=== PATIENT | female | born 1975 | race Caucasian/White ===

== ENCOUNTER 2019-10-28 10:46 | Observation (INO) | payer MEDICAID, SELFPAY ==
[2019-09-13 15:23] VITALS: BMI 27.8
--- NOTE | 2019-10-21 10:24 | NURSING ---
PT CALLED IN AFTER PAT PHONE CALL TO REPORT CARDIOLOGY HAD OK'D HER STOPPING HER PLAVIX 5 DAYS PRIOR SO LAST DOSE WILL BE 10/23/2019.
--- NOTE | 2019-10-27 19:53 | HP.PCM_ITS ---
History and Physical Date of Admission: 10/28/19 HISTORY OF PRESENT ILLNESS 43 year old woman presents with recent flare up of hidradenitis in her left axilla over the last several months. She has been on intermittent antibiotics with Keflex and Cleocin. She complains of intermittent redness and swelling and pain. She denies fever. She denies trauma. She has had multiple debridements of hidradenitis in the past involving bilateral axillary areas, bilateral inguinal areas, bilateral vulval areas involving the labia, and the buttocks area. She had the VAC on the buttocks wound and had daily dressing changes for the other wounds. She also has concerns about a painful mass left posterior ear by the earlobe t hat has increased in size as well with induration and redness and pain. She denies drainage. She denies trauma. She presents at this time for further evaluation and treatment. PAST MEDICAL HISTORY Anemia Anxiety and depression Asthma Breast lump in female GERD (gastroesophageal reflux disease) Gastrointestinal problem Heart valve problem High cholesterol History of blood clots IBS (irritable bowel syndrome) Kidney stones Recurrent infections Thyroid disease Vascular disease Chronic bronchitis PAST SURGICAL HISTORY appendectomy breast lump/mass excision cholecystectomy drainage of abscess embolectomy hernia repair hysterectomy left heart catheterization right knee surgery tonsillectomy ALLERGIES acetaminophen [From Tylenol-Codeine #3] codeine [From Tylenol-Codeine #3] sulfamethoxazole [From Bactrim] trimethoprim [From Bactrim] IVP DYE MEDICATIONS aspirin atorvastatin clopidogrel escitalopram hydroxyzine metoprolol tartrate doxycycline hyclate FAMILY HISTORY Mother - Anxiety and depression, Arthritis, History of blood clots, History of blood transfusion, Heart disease, CVA (cerebral vascular accident), History of ulcer disease Grandmother - Asthma, Anxiety and depression, Heart disease, Kidney disease, CVA (cerebral vascular accident) Grandfather - Heart disease, Lung cancer SOCIAL HISTORY Smoking Status: Current every day smoker alcohol intake: never REVIEW OF SYSTEMS General - Denies fever and weight loss. Has fatigue. Eyes - Denies cataracts and glaucoma. ENT - Denies nasal congestion and sore throat. Has history of swollen glands in the neck. Endocrine - Denies excessive thirst and urination. Skin - Denies suspicious lesions and skin cancer. Has recent flare up of left axillary hidradenitis. Has painful soft tissue mass left posterior ear by earlobe. Musculoskeletal - Denies joint pain, joint stiffness, weakness of muscles and joints, back pain, and arthritis. Neuro - Denies headaches. Has lightheadedness. Cardiovascular - Has chest pain and fatigue and lightheadedness. Denies shortness of breath with exertion. Psych - Denies anxiety and depression. Respiratory - Has chronic cough and shortness of breath. Has sleep apnea and asthma. Gastrointestinal - Denies nausea, vomiting. Has diarrhea, and constipation. Hematologic - Denies abnormal bruising and bleeding. Genitourinary - Denies hematuria and urinary frequency. PHYSICAL EXAMINATION General - Alert and Oriented. HEENT - PERRL. EOMI. Throat is clear. On the left posterior ear by the earlobe is a soft tissue mass that measures 6 mm. Tender to palpation. Overlying skin is adherent. Some induration present. No fluctuance. No purulent drainage. Neck - Supple and nontender. No cervical adenopathy. Lungs - Clear to auscultation. Heart - Regular rate and rhythm. Abdomen - Soft and nondistended. Extremities - FROM. No axillary adenopathy. Radial pulses are palpable. In the left axillary area is an area of redness and swelling and tenderness to palpation in the anterior aspect of the axilla. No fluctuance. No purulent drainage. On the posterior aspect is a hidradenitis scar that is tender to palpation. Mild induration. Scar measures 2 cm. Distance between the two areas of hidradenitis is 6 cm. Neuro - CN II-XII grossly intact. Psych - Normal mood and affect. ASSESSMENT 1. Recurrent left axillary hidradenitis. 2. 6 mm painful soft tissue mass hidradenitis left posterior ear by the mukesh pickens. 3. Smoker. PLAN Recommend excision of her recurrent left axillary hidradenitis. Will send tissue to Pathology for analysis to rule out carcinoma and to Microbiology for culture. A positive culture will necessitate antibiotic therapy. Will leave the wound open and begin wound care with the VAC. After discharge will followup at the Wound Center. If there is a plateau in the healing process, can proceed in a delayed fashion with skin grafting. At the same time will excise the infected painful soft tissue mass left posterior ear by the earlobe and send it to Pathology for analysis to rule out carcinoma. Will also excise the overlying adherent skin. Reconstruction will be with a skin flap. If gross pus is seen at surgery, then the wound will be left open and wound care started with Silver dressing changes daily. A culture will also be obtained as well. Surgery will be done under general anesthesia with a surgical observation overnight stay in the hospital. Patient was informed of the risks and complications of the procedure including alternatives to surgery. These were discussed with the patient personally. Patient voices understanding and wishes to proceed. Some of the risks and complications were included in a form from the [employer]. Encouraged patient to stop smoking as it may have deleterious effects on wound healing. To minimize flare ups of her hidradenitis, wrote a script for Doxycycline that she will take when she has flare ups.
[2019-10-28] VITALS (11 sets, daily range): BP systolic 103–143; BP diastolic 67–75; PULSE 65–88; RESP 16–18; TEMP 36.1–36.8; O2SAT 94–98; BMI 28.8
[2019-10-28] MEDS: Lactated Ringers 1,000 ML 100 ML IV (07:52)
--- NOTE | 2019-10-28 08:45 | LES_PTH ---
PATIENT: TAYLOR PENA LOC: MS3 U#:[id number] AGE/SX: 44/F ROOM: [id number] RE10/28/[address]: Dr. Ronnell Fraga MD : 1975 BED: 1 DIS: 10/29/2019 SPEC #: [id number] RECD: 10/28/19 12:59 STATUS: DAYAN PAOLA #: [id number] KM: 10/28/19 08:[address]: Ronnell Fraga DEPT: SURGICAL PATHOLOGY RECD BY: Garret Joseph Tissues: A - Skin of external ear, NOS B - Axilla, NOS Procedures: Surgery Specimen Level III HEADER OPERATION: Surgical preparation axilla with excision hidradenitis PRE-OP DIAGNOSIS: Recurrent left axillary hidradenitis; 6 mm painful soft tissue mass hidradenitis left posterior ear by earlobe TISSUE SUBMITTED: A - Left ear lesion, B - Left axilla hidradenitis MICROSCOPIC DIAGNOSIS A. Left ear lesion, biopsy: Epidermal inclusion cyst. B. Skin and soft tissue of left axilla, excision: Consistent with hidradenitis. AM:gracie 10/31/19 MICROSCOPIC DESCRIPTION Slides are reviewed. GROSS DESCRIPTION A - Received in fixative is one container labeled with the patient's name and designated left ear lesion. The specimen consists of an ellipse of light saab excised skin with attached light saab soft tissue measuring 2 x 0.5 cm and a depth of excision measuring 0.3 cm. Sections reveal a chalky, yellow cystic lesion measuring 5 mm. The specimen is inked, serially sectioned and totally submitted in one cassette. B - Received in fixative is one container labeled with the patient's name and designated left axilla hidradenitis. The specimen consists of two irregular fragments of saab-yellow fibrofatty tissue ranging in size from 4.5 to 11 cm. The larger fragment contains grossly unremarkable skin measuring 9 x 1.8 cm. Serial sections do not reveal mass lesions. [place]man sections are submitted in one cassette. / AM:gracie 10/28/19 TC:2 CPT: 32490 x2
[2019-10-28] MEDS: Mupirocin Ointment 22gm Tube 1 APPLIC (10:35)
--- NOTE | 2019-10-28 10:40 | PCM.OPRPT ---
Report of Operation Date of Procedure: 10/28/19 Pre-Operative Diagnosis: 1. Recurrent left axillary hidradenitis. 2. 6 mm painful soft tissue mass hidradenitis left posterior ear by the earlobe. 3. Smoker. Post-Operative Diagnosis: Same. Surgery/Procedure Performed:: 1. Surgical preparation left axilla with excision recurrent hidradenitis (55 cm2). 2. Excision 6 mm painful soft tissue mass hidradenitis left posterior ear by the earlobe with rhomboid transposition skin flap reconstruction (4.5 cm2). Description of Surgical Findings:: 43 year old woman presents with recent flare up of hidradenitis in her left axilla over the last several months. She has been on intermittent antibiotics with Keflex and Cleocin. She complains of intermittent redness and swelling and pain. She denies fever. She denies trauma. She has had multiple debridements of hidradenitis in the past involving bilateral axillary areas, bilateral inguinal areas, bilateral vulval areas involving the labia, and the buttocks area. She had the VAC on the buttocks wound and had daily dressing changes for the other wounds. She also has concerns about a painful mass left posterior ear by the earlobe that has increased in size as well with induration and redness and pain. She denies drainage. She denies trauma. Patient was informed of the risks and complications of the procedure including alternatives to surgery. These were discussed with the patient personally. Patient voices understanding and wishes to proceed. Some of the risks and complications were included in a form from the [employer]. Encouraged patient to stop smoking as it may have deleterious effects on wound healing. Size of defect left axilla - 11 x 5 x 2.5 cm. 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 Recurrent hidradenitis left axilla to Pathology and Microbiology. 2. Painful soft tissue mass hidradenitis left posterior ear by the earlobe to Pathology. Drains: None. Description of Procedure: Patient was taken to OR in supine position and was placed under general anesthesia. The left axilla and left ear areas were prepped and draped in the usual fashion. SCD's were placed for DVT prophylaxis. Perioperative antibiotics were given intravenously. Using xylocaine with epinephrine, the left ear lesion and left axilla were infiltrated. After waiting 5 minutes for the anesthetic to take effect, I excised the hidradenitis cyst left posterior ear near ear lobe and extending more superiorly. The excision extended into the subcutaneous tissue. No pus was seen. The lesion was sent to Pathology for analysis to rule out carcinoma. I designed a rhomboid flap adjacent to the defect. Incisions were made and the rhomboid flap was elevated on a subcutaneous pedicle and easily transposed into the ear defect with minimal tension and minimal distortion. Hemostasis was obtained with electrocautery. Once the flap was transposed into the defect, the wounds were closed in a layered fashion with 5-0 Monocryl interrupted sutures for the deep dermis and subcutaneous tissue. The skin was approximated with 5-0 Prolene simple interrupted sutures. Antibiotic ointment was applied followed by a small gauze dressing. I then went to the left axilla. I excised an ellipse of skin and subcutaneous tissue down to the underlying muscle. There was fat necrosis present and indurated tissue indicative of chronic scarring from infection as well as previous scarring from recurrent hidradenitis. No pus was seen. The wound was irrigated with saline. Hemostasis was obtained with electrocautery. Tissue was sent to Microbiology for culture as well as to Pathology for analysis to rule out carcinoma. A positive culture will necessitate antibiotic therapy. The size of the defect left axilla after excision of her recurrent hidradenitis, was 11 x 5 x 2.5 cm or 55 cm2. The wound was dressed with Mepitel nonadherent dressing followed by Kerlix gauze and Betadine followed by dry Kerlix gauze and followed by ABD pads and compression skinny wrap. Patient tolerated the procedure well and was sent to PACU in satisfactory condition. Patient will be sent upstairs for continued postop care. The VAC will be applied tomorrow. She will followup at the wound center after discharge. Grafts/Implants Used: None. - Complications None. - Admit VTE Documentation VTE Present on Admission: No VTE Mechan Device Prophylaxis: SCD's VTE Pharm Prophylaxis ordered?: No Code Visit Surgery Charges CPT - 82168 ICD-10 - R22.0, L73.2, F17.200 30753 R22.0, L73.2, F17.200 78786 L73.2, F17.200
[2019-10-28] MEDS: oxyCODONE 5 MG Tablet 10 MG PO ×3 (12:31→21:17)
--- NOTE | 2019-10-28 14:40 | CASEMGMT ---
JULIEN GASPAR updated by wound nurse that patient will need wound vac at discharge. JULIEN GASPAR in to discuss HHC with patient. JULIEN GASPAR provided list of HHC agencies. Patient would like [facility]. JULIEN GASPAR sent referral and they will be able to accept the patient. JULIEN GASPAR updated the patient. Discharge planned for Thursday with start of care for Thursday10/31/2019.
[2019-10-28] MEDS: Lactated Ringers 1,000 ML 60 ML IV (15:16)
[2019-10-28] MEDS: HYDROmorphone 1 MG/ML Syringe IV ×2 (19:59→23:49)
[2019-10-28] MEDS: Escitalopram Oxalate 20 MG Tablet PO (21:16)
[2019-10-28] MEDS: Docusate Sodium 100 MG Capsule PO (21:16)
[2019-10-28] MEDS: hydrOXYzine PAM 25 MG Capsule 50 MG PO (21:16)
[2019-10-28] MEDS: Varenicline 1 MG Tablet PO (21:16)
[2019-10-28] MEDS: Metoprolol Tartrate 25 MG Tablet PO (21:16)
[2019-10-28] MEDS: 0.9% Saline Lock 10 ML Syringe IV (23:49)
[2019-10-29] MEDS: oxyCODONE 5 MG Tablet 10 MG PO ×4 (01:35→15:55)
[2019-10-29 03:09] VITALS: BP 125/69; PULSE 58; RESP 18; TEMP 36.5; O2SAT 99
[2019-10-29] MEDS: Lactated Ringers 1,000 ML 60 ML IV (03:40)
[2019-10-29 07:35] LABS: Hemoglobin 12.1 g/dL (12.0-15.0); Mean Corp Hgb Conc 32.7 g/dL (32-36); Mean Corpuscular Volume 94.9 fL (81-99); Mean Platelet Vol. 12.3 fl (6.2-12.0); Platelet Count 164 K/mm3 (150-450); RBC Distribution Width CV 13.9 % (11.6-14.6); RBC Distribution Width SD 48.2 fl (35.1-43.9); White Blood Count 14.4 K/mm3 (4.4-11.0)
[2019-10-29 08:03] LABS: Anion Gap 3 (5-15); BUN 15 mg/dL (7-18); BUN/Creat Ratio 21.3 RATIO (10-20); Calcium,Total 9.1 mg/dL (8.5-10.1); Chloride 110 mmol/L (98-107); EST Glomerular Filtration Rate 97 mL/min (>60); Est Glom Filt Rate - Afr Amer 117 mL/min (>60); Estimated Creatinine Clearance 98.01 ml/min; Glucose 122 mg/dL (74-106); Potassium 4.2 mmol/L (3.5-5.1); Prealbumin 15.3 mg/dL (20.0-40.0); Sodium Level 139 mmol/L (136-145)
[2019-10-29] MEDS: 0.9% Saline Lock 10 ML Syringe IV ×2 (08:08→15:54)
[2019-10-29] MEDS: HYDROmorphone 1 MG/ML Syringe IV ×2 (08:08→15:54)
[2019-10-29] MEDS: Docusate Sodium 100 MG Capsule PO (08:15)
[2019-10-29] MEDS: Mupirocin Ointment 22gm Tube 1 APPLIC TOPICAL (08:15)
[2019-10-29] MEDS: Clopidogrel Bisulfate 75 MG Tablet PO (08:16)
[2019-10-29] MEDS: Pantoprazole Sodium 20 MG Tablet 40 MG PO (08:16)
[2019-10-29] MEDS: Varenicline 1 MG Tablet PO (08:17)
[2019-10-29] MEDS: Escitalopram Oxalate 20 MG Tablet PO (08:17)
[2019-10-29 08:18] VITALS: PULSE 46
[2019-10-29 08:22] VITALS: BP 103/77; PULSE 46; RESP 18; TEMP 36.8; O2SAT 97
[2019-10-29 08:32] VITALS: O2SAT 98
--- NOTE | 2019-10-29 08:32 | CPS ---
Patient currently on room air, patient reports using nasal cannula overnight.
[2019-10-29 14:36] VITALS: BP 137/69; PULSE 48; RESP 18; TEMP 37.1; O2SAT 99
--- NOTE | 2019-10-29 14:39 | PCM.PN.SRG ---
Subjective: Postop #1 Patient is resting comfortably - Physical Exam Vitals/I&O's: Vital Signs Temp Pulse Resp BP Pulse Ox 98.7 F 48 L 18 137/69 H 99 10/29/19 14:36 10/29/19 14:36 10/29/19 14:36 10/29/19 14:36 10/29/19 14:36 Oxygen Flow Rate (L/min) 2 Oxygen Delivery Method Room Air Weight: 179 lb 0.246 oz Body Mass Index (BMI) 28.8 Intake and Output for Last 24 Hours 10/27/19 10/28/19 10/29/19 23:59 23:59 23:59 Intake Total 1574 / 2974 4347 / 4347 Balance 1574 / 2974 4347 / 4347 General: Alert, Oriented x3 HEENT: PERRLA, EOMI Oral: Moist Mucosa Neck: Supple Abdomen: Soft, Non-Distended Skin: Ulcer/ Wound - left axillary wound is stable. No active bleeding seen. VAC applied today., Incision - left posterior ear incision is dry and intact. Flap is healing satisfactory. Neurological: Cranial nerves II-XII grossly intact Psych/Mental Status: Normal Affect, Appropriate Microbiology Past 72 Hours 10/28/19 11:00 Tissue - Other Gram Stain - Final 10/28/19 11:00 Tissue - Other Wound Culture - Preliminary No growth-Final to follow Laboratory Results 10/29/19 06:44: WBC 14.4 H, RBC 3.90 L, Hgb 12.1, Hct 37.0, MCV 94.9, MCH 31.0, MCHC 32.7, RDW Std Deviation 48.2 H, RDW Coeff of Ping 13.9, Plt Count 164, MPV 12.3 H 10/29/19 06:44: Sodium 139, Potassium 4.2, Chloride 110 H, Carbon Dioxide 26.0, Anion Gap 3 L, BUN 15, Creatinine 0.70, Estim Creat Clear Calc 98.01, Est GFR (MDRD) Af Amer 117, Est GFR (MDRD) Non-Af 97, BUN/Creatinine Ratio 21.3 H, Glucose 122 H, Calcium 9.1, Prealbumin 15.3 L Current Medications Budesonide (Pulmicort Aerosol) 0.5 mg INHALATION Q12H.RT JAVED Last Admin: 01/11/20 08:32 Dose: Not Given Documented by: Clopidogrel Bisulfate (Plavix) 75 mg PO DAILY [facility] Last Admin: 10/29/19 08:16 Dose: 75 mg Documented by: Diazepam (Valium) 5 mg PO 4X/DAY PRN PRN PRN Reason: SPASMS Docusate Sodium (Colace) 100 mg PO BID [facility] Last Admin: 10/29/19 08:15 Dose: 100 mg Documented by: Escitalopram Oxalate (Lexapro) 20 mg PO DAILY [facility] Last Admin: 10/29/19 08:17 Dose: 20 mg Documented by: Hydromorphone HCl (Dilaudid Inj) 1 mg IV Q3H PRN PRN PRN Reason: Pain Score 6-1010 Last Admin: 10/29/19 08:08 Dose: 1 mg Documented by: Hydroxyzine Pamoate (Vistaril Pamoate Capsule) 50 mg PO QHS [facility] Last Admin: 10/28/19 21:16 Dose: 50 mg Documented by: Clindamycin Phosphate 600 mg/ (Dextrose) 54 mls @ 100 mls/hr IV Q8 [facility] Last Admin: 10/29/19 14:28 Dose: 100 mls/hr Documented by: Lactated Ringer's () 1,000 mls @ 60 mls/hr IV .[id number] [facility] Last Infusion: 10/29/19 06:35 Dose: 60 mls/hr Documented by: Sodium Chloride () 250 mls @ 15 mls/hr IV .[id number] PRN PRN Reason: Saline Flush Sodium Chloride () 250 mls @ 15 mls/hr IV .[id number] PRN PRN Reason: Additional IVPB Infusion Metoprolol Tartrate (Lopressor (Beta Samina)) 25 mg PO BID [facility] Last Admin: 10/29/19 08:18 Dose: Not Given Documented by: Mupirocin (Bactroban) 1 applic TOPICAL DAILY [facility]; Protocol Last Admin: 10/29/19 08:15 Dose: 1 applicatio Documented by: Nutritional Formula (Franco - Brown Flavor) [facility] Last Admin: 10/29/19 08:10 Dose: 1 packet Documented by: Ondansetron HCl (Zofran) 8 mg PO Q8H PRN PRN PRN Reason: NAUSEA Oxycodone HCl (Oxyir) 10 mg PO Q4H PRN PRN PRN Reason: Pain Score 6-10/10 Last Admin: 10/29/19 11:00 Dose: 10 mg Documented by: Pantoprazole Sodium (Protonix) 40 mg PO DAILY [facility] Last Admin: 10/29/19 08:16 Dose: 40 mg Documented by: Promethazine HCl (Phenergan Tablet) 25 mg PO Q6H PRN PRN PRN Reason: NAUSEA Sodium Chloride () 10 - 40 ml IV UD PRN PRN Reason: SALINE FLUSH Last Admin: 10/29/19 08:08 Dose: 10 ml Documented by: Varenicline (Chantix) 1 mg PO BID [facility] Last Admin: 10/29/19 08:17 Dose: 1 mg Documented by: Medical Necessity - Tobacco Use Smoking Status: Current every day smoker Tobacco Use: Cigarettes Assessment/Plan 1. Recurrent left axillary hidradenitis. 2. 6 mm painful soft tissue mass hidradenitis left posterior ear by the earlobe. 3. Smoker. 4. s/p surgical preparation left axilla with excision recurrent hidradenitis (55 cm2) and excision 6 mm painful soft tissue mass hidradenitis left posterior ear by the earlobe with rhomboid transposition skin flap reconstruction (4.5 cm2). Left axillary wound is stable. No active bleeding seen. VAC applied today. It has been approved. Left posterior ear incision is dry and intact. Flap is healing satisfactory.' Operative culture is negative thus far. Will send home on Doxycycline. Prealbumin was 15.3. Encourage nutritional supplementation with protein to help the healing process. Discharge home today. Followup Wound Center 11/07/19. Wrote script for Doxycycline for a month with a refill. Can use them also for future flare ups. Wrote scripts for Percocet for pain (40 tabs) and for Valium for spasm (30 tabs). Wrote scripts for Phenergan for nausea (30 tabs) and a refill and for Colace for constipation (60 tabs). Encouraged patient to stop smoking as it may have deleterious effects on wound healing.
--- NOTE | 2019-10-29 14:47 | DCINST_ITS ---
You will use the following diet at home:: No restrictions, Other - encourage nutritional supplementation with protein to help the healing process. Discharge Activity: May not drive while taking narcotic pain medications., May Shower - on the days the vac is changed., - - keep head elevated. elevate left arm. no heavy lifting. May shower in (days): 2 - may shower on the days the vac is changed. May resume sexual activity in: No Restrictions Weight Bearing Status: Weight bearing as tolerated Lifting Restrictions: 20 lbs. Keep extremity elevated above heart level: Left Arm, - - elevate head. Call your doctor if your incision/area has: Continuous Slow Oozing, Sudden Increased Bleeding, Increased Pain/ Swelling, Increased Redness, Foul Smelling Discharge, Swelling at the incision site Call your doctor if you observe: Fever of 101 or Higher, Coldness, Increased Pain, Shortness of breath, Chest pain, Calf discomfort, Uncontrolled pain Suture Line Care: - - apply antibiotic ointment to left ear incision daily. Change Dressing in (Days):: 2 - vac change three times per week at 150 mmHg continuous suction. Cleanse incision/area with: Soap & Water - may wash the wound with soap and water at the time of the vac dressing change., - - may shower on the days the vac is changed. Additional Dressing/Incision Instructions:: Home Health to assist with vac dressing changes three times per week at 150 mmHg continuous suction. Please wash the wound with soap and water on the days the vac is changed. Allergies/Adverse Reactions: Allergies acetaminophen [From Tylenol-Codeine #3] Allergy (Mild, Verified 10/28/19 07:41) ALLERGY codeine [From Tylenol-Codeine #3] Allergy (Mild, Verified 10/28/19 07:41) ALLERGY sulfamethoxazole [From Bactrim] Allergy (Mild, Verified 10/28/19 07:41) ALLERGY trimethoprim [From Bactrim] Allergy (Mild, Verified 10/28/19 07:41) ALLERGY adhesive tape Allergy (Verified 10/28/19 07:41) Rash IVP DYE Allergy (Severe, Uncoded 10/28/19 07:41) ALLERGY Medications to take at Discharge clopidogrel 75 mg tablet 75 mg PO DAILY 06/21/19 escitalopram oxalate 20 mg tablet 20 mg PO DAILY 06/21/19 hydroxyzine HCl 50 mg tablet 50 mg PO QHS 06/21/19 metoprolol tartrate 25 mg tablet 25 mg PO BID 06/21/19 Albuterol Inhaler [Ventolin Hfa] 1 puff INHALATION Q6H PRN PRN 10/21/19 Fluticasone 110 Mcg [Flovent 110 Mcg] 2 puff INHALATION BID 10/21/19 Omeprazole 40 mg PO DAILY 10/21/19 Varenicline [Chantix] 1 mg PO BID 10/21/19 Budesonide Aerosol [Pulmicort Respules] 0.5 mg INHALATION Q12H.RT ampul.neb. 10/29/19 Diazepam [Valium] 5 mg PO 4X/DAY PRN PRN #30 tablet 10/29/19 Docusate Sodium [Colace] 100 mg PO BID #60 cap 10/29/19 Doxycycline Hyclate 100 mg PO BID #60 cap 10/29/19 Mupirocin [Bactroban] 1 applic TOPICAL DAILY tube 10/29/19 Oxycodone HCl/Acetaminophen [Percocet 5/325] 1 tablet PO Q4H PRN PRN 7 Days #40 tablet 10/29/19 proMETHazine tablet [Phenergan tablet] 25 mg PO 4X/DAY PRN PRN #30 tab 10/29/19 The following prescriptions were given: Docusate Sodium [Colace] 100 mg PO BID #60 cap Transmission Status: Pending to [facility] Doxycycline Hyclate 100 mg PO BID #60 cap Transmission Status: Pending to [facility] Oxycodone HCl/Acetaminophen [Percocet 5/325] 1 tablet PO Q4H PRN PRN 7 Days #40 tablet PRN Reason: Pain Score 4-5/10 Transmission Status: Received by [facility] proMETHazine tablet [Phenergan tablet] 25 mg PO 4X/DAY PRN PRN #30 tab PRN Reason: Nausea Transmission Status: Pending to [facility] Diazepam [Valium] 5 mg PO 4X/DAY PRN PRN #30 tablet PRN Reason: Spasms Transmission Status: Received by [facility] Primary Care Physician: BROOKS IBARRA [Other] Test Results: Test results from this visit will be discussed in further detail at your follow- up appointment, if applicable. Please Follow Up With: Ronnell Fraga MD When: thursday11/07/19 at [facility]. call [phone] for appt. Proposed Discharge Date: 10/29/19
[2019-10-29 16:50] VITALS: BP 117/71; PULSE 46; RESP 18; TEMP 36.9; O2SAT 97
--- NOTE | 2019-10-29 17:38 | NURSING ---
Wound Vac applied to LT Axillary at this time, going at 150mmhg.
== END 2019-10-29 17:35 | disposition home health service (06) ==
LOC: SDC 11:55 → MS3 11:55
PROVIDERS: Admitting Provider Surgery; Referring Provider Surgery; Visit Provider Surgery
PROC: (CPT 11451; principal; 2019-10-28 08:30)
PROC: (CPT 11451; 2019-10-28 08:30)
DX: L73.2 Hidradenitis suppurativa (principal); J45.909 Unspecified asthma, uncomplicated; E78.5 Hyperlipidemia, unspecified; K21.9 Gastro-esophageal reflux disease without esophagitis; K58.9 Irritable bowel syndrome, unspecified; F17.210 Nicotine dependence, cigarettes, uncomplicated; Z86.718 Personal history of other venous thrombosis and embolism; Z79.899 Other long term (current) drug therapy; Z79.82 Long term (current) use of aspirin; Z79.02 Long term (current) use of antithrombotics/antiplatelets
CPT/HCPCS: 11451; 14040; 69110; 36415; 80048; 84134; 85027; 87070; 87075; 87102; 87176; 87205; 87206; 88304; 88305; 96361; 96365; 96366; 96375; 96376; 99218; 99251; 99406; J7120; 90686; A4216; G0378; G0379; G0463; J2405

== ENCOUNTER 2019-11-07 14:21 | Emergency (ER) | payer MEDICAID, SELFPAY ==
[2019-10-28 11:53] VITALS: BMI 28.8
[2019-11-07 14:22] VITALS: BP 140/91; PULSE 89; RESP 18; TEMP 36.3; BMI 29.9
--- NOTE | 2019-11-07 15:41 | RAD_ITS ---
STUDY: X-RAY - LEFT SHOULDER REASON FOR EXAM: Female, 44 years old. C/O LEFT ARM WOUND REDNESS AND FOUL SMELL NOTED WITH WOUND VAC, RECENT GLAND REMOVED FROM AXILLA TECHNIQUE: 4 view(s) of the shoulder. COMPARISON: None. FINDINGS: Normal glenohumeral articulation. Normal acromioclavicular joint. Normal acromion. Normal humeral head and visualized proximal humerus. The soft tissue structures are unremarkable. Normal visualized pulmonary apex. RAD/Shoulder min 2 Views IMPRESSION: Normal x-ray examination of the shoulder. Electronically Signed: Patrick Hall MD at 16:22 EST Tel , Service support ,
[2019-11-07] MEDS: Ondansetron 4 MG/2 ML Vial IV (16:02)
[2019-11-07] MEDS: Morphine 4 MG/ML Syringe IV (16:02)
[2019-11-07 16:29] LABS: Absolute Neutrophil Count 6.3 X10^3/uL (2.0-7.7); Basophil# 0.04 X10^3/uL; Basophil% 0.4 % (0-1); Eosinophil# 0.27 X10^3/uL; Eosinophils% 2.6 % (0-5); Hematocrit 41.3 % (37-47); Hemoglobin 13.2 g/dL (12.0-15.0); Lymphocyte % 27.8 % (19-41); Mean Corpuscular Hgb 30.2 pg (27.0-32.0); Mean Corpuscular Volume 94.5 fL (81-99); Monocyte# 0.83 X10^3/uL; NRBC Flagged by Analyzer 0 % (0-5); Neutrophil # 6.34 X10^3/uL (2.7-7.7); Neutrophil % 60.8 % (47-70); Platelet Count 229 K/mm3 (150-450); RBC Distribution Width CV 13.3 % (11.6-14.6); RBC Distribution Width SD 46.7 fl (35.1-43.9); Red Blood Count 4.37 M/mm3 (4.2-5.4); White Blood Count 10.4 K/mm3 (4.4-11.0)
[2019-11-07 16:37] LABS: Anion Gap 4 (5-15); BUN 10 mg/dL (7-18); BUN/Creat Ratio 12.9 RATIO (10-20); Calcium,Total 9.2 mg/dL (8.5-10.1); Chloride 109 mmol/L (98-107); Creatinine, Serum 0.77 mg/dL (0.55-1.02); EST Glomerular Filtration Rate 87 mL/min (>60); Est Glom Filt Rate - Afr Amer 105 mL/min (>60); Glucose 77 mg/dL (74-106); Sodium Level 142 mmol/L (136-145)
--- NOTE | 2019-11-07 16:59 | ED.VIS.GEN ---
History of Present Illness Chief Complaint: Wound Detail of Chief Complaint: Sent to ER by visiting nurse Onset: Days Context: Gradual Onset Timing: Continuous Quality: Pain Location: Left axilla Current Severity: Mild Maximum Severity: Moderate Worsened by: Movement Relieved by: Nothing Associated Symptoms: Redness and concern for infection Narrative: Patient presents after visiting nurse noted there is discoloration of the posterior aspect suspect of the left axillary wound. There is no drainage. She denies documented fever. She is had no chills. Triage documented there is an odor to the wound. She arrived with a wound VAC apparatus to be applied after evaluation. Patient denies chest pain, shortness of breath or difficulty breathing. Patient has not noticed any drainage from the area. She had hidradenitis suppurativa which required excision by Dr. Ronnell Fraga. Prior similar symptoms: Yes Recent Illness/Hospitalization: Yes - Past Medical History (1) Open wound of left axillary region with complication Status: Acute (2) Hidradenitis suppurativa Status: Chronic Comment: left posterior ear by the earlobe (3) Smoker Status: Chronic Past Medical History - Allergies and Home Meds Allergies/Adverse Reactions: Allergies acetaminophen [From Tylenol-Codeine #3] Allergy (Mild, Verified 11/07/19 15:57) ALLERGY codeine [From Tylenol-Codeine #3] Allergy (Mild, Verified 11/07/19 15:57) ALLERGY sulfamethoxazole [From Bactrim] Allergy (Mild, Verified 11/07/19 15:57) ALLERGY trimethoprim [From Bactrim] Allergy (Mild, Verified 11/07/19 15:57) ALLERGY adhesive tape Allergy (Verified 11/07/19 15:57) Rash IVP DYE Allergy (Severe, Uncoded 11/07/19 15:57) ALLERGY Primary Care Physician: BROOKS IBARRA [Other] Prior records reviewed: Yes Surgical History: - - Wide excision of the left axilla Lives: Alone Smoking Status: Current every day smoker Alcohol: Rare Drugs: None Review of Systems General: Denies: Chills, Fever, Malaise, Subjective, Sweats Eyes: Denies: Visual changes - bilaterally, Blurred Vision - bilaterally Cardiovascular: Denies: Chest pain, Palpitations Respiratory: Denies: Dyspnea, Cough, Dyspnea on exertion Gastrointestinal: Denies: Abdominal pain, Nausea, Vomiting, Diarrhea Musculoskeletal: Reports: Swelling, Extremity Pain. Denies: Myalgias, Arthralgias, Neck pain, Back pain Skin: Reports: Rash, Wounds Neurological: Denies: Weakness, Parasthesia, Numbness Psych: Reports: Depression Hematologic: Denies: Easy bruising, Easy bleeding Physical Exam Vital Signs/Narrative: Vital Signs Temp Pulse Resp BP 11/07/19 14:22 97.3 F L 89 18 140/91 H Inital Vital Signs reviewed: Yes General: Well nourished, Well developed, Obese, No Acute Distress Head: Normocephalic, Atraumatic Eyes: Perrl, EOMI. Negative for: Pale conjunctiva, Scleral icterus ENT: Moist mucous membranes, No rhinorrhea Neck: Supple, Nontender. Negative for: No lymphadenopathy, No JVD Cardiovascular: Regular rate, Regular rhythm, No murmurs, Normal S1, Normal S2 Respiratory: No distress, CTA bilaterally, Chest nontender Back: Nontender, Normal Inspection Extremities: - - Slight discoloration without erythema, warmth, induration or fluctuance posterior aspect of left axillary wound/incision. There is no drainage. There is no odor. Patient complains of pain with passive range of motion. Axillary, median, radial and ulnar function intact. Radial pulse is 2+ and symmetric.. Negative for: Nontender Skin: Normal color, No rash, No Trauma. Negative for: Cyanosis, Diaphoresis, Jaundice Neurological: Alert, Oriented x3, Cranial nerves II-XII grossly intact, Normal Strength, Normal Sensation Psychological: Depressed Diagnostic/Tx/Re-eval Impressions Shoulder X-Ray 11/07/19 15:41 IMPRESSION: Normal x-ray examination of the shoulder. Electronically Signed: Patrick Hall MD at 16:22 EST Tel , Service support , 11/07/19 15:41 Shoulder min 2 Views [RAD] Stat Laboratory Results 11/07/19 11/07/19 16:00 16:00 WBC 10.4 RBC 4.37 Hgb 13.2 Hct 41.3 MCV 94.5 MCH 30.2 MCHC 32.0 RDW Std Deviation 46.7 H RDW Coeff of Ping 13.3 Plt Count 229 MPV 11.0 Immature Gran % (Auto) 0.400 Neut % (Auto) 60.8 Lymph % (Auto) 27.8 [place] % (Auto) 8.0 Eos % (Auto) 2.6 Baso % (Auto) 0.4 Absolute Neuts (auto) 6.3 Absolute Lymphs (auto) 2.90 Nucleated RBC % 0 Sodium 142 Potassium 4.0 Chloride 109 H Carbon Dioxide 29.0 Anion Gap 4 L BUN 10 Creatinine 0.77 Estim Creat Clear Calc 89.10 Est GFR (MDRD) Af Amer 105 Est GFR (MDRD) Non-Af 87 BUN/Creatinine Ratio 12.9 Glucose 77 Calcium 9.2 - Medical Decision Making X-ray was obtained and there is no evidence of osteomyelitis, subcutaneous air or foreign body. Blood work was obtained as well. Blood work is unremarkable. Will contact appropriate personnel to apply wound VAC. Patient was medicated with p.o. pain meds. ED Disposition - Plan for ED Patient: Disposition: Home or Assisted Living Diagnosis: Post-operative pain, Encounter for evaluation of wound Instructions: POST OP WOUND CHECK, General Referrals: BROOKS IBARRA [Other] Ronnell Fraga MD [STAFF PHYSICIAN] - Keep Kenisha appointment
== END 2019-11-07 17:35 | disposition home or self-care (01) ==
PROVIDERS: Emergency Provider Emergency Medicine
DX: G89.18 Other acute postprocedural pain (principal); Z48.00 Encounter for change or removal of nonsurgical wound dressing; E66.9 Obesity, unspecified; L73.2 Hidradenitis suppurativa; F17.200 Nicotine dependence, unspecified, uncomplicated
CPT/HCPCS: 73030; 80048; 85025; 96374; 96375; 99283; A4216; J2405

== ENCOUNTER 2019-11-14 10:13 | Outpatient (RCR) | payer MEDICAID, SELFPAY ==
[2019-10-28 11:53] VITALS: BMI 28.8
[2019-11-14 10:55] VITALS: BP 133/91; PULSE 91; RESP 18; TEMP 36.5; BMI 28.7
--- NOTE | 2019-11-14 13:22 | PCM.WC.PN ---
(1) Open wound of left axillary region with complication Status: Acute Current Visit: Yes Code(s): S41.102A - Unspecified open wound of left upper arm, initial encounter (2) Smoker Status: Chronic Current Visit: Yes Code(s): F17.200 - Nicotine dependence, unspecified, uncomplicated (3) Hidradenitis suppurativa Status: Chronic Current Visit: Yes Code(s): L73.2 - Hidradenitis suppurativa Comment: left posterior ear by the earlobe (4) Facial mass Status: Chronic Current Visit: Yes Code(s): R22.0 - Localized swelling, mass and lump, head Comment: 6 mm painful soft tissue mass left posterior ear by the earlobe Type of Wound Date of Service: 11/14/19 Chief Complaint: Left axilla hidradenitis and left posterior ear incision. History of Wound: Patient had surgery on 10/28/2019 for 1. Surgical preparation left axilla with excision recurrent hidradenitis (55 cm2). 2. Excision 6 mm painful soft tissue mass hidradenitis left posterior ear by the earlobe with rhomboid transposition skin flap reconstruction (4.5 cm2). Her surgical wound culture from 10/28/19 were negative for growth. The pathology of left ear lesion was an epidermal inclusion cyst. The skin and soft tissue from the left axilla was consistent with hidradenitis. The home health nurse instructed her to go to the ED because there is discoloration of the left axilla wound. An xray of her left shoulder showed there was no evidence of osteomyelitis, subcutaneous air or foreign body. She is complaining of left elbow pain and swelling that she received an ultrasound of her left arm which was negative for DVT. She is on chantix to help her stop smoking and she has cut back from 2 packs per day down to 5 cigarettes per day. She has a history of embolectomy of her right leg from 11/15/2018, she is now on Plavix. Wound care: Will place wound VAC on hold this week and will do Aquacel silver dressing daily. Denies any fever or chills. Progress of Wound: Improved. - Physical Exam Vital Signs Temp Pulse Resp BP 97.7 F L 91 18 133/91 H 11/14/19 10:55 11/14/19 10:55 11/14/19 10:55 11/14/19 10:55 General: Alert, Oriented x3, Cooperative HEENT: Atraumatic Oral: Moist Mucosa Lungs: Normal air movement Cardiovascular: Regular rate Extremities: Capillary Refill Less than 3 Seconds, Edema, Peripheral Pulses Normal Skin: Ulcer/ Wound - left axilla, Incision - posterior left ear incision, sutures removed. Wound Measurements and Assessment WC - Nurse 1 - General Ulcer Measurement Start: 11/14/19 10:55 Freq: Status: Active Protocol: Activity Type Activity Date Activity User E-Sign Co-Sign Detail Recorded Client Recorded Date Recorded By Document 11/14/19 10:55 MW [id number] 11/14/19 11:02 MW 11/14/19 10:55 Wound Center Nurse 1 [Ulcer Assessment] #2- L POST EAR (SUTURES INTACT) -Combined with other wound No -Current Size (cm) - Length 0.1 -Current Size (cm) - Width 0.1 -Current Size (cm) - Depth 0.1 -Total Square Cm 0.01 -Date of Last Picture (Recall this 11/14/19 field) -Photo Taken Yes -Tunneling No -Undermining/Tunneling No -Circular Undermining No -Wound Margin Distinct, Outline Attached -Texture ([place]-wound Skin Appearance) Assessed -Moisture ([place]-wound Skin Appearance Assessed ) -Color ([place]-wound Skin Appearance) Assessed -Temperature ([place]-wound Skin No Abnormality Appearance) (Pt Warm) -Tenderness on Palpation ([place]-wound No Skin Appearance) -Ulcer Cleansing Rinsed/ Irrigated with Saline -Foul Odor after Cleansing No -Anesthetic Used 5% Lidocaine Gel #1- L AXILLA (POST OP) -Combined with other wound No -Current Size (cm) - Length 8.5 -Current Size (cm) - Width 0.7 -Current Size (cm) - Depth 0.9 -Total Square Cm 5.95 -Date of Last Picture (Recall this 11/14/19 field) -Photo Taken Yes -Epithelialization None Present -Tunneling No -Undermining/Tunneling No -Circular Undermining No -Exudate Amt Small -Exudate Type Sanguineous -Wound Margin Distinct, Outline Attached -Granulation Amt Large (67-100%) -Granulation Quality Red -Slough/Fibrin No -Necrosis Amt None Present (0 %) -Texture ([place]-wound Skin Appearance) Assessed, Scarring -Moisture ([place]-wound Skin Appearance Assessed ) -Color ([place]-wound Skin Appearance) Assessed -Temperature ([place]-wound Skin No Abnormality Appearance) (Pt Warm) -Tenderness on Palpation ([place]-wound Yes Skin Appearance) -Ulcer Cleansing SOAPY WATER -Foul Odor after Cleansing No -Anesthetic Used 4% Lidocaine Solution WC - Nurse 2 - General Ulcer CM Notes Start: 11/14/19 10:55 Freq: Status: Active Protocol: Activity Type Activity Date Activity User E-Sign Co-Sign Detail Recorded Client Recorded Date Recorded By Document 11/14/19 11:16 NINA [id number] 11/14/19 11:19 NINA 11/14/19 11:16 Wound Center Nurse 2 [Procedure/Treatment] #2- L POST EAR (SUTURES INTACT) -Time 11:22 -Correct Patient Yes -Correct Side, Site, Position Yes -Correct Procedure Yes -Procedure Performed Yes -Type of Procedure Debridement -Clinical Debridement Subcutaneous -Post Debridement Size (cm) - Length 0.4 -Post Debridement Size (cm) - Width 0.4 -Post Debridement Size (cm) - Depth 0.1 -Total Square Cm 0.16 -Wound/Ulcer Outcome Not Healed #1- L AXILLA (POST OP) -Time 11:17 -Correct Patient Yes -Correct Side, Site, Position Yes -Correct Procedure Yes -Procedure Performed Yes -Type of Procedure Debridement -Clinical Debridement Subcutaneous -Post Debridement Size (cm) - Length 10.5 -Post Debridement Size (cm) - Width 1.5 -Post Debridement Size (cm) - Depth 0.9 -Total Square Cm 15.75 -Wound/Ulcer Outcome Not Healed -Ulcer Cleansing Rinsed/ Irrigated with Saline -Foul Odor after Cleansing No -Bioengineered Tissue No -Bleeding Controlled with Pressure -Offloading No -Treatment Response Procedure Tolerated Well [See Physician Procedure note for Specifics] Pain Scale: 0-10 Numeric [Pain] -Is Patient Pain Free? Yes Musculoskeletal: No Tenderness to Palpation of Joints or Extremities Neurological: Neuro grossly intact Psych/Mental Status: Normal Affect, Appropriate Debridement Note Post-Debridement Measurements/Treatment WC - Nurse 2 - General Ulcer CM Notes Start: 11/14/19 10:55 Freq: Status: Active Protocol: Activity Type Activity Date Activity User E-Sign Co-Sign Detail Recorded Client Recorded Date Recorded By Document 11/14/19 11:16 [id number] 11/14/19 11:19 11/14/19 11:16 Wound Center Nurse 2 #2- L POST EAR (SUTURES INTACT) -Time 11:22 -Correct Patient Yes -Correct Side, Site, Position Yes -Correct Procedure Yes -Procedure Performed Yes -Type of Procedure Debridement -Clinical Debridement Subcutaneous -Post Debridement Size (cm) - Length 0.4 -Post Debridement Size (cm) - Width 0.4 -Post Debridement Size (cm) - Depth 0.1 -Total Square Cm 0.16 -Wound/Ulcer Outcome Not Healed #1- L AXILLA (POST OP) -Time 11:17 -Correct Patient Yes -Correct Side, Site, Position Yes -Correct Procedure Yes -Procedure Performed Yes -Type of Procedure Debridement -Clinical Debridement Subcutaneous -Post Debridement Size (cm) - Length 10.5 -Post Debridement Size (cm) - Width 1.5 -Post Debridement Size (cm) - Depth 0.9 -Total Square Cm 15.75 -Wound/Ulcer Outcome Not Healed -Ulcer Cleansing Rinsed/ Irrigated with Saline -Foul Odor after Cleansing No -Bioengineered Tissue No -Bleeding Controlled with Pressure -Offloading No -Treatment Response Procedure Tolerated Well Pain Scale: 0-10 Numeric Is Patient Pain Free? Yes Wound debrided: axilla Laterality: Left Type of Debridement: Excisional debridement Anesthesia Used: 5% Lidocaine Gel Depth: Down to and including healthy tissue, in the subcutaneous layer Percentage of wound debrided: 100 Instrument Used: 5mm curette Tissue Removed: subcutaneous tissue and slough Severity: Fat Layer Exposed Amount of bleeding with debridement: Mild Bleeding Controlled with: Pressure Patient tolerated procedure well Assessment/Plan Active Problems (Last Reviewed 09/15/19 @ 14:54 by Ronnell Frgaa MD) Open wound of left axillary region with complication (Acute) Smoker (Chronic) Hidradenitis suppurativa (Chronic) left posterior ear by the earlobe Facial mass (Chronic) 6 mm painful soft tissue mass left posterior ear by the earlobe Assessment: 1. Open wound of left axillary region with complication. 2. Hidradenitis suppurativa. 3. Facial mass - 6 mm painful soft tissue mass left posterior ear by the earlobe. 4. Smoker Plan: Patient had surgery on 10/28/2019 for 1. Surgical preparation left axilla with excision recurrent hidradenitis (55 cm2). 2. Excision 6 mm painful soft tissue mass hidradenitis left posterior ear by the earlobe with rhomboid transposition skin flap reconstruction (4.5 cm2). Her surgical wound culture from 10/28/19 were negative for growth. The pathology of left ear lesion was an epidermal inclusion cyst. The skin and soft tissue from the left axilla was consistent with hidradenitis. The home health nurse instructed her to go to the ED because there is discoloration of the left axilla wound. An xray of her left shoulder showed there was no evidence of osteomyelitis, subcutaneous air or foreign body. She is complaining of left elbow pain and swelling that she received an ultrasound of her left arm which was negative for DVT. She is on chantix to help her stop smoking and she has cut back from 2 packs per day down to 5 cigarettes per day. She presents today to the wound center for a subcutaneous debridement to the left axilla. The sutures were removed without difficulty to the left posterior ear. Encouraged range of motion to the left shoulder. If her left elbow continues to bother her she should follow up with her PCP. She is on Clindamycin for her antibiotics. Wound care: Will place wound VAC on hold this week and will do Aquacel silver dressing daily. Follow up one week. Code Visit [id number]: [id number] Global Visit
== END 2019-11-18 23:59 ==
LOC: WC 10:13
PROVIDERS: Visit Provider Surgery
DX: L73.2 Hidradenitis suppurativa (principal); R22.0 Localized swelling, mass and lump, head; L72.0 Epidermal cyst; F17.210 Nicotine dependence, cigarettes, uncomplicated
CPT/HCPCS: 11042; 99213; G0463

== ENCOUNTER 2019-12-05 09:45 | Outpatient (RCR) | payer MEDICAID, SELFPAY ==
[2019-11-19 01:13] VITALS: BP 133/91; PULSE 91; RESP 18; TEMP 36.5
[2019-12-05 10:08] VITALS: BP 127/83; PULSE 74; RESP 16; TEMP 35.8; BMI 28.7
--- NOTE | 2019-12-05 18:14 | PN.PCM_ITS ---
Type of Wound Date of Service: 12/05/19 Chief Complaint: Nonhealing hidradenitis ulcer left axilla. History of Wound: Patient had surgery on 10/28/2019 for 1. Surgical preparation left axilla with excision recurrent hidradenitis (55 cm2). 2. Excision 6 mm painful soft tissue mass hidradenitis left posterior ear by the earlobe with rhomboid transposition skin flap reconstruction (4.5 cm2). Wound care - Silver. Operative culture was negative. She was treated perioperatively with Doxycycline. She was recently in the ED and was placed on Clindamycin and has finished them. The pathology of left ear lesion was an epidermal inclusion cyst. The skin and soft tissue from the left axilla was consistent with hidradenitis. Today she denies fever. Her appetite is ok. Progress of Wound: Healed. - Physical Exam Vital Signs Temp Pulse Resp BP 96.5 F L 74 16 127/83 H 12/05/19 10:08 12/05/19 10:08 12/05/19 10:08 12/05/19 10:08 Skin: Incision - left posterior ear incision healed. Wound Measurements and Assessment WC - Nurse 1 - General Ulcer Measurement Start: 11/28/19 10:23 Freq: Status: Active Protocol: Activity Type Activity Date Activity User E-Sign Co-Sign Detail Recorded Client Recorded Date Recorded By Document 12/05/19 10:08 [facility] [id number] 12/05/19 10:13 [facility] 12/05/19 10:08 Wound Center Nurse 1 [Ulcer Assessment] #2- L POST EAR (SUTURES INTACT) -Combined with other wound No -Current Size (cm) - Length 0.1 -Current Size (cm) - Width 0.1 -Current Size (cm) - Depth 0.1 -Total Square Cm 0.01 -Date of Last Picture (Recall this 12/05/19 field) -Photo Taken Yes -Epithelialization Large 67-100% #1- L AXILLA (POST OP) -Combined with other wound No -Current Size (cm) - Length 0.1 -Current Size (cm) - Width 0.1 -Current Size (cm) - Depth 0.1 -Total Square Cm 0.01 -Date of Last Picture (Recall this 12/05/19 field) -Photo Taken Yes -Epithelialization Large 67-100% WC - Nurse 2 - General Ulcer CM Notes Start: 11/28/19 10:23 Freq: Status: Active Protocol: Activity Type Activity Date Activity User E-Sign Co-Sign Detail Recorded Client Recorded Date Recorded By Document 12/05/19 10:26 [id number] 12/05/19 10:27 12/05/19 10:26 Wound Center Nurse 2 [Procedure/Treatment] #2- L POST EAR (SUTURES INTACT) -Correct Patient No -Correct Side, Site, Position No -Correct Procedure No -Procedure Performed No -Post Debridement Size (cm) - Length 0 -Post Debridement Size (cm) - Width 0 -Post Debridement Size (cm) - Depth 0 -Total Square Cm 0 -Wound/Ulcer Outcome Healed- Epithelialized #1- L AXILLA (POST OP) -Correct Patient No -Correct Side, Site, Position No -Correct Procedure No -Procedure Performed No -Post Debridement Size (cm) - Length 0 -Post Debridement Size (cm) - Width 0 -Post Debridement Size (cm) - Depth 0 -Total Square Cm 0 -Wound/Ulcer Outcome Healed- Epithelialized [See Physician Procedure note for Specifics] Pain Scale: 0-10 Numeric [Pain] -Is Patient Pain Free? Yes Debridement Note Post-Debridement Measurements/Treatment - Nurse 2 - General Ulcer CM Notes Start: 11/28/19 10:23 Freq: Status: Active Protocol: Activity Type Activity Date Activity User E-Sign Co-Sign Detail Recorded Client Recorded Date Recorded By Document 12/05/19 10:26 [id number] 12/05/19 10:27 12/05/19 10:26 Wound Center Nurse 2 #2- L POST EAR (SUTURES INTACT) -Correct Patient No -Correct Side, Site, Position No -Correct Procedure No -Procedure Performed No -Post Debridement Size (cm) - Length 0 -Post Debridement Size (cm) - Width 0 -Post Debridement Size (cm) - Depth 0 -Total Square Cm 0 -Wound/Ulcer Outcome Healed- Epithelialized #1- L AXILLA (POST OP) -Correct Patient No -Correct Side, Site, Position No -Correct Procedure No -Procedure Performed No -Post Debridement Size (cm) - Length 0 -Post Debridement Size (cm) - Width 0 -Post Debridement Size (cm) - Depth 0 -Total Square Cm 0 -Wound/Ulcer Outcome Healed- Epithelialized Pain Scale: 0-10 Numeric Is Patient Pain Free? Yes Wound debrided: #1 Left axilla. Laterality: Left Wound Grade/Stage: 2. No debridement was completed today - The ulcer has healed. Assessment/Plan Assessment: 1. Hidradenitis ulcer left axilla, healed. 2. Hidradenitis. 3. Smoker. Plan: Her left axilla is healed. She has good range of motion. Her left posterior ear incision remains healed. Massage incisions with skin lotion daily to help soften up the scar. Encourage range of motion exercises to minimize stiffness. Followup on an as needed basis. Now that the left axilla is healed, she states she wants to proceed with surgery for hidradenitis in her left inguinal area. She will followup in my office in a month to further discuss her surgery. Encouraged patient to stop smoking as it may have deleterious effects on wound healing. Code Visit [id number]: [id number] Global Visit - ICD-10 - V58.49, L98.492, L73.2, F17.200
== END 2019-12-17 23:59 ==
LOC: WC 09:45
PROVIDERS: Visit Provider Surgery
DX: Z09 Encounter for follow-up examination after completed treatment for conditions other than malignant neoplasm (principal); L73.2 Hidradenitis suppurativa; F17.200 Nicotine dependence, unspecified, uncomplicated
CPT/HCPCS: 99213; G0463

== ENCOUNTER 2019-12-16 21:54 | Emergency (ER) | payer MEDICAID, SELFPAY ==
[2019-12-16 21:55] VITALS: BP 166/79; PULSE 88; RESP 16; TEMP 36.8; O2SAT 98
--- NOTE | 2019-12-16 22:41 | ED.VISSUMM ---
- ER Visit Summary Date of Service: 12/16/19 Chief Complaint: [Right groin abscess] History of Present Illness: The patient is a 44 F [presents the emergency department with an abscess in her right groin that she noted yesterday. Patient complains of a lot of pain to her labia. Patient does have history of hidradenitis separative a. Patient had surgery with Dr. Fraga on October 28 to the left axilla. Patient states that she fell about 10 days ago and we open the wound in the left sella. Patient was seen at another emergency department where they started her on doxycycline because they thought there might be an infection there and she was also started on Augmentin. Patient is continuously on doxycycline since May 2019. Patient is scheduled to have surgery for hidradenitis separative in the right groin next month.] Physical Examination: [HEENT-PERRLA, EOMI. Cranial nerves II through XII grossly intact. TMs clear. Mucous membranes moist. No adenopathy. Cardiovascular-regular rate and rhythm without murmur or ectopy Lungs-clear to auscultation, chest wall stable without crepitus or subcu emphysema Abdomen-normoactive bowel sounds, soft, nontender, no rebound or rigidity, no peritoneal signs. Extremities-intact ?4, normal range of motion, normal pulses, atraumatic. Right groin-patient has a small 1 cm soft tissue abscess at the border of the right inguinal crease and labia majora. Area is tender to palpation. No cellulitic changes.] Test Results: [None indicated] Emergency Department Course and Treatment: [Patient was offered incision and drainage to which he agreed. Area of the right groin was sterilely draped and prepped. Wound was cleansed with Shur-Clens and irrigated with saline. Using 1% lidocaine total of 4 cc used anesthetize the area. Using an 11 blade a 7 mm incision was made and curved hemostats used to undermine the soft tissues. Moderate amount of purulent debris was expressed. The cavity was irrigated with saline.] Treatment Plan: [Case was discussed with Dr. Fraga and he asked that they follow-up with his office next week.] Patient to continue with current antibiotics. Disposition: [Discharged home in stable condition] Impression: [Tissue abscess right groin with incision and drainage. ] This note was generated with Dragon dictation software. It may contain incorrect words, spelling, and punctuation that were not noted in review of the chart prior to signing ED Disposition - Plan for ED Patient: Referrals: BROOKS IBARRA [Other]
--- NOTE | 2019-12-16 22:48 | ED.DEP ---
ED Disposition - Plan for ED Patient: Instructions: ABSCESS, Incision and Drainage Referrals: BROOKS IBARRA [Other] Ronnell Fraga MD [STAFF PHYSICIAN] - 3-5 Days
[2019-12-16 22:55] VITALS: BP 129/86; PULSE 89; RESP 18; O2SAT 97
== END 2019-12-16 22:56 | disposition home or self-care (01) ==
LOC: ED 22:16
PROVIDERS: Emergency Provider Emergency Medicine
DX: L02.214 Cutaneous abscess of groin (principal); L73.2 Hidradenitis suppurativa; J45.909 Unspecified asthma, uncomplicated; K21.9 Gastro-esophageal reflux disease without esophagitis; I34.1 Nonrheumatic mitral (valve) prolapse; K31.84 Gastroparesis; K58.9 Irritable bowel syndrome, unspecified; Z86.14 Personal history of Methicillin resistant Staphylococcus aureus infection; Z90.49 Acquired absence of other specified parts of digestive tract; Z79.02 Long term (current) use of antithrombotics/antiplatelets; Z79.899 Other long term (current) drug therapy; Z72.0 Tobacco use
CPT/HCPCS: 10060; 99282

== ENCOUNTER 2020-03-06 09:57 | Observation (INO) | payer MEDICAID, SELFPAY ==
[2019-12-22 15:17] VITALS: BMI 29.4
--- NOTE | 2020-03-05 22:16 | HP.PCM_ITS ---
History and Physical Date of Admission: 03/06/20 HISTORY OF PRESENT ILLNESS 44 year old woman presents with recent flare up of hidradenitis in her left inguinal and vulval area. There is a painful area on her inferior labial area. Her left axilla is now healed after recent surgery on 10/28/19 where she underwent surgical preparation left axilla with excision recurrent hidradenitis (55 cm2) and excision 6 mm painful soft tissue mass hidradenitis left posterior ear by the earlobe with rhomboid transposition skin flap reconstruction (4.5 cm2). Her left posterior ear by the earlobe flap is also healed at this time. She recently fell and the left axilla opened up. She went to ED in [place] and she was started on antibiotics and has finished them. The left axillary wound has since healed. She was recently in the ED for a flare up in her right inguinal area that underwent an I&D. She had been on Augmentin and Doxycycline and has finished them. She denies fever. She denies trauma. She has had multiple debridements of hidradenitis in the past involving bilateral axillary areas, bilateral inguinal areas, bilateral vulval areas involving the labia, and the buttocks area. She presents at this time for further evaluation and treatment. PAST MEDICAL HISTORY Anemia Anxiety and depression Asthma Breast lump in female GERD (gastroesophageal reflux disease) Gastrointestinal problem Heart valve problem High cholesterol History of blood clots IBS (irritable bowel syndrome) Kidney stones Recurrent infections Thyroid disease Vascular disease Chronic bronchitis PAST SURGICAL HISTORY appendectomy (Acute) History of breast lump/mass excision (Acute) History of cholecystectomy (Acute) History of drainage of abscess (Acute) History of embolectomy (Acute) History of hernia repair (Acute) History of hysterectomy (Acute) History of left heart catheterization (Acute) right knee surgery (Acute) tonsillectomy (Acute) hidradenitis suppurativa (Chronic) ALLERGIES acetaminophen [From Tylenol-Codeine #3] codeine [From Tylenol-Codeine #3] sulfamethoxazole [From Bactrim] trimethoprim [From Bactrim] adhesive tape IVP DYE MEDICATIONS clopidogrel hydroxyzine metoprolol Omeprazole Varenicline [Chantix] proMETHazine tablet [Phenergan tablet] Ondansetron [Zofran] Escitalopram Doxycyclind FAMILY HISTORY Mother - Anxiety and depression, Arthritis, History of blood clots, History of blood transfusion, Heart disease, CVA (cerebral vascular accident), History of ulcer disease Grandmother - Asthma, Anxiety and depression, Heart disease, Kidney disease, CVA (cerebral vascular accident) Grandfather - Heart disease, Lung cancer SOCIAL HISTORY Smoking Status: Current every day smoker alcohol intake: never additional social history: DOES USE ASPIRIN DOES NOT USE IBUPROFEN REVIEW OF SYSTEMS General - Denies fever and weight loss. Has fatigue. Eyes - Denies cataracts and glaucoma. ENT - Denies nasal congestion and sore throat. Has history of swollen glands in the neck. Endocrine - Denies excessive thirst and urination. Skin - Denies suspicious lesions and skin cancer. Has recent flare up of left inguinal and vulval hidradenitis. Musculoskeletal - Denies joint pain, joint stiffness, weakness of muscles and joints, back pain, and arthritis. Neuro - Denies headaches. Has lightheadedness. Cardiovascular - Has chest pain and fatigue and lightheadedness. Denies shortness of breath with exertion. Psych - Denies anxiety and depression. Respiratory - Has chronic cough and shortness of breath. Has sleep apnea and asthma. Gastrointestinal - Denies nausea, vomiting. Has diarrhea, and constipation. Hematologic - Denies abnormal bruising and bleeding. Genitourinary - Denies hematuria and urinary frequency. PHYSICAL EXAMINATION General - Alert and Oriented. HEENT - PERRL. EOMI. Throat is clear. Neck - Supple and nontender. No cervical adenopathy. Lungs - Clear to auscultation. Heart - Regular rate and rhythm. Abdomen - Soft and nondistended. In the left inguinal area is scattered areas of induration from hidradenitis. Some redness. No purulent drainage. No fluctuance. Extremities - FROM. No axillary adenopathy. Radial pulses are palpable. In the left axillary area is a healed scar from recent excision hidradenitis. Good range of motion. Genital - In the left vulval area involving the genitocrural area and the mons pubis are scattered areas of induration from hidradenitis. She has a flare up in the left inferior labial area. Tender to palpation. Some redness. No fluctuance. No purulent drainage. Neuro - CN II-XII grossly intact. Psych - Normal mood and affect. ASSESSMENT 1 Hidradenitis left inguinal and vulval area. 2. Smoker. PLAN Recommend excision of her left inguinal and vulval hidradenitis. Will send tissue to Pathology for analysis to rule out carcinoma and to Microbiology for culture. A positive culture will necessitate antibiotic therapy. Will leave the wound open and begin wound care with the VAC. After discharge will followup at the Wound Center. If there is a plateau in the healing process, can proceed in a delayed fashion with skin grafting. Surgery will be done under general anesthesia with a surgical observation overnight stay in the hospital. Patient was informed of the risks and complications of the procedure including alternatives to surgery. These were discussed with the patient personally. Patient voices understanding and wishes to proceed. Some of the risks and complications were included in a form from the [employer]. Encouraged patient to stop smoking as it may have deleterious effects on wound healing. She has been using Doxycycline for flare ups. Continue Sitz baths for symptomatic relief. Essential Procedure Criteria Procedure Essential: Yes Criteria Note: On 01/03/2020 the [facility] ([facility]) Public Order signed by [facility] Director Argelia Williamson M.D., regarding the Management of Non- Essential Surgeries and Procedures for the purpose of preserving Personal Protective Equipment (PPE) and critical hospital capacity and resources within [place] went into effect as of 01/04/2020 at 5:00PM. According to the [facility] Public Order: This action will remain in full force and effect until the State of Emergency declared by the Governor no longer exists or the Director of the [facility] rescinds or modifies this Order.. This [facility] order stated all non-essential or elective surgeries and procedures that utilize PPE should be delayed unless there is undue risk to the current or future health of a patient. After reviewing the aforementioned [facility] Public Order and the patients clinical case, I have determined that the scheduled procedure meets the criteria to go forward. Risk to Patient if Procedure Delayed: Presence of severe symptoms causing an inability to perform ADL's - Patient has worsening left inguinal and vulval hidradenitis
[2020-03-06] VITALS (14 sets, daily range): BP systolic 97–130; BP diastolic 54–89; PULSE 60–95; RESP 16–18; TEMP 36.3–36.8; O2SAT 94–99; BMI 29.6
--- NOTE | 2020-03-06 | VUL_PTH ---
PATIENT: TAYLOR PENA LOC: MS3 U#:[id number] AGE/SX: 44/F ROOM: IL312 RE03/06/[address]: Dr. Ronnell Fraga MD : 1975 BED: 1 DIS: 03/08/2020 SPEC #: [id number] RECD: 03/06/20 12:42 STATUS: DAYAN PAOLA #: [id number] KM: 03/06/20 00:[address]: Ronnell Fraga DEPT: SURGICAL PATHOLOGY RECD BY: Luigi Sylvester Tissues: Vulva, NOS Procedures: Surgery Specimen Level III HEADER OPERATION: Surgical preparation inguinal and vulva area with excision PRE-OP DIAGNOSIS: Hidradenitis left inguinal and vulva area TISSUE SUBMITTED: Left inguinal and vulva area MICROSCOPIC DIAGNOSIS Skin and soft tissue of left inguinal and vulva region, excision: Mild dermal chronic inflammation and focal chronic folliculitis. AM:gracie 03/07/20 COMMENT Case has been reviewed in consultation with Dr. Ventura who concurs with the above diagnosis. IDC:SJ MICROSCOPIC DESCRIPTION Slides are reviewed. GROSS DESCRIPTION Received in fixative is one container labeled with the patient's name and designated inguinal and vulvar hidradenitis. The specimen consists of a piece of saab-brown skin with underlying tissue measuring 10 x 9 cm and up to 2.5 cm in thickness. The skin surface appears unremarkable. Sections do not reveal any mass lesion. Electronic Gluer sections are submitted in three cassettes. / CYNDIE:gracie 03/06/20 TC:2 CPT: 03027
[2020-03-06] MEDS: Lactated Ringers 1,000 ML 100 ML IV ×2 (08:14→10:08)
--- NOTE | 2020-03-06 09:35 | OP.PCM_ITS ---
Report of Operation Date of Procedure: 03/06/20 Pre-Operative Diagnosis: 1. Hidradenitis left inguinal and vulval area in volving genitocrural crease and labia. 2. Smoker. Post-Operative Diagnosis: 1 Hidradenitis left inguinal and vulval area involving genitocrural crease and labia. 2. Open surgical hidradenitis wound left inguinal area. 3. Open surgical hidradenitis wound left vulval area involving genitocrural crease and labia. 2. Smoker. Surgery/Procedure Performed:: 1. Surgical preparation left inguinal area with excision hidradenitis (117 cm2). 2. Surgical preparation left vulval area involving genitocrural crease and labia with excision hidradenitis and partial vulvectomy including deep subcutaneous tissue. Description of Surgical Findings:: 44 year old woman presents with recent flare up of hidradenitis in her left inguinal and vulval area. There is a painful area on her inferior labial area. Her left axilla is now healed after recent surgery on 10/28/19 where she underwent surgical preparation left axilla with excision recurrent hidradenitis (55 cm2) and excision 6 mm painful soft tissue mass hidradenitis left posterior ear by the earlobe with rhomboid transposition skin flap reconstruction (4.5 cm2). Her left posterior ear by the earlobe flap is also healed at this time. She recently fell and the left axilla opened up. She went to ED in [place] and she was started on antibiotics and has finished them. The left axillary wound has since healed. She was recently in the ED for a flare up in her right inguinal area that underwent an I&D. She had been on Augmentin and Doxycycline and has finished them. She denies fever. She denies trauma. She has had multiple debridements of hidradenitis in the past involving bilateral axillary areas, bilateral inguinal areas, bilateral vulval areas involving the labia, and the buttocks area. Patient was informed of the risks and complications of the procedure including alternatives to surgery. These were discussed with the patient personally. Patient voices understanding and wishes to proceed. Encouraged patient to stop smoking as it may have deleterious effects on wound healing. Size of defect left inguinal and vulval areas involving genitocrural crease and labia - 13 x 9 x 2 cm. director learning and development: None Type of Anesthesia:: General Specimen's removed: Hidradenitis left inguinal and vulval areas to Pathology and Microbiology. Drains: None. Estimated Blood Loss (mL): 50 ml. Description of Procedure: Patient was taken to OR in supine position and was placed under general anesthesia. The left inguinal and vulval areas were prepped and draped in the usual fashion. SCD's were placed for DVT prophylaxis. Perioperative antibiotics were given intravenously. A díaz catheter was placed. Using xylocaine with epinephrine, the areas of hidradenitis (left inguinal and vulval areas involving genitocrural crease and labia) were infiltrated. After waiting 5 minutes for the anesthetic to take effect, I proceeded with excision of hidradenitis in the left inguinal area down through the subcutaneous tissue to the underlying fascia. No pus was seen. A lot of fat necrosis was seen. I then proceeded with excision hidradenitis in the left vulval area involving the genitocrural crease and labia down through the deep subcutaneous tissue to the underlying fascia with a partial vulvectomy. No pus was seen. A lot of fat necrosis was seen. Both wounds were combined into one larger wound that measures 13 x 9 x 2 cm or 117 cm2. Hemostasis was obtained with electrocautery. The wound was irrigated with saline. Some of the tissue was sent to Pathology for analysis to rule out carcinoma and some tissue was sent to Microbiology for culture. A positive culture will necessitate antibiotic therapy. The wound was then packed with Mepitel nonadherent dressing followed by Kerlix gauze and Betadine followed by dry Kerlix gauze and ABD pads compression dressing. Patient tolerated the procedure well and was sent to PACU in satisfactory condition. Patient will be sent upstairs for continued postop care. The VAC will be placed tomorrow. After discharge she will followup at the Wound Center. Grafts/Implants Used: None. - Complications None. - Admit VTE Documentation VTE Present on Admission: No VTE Mechan Device Prophylaxis: SCD's VTE Pharm Prophylaxis ordered?: No Surgery Charges CPT - 59988 ICD-10 - L73.2, S31.104A, F17.200 82523 L73.2, S31.40xA, F17.200
[2020-03-06] MEDS: HYDROmorphone 1 MG/ML Syringe IV ×3 (11:32→23:30)
[2020-03-06] MEDS: Lactated Ringers 1,000 ML 60 ML IV (11:37)
[2020-03-06] MEDS: diazePAM 5 MG Tablet PO ×2 (14:25→21:16)
[2020-03-06] MEDS: oxyCODONE 5 MG Tablet 10 MG PO ×2 (14:25→19:42)
[2020-03-06] MEDS: Senna/Docusate Sodium 1 Tablet 4 TABLET PO (14:26)
[2020-03-06] MEDS: Docusate Sodium 100 MG Capsule PO (14:26)
[2020-03-06] MEDS: proMETHazine 25 MG Tablet PO (17:38)
[2020-03-06] MEDS: Metoprolol Tartrate 25 MG Tablet PO (21:17)
[2020-03-06] MEDS: Escitalopram Oxalate 20 MG Tablet PO (21:17)
[2020-03-06] MEDS: hydrOXYzine PAM 25 MG Capsule 50 MG PO (21:18)
[2020-03-07] VITALS (9 sets, daily range): BP systolic 98–124; BP diastolic 36–63; PULSE 54–68; RESP 16–18; TEMP 36.8–37.1; O2SAT 93–96
[2020-03-07] MEDS: oxyCODONE 5 MG Tablet 10 MG PO ×4 (01:49→18:18)
[2020-03-07] MEDS: Ondansetron 8 MG Tablet PO (01:51)
[2020-03-07] MEDS: Lactated Ringers 1,000 ML 60 ML IV (03:58)
[2020-03-07] MEDS: HYDROmorphone 1 MG/ML Syringe IV ×4 (05:07→20:49)
[2020-03-07 06:44] LABS: Hematocrit 37.9 % (37-47); Hemoglobin 12.1 g/dL (12.0-15.0); Mean Corp Hgb Conc 31.9 g/dL (32-36); Mean Corpuscular Hgb 31.5 pg (27.0-32.0); Mean Corpuscular Volume 98.7 fL (81-99); Mean Platelet Vol. 11.4 fl (6.2-12.0); Platelet Count 170 K/mm3 (150-450); RBC Distribution Width CV 13.8 % (11.6-14.6); Red Blood Count 3.84 M/mm3 (4.2-5.4); White Blood Count 8.4 K/mm3 (4.4-11.0)
[2020-03-07 06:58] LABS: Erythrocyte Sedimentation Rate 21 mm/hr (0-20)
[2020-03-07 07:12] LABS: ALB/GLOB Ratio 0.9 RATIO (0.9-2.4); AST(SGOT) 23 U/L (15-37); Alanine Aminotransfer ALT/SGPT 25 U/L (13-56); Albumin, Serum 3.1 g/dL (3.2-5.0); Alkaline Phosphatase 81 U/L (45-117); Anion Gap 7 (5-15); BUN 14 mg/dL (7-18); BUN/Creat Ratio 16.8 RATIO (10-20); Calcium,Total 8.7 mg/dL (8.5-10.1); Chloride 107 mmol/L (98-107); Creatinine, Serum 0.83 mg/dL (0.55-1.02); EST Glomerular Filtration Rate 80 mL/min (>60); Est Glom Filt Rate - Afr Amer 96 mL/min (>60); Estimated Creatinine Clearance 82.66 ml/min; Globulin 3.4 g/dL (2.2-4.2); Glucose 99 mg/dL (74-106); Potassium 3.9 mmol/L (3.5-5.1); Prealbumin 14.3 mg/dL (20.0-40.0); Protein, Total 6.5 g/dL (6.4-8.2); Sodium Level 141 mmol/L (136-145)
[2020-03-07] MEDS: proMETHazine 25 MG Tablet PO ×2 (08:05→16:35)
[2020-03-07] MEDS: diazePAM 5 MG Tablet PO ×2 (08:05→19:36)
[2020-03-07] MEDS: Metoprolol Tartrate 25 MG Tablet PO (10:09)
[2020-03-07] MEDS: Pantoprazole Sodium 40 MG Tablet PO (10:10)
[2020-03-07] MEDS: Clopidogrel Bisulfate 75 MG Tablet PO (10:10)
--- NOTE | 2020-03-07 11:27 | NURSING ---
wound photo: left upper thigh/groin
--- NOTE | 2020-03-07 13:04 | PCM.PN.SRG ---
Subjective: Postop #1 Complains of wound pain and VAC pain. Also bladder spasm from the díaz. - Physical Exam Vitals/I&O's: Vital Signs Temp Pulse Resp BP Pulse Ox 98.5 F 68 16 109/51 L 94 03/07/20 04:02 03/07/20 10:09 03/07/20 04:02 03/07/20 05:05 03/07/20 04:02 Oxygen Flow Rate (L/min) 2 Oxygen Delivery Method Room Air Weight: 183 lb 10.321 oz Body Mass Index (BMI) 29.6 Intake and Output for Last 24 Hours 03/05/20 03/06/20 03/07/20 23:59 23:59 23:59 Intake Total 2797 / 3397 2367 / 2367 Output Total 790 / 1740 2400 / 2400 Balance 2006 - / General: Alert, Oriented x3 HEENT: PERRLA, EOMI Oral: Moist Mucosa Neck: Supple Abdomen: Soft, Non-Distended Skin: Ulcer/ Wound - left inguinal and vulval wound stable. No active bleeding noted. VAC applied today. Neurological: Cranial nerves II-XII grossly intact Psych/Mental Status: Normal Affect, Appropriate Microbiology Past 72 Hours 03/06/20 09:48 Tissue - Incision site Wound Culture - Preliminary No growth-Final to follow 03/05/20 12:42 Mucosa - Nasopharyngeal Coronavirus COVID-19 PCR - Final Laboratory Results 03/07/20 06:18: WBC 8.4, RBC 3.84 L, Hgb 12.1, Hct 37.9, MCV 98.7, MCH 31.5, MCHC 31.9 L, RDW Std Deviation 50.0 H, RDW Coeff of Ping 13.8, Plt Count 170, MPV 11.4, ESR 21 H 03/07/20 06:18: Sodium 141, Potassium 3.9, Chloride 107, Carbon Dioxide 27.0, Anion Gap 7, BUN 14, Creatinine 0.83, Estim Creat Clear Calc 82.66, Est GFR (MDRD) Af Amer 96, Est GFR (MDRD) Non-Af 80, BUN/Creatinine Ratio 16.8, Glucose 99, Calcium 8.7, Total Bilirubin 0.30, AST 23, ALT 25, Alkaline Phosphatase 81, C-React Prot Ext Range 17.10 H, Total Protein 6.5, Albumin 3.1 L, Globulin 3.4, Albumin/Globulin Ratio 0.9, Prealbumin 14.3 L Current Medications Clopidogrel Bisulfate (Plavix) 75 mg PO DAILY [facility] Last Admin: 03/07/20 10:10 Dose: 75 mg Documented by: Diazepam (Valium) 5 mg PO 4X/DAY PRN PRN PRN Reason: SPASMS Last Admin: 03/07/20 08:05 Dose: 5 mg Documented by: Docusate Sodium (Colace) 100 mg PO BID [facility] Last Admin: 03/07/20 08:09 Dose: Not Given Documented by: Escitalopram Oxalate (Lexapro) 20 mg PO QHS [facility] Last Admin: 03/06/20 21:17 Dose: 20 mg Documented by: Hydromorphone HCl (Dilaudid Inj) 1 mg IV Q3H PRN PRN PRN Reason: Pain Score 6-10/10 Last Admin: 03/07/20 10:42 Dose: 1 mg Documented by: Hydroxyzine Pamoate (Vistaril Pamoate Capsule) 50 mg PO [facility] Last Admin: 03/06/20 21:18 Dose: 50 mg Documented by: Clindamycin Phosphate 600 mg/ (Dextrose) 54 mls @ 100 mls/hr IV Q8 [facility] Last Infusion: 03/07/20 05:46 Dose: Infused Documented by: Lactated Ringer's () 1,000 mls @ 60 mls/hr IV .[id number] [facility] Last Infusion: 03/07/20 10:12 Dose: 60 mls/hr Documented by: Sodium Chloride () 250 mls @ 15 mls/hr IV .[id number] PRN PRN Reason: Saline Flush Metoprolol Tartrate (Lopressor (Beta Samina)) 25 mg PO BID [facility] Last Admin: 03/07/20 10:09 Dose: 25 mg Documented by: Nutritional Formula (Franco - [place] Flavor) [facility] Last Admin: 03/07/20 10:09 Dose: 1 packet Documented by: Ondansetron HCl (Zofran) 8 mg PO Q8H PRN PRN PRN Reason: NAUSEA Last Admin: 03/07/20 01:51 Dose: 8 mg Documented by: Oxycodone HCl (Oxyir) 10 mg PO Q4H PRN PRN PRN Reason: Pain Score 6-10/10 Last Admin: 03/07/20 10:08 Dose: 10 mg Documented by: Pantoprazole Sodium (Protonix) 40 mg PO DAILY [facility] Last Admin: 03/07/20 10:10 Dose: 40 mg Documented by: Promethazine HCl (Phenergan Tablet) 25 mg PO 4X/DAY PRN PRN PRN Reason: NAUSEA Last Admin: 03/07/20 08:05 Dose: 25 mg Documented by: Senna/Docusate Sodium (Senokot-S, [place]-Colace) 4 tablet PO QODAY [facility] Last Admin: 03/06/20 14:26 Dose: 4 tablet Documented by: Sodium Chloride () 10 - 40 ml IV UD PRN PRN Reason: SALINE FLUSH Medical Necessity - Tobacco Use Smoking Status: Current every day smoker Tobacco Use: Cigarettes Assessment/Plan All Active Problems (Last Reviewed 12/24/19 @ 21:[address] Ronnell Fraga MD) Open wound of left axillary region with complication (Acute) 1 Hidradenitis left inguinal and vulval area. 2. Smoker. 3. Open surgical hidradenitis wound left inguinal and vulval area. Left inguinal and vulval hidradenitis wound stable. No active bleeding seen. VAC applied. She is having wound pain and bladder spasm. Díaz removed today. Still needs IV analgesia. Plan on discharge tomorrow. Prealbumin 14.3. Encourage nutritional supplementation with protein to help the healing process. Encouraged patient to stop smoking as it may have deleterious effects on wound healing.
[2020-03-07] MEDS: 0.9% Saline Lock 10 ML Syringe IV (14:09)
--- NOTE | 2020-03-07 16:23 | CASEMGMT ---
JULIEN GASPAR updated by wound nurse that patient would like [facility] that she had in the past. JULIEN GASPAR reviewed patient's chart and patient has been setup with [facility] in the past for vac change. Referral sent to [facility] and they are able to accept the patient. JULIEN GASPAR updated patient regarding acceptance with [facility] and patient is agreeable. JULIEN GASPAR will continue to follow this patient and plan for a safe discharge.
[2020-03-07] MEDS: hydrOXYzine PAM 25 MG Capsule 50 MG PO (21:05)
[2020-03-07] MEDS: Docusate Sodium 100 MG Capsule PO (21:05)
[2020-03-07] MEDS: Escitalopram Oxalate 20 MG Tablet PO (21:05)
[2020-03-08] MEDS: oxyCODONE 5 MG Tablet 10 MG PO ×4 (00:30→12:58)
[2020-03-08 00:33] VITALS: BP 106/60; PULSE 62; RESP 18; TEMP 36.7; O2SAT 96
[2020-03-08] MEDS: Lactated Ringers 1,000 ML 60 ML IV (01:23)
[2020-03-08] MEDS: HYDROmorphone 1 MG/ML Syringe IV (02:20)
[2020-03-08 02:27] VITALS: BP 108/61; PULSE 58; RESP 18; TEMP 36.7; O2SAT 98
--- NOTE | 2020-03-08 08:12 | NURSING ---
PT C/O PAIN/TENDER @ IV SITE. IV DC'D. MESSAGE LEFT FOR DR PINA TO SEE IF IT NEEDS RESTARTED - PT MAY BE DC'D TODAY
[2020-03-08 08:36] VITALS: BP 121/70; PULSE 64; RESP 18; TEMP 36.9; O2SAT 96
[2020-03-08] MEDS: diazePAM 5 MG Tablet PO (08:41)
[2020-03-08 08:42] VITALS: BP 121/70; PULSE 64
[2020-03-08] MEDS: Docusate Sodium 100 MG Capsule PO (08:42)
[2020-03-08] MEDS: Metoprolol Tartrate 25 MG Tablet PO (08:42)
[2020-03-08] MEDS: Clopidogrel Bisulfate 75 MG Tablet PO (08:43)
[2020-03-08] MEDS: Pantoprazole Sodium 40 MG Tablet PO (08:43)
[2020-03-08] MEDS: Senna/Docusate Sodium 1 Tablet 4 TABLET PO (08:43)
--- NOTE | 2020-03-08 11:10 | PCM.PN.SRG ---
Subjective: Postop #2 Patient resting comfortably. - Physical Exam Vitals/I&O's: Vital Signs Temp Pulse Resp BP Pulse Ox 98.4 F 64 18 121/70 H 96 03/08/20 08:36 03/08/20 08:42 03/08/20 08:36 03/08/20 08:42 03/08/20 08:36 Oxygen Flow Rate (L/min) 2 Oxygen Delivery Method Room Air Weight: 183 lb 10.321 oz Body Mass Index (BMI) 29.6 Intake and Output for Last 24 Hours 03/06/20 03/07/20 03/08/20 23:59 23:59 23:59 Intake Total 2797 / 3397 3312 / 3412 1069 / 1069 Output Total 790 / 1740 2500 / 2500 Balance 2006 812 / 912 1069 / 1069 General: Alert, Oriented x3 HEENT: PERRLA, EOMI Oral: Moist Mucosa Neck: Supple Abdomen: Soft, Non-Distended Skin: Ulcer/ Wound - left inguinal and vulval wound stable. VAC in place. Neurological: Cranial nerves II-XII grossly intact Psych/Mental Status: Normal Affect, Appropriate Microbiology Past 72 Hours 03/06/20 09:48 Tissue - Incision site Gram Stain - Final 03/06/20 09:48 Tissue - Incision site Wound Culture - Preliminary No growth-Final to follow 03/06/20 09:48 Tissue - Incision site Anaerobic Culture - Preliminary No growth in 48 hours. 03/05/20 12:42 Mucosa - Nasopharyngeal Coronavirus COVID-19 PCR - Final Current Medications Clopidogrel Bisulfate (Plavix) 75 mg PO DAILY [facility] Last Admin: 03/08/20 08:43 Dose: 75 mg Documented by: Diazepam (Valium) 5 mg PO 4X/DAY PRN PRN PRN Reason: SPASMS Last Admin: 03/08/20 08:41 Dose: 5 mg Documented by: Docusate Sodium (Colace) 100 mg PO BID [facility] Last Admin: 03/08/20 08:42 Dose: 100 mg Documented by: Escitalopram Oxalate (Lexapro) 20 mg PO QHS [facility] Last Admin: 03/07/20 21:05 Dose: 20 mg Documented by: Hydromorphone HCl (Dilaudid Inj) 1 mg IV Q3H PRN PRN PRN Reason: Pain Score 6-10/10 Last Admin: 03/08/20 02:20 Dose: 1 mg Documented by: Hydroxyzine Pamoate (Vistaril Pamoate Capsule) 50 mg PO QHS [facility] Last Admin: 03/07/20 21:05 Dose: 50 mg Documented by: Clindamycin Phosphate 600 mg/ (Dextrose) 54 mls @ 100 mls/hr IV Q8 [facility] Last Infusion: 03/08/20 06:06 Dose: Infused Documented by: Lactated Ringer's () 1,000 mls @ 60 mls/hr IV .[id number] [facility] Last Admin: 03/08/20 01:23 Dose: 60 mls/hr Documented by: Sodium Chloride () 250 mls @ 15 mls/hr IV .[id number] PRN PRN Reason: Saline Flush Metoprolol Tartrate (Lopressor (Beta Samina)) 25 mg PO BID [facility] Last Admin: 03/08/20 08:42 Dose: 25 mg Documented by: Nutritional Formula (Franco - [place] Flavor) [facility] Last Admin: 03/08/20 08:42 Dose: 1 packet Documented by: Ondansetron HCl (Zofran) 8 mg PO Q8H PRN PRN PRN Reason: NAUSEA Last Admin: 03/07/20 01:51 Dose: 8 mg Documented by: Oxycodone HCl (Oxyir) 10 mg PO Q4H PRN PRN PRN Reason: Pain Score 6-10/10 Last Admin: 03/08/20 09:12 Dose: 10 mg Documented by: Pantoprazole Sodium (Protonix) 40 mg PO DAILY [facility] Last Admin: 03/08/20 08:43 Dose: 40 mg Documented by: Promethazine HCl (Phenergan Tablet) 25 mg PO 4X/DAY PRN PRN PRN Reason: NAUSEA Last Admin: 03/07/20 16:35 Dose: 25 mg Documented by: Senna/Docusate Sodium (Senokot-S, Kaleigh-Colace) 4 tablet PO QODAY [facility] Last Admin: 03/08/20 08:43 Dose: 4 tablet Documented by: Sodium Chloride () 10 - 40 ml IV UD PRN PRN Reason: SALINE FLUSH Last Admin: 03/07/20 14:09 Dose: 20 ml Documented by: Medical Necessity - Tobacco Use Smoking Status: Current every day smoker Tobacco Use: Cigarettes Assessment/Plan All Active Problems (Last Reviewed 12/24/19 @ 21:[address] Ronnell Fraga MD) Open wound of vulva (Acute) Non-healing open wound of left groin (Acute) Open wound of left axillary region with complication (Acute) 1 Hidradenitis left inguinal and vulval area. 2. Smoker. 3. Open surgical hidradenitis wound left inguinal and vulval area. Left inguinal and vulval hidradenitis wound stable. VAC in place. Minimal drainage in the canister. Voiding without difficulty. Tolerating po analgesia. Prealbumin 14.3. Encourage nutritional supplementation with protein to help the healing process. Discharge home today. Wrote scripts for Percocet for pain (40 tabs) and for spasm (30 tabs). She has Doxycycline at home that she will continue. Followup [facility] 03/26/20 at 8am. Encouraged patient to stop smoking as it may have deleterious effects on wound healing.
--- NOTE | 2020-03-08 11:53 | NURSING ---
Pt switched over to home VAC. next dressing change scheduled for tomorrow with home health care. home health was arranged by machine adjuster leader case trim.
--- NOTE | 2020-03-08 11:59 | DCINST_ITS ---
You will use the following diet at home:: No restrictions, Other - encourage nutritional supplementation with protein to help the healing process. Discharge Activity: May Shower - on the days the vac is changed. May shower in (days): 2 - on the days the vac is changed. May resume sexual activity in: No Restrictions Weight Bearing Status: Weight bearing as tolerated Keep extremity elevated above heart level: Left Leg Call your doctor if your incision/area has: Continuous Slow Oozing, Sudden Increased Bleeding, Increased Pain/ Swelling, Increased Redness, Foul Smelling Discharge, Swelling at the incision site Call your doctor if you observe: Fever of 101 or Higher, Coldness, Increased Pain, Shortness of breath, Chest pain, Calf discomfort, Uncontrolled pain Suture Line Care: - - vac changes three times per week at 150 mmHg continuous suction. Change Dressing in (Days):: 2 - vac changes three times per week. Cleanse incision/area with: Soap & Water - cleanse the wound with soap and water at the time of the vac change., - - may shower on the days the vac is changed. Additional Dressing/Incision Instructions:: Home Health to cleanse the wound with soap and water at the time of the VAC change. Allergies/Adverse Reactions: Allergies acetaminophen [From Tylenol-Codeine #3] Allergy (Mild, Verified 03/06/20 11:21) Rash codeine [From Tylenol-Codeine #3] Allergy (Mild, Verified 03/06/20 11:21) Rash sulfamethoxazole [From Bactrim] Allergy (Mild, Verified 03/06/20 11:21) Rash trimethoprim [From Bactrim] Allergy (Mild, Verified 03/06/20 11:21) Rash adhesive tape Allergy (Verified 03/06/20 06:59) Rash IVP DYE Allergy (Severe, Uncoded 03/06/20 11:21) increased HR, rash, itchy throat Medications to take at Discharge clopidogrel 75 mg tablet 75 mg PO DAILY 06/21/19 hydroxyzine HCl 50 mg tablet 50 mg PO QHS 06/21/19 metoprolol tartrate 25 mg tablet 25 mg PO BID 06/21/19 Omeprazole 40 mg PO DAILY 10/21/19 proMETHazine tablet [Phenergan tablet] 25 mg PO 4X/DAY PRN PRN #30 tab 10/29/19 Ondansetron [Zofran] 8 mg PO Q8H PRN PRN 11/14/19 Escitalopram Oxalate 20 mg PO QHS 12/16/19 doxycycline monohydrate 100 mg capsule 100 mg PO BID #60 cap 02/20/20 Albuterol IH (ProAir) [Proair Hfa] 1 - 2 puff INHALATION Q4H PRN PRN 03/05/20 Aspirin [Aspir 81] 81 mg PO DAILY 03/05/20 Sennosides/Docusate Sodium [Colace 2-in-1 Tablet] 4 ea PO QODAY 03/05/20 Diazepam [Valium] 5 mg PO 4X/DAY PRN PRN #30 tablet 03/08/20 Oxycodone HCl/Acetaminophen [Percocet 5/325] 1 tablet PO Q4H PRN PRN 7 Days #40 tablet 03/08/20 The following prescriptions were given: Oxycodone HCl/Acetaminophen [Percocet 5/325] 1 tablet PO Q4H PRN PRN 7 Days #40 tablet PRN Reason: Pain Score 4-5/10 Transmission Status: Sent to [facility] Diazepam [Valium] 5 mg PO 4X/DAY PRN PRN #30 tablet PRN Reason: Spasms Transmission Status: Sent to [facility] Orders to be completed after discharge: CORONAVIRUS 19, SHIRA Time Frame: 03/06/20, Facility: [facility], Location: Laboratory Primary Care Physician: BROOKS IBARRA [Other] Test Results: Test results from this visit will be discussed in further detail at your follow- up appointment, if applicable. Please Follow Up With: Ronnell Fraga MD When: 03/26/20 at wound center. call [phone] for appt. Proposed Discharge Date: 03/08/20
[2020-03-08 13:00] VITALS: BP 137/70; PULSE 68; RESP 18; TEMP 36.7; O2SAT 97
[2020-03-08 13:05] VITALS: BP 137/70; PULSE 68; RESP 18; TEMP 36.7; O2SAT 97
--- NOTE | 2020-03-08 14:07 | CASEMGMT ---
JULIEN CM Note: Call to Tamar Shaunna [facility] to update DC instructions were faxed to , and pt has been dc'd. No further questions or requests for information. Avelino MORALES RN ACM
== END 2020-03-08 13:06 | disposition home or self-care (01) ==
LOC: MS3 14:21 → SDC 14:22 → MS3 14:22
PROVIDERS: Admitting Provider Surgery; Referring Provider Surgery; Visit Provider Surgery
PROC: (CPT 11463; principal; 2020-03-06 08:25)
DX: L73.2 Hidradenitis suppurativa (principal); K21.9 Gastro-esophageal reflux disease without esophagitis; F32.9 Major depressive disorder, single episode, unspecified; F41.9 Anxiety disorder, unspecified; F17.210 Nicotine dependence, cigarettes, uncomplicated; J45.909 Unspecified asthma, uncomplicated; E78.00 Pure hypercholesterolemia, unspecified; K58.9 Irritable bowel syndrome, unspecified; K44.9 Diaphragmatic hernia without obstruction or gangrene; Z79.02 Long term (current) use of antithrombotics/antiplatelets; Z79.899 Other long term (current) drug therapy; Z79.82 Long term (current) use of aspirin; Z86.718 Personal history of other venous thrombosis and embolism
CPT/HCPCS: 00904; 11463; 56630; 80053; 84134; 85027; 85652; 86140; 87070; 87075; 87102; 87176; 87205; 87206; 87635; 88304; 88305; 96361; 96365; 96366; 96375; 96376; 99218; 99251; 99406; G2023; J7120; A4216; G0378; G0379; G0463; J2405; U0002; U0004

== ENCOUNTER 2020-04-09 11:00 | Outpatient (RCR) | payer MEDICAID, SELFPAY ==
[2020-03-06 07:04] VITALS: BMI 29.6
[2020-03-26 11:19] VITALS: BP 143/72; PULSE 83; RESP 18; TEMP 36.4; BMI 29.3
--- NOTE | 2020-03-26 13:12 | PCM.WC.PN ---
(1) Non-healing open wound of left groin Status: Acute Code(s): S31.104A - Unspecified open wound of abdominal wall, left lower quadrant without penetration into peritoneal cavity, initial encounter (2) Open wound of vulva Status: Acute Code(s): S31.40XA - Unspecified open wound of vagina and vulva, initial encounter (3) Vulval hidradenitis suppurativa Status: Chronic Code(s): L73.2 - Hidradenitis suppurativa (4) Smoker Status: Chronic Code(s): F17.200 - Nicotine dependence, unspecified, uncomplicated (5) Hidradenitis suppurativa Status: Chronic Code(s): L73.2 - Hidradenitis suppurativa Comment: left inguinal area left posterior ear by the earlobe Type of Wound Date of Service: 03/26/20 Chief Complaint: Hidradenitis left inguinal and vulval area involving geitocrural crease and labia. History of Wound: Surgery 03/06/20 - 1. Surgical preparation left inguinal area with excision hidradenitis (117 cm2). 2. Surgical preparation left vulval area involving genitocrural crease and labia with excision hidradenitis and partial vulvectomy including deep subcutaneous tissue. Surgical wound cultures negative for bacteria growth. Pre-albumin 14.3 from 03/07/20. Wound Care - Patient was sent home with a wound VAC at 150 mmHg. She is on a VAC holiday due to severity of pain she is experiencing. Will do daily Silver dressing changes until the VAC is restarted next week. She has home health which is [facility]. Today she denies fever, chills, nausea. She states her appetite is good. Progress of Wound: Improved. - Physical Exam Vital Signs Temp Pulse Resp BP 97.5 F L 83 18 143/72 H 03/26/20 11:19 03/26/20 11:19 03/26/20 11:19 03/26/20 11:19 General: Alert, Oriented x3 HEENT: Atraumatic Oral: Moist Mucosa Lungs: Clear to auscultation, Normal air movement Cardiovascular: Regular rate, Regular Rhythm Abdomen: Soft Extremities: Capillary Refill Less than 3 Seconds Skin: Ulcer/ Wound - Left medial thigh, groin and vulva ulcer Wound Measurements and Assessment WC - Nurse 1 - General Ulcer Measurement Start: 03/26/20 11:18 Freq: Status: Active Protocol: Activity Type Activity Date Activity User E-Sign Co-Sign Detail Recorded Client Recorded Date Recorded By Document 03/26/20 11:19 [facility] [id number] 03/26/20 11:28 [facility] 03/26/20 11:19 Wound Center Nurse 1 [Ulcer Assessment] #3- L GROIN POST OP -Combined with other wound No -Current Size (cm) - Length 9 -Current Size (cm) - Width 4.9 -Current Size (cm) - Depth 0.1 -Total Square Cm 44.1 -Date of Last Picture (Recall this 03/26/20 field) -Photo Taken Yes -Epithelialization None Present -Tunneling No -Undermining/Tunneling No -Circular Undermining No -Exudate Amt Medium -Exudate Type Serosanguineous -Wound Margin Distinct, Outline Attached -Granulation Amt Large (67-100%) -Granulation Quality Red -Slough/Fibrin Yes -Necrosis Amt Small (1-33%) -Necrotic Tissue Type Adherent Slough -Texture ([place]-wound Skin Appearance) Assessed, Scarring -Moisture ([place]-wound Skin Appearance Assessed ) -Color ([place]-wound Skin Appearance) Assessed -Temperature ([place]-wound Skin No Abnormality Appearance) (Pt Warm) -Tenderness on Palpation ([place]-wound No Skin Appearance) -Ulcer Cleansing SOAPY WATER -Foul Odor after Cleansing No -Anesthetic Used 4% Lidocaine Solution - Nurse 2 - General Ulcer CM Notes Start: 03/26/20 11:18 Freq: Status: Active Protocol: Activity Type Activity Date Activity User E-Sign Co-Sign Detail Recorded Client Recorded Date Recorded By Document 03/26/20 11:43 [id number] 03/26/20 11:44 03/26/20 11:43 Wound Center Nurse 2 [Procedure/Treatment] -Time 11:43 -Correct Patient Yes -Correct Side, Site, Position Yes -Correct Procedure Yes -Procedure Performed Yes -Type of Procedure Debridement -Clinical Debridement Subcutaneous -Post Debridement Size (cm) - Length 9.0 -Post Debridement Size (cm) - Width 6.0 -Post Debridement Size (cm) - Depth 1.2 -Total Square Cm 54.00 -Wound/Ulcer Outcome Not Healed -Ulcer Cleansing Rinsed/ Irrigated with Saline -Foul Odor after Cleansing No -Bioengineered Tissue No -Bleeding Controlled with Pressure -Offloading No -Treatment Response Procedure Tolerated Well [See Physician Procedure note for Specifics] Pain Scale: 0-10 Numeric [Pain] -Is Patient Pain Free? Yes Musculoskeletal: Tenderness Neurological: Neuro grossly intact Psych/Mental Status: Normal Affect, Appropriate Debridement Note Post-Debridement Measurements/Treatment WC - Nurse 2 - General Ulcer CM Notes Start: 03/26/20 11:18 Freq: Status: Active Protocol: Activity Type Activity Date Activity User E-Sign Co-Sign Detail Recorded Client Recorded Date Recorded By Document 03/26/20 11:43 NINA [id number] 03/26/20 11:44 NINA 03/26/20 11:43 Wound Center Nurse 2 #3- L GROIN POST OP -Time 11:43 -Correct Patient Yes -Correct Side, Site, Position Yes -Correct Procedure Yes -Procedure Performed Yes -Type of Procedure Debridement -Clinical Debridement Subcutaneous -Post Debridement Size (cm) - Length 9.0 -Post Debridement Size (cm) - Width 6.0 -Post Debridement Size (cm) - Depth 1.2 -Total Square Cm 54.00 -Wound/Ulcer Outcome Not Healed -Ulcer Cleansing Rinsed/ Irrigated with Saline -Foul Odor after Cleansing No -Bioengineered Tissue No -Bleeding Controlled with Pressure -Offloading No -Treatment Response Procedure Tolerated Well Pain Scale: 0-10 Numeric Is Patient Pain Free? Yes Wound debrided: medial thigh, groin and vulva ulcer Laterality: Left Type of Debridement: Excisional debridement Anesthesia Used: 5% Lidocaine Gel Depth: in the subcutaneous layer Percentage of wound debrided: 100 Instrument Used: 7mm curette Tissue Removed: Subcutaneous tissue and slough Severity: Fat Layer Exposed Amount of bleeding with debridement: Mild Bleeding Controlled with: Pressure Patient tolerated procedure well Assessment/Plan Assessment: 1. Hidradenitis ulcer left axilla, healed. 2. Hidradenitis. 3. Smoker. Plan: Patient was evaluated at the wound healing center today and a subcutaneous debridement was performed. Surgery 03/06/20 - 1. Surgical preparation left inguinal area with excision hidradenitis (117 cm2). 2. Surgical preparation left vulval area involving genitocrural crease and labia with excision hidradenitis and partial vulvectomy including deep subcutaneous tissue. Surgical wound cultures negative for bacteria growth. Pre-albumin 14.3 from 03/07/20. Wound Care - Patient was sent home with a wound VAC at 150 mmHg. She is on a VAC holiday due to severity of pain she is experiencing. Will do daily Silver dressing changes until the VAC is restarted next week. She has home health which is [facility]. Encouraged patient to stop smoking as it may have deleterious effects on wound healing. Renewed Percocet. PDMP reviewed. Follow up one week. [id number]: [id number] Global Visit
[2020-04-09 11:11] VITALS: BP 134/74; PULSE 84; RESP 18; TEMP 36.5; BMI 29.3
--- NOTE | 2020-04-09 13:30 | PN.PCM_ITS ---
(1) Non-healing open wound of left groin Status: Acute Code(s): S31.104A - Unspecified open wound of abdominal wall, left lower quadrant without penetration into peritoneal cavity, initial encounter (2) Open wound of vulva Status: Acute Code(s): S31.40XA - Unspecified open wound of vagina and vulva, initial encounter (3) Vulval hidradenitis suppurativa Status: Chronic Code(s): L73.2 - Hidradenitis suppurativa (4) Smoker Status: Chronic Code(s): F17.200 - Nicotine dependence, unspecified, uncomplicated (5) Hidradenitis suppurativa Status: Chronic Code(s): L73.2 - Hidradenitis suppurativa Comment: left inguinal area left posterior ear by the earlobe Type of Wound Date of Service: 04/09/20 Chief Complaint: Hidradenitis left inguinal and vulval area involving geitocrural crease and labia. History of Wound: Surgery 03/06/20 - 1. Surgical preparation left inguinal area with excision hidradenitis (117 cm2). 2. Surgical preparation left vulval area involving genitocrural crease and labia with excision hidradenitis and partial vulvectomy including deep subcutaneous tissue. Surgical wound cultures negative for bacteria growth. Pre-albumin 14.3 from 03/07/20. Wound Care - Wound VAC discontinued. Daily Silver dressing changes. She has home health which is [facility]. Today she denies fever, chills, nausea. She states her appetite is good. She is complaining of burning pain in left groin, radiating down left leg. Will start her on Gabapentin to see if this will help with this pain. Progress of Wound: Improved. - Physical Exam Vital Signs Temp Pulse Resp BP 97.7 F L 84 18 134/74 H 04/09/20 11:11 04/09/20 11:11 04/09/20 11:11 04/09/20 11:11 General: Alert, Oriented x3, Cooperative HEENT: Atraumatic Oral: Moist Mucosa Lungs: Normal air movement Cardiovascular: Regular rate Abdomen: Soft, Non Tender Extremities: No edema, Capillary Refill Less than 3 Seconds Skin: Ulcer/ Wound - Left groin and vulva wound which is beefy pink and showing improvement. Wound Measurements and Assessment WC - Nurse 1 - General Ulcer Measurement Start: 03/26/20 11:18 Freq: Status: Active Protocol: Activity Type Activity Date Activity User E-Sign Co-Sign Detail Recorded Client Recorded Date Recorded By Document 04/09/20 11:11 BS [id number] 04/09/20 11:21 BS 04/09/20 11:11 Wound Center Nurse 1 [Ulcer Assessment] #3- L GROIN POST OP -Combined with other wound No -Current Size (cm) - Length 7.3 -Current Size (cm) - Width 3.2 -Current Size (cm) - Depth 0.2 -Total Square Cm 23.36 -Photo Taken No -Granulation Quality Reservoir,Red -Texture ([place]-wound Skin Appearance) Assessed, Localized Edema -Moisture ([place]-wound Skin Appearance Assessed, ) Weeping -Color ([place]-wound Skin Appearance) No Abnormality, Assessed -Temperature ([place]-wound Skin No Abnormality Appearance) (Pt Warm) -Tenderness on Palpation ([place]-wound Yes Skin Appearance) -Ulcer Cleansing Soap and water -Foul Odor after Cleansing No -Anesthetic Used 4% Lidocaine Solution - Nurse 2 - General Ulcer CM Notes Start: 03/26/20 11:18 Freq: Status: Active Protocol: Activity Type Activity Date Activity User E-Sign Co-Sign Detail Recorded Client Recorded Date Recorded By Document 04/09/20 11:41 [id number] 04/09/20 11:42 04/09/20 11:41 Wound Center Nurse 2 [Procedure/Treatment] -Time 11:42 -Correct Patient Yes -Correct Side, Site, Position Yes -Correct Procedure Yes -Procedure Performed Yes -Type of Procedure Debridement -Clinical Debridement Subcutaneous -Post Debridement Size (cm) - Length 7.4 -Post Debridement Size (cm) - Width 3.2 -Post Debridement Size (cm) - Depth 0.2 -Total Square Cm 23.68 -Wound/Ulcer Outcome Not Healed -Ulcer Cleansing Rinsed/ Irrigated with Saline -Foul Odor after Cleansing No -Bioengineered Tissue No -Bleeding Controlled with Pressure -Offloading No -Treatment Response Procedure Tolerated Well [See Physician Procedure note for Specifics] Pain Scale: 0-10 Numeric [Pain] -Is Patient Pain Free? Yes Musculoskeletal: No Muscle Wasting Neurological: Neuro grossly intact Psych/Mental Status: Normal Affect, Appropriate Debridement Note Post-Debridement Measurements/Treatment - Nurse 2 - General Ulcer CM Notes Start: 03/26/20 11:18 Freq: Status: Active Protocol: Activity Type Activity Date Activity User E-Sign Co-Sign Detail Recorded Client Recorded Date Recorded By Document 03/26/20 11:43 [id number] 03/26/20 11:44 Document 04/09/20 11:41 [id number] 04/09/20 11:42 03/26/20 04/09/20 11:43 11:41 Wound Center Nurse 2 #3- L GROIN POST OP -Time 11:43 11:42 -Correct Patient Yes Yes -Correct Side, Site, Position Yes Yes -Correct Procedure Yes Yes -Procedure Performed Yes Yes -Type of Procedure Debridement Debridement -Clinical Debridement Subcutaneous Subcutaneous -Post Debridement Size (cm) - Length 9.0 7.4 -Post Debridement Size (cm) - Width 6.0 3.2 -Post Debridement Size (cm) - Depth 1.2 0.2 -Total Square Cm 54.00 23.68 -Wound/Ulcer Outcome Not Healed Not Healed -Ulcer Cleansing Rinsed/ Rinsed/ Irrigated with Irrigated with Saline Saline -Foul Odor after Cleansing No No -Bioengineered Tissue No No -Bleeding Controlled with Pressure Pressure -Offloading No No -Treatment Response Procedure Procedure Tolerated Well Tolerated Well Pain Scale: 0-10 Numeric Is Patient Pain Free? Yes Yes Wound debrided: groin and vulva ulcer Laterality: Left Type of Debridement: Excisional debridement Anesthesia Used: 5% Lidocaine Gel Depth: Down to and including healthy tissue, in the subcutaneous layer Percentage of wound debrided: 100 Instrument Used: 5mm curette Tissue Removed: Subcutaneous tissue and slough Severity: Fat Layer Exposed Amount of bleeding with debridement: Mild Bleeding Controlled with: Pressure Patient tolerated procedure well Assessment/Plan Assessment: 1. Hidradenitis ulcer left axilla, healed. 2. Hidradenitis. 3. Smoker. Plan: Patient was evaluated at the wound healing center today and a subcutaneous debridement was performed. Surgery 03/06/20 - 1. Surgical preparation left inguinal area with excision hidradenitis (117 cm2). 2. Surgical preparation left vulval area involving genitocrural crease and labia with excision hidradenitis and partial vulvectomy including deep subcutaneous tissue. Surgical wound cultures negative for bacteria growth. Pre-albumin 14.3 from 5/20/20. Wound Care - Patient was sent home with a wound VAC at 150 mmHg. VAC discontinued due to pain. Will do daily Silver dressing changes. If she is having a lot of drainage, she can change the outer gauze dressings but does not need to change the silver more than once per day. She has home health which is [facility]. Encouraged patient to stop smoking as it may have deleterious effects on wound healing. She is complaining of having burning pain that radiates down her left leg. Will start her on Gabapentin to see if that helps her improve the symptoms. Instructed her how to take the medication. Follow up two weeks. [id number]: [id number] Global Visit
== END 2020-04-17 23:59 ==
LOC: WC 11:00
PROVIDERS: Visit Provider Nurse Practitioner Family
DX: L73.2 Hidradenitis suppurativa (principal); F17.200 Nicotine dependence, unspecified, uncomplicated; L98.492 Non-pressure chronic ulcer of skin of other sites with fat layer exposed
CPT/HCPCS: 11042; 11045; 99213; G0463

== ENCOUNTER 2020-05-14 15:00 | Outpatient (RCR) | payer MEDICAID, SELFPAY ==
[2020-04-18 00:35] VITALS: BP 134/74; PULSE 84; RESP 18; TEMP 36.5
[2020-04-30 12:15] VITALS: BP 143/79; PULSE 74; RESP 18; TEMP 36.9; BMI 29.3
--- NOTE | 2020-04-30 15:42 | PCM.WC.PN ---
(1) Vulval hidradenitis suppurativa Status: Chronic Code(s): L73.2 - Hidradenitis suppurativa (2) Chronic skin ulcer with fat layer exposed Status: Chronic Code(s): L98.492 - Non-pressure chronic ulcer of skin of other sites with fat layer exposed (3) Hidradenitis suppurativa Status: Chronic Code(s): L73.2 - Hidradenitis suppurativa Comment: left inguinal area left posterior ear by the earlobe (4) Hidradenitis suppurativa of left axilla Status: Chronic Code(s): L73.2 - Hidradenitis suppurativa (5) Smoker Status: Chronic Code(s): F17.200 - Nicotine dependence, unspecified, uncomplicated Type of Wound Date of Service: 04/30/20 Chief Complaint: Hidradenitis left inguinal and vulval area involving geitocrural crease and labia. History of Wound: Surgery 03/06/20 - 1. Surgical preparation left inguinal area with excision hidradenitis (117 cm2). 2. Surgical preparation left vulval area involving genitocrural crease and labia with excision hidradenitis and partial vulvectomy including deep subcutaneous tissue. Surgical wound cultures negative for bacteria growth. Pre-albumin 14.3 from 03/07/20. Wound Care - Daily Silver dressing changes. She has home health which is [facility]. She is having left axilla pain and has a new area of hidradenitis in this area. Today she denies fever, chills, nausea. She states her appetite is good. She is complaining of burning pain in left groin, radiating down left leg. She stopped the Gabapentin because it was making her sick. Progress of Wound: Improved. - Physical Exam Vital Signs Temp Pulse Resp BP 98.5 F 74 18 143/79 H 04/30/20 12:15 04/30/20 12:15 04/30/20 12:15 04/30/20 12:15 General: Alert, Oriented x3, Cooperative HEENT: Atraumatic Oral: Moist Mucosa Lungs: Normal air movement Cardiovascular: Regular rate Extremities: Capillary Refill Less than 3 Seconds Skin: Ulcer/ Wound - Left groin ulcer with beefy pink granulation tissue. She has tenderness in left axilla where there is a painful palpable area. Wound Measurements and Assessment MIRYAM - Nurse 1 - General Ulcer Measurement Start: 04/30/20 12:15 Freq: Status: Active Protocol: Activity Type Activity Date Activity User E-Sign Co-Sign Detail Recorded Client Recorded Date Recorded By Document 04/30/20 12:15 NIRMALA [id number] 04/30/20 12:18 NIRMALA 04/30/20 12:15 Wound Center Nurse 1 [Ulcer Assessment] #3- L GROIN POST OP -Combined with other wound No -Current Size (cm) - Length 6.0 -Current Size (cm) - Width 2.5 -Current Size (cm) - Depth 0.1 -Total Square Cm 15.00 -Photo Taken No -Epithelialization None Present -Tunneling No -Undermining/Tunneling No -Circular Undermining No -Classification - Thickness Full Thickness without Exposed Support Structure -Exudate Amt Medium -Exudate Type Serosanguineous -Wound Margin Flat & Intact -Granulation Amt Medium (34-66%) -Granulation Quality Red -Slough/Fibrin Yes -Necrosis Amt Medium (34-66%) -Necrotic Tissue Type Adherent Slough -Structure Exposed None/Limited to Skin Breakdown -Texture ([place]-wound Skin Appearance) Assessed, Scarring -Moisture ([place]-wound Skin Appearance Assessed, ) Weeping -Color ([place]-wound Skin Appearance) No Abnormality, Assessed -Temperature ([place]-wound Skin No Abnormality Appearance) (Pt Warm) -Tenderness on Palpation ([place]-wound Yes Skin Appearance) -Ulcer Cleansing Rinsed/ Irrigated with Saline -Foul Odor after Cleansing No -Anesthetic Used 4% Lidocaine Solution MIRYAM - Nurse 2 - General Ulcer CM Notes Start: 04/30/20 12:15 Freq: Status: Active Protocol: Activity Type Activity Date Activity User E-Sign Co-Sign Detail Recorded Client Recorded Date Recorded By Document 04/30/20 12:26 NINA [id number] 04/30/20 12:30 NINA 04/30/20 12:26 Wound Center Nurse 2 [Procedure/Treatment] -Time 12:27 -Correct Patient Yes -Correct Side, Site, Position Yes -Correct Procedure Yes -Procedure Performed Yes -Type of Procedure Debridement -Clinical Debridement Subcutaneous -Post Debridement Size (cm) - Length 5.8 -Post Debridement Size (cm) - Width 2.2 -Post Debridement Size (cm) - Depth 0.3 -Total Square Cm 12.76 -Wound/Ulcer Outcome Not Healed -Ulcer Cleansing Rinsed/ Irrigated with Saline -Foul Odor after Cleansing No -Bioengineered Tissue No -Bleeding Controlled with Pressure -Offloading No -Treatment Response Procedure Tolerated Well [See Physician Procedure note for Specifics] Pain Scale: 0-10 Numeric [Pain] -Is Patient Pain Free? Yes Musculoskeletal: No Tenderness to Palpation of Joints or Extremities Neurological: Neuro grossly intact Psych/Mental Status: Normal Affect, Appropriate Debridement Note Post-Debridement Measurements/Treatment WC - Nurse 2 - General Ulcer CM Notes Start: 04/30/20 12:15 Freq: Status: Active Protocol: Activity Type Activity Date Activity User E-Sign Co-Sign Detail Recorded Client Recorded Date Recorded By Document 04/30/20 12:26 NINA [id number] 04/30/20 12:30 NINA 04/30/20 12:26 Wound Center Nurse 2 #3- L GROIN POST OP -Time 12:27 -Correct Patient Yes -Correct Side, Site, Position Yes -Correct Procedure Yes -Procedure Performed Yes -Type of Procedure Debridement -Clinical Debridement Subcutaneous -Post Debridement Size (cm) - Length 5.8 -Post Debridement Size (cm) - Width 2.2 -Post Debridement Size (cm) - Depth 0.3 -Total Square Cm 12.76 -Wound/Ulcer Outcome Not Healed -Ulcer Cleansing Rinsed/ Irrigated with Saline -Foul Odor after Cleansing No -Bioengineered Tissue No -Bleeding Controlled with Pressure -Offloading No -Treatment Response Procedure Tolerated Well Pain Scale: 0-10 Numeric Is Patient Pain Free? Yes Wound debrided: groin Laterality: Left Type of Debridement: Excisional debridement Anesthesia Used: 5% Lidocaine Gel Depth: Down to and including healthy tissue, in the subcutaneous layer Percentage of wound debrided: 100 Instrument Used: 5mm curette Tissue Removed: Subcutaneous tissue and slough Severity: Fat Layer Exposed Amount of bleeding with debridement: Mild Bleeding Controlled with: Pressure Patient tolerated procedure well Assessment/Plan Assessment: 1. Hidradenitis ulcer left axilla, healed. 2. Hidradenitis. 3. Smoker. Plan: Patient was evaluated at the wound healing center today and a subcutaneous debridement was performed. Surgery 03/06/20 - 1. Surgical preparation left inguinal area with excision hidradenitis (117 cm2). 2. Surgical preparation left vulval area involving genitocrural crease and labia with excision hidradenitis and partial vulvectomy including deep subcutaneous tissue. Surgical wound cultures negative for bacteria growth. Pre-albumin 14.3 from 03/07/20. Wound Care - Daily Silver dressing changes. If she is having a lot of drainage, she can change the outer gauze dressings but does not need to change the silver more than once per day. She has home health which is [facility]. Encouraged patient to stop smoking as it may have deleterious effects on wound healing. She is complaining of having burning pain that radiates down her left leg. She stopped the Gabapentin because it was making her sick. She now is having issues with her left axilla she has a new area that is painful. Will start her on Clindamycin for the left axilla. Follow up one week to see Dr. Fraga. [id number]: [id number] Global Visit
[2020-05-07 14:35] VITALS: BP 120/72; PULSE 56; RESP 16; TEMP 36.3; BMI 29.3
--- NOTE | 2020-05-07 16:39 | PN.PCM_ITS ---
Type of Wound Date of Service: 05/09/20 Chief Complaint: Nonhealing hidradenitis ulcer left inguinal and vulval area involving genitocrural crease and labia. History of Wound: Surgery 03/06/20 - 1. Surgical preparation left inguinal area with excision hidradenitis (117 cm2). 2. Surgical preparation left vulval area involving genitocrural crease and labia with excision hidradenitis and partial vulvectomy including deep subcutaneous tissue. Wound care - Silver. Operative wound cultures negative for bacteria growth. She was treated perioperatively with Doxycycline. Pre-albumin from 03/07/20 was 14.3. Encourage nutritional supplementation with protein to help the healing process. She is also having left axillary pain with recent flare ups of hidradenitis in this area. She was started on Doxycycline and had trouble with it and was changed to Clindamycin. She is tolerating them. Today she denies fever. She states her appetite is good. She is complaining of burning pain in left groin, radiating down left leg. She stopped the Gabapentin because it was making her sick. Progress of Wound: Improved. - Physical Exam Vital Signs Temp Pulse Resp BP 97.3 F L 56 L 16 120/72 05/07/20 14:35 05/07/20 14:35 05/07/20 14:35 05/07/20 14:35 Wound Measurements and Assessment WC - Nurse 1 - General Ulcer Measurement Start: 04/30/20 12:15 Freq: Status: Active Protocol: Activity Type Activity Date Activity User E-Sign Co-Sign Detail Recorded Client Recorded Date Recorded By Document 05/07/20 14:35 [facility] [id number] 05/07/20 14:40 [facility] 05/07/20 14:35 Wound Center Nurse 1 [Ulcer Assessment] #3- L GROIN POST OP -Combined with other wound No -Current Size (cm) - Length 4.3 -Current Size (cm) - Width 2.1 -Current Size (cm) - Depth 0.2 -Total Square Cm 9.03 -Photo Taken No -Epithelialization None Present -Tunneling No -Undermining/Tunneling No -Circular Undermining No -Exudate Amt Small -Exudate Type Serosanguineous -Wound Margin Distinct, Outline Attached -Granulation Amt Large (67-100%) -Granulation Quality [place] -Slough/Fibrin Yes -Necrosis Amt Small (1-33%) -Necrotic Tissue Type Adherent Slough -Texture ([place]-wound Skin Appearance) Assessed, Scarring -Moisture ([place]-wound Skin Appearance Assessed ) -Color ([place]-wound Skin Appearance) Assessed -Temperature ([place]-wound Skin No Abnormality Appearance) (Pt Warm) -Tenderness on Palpation ([place]-wound No Skin Appearance) -Ulcer Cleansing Rinsed/ Irrigated with Saline -Foul Odor after Cleansing No -Anesthetic Used 4% Lidocaine Solution - Nurse 2 - General Ulcer CM Notes Start: 04/30/20 12:15 Freq: Status: Active Protocol: Activity Type Activity Date Activity User E-Sign Co-Sign Detail Recorded Client Recorded Date Recorded By Document 05/07/20 14:56 [id number] 05/07/20 14:56 05/07/20 14:56 Wound Center Nurse 2 [Procedure/Treatment] -Time 14:56 -Correct Patient Yes -Correct Side, Site, Position Yes -Correct Procedure Yes -Procedure Performed Yes -Type of Procedure Debridement -Clinical Debridement Subcutaneous -Post Debridement Size (cm) - Length 4.3 -Post Debridement Size (cm) - Width 2.2 -Post Debridement Size (cm) - Depth 0.2 -Total Square Cm 9.46 -Wound/Ulcer Outcome Not Healed -Ulcer Cleansing Rinsed/ Irrigated with Saline -Foul Odor after Cleansing No -Bioengineered Tissue No -Bleeding Controlled with Pressure -Offloading No -Treatment Response Procedure Tolerated Well [See Physician Procedure note for Specifics] Pain Scale: 0-10 Numeric [Pain] -Is Patient Pain Free? Yes Debridement Note Post-Debridement Measurements/Treatment - Nurse 2 - General Ulcer CM Notes Start: 04/30/20 12:15 Freq: Status: Active Protocol: Activity Type Activity Date Activity User E-Sign Co-Sign Detail Recorded Client Recorded Date Recorded By Document 04/30/20 12:26 [id number] 04/30/20 12:30 Document 05/07/20 14:56 [id number] 05/07/20 14:56 04/30/20 05/07/20 12:26 14:56 Wound Center Nurse 2 #3- L GROIN POST OP -Time 12:27 14:56 -Correct Patient Yes Yes -Correct Side, Site, Position Yes Yes -Correct Procedure Yes Yes -Procedure Performed Yes Yes -Type of Procedure Debridement Debridement -Clinical Debridement Subcutaneous Subcutaneous -Post Debridement Size (cm) - Length 5.8 4.3 -Post Debridement Size (cm) - Width 2.2 2.2 -Post Debridement Size (cm) - Depth 0.3 0.2 -Total Square Cm 12.76 9.46 -Wound/Ulcer Outcome Not Healed Not Healed -Ulcer Cleansing Rinsed/ Rinsed/ Irrigated with Irrigated with Saline Saline -Foul Odor after Cleansing No No -Bioengineered Tissue No No -Bleeding Controlled with Pressure Pressure -Offloading No No -Treatment Response Procedure Procedure Tolerated Well Tolerated Well Pain Scale: 0-10 Numeric Is Patient Pain Free? Yes Yes Wound debrided: #3 Left inguinal and vulval area. Laterality: Left Wound Grade/Stage: 2. Type of Debridement: Excisional debridement Anesthesia Used: 4% Lidocaine Solution Depth: Down to and including healthy tissue, in the subcutaneous layer Percentage of wound debrided: 100 Instrument Used: 5mm curette Tissue Removed: subcutaneous tissue. Severity: Fat Layer Exposed Amount of bleeding with debridement: Mild Bleeding Controlled with: Pressure Patient tolerated procedure well Assessment/Plan Assessment: 1. Hidradenitis left inguinal and vulval area involving genitocrural crease and labia. 2. Nonhealing hidradenitis ulcer left inguinal and vulval area involving genitocrural crease and labia. 3. Smoker. Plan: Continue Silver dressing changes daily. She is not having urinary stream issues at this time. She is finishing the Clindamycin for the hidradenitis flare up in the left axilla. There is no urgent surgical need at this time. For the left inguinal and vulval ulcer, there is the chance of further contraction of the scar which can lead to urinary spraying. Recommend operative intervention with debridement and skin grafting. She has expressed interest. At the time of the skin graft, if the left axillary area continues to flare up then re-excision of hidradenitis in this area would be done. Once again the wound would be left open and wound care started with the VAC. Surgery would be done under general anesthesia with a surgical observation overnight stay in the hospital. Patient was informed of the risks and complications of the procedure including alternatives to surgery. These were discussed with her personally. She voices understanding and wishes to proceed. Prealbumin from 5/20/20 was 14.3. Encourage nutritional supplementation with protein to help the healing process. Renewed her Percocet for pain (7 tabs). Followup 2 weeks. Encouraged the patient to stop smoking as it may have deleterious effects on wound healing. [id number]: [id number] Global Visit - ICD-10 - Z48.89, L73.2, L98.492, N76.6, F17.200
[2020-05-14 15:29] VITALS: BP 146/69; PULSE 76; RESP 18; TEMP 36.4; BMI 29.3
--- NOTE | 2020-05-14 16:09 | PCM.WC.PN ---
(1) Vulval hidradenitis suppurativa Status: Chronic Current Visit: Yes Code(s): L73.2 - Hidradenitis suppurativa (2) Chronic skin ulcer with fat layer exposed Status: Chronic Current Visit: Yes Code(s): L98.492 - Non-pressure chronic ulcer of skin of other sites with fat layer exposed (3) Hidradenitis suppurativa Status: Chronic Current Visit: Yes Code(s): L73.2 - Hidradenitis suppurativa Comment: left inguinal area left posterior ear by the earlobe (4) Hidradenitis suppurativa of left axilla Status: Chronic Current Visit: Yes Code(s): L73.2 - Hidradenitis suppurativa (5) Smoker Status: Chronic Current Visit: Yes Code(s): F17.200 - Nicotine dependence, unspecified, uncomplicated Type of Wound Date of Service: 05/14/20 Chief Complaint: Nonhealing hidradenitis ulcer left inguinal and vulval area involving genitocrural crease and labia. History of Wound: Surgery 03/06/20 - 1. Surgical preparation left inguinal area with excision hidradenitis (117 cm2). 2. Surgical preparation left vulval area involving genitocrural crease and labia with excision hidradenitis and partial vulvectomy including deep subcutaneous tissue. Wound care - Silver. Operative wound cultures negative for bacteria growth. She was treated perioperatively with Doxycycline. Pre-albumin from 03/07/20 was 14.3. Encourage nutritional supplementation with protein to help the healing process. She is also having left axillary pain with recent flare ups of hidradenitis in this area. She was started on Doxycycline and had trouble with it and was changed to Clindamycin. She has completed her antibiotics. Today she denies fever. She states her appetite is good. She is complaining of burning pain in left groin, radiating down left leg. Progress of Wound: Improved. - Physical Exam Vital Signs Temp Pulse Resp BP 97.6 F L 76 18 146/69 H 05/14/20 15:29 05/14/20 15:29 05/14/20 15:29 05/14/20 15:29 General: Alert, Oriented x3, Cooperative HEENT: Atraumatic Oral: Moist Mucosa Lungs: Normal air movement Cardiovascular: Regular rate Extremities: Capillary Refill Less than 3 Seconds, Edema - Left axilla with swelling from her new outbreak of hidradenitis. Skin: Ulcer/ Wound - Left groin ulcer with good granulation tissue. Wound Measurements and Assessment - Nurse 1 - General Ulcer Measurement Start: 04/30/20 12:15 Freq: Status: Active Protocol: Activity Type Activity Date Activity User E-Sign Co-Sign Detail Recorded Client Recorded Date Recorded By Document 05/14/20 15:29 [id number] 05/14/20 15:36 05/14/20 15:29 Wound Center Nurse 1 [Ulcer Assessment] #3- L GROIN POST OP -Combined with other wound No -Current Size (cm) - Length 2.0 -Current Size (cm) - Width 3.0 -Current Size (cm) - Depth 0.1 -Total Square Cm 6.00 -Photo Taken No -Epithelialization None Present -Tunneling No -Undermining/Tunneling No -Exudate Amt None Present -Granulation Amt Large (67-100%) -Granulation Quality [place] -Slough/Fibrin Yes -Necrosis Amt Small (1-33%) -Ulcer Cleansing Rinsed/ Irrigated with Saline -Foul Odor after Cleansing No -Anesthetic Used 4% Lidocaine Solution - Nurse 2 - General Ulcer CM Notes Start: 04/30/20 12:15 Freq: Status: Active Protocol: Activity Type Activity Date Activity User E-Sign Co-Sign Detail Recorded Client Recorded Date Recorded By Document 05/14/20 16:02 [id number] 05/14/20 16:03 05/14/20 16:02 Wound Center Nurse 2 [Procedure/Treatment] -Time 16:03 -Correct Patient Yes -Correct Side, Site, Position Yes -Correct Procedure Yes -Procedure Performed Yes -Type of Procedure Debridement -Clinical Debridement Subcutaneous -Post Debridement Size (cm) - Length 4 -Post Debridement Size (cm) - Width 2 -Post Debridement Size (cm) - Depth 0.1 -Total Square (cm) 8 -Wound/Ulcer Outcome Not Healed -Ulcer Cleansing Rinsed/ Irrigated with Saline -Foul Odor after Cleansing No -Bioengineered Tissue No -Bleeding Controlled with Pressure -Offloading No -Treatment Response Procedure Tolerated Well [See Physician Procedure note for Specifics] Pain Scale: 0-10 Numeric [Pain] -Is Patient Pain Free? Yes Musculoskeletal: No Tenderness to Palpation of Joints or Extremities Neurological: Cranial nerves II-XII grossly intact Psych/Mental Status: Normal Affect, Appropriate Debridement Note Post-Debridement Measurements/Treatment WC - Nurse 2 - General Ulcer CM Notes Start: 04/30/20 12:15 Freq: Status: Active Protocol: Activity Type Activity Date Activity User E-Sign Co-Sign Detail Recorded Client Recorded Date Recorded By Document 04/30/20 12:26 [id number] 04/30/20 12:30 Document 05/07/20 14:56 [id number] 05/07/20 14:56 Document 05/14/20 16:02 [id number] 05/14/20 16:03 04/30/20 05/07/20 05/14/20 12:26 14:56 16:02 Wound Center Nurse 2 #3- L GROIN POST OP -Time 12:27 14:56 16:03 -Correct Patient Yes Yes Yes -Correct Side, Site, Position Yes Yes Yes -Correct Procedure Yes Yes Yes -Procedure Performed Yes Yes Yes -Type of Procedure Debridement Debridement Debridement -Clinical Debridement Subcutaneous Subcutaneous Subcutaneous -Post Debridement Size (cm) - Length 5.8 4.3 4 -Post Debridement Size (cm) - Width 2.2 2.2 2 -Post Debridement Size (cm) - Depth 0.3 0.2 0.1 -Total Square (cm) 12.76 9.46 8 -Wound/Ulcer Outcome Not Healed Not Healed Not Healed -Ulcer Cleansing Rinsed/ Rinsed/ Rinsed/ Irrigated with Irrigated with Irrigated with Saline Saline Saline -Foul Odor after Cleansing No No No -Bioengineered Tissue No No No -Bleeding Controlled with Pressure Pressure Pressure -Offloading No No No -Treatment Response Procedure Procedure Procedure Tolerated Well Tolerated Well Tolerated Well Pain Scale: 0-10 Numeric Is Patient Pain Free? Yes Yes Yes Wound debrided: Groin ulcer Laterality: Left Type of Debridement: Excisional debridement Anesthesia Used: 5% Lidocaine Gel Depth: Down to and including healthy tissue, in the subcutaneous layer Percentage of wound debrided: 100 Instrument Used: 5mm curette Tissue Removed: Subcutaneous tissue and slough Severity: Fat Layer Exposed Bleeding Controlled with: Pressure Patient tolerated procedure well Assessment/Plan Active Problems (Last Reviewed 12/24/19 @ 21:[address] Ronnell Fraga MD) Vulval hidradenitis suppurativa (Chronic) Chronic skin ulcer with fat layer exposed (Chronic) Smoker (Chronic) Hidradenitis suppurativa (Chronic) left inguinal area left posterior ear by the earlobe Hidradenitis suppurativa of left axilla (Chronic) Assessment: 1. Hidradenitis left inguinal and vulval area involving genitocrural crease and labia. 2. Nonhealing hidradenitis ulcer left inguinal and vulval area involving genitocrural crease and labia. 3. Smoker. Plan: Continue Silver dressing changes daily. She is not having urinary stream issues at this time. She von finished the Clindamycin for the hidradenitis flare up in the left axilla. There is no urgent surgical need at this time. For the left inguinal and vulval ulcer, there is the chance of further contraction of the scar which can lead to urinary spraying. Recommend operative intervention with debridement and skin grafting. She has expressed interest. At the time of the skin graft, if the left axillary area continues to flare up then re-excision of hidradenitis in this area would be done. Once again the wound would be left open and wound care started with the VAC. Surgery would be done under general anesthesia with a surgical observation overnight stay in the hospital. Patient was informed of the risks and complications of the procedure including alternatives to surgery. These were discussed with her personally. She voices understanding and wishes to proceed. Prealbumin from 03/07/20 was 14.3. Encourage nutritional supplementation with protein to help the healing process. Followup 1 week. Encouraged the patient to stop smoking as it may have deleterious effects on wound healing. [id number]: [id number] Global Visit
== END 2020-05-18 23:59 ==
LOC: WC 15:00
PROVIDERS: Visit Provider Nurse Practitioner Family
DX: L73.2 Hidradenitis suppurativa (principal); L98.492 Non-pressure chronic ulcer of skin of other sites with fat layer exposed; F17.200 Nicotine dependence, unspecified, uncomplicated
CPT/HCPCS: 11042

== ENCOUNTER 2020-05-29 13:00 | Observation (INO) | payer MEDICAID, SELFPAY ==
--- NOTE | 2020-05-28 22:27 | PCM.HP.BLA ---
History and Physical Date of Admission: 05/29/20 HISTORY OF PRESENT ILLNESS 44 year old woman presents with recent flare up of hidradenitis in her left axillary area that she is taking Clindamycin with some relief. There has been some increasing pain and induration in the area. She had recent surgery on 03/06/20 where she underwent surgical preparation left inguinal area with excision hidradenitis (117 cm2) and surgical preparation left vulval area involving genitocrural crease and labia with excision hidradenitis and partial vulvectomy including deep subcutaneous tissue. She has been coming [facility] and the ulcer has improved with a decrease in size and good granulation tissue. She has no urinary stream issues at this time. For the left inguinal and vulval ulcer, there is the chance of further contraction of the scar which can lead to urinary spraying. For the recurrent left axillary hidradenitis, she had surgery on the left axillary area on 10/28/19 where she underwent surgical preparation left axilla with excision recurrent hidradenitis (55 cm2). After the left axillary ulcer healed, she started having recurrent hidradenitis flare up issues a couple of months ago with temporary relief with antibiotics, initially on Doxycycline and then on Clindamycin. She denies fever. She denies trauma. She has had multiple debridements of hidradenitis in the past involving bilateral axillary areas, bilateral inguinal areas, bilateral vulval areas involving the labia, and the buttocks area. She presents today for excision of her recurrent left axillary hidradenitis and excisional debridement nonhealing hidradenitis ulcer left inguinal and vulval area with skin grafting. PAST MEDICAL HISTORY Anemia Anxiety and depression Asthma Breast lump in female GERD (gastroesophageal reflux disease) Gastrointestinal problem Heart valve problem High cholesterol History of blood clots IBS (irritable bowel syndrome) Kidney stones Recurrent infections Thyroid disease Vascular disease Chronic bronchitis PAST SURGICAL HISTORY appendectomy breast lump/mass excision cholecystectomy drainage of abscess embolectomy hernia repair hysterectomy History of left heart catheterization right knee surgery tonsillectomy hidradenitis suppurativa ALLERGIES acetaminophen [From Tylenol-Codeine #3] codeine [From Tylenol-Codeine #3] sulfamethoxazole [From Bactrim] trimethoprim [From Bactrim] adhesive tape IVP DYE MEDICATIONS clopidogrel hydroxyzine metoprolol Omeprazole Varenicline [Chantix] proMETHazine tablet [Phenergan tablet] Ondansetron [Zofran] Escitalopram Clindamycin FAMILY HISTORY Mother - Anxiety and depression, Arthritis, History of blood clots, History of blood transfusion, Heart disease, CVA (cerebral vascular accident), History of ulcer disease Grandmother - Asthma, Anxiety and depression, Heart disease, Kidney disease, CVA (cerebral vascular accident) Grandfather - Heart disease, Lung cancer SOCIAL HISTORY Smoking Status: Current every day smoker alcohol intake: never additional social history: DOES USE ASPIRIN DOES NOT USE IBUPROFEN REVIEW OF SYSTEMS General - Denies fever and weight loss. Has fatigue. Eyes - Denies cataracts and glaucoma. ENT - Denies nasal congestion and sore throat. Has history of swollen glands in the neck. Endocrine - Denies excessive thirst and urination. Skin - Denies suspicious lesions and skin cancer. Has recent flare up of left axillary hidradenitis. Has nonhealing hidradenitis ulcer left inguinal and vulval area. Musculoskeletal - Denies joint pain, joint stiffness, weakness of muscles and joints, back pain, and arthritis. Neuro - Denies headaches. Has lightheadedness. Cardiovascular - Has chest pain and fatigue and lightheadedness. Denies shortness of breath with exertion. Psych - Denies anxiety and depression. Respiratory - Has chronic cough and shortness of breath. Has sleep apnea and asthma. Gastrointestinal - Denies nausea, vomiting. Has diarrhea, and constipation. Hematologic - Denies abnormal bruising and bleeding. Genitourinary - Denies hematuria and urinary frequency. PHYSICAL EXAMINATION General - Alert and Oriented. HEENT - PERRL. EOMI. Throat is clear. Neck - Supple and nontender. No cervical adenopathy. Lungs - Clear to auscultation. Heart - Regular rate and rhythm. Abdomen - Soft and nondistended. In the left inguinal area with extension into the vulval area is a nonhealing hidradenitis ulcer. Measures 2 x 3 cm. Extremities - FROM. No axillary adenopathy. Radial pulses are palpable. In the left axillary area is a healed scar from recent excision hidradenitis and a recurrent flare up with tenderness to palpation. Some induration. No fluctuance. No purulent drainage. Measures 5 cm. Good range of motion. Genital - In the left vulval area involving the genitocrural area with extension into the inguinal area is a nonhealing hidradenitis ulcer. Measures 2 x 3 cm. Neuro - CN II-XII grossly intact. Psych - Normal mood and affect. ASSESSMENT 1. Hidradenitis left inguinal and vulval area involving genitocrural crease. 2. Recurrent hidradenitis left axillary area. 3. Nonhealing hidradenitis ulcer left inguinal and vulval area involving genitocrural crease. 4. Smoker. PLAN Recommend excision of her recurrent left axillary hidradenitis. Will send tissue to Pathology for analysis to rule out carcinoma and to Microbiology for culture. A positive culture will necessitate antibiotic therapy. Will leave the wound open and begin wound care with the VAC. After discharge will followup at the Wound Center. If there is a plateau in the healing process, can proceed in a delayed fashion with skin grafting. Recommend excisional debridement of the nonhealing hidradenitis ulcer left inguinal and vulval area involving genitocrural crease with skin graft reconstruction. This is being done to minimize further contraction of the scarring that can lead to urinary stream issues. Surgery will be done under general anesthesia with a surgical observation overnight stay in the hospital. Patient was informed of the risks and complications of the procedure including alternatives to surgery. These were discussed with the patient personally. Patient voices understanding and wishes to proceed. Some of the risks and complications were included in a form from the [employer]. Encouraged patient to stop smoking as it may have deleterious effects on wound healing. Anticipate increased metabolic demands from the infection and the ulceration. Encourage nutritional supplementation with protein to help the healing process. She is currently on Clindamycin for flare ups. She will continue Silver dressing changes until the surgery. We discussed the current risks associated with COVID-19. While it is understood that there is a community spread of COVID-19, the risk of liban COVID-19 while at [facility] ([facility]) is very low; however, the risk cannot be completely mitigated because of the community spread of the disease. We discussed in detail the risk of exposure to and/or potential harm posed by the COVID-19 virus with having a surgery/procedure at this time versus the risk of delaying the surgery/procedure. It is not possible to know either the risk of delaying the surgery or procedure or chance of getting an infection with perfect accuracy, but a joint decision was made to proceed at this time with the scheduled surgery/procedure as indicated on the consent form. Patient was notified that we will need to comply with any screening or testing [facility] wishes to perform or that surgery may be delayed for any positive results. Discussed with the patient that I was tested for COVID-19 on 04/19/20 which was negative and on 05/03/20 which was negative. My testing regimen at this time is to be COVID-19 tested every 2 weeks or so. I was recently tested on 05/17/20, and that test was negative. Procedure Criteria Procedure Type: Elective COVID Risk Discussion: The surgeon/proceduralist and patient have discussed in detail the risk of exposure to and/or potential harm posed by the COVID-19 virus with having a surgery/procedure at this time versus the risk of delaying the surgery/procedure. It is not possible to know either the risk of delaying the surgery or procedure or chance of getting an infection with perfect accuracy, but a joint decision was made between the patient and the surgeon/proceduralist to proceed at this time with the scheduled surgery/procedure as indicated on the consent form.
[2020-05-29] VITALS (11 sets, daily range): BP systolic 112–131; BP diastolic 59–79; PULSE 54–90; RESP 15–16; TEMP 36.1–36.8; O2SAT 96–100; BMI 28.9
--- NOTE | 2020-05-29 | HID_PTH ---
PATIENT: TAYLOR PENA LOC: MS3 U#:[id number] AGE/SX: 44/F ROOM: PR324 RE05/29/[address]: Dr. Ronnell Fraga MD : [id number] BED: 1 DIS: 05/30/2020 SPEC #: [id number] RECD: 05/29/20 12:36 STATUS: DAYAN PAOLA #: [id number] KM: 05/29/20 00:[address]: Ronnell Fraga DEPT: SURGICAL PATHOLOGY RECD BY: Luigi Sylvester Tissues: A - Inguinal region, NOS B - Axilla, NOS C - Vulva, NOS Procedures: Surgery Specimen Level III HEADER OPERATION: Surgical preparation inguinal and vulvar area PRE-OP DIAGNOSIS: Hidradenitis left inguinal and vulvar area involving genitocrural crease and labia; recurrent hidradenitis left axillary area TISSUE SUBMITTED: A - Nonhealing hidradenitis left inguinal, B - Nonhealing hidradenitis left axilla; C - Nonhealing hidradenitis left vulva MICROSCOPIC DIAGNOSIS A. Nonhealing hidradenitis left inguinal, excision: A piece of skin with underlying tissue with focal fat necrosis and acute and chronic inflammation. B. Nonhealing hidradenitis left axilla, excision: Pieces of skin and fibroadipose tissue with minimal chronic inflammation. C. Nonhealing hidradenitis left vulva, excision: A piece of skin with underlying tissue with extensive dense fibrosis and chronic inflammation. CYNDIE:gracie 05/30/20 MICROSCOPIC DESCRIPTION Slides are reviewed. GROSS DESCRIPTION A - Received in fixative is one container labeled with the patient's name and designated nonhealing hidradenitis left inguinal. The specimen consists of a piece of skin with underlying tissue measuring 4 x 1.5 cm and up to 1.5 cm in thickness. The skin surface does not reveal any lesion. Sections do not reveal any mass lesion. Producer Arborist Manager sections are submitted in two cassettes. B - Received in fixative is one container labeled with the patient's name and designated nonhealing hidradenitis left axilla. The specimen consists of a piece of skin with underlying tissue measuring 8 x 1 x 1 cm. Also present in the container is a piece of adipose tissue measuring 4 x 2.5 x 1 cm. No skin lesion is identified. Sections do not reveal any mass lesion. Producer Arborist Manager sections are submitted in two cassettes. C - Received in fixative is one container labeled with the patient's name and designated nonhealing hidradenitis left vulva. The specimen consists of a piece of saab, indurated tissue measuring 5.5 x 0.5 x 0.5 cm. No mass lesion is identified. The entire specimen is submitted in two cassettes. / CYNDIE:gracie 05/29/20 TC:2 CPT: 55329 x3
[2020-05-29] MEDS: Lactated Ringers 1,000 ML 100 ML IV (10:02)
[2020-05-29] MEDS: Mupirocin Ointment 22gm Tube 1 APPLIC (10:54)
--- NOTE | 2020-05-29 12:31 | PCM.OPRPT ---
Report of Operation Date of Procedure: 05/29/20 Pre-Operative Diagnosis: 1. Nonhealing hidradenitis ulcer left inguinal and vulval area involving genitocrural crease. 2. Recurrent hidradenitis left axillary area. 3. Hidradenitis left proximal inguinal area. 4. Smoker. Post-Operative Diagnosis: Same. Surgery/Procedure Performed:: 1. Surgical preparation left inguinal and vulval area involving genitocrural crease with excisional debridement nonhealing hidradenitis ulcer and STSG recosntruction from left lateral abdominal wall (12 cm2) and placement of AmnioFill placental connective tissue powder, 250 mg. 2. Surgical preparation left axilla with excision recurrent hidradenitis (55 cm2). 3. Excision left proximal inguinal hidradenitis with 6 cm complex closure repair. Description of Surgical Findings:: 44 year old woman presents with recent flare up of hidradenitis in her left axillary area that she is taking Clindamycin with some relief. There has been some increasing pain and induration in the area. She had recent surgery on 03/06/20 where she underwent surgical preparation left inguinal area with excision hidradenitis (117 cm2) and surgical preparation left vulval area involving genitocrural crease and labia with excision hidradenitis and partial vulvectomy including deep subcutaneous tissue. She has been coming to the [facility] Center and the ulcer has improved with a decrease in size and good granulation tissue. She has no urinary stream issues at this time. For the left inguinal and vulval ulcer, there is the chance of further contraction of the scar which can lead to urinary spraying. For the recurrent left axillary hidradenitis, she had surgery on the left axillary area on 10/28/19 where she underwent surgical preparation left axilla with excision recurrent hidradenitis (55 cm2). After the left axillary ulcer healed, she started having recurrent hidradenitis flare up issues a couple of months ago with temporary relief with antibiotics, initially on Doxycycline and then on Clindamycin. She denies fever. She denies trauma. She has had multiple debridements of hidradenitis in the past involving bilateral axillary areas, bilateral inguinal areas, bilateral vulval areas involving the labia, and the buttocks area. She presents today for excision of her recurrent left axillary hidradenitis and excisional debridement nonhealing hidradenitis ulcer left inguinal and vulval area with skin grafting. Patient was informed of the risks and complications of the procedure including alternatives to surgery. These were discussed with the patient personally. Patient voices understanding and wishes to proceed. Some of the risks and complications were included in a form from the [employer]. Encouraged patient to stop smoking as it may have deleterious effects on wound healing. Size of defect left axillary area - 11 x 5 x 1.5 cm. Size of skin graft left inguinal and vulval area - 4 x 3 cm. I used AmnioFill Placental Connective Tissue Powder, 250 mg. Catalog Number - [id number]. Lot Number - [id number]. Expiration - December 17, 2024. artificial flower maker: Luis Angel [place]. Type of Anesthesia:: General Specimen's removed: 1. Nonhealing hidradenitis ulcer left inguinal and vulval area involving genitocrural crease to Pathology and Microbiology. 2. Recurrent hidradenitis left axillary area to Pathology and Microbiology. 3. Hidradenitis left proximal inguinal area to Pathology and Microbiology. Drains: None. Estimated Blood Loss (mL): 50 ml. Description of Procedure: Patient was taken to OR in supine position and was placed under general anesthesia. The left axilla and left inguinal and left vulval areas were prepped and draped in the usual fashion. SCD's were placed for DVT prophylaxis. Perioperative antibiotics were given intravenously. For the procedure, I wore an N95 mask and wore proper eyewear protection. Using xylocaine with epinephrine, the left axilla, left proximal inguinal, left vulval area and left lateral abdominal wall areas were infiltrated. After waiting 5 minutes for the anesthetic to take effect, I made an oblique elliptical incision in the left lateral abdominal wall area for my donor site for skin grafting the nonhealing ulcer left inguinal and left vulval area. The excision went into the subcutaneous tissue. I removed the subcutaneous tissue and deeper dermis thus fashioning a thick split thickness skin graft. The skin graft was placed in saline. I excised excess subcutaneous tissue to aid in wound closure. Hemostasis was obtained with electrocautery. The wound was irrigated with saline. The donor incision was closed in a layered fashion with 3-0 Monocryl interrupted sutures for the underlying Horacio's fascia. The deep dermis and subcutaneous tissue was approximated with 3-0 Monocryl interrupted sutures. The skin was approximated with 3-0 V lock unidirectional barbed running subcuticular suture. Histoacryl skin tissue adhesive was then applied. I then excised the new onset hidradenitis left proximal inguinal area down through the subcutaneous tissue and underlying Horacio's fascia down to the abdominal wall fascia. Hemostasis was obtained with electrocautery. The wound was irrigated with saline. The tissue was sent to Pathology for analysis to rule out carcinoma and to Microbiology for culture. A positive culture will necessitate antibiotic therapy. The wound was closed in a complex fashion with 3-0 Monocryl figure of eight interrupted sutures for Horacio's fascia. The deep dermis and subcutaneous tissue was approximated with 3-0 Monocryl interrupted sutures. The skin was approximated with 3-0 V lock unidirectional barbed running subcuticular suture. Histoacryl skin tissue adhesive was then applied. I then addressed the nonhealing hidradenitis ulcer left inguinal and vulval area with excisional debridement using a scalpel into the deeper portion of the scar with some subcutaneous tissue exposed. The size of the ulcer after the excisional debridement was 4 x 3 cm or 12 cm2 for the skin graft. Hemostasis was obtained with electrocautery. The wound was irrigated with saline. The tissue was sent to Pathology for analysis to rule out carcinoma and to Microbiology for culture. A positive culture will necessitate antibiotic therapy. I placed the thick split thickness skin graft on the ulcer defect and secured to the skin edges with 3-0 Chromic simple interrupted sutures. Prior to closing the anterior edge of the skin graft, I placed AmnioFill placental connective tissue powder into the base of the ulcer to aid in wound healing. I used 250 mg. I closed the remaining portion of the skin graft to the skin edges with 3-0 Chromic simple interrupted sutures. 3-0 Chromic interrupted sutures were also used for central quilting stabilization. Antibiotic ointment was applied to the skin graft followed by Xeroform gauze and cotton balls soaked in saline and followed by 3-0 Nylon tie over stent suture dressing. Gauze dressing was applied over the skin graft and the left proximal inguinal incision and left lateral abdominal wall incision. I then addressed the recurrent hidradenitis left axilla. I excised an ellipse of skin and subcutaneous tissue down to the underlying muscle. There was fat necrosis present and indurated tissue indicative of chronic scarring from infection as well as previous scarring from recurrent hidradenitis. No pus was seen. The wound was irrigated with saline. Hemostasis was obtained with electrocautery. Tissue was sent to Microbiology for culture as well as to Pathology for analysis to rule out carcinoma. A positive culture will necessitate antibiotic therapy. The size of the defect left axilla after excision of her recurrent hidradenitis, was 11 x 5 x 1.5 cm or 55 cm2. The wound was dressed with Mepitel nonadherent dressing followed by Kerlix gauze and Betadine followed by dry Kerlix gauze and followed by ABD pads and compression skinny wrap. Patient tolerated the procedure well and was sent to PACU in satisfactory condition. Patient will be sent upstairs for continued postop care. The VAC will be applied tomorrow. She will followup at the wound center after discharge. Three separate cultures were sent. A positive culture will necessitate antibiotic therapy. Grafts/Implants Used: AmnioFill placental connective tissue powder. - Complications None. - Admit VTE Documentation VTE Present on Admission: No VTE Mechan Device Prophylaxis: SCD's VTE Pharm Prophylaxis ordered?: No Surgery Charges CPT - 35788 ICD-10 - L73.2, L98.492, N76.6, F17.200 11380 L98.492, N76.6, L73.2, F17.200 15199 L73.2, F17.200
--- NOTE | 2020-05-29 13:48 | NURSING ---
Home VAC paperwork completed and placed on the front of the chart. wound VAC to be placed tomorrow with possible discharge home. awaiting approval for the wound VAC. nursing to place VAC tomorrow. CM to arrange for home health care. CHASITY Young aware.
[2020-05-29] MEDS: 0.9% Saline Lock 10 ML Syringe IV ×2 (15:17→17:10)
[2020-05-29] MEDS: Lactated Ringers 1,000 ML 60 ML IV (15:19)
[2020-05-29] MEDS: oxyCODONE 5 MG Tablet 10 MG PO ×2 (17:04→21:19)
[2020-05-29] MEDS: Juven (unflavored) Packet 1 PACKET PO (17:10)
[2020-05-29] MEDS: HYDROmorphone 1 MG/ML Syringe IV ×2 (19:33→23:37)
[2020-05-29] MEDS: Ondansetron 8 MG Tablet PO (19:37)
[2020-05-29] MEDS: hydrOXYzine PAM 25 MG Capsule 50 MG PO (21:19)
[2020-05-29] MEDS: diazePAM 5 MG Tablet PO (21:19)
[2020-05-29] MEDS: Metoprolol Tartrate 25 MG Tablet PO (21:19)
[2020-05-29] MEDS: Escitalopram Oxalate 20 MG Tablet PO (21:19)
[2020-05-29] MEDS: proMETHazine 25 MG Tablet PO (23:37)
[2020-05-30 00:40] VITALS: O2SAT 98
[2020-05-30 03:00] VITALS: BP 109/53; PULSE 59; RESP 16; TEMP 36.8; O2SAT 96
[2020-05-30] MEDS: Lactated Ringers 1,000 ML 60 ML IV (03:00)
[2020-05-30] MEDS: oxyCODONE 5 MG Tablet 10 MG PO ×2 (03:07→09:15)
[2020-05-30 06:30] LABS: Hematocrit 38.2 % (37-47); Hemoglobin 12.1 g/dL (12.0-15.0); Mean Corp Hgb Conc 31.7 g/dL (32-36); Mean Corpuscular Hgb 31.7 pg (27.0-32.0); Mean Platelet Vol. 11.8 fl (6.2-12.0); Platelet Count 184 K/mm3 (150-450); RBC Distribution Width CV 14.5 % (11.6-14.6); RBC Distribution Width SD 53.3 fl (35.1-43.9); Red Blood Count 3.82 M/mm3 (4.2-5.4); White Blood Count 15.7 K/mm3 (4.4-11.0)
[2020-05-30] MEDS: Ondansetron 8 MG Tablet PO (06:31)
[2020-05-30] MEDS: HYDROmorphone 1 MG/ML Syringe IV ×3 (06:31→12:59)
[2020-05-30 07:02] VITALS: O2SAT 96
[2020-05-30 07:18] LABS: Anion Gap 4 (5-15); BUN 15 mg/dL (7-18); BUN/Creat Ratio 17.8 RATIO (10-20); Calcium,Total 8.8 mg/dL (8.5-10.1); Chloride 108 mmol/L (98-107); Creatinine, Serum 0.84 mg/dL (0.55-1.02); EST Glomerular Filtration Rate 78 mL/min (>60); Est Glom Filt Rate - Afr Amer 95 mL/min (>60); Estimated Creatinine Clearance 81.67 ml/min; Glucose 113 mg/dL (74-106); Potassium 4.4 mmol/L (3.5-5.1); Prealbumin 14.4 mg/dL (20.0-40.0); Sodium Level 139 mmol/L (136-145)
[2020-05-30 09:15] VITALS: BP 125/63; PULSE 64; RESP 16; TEMP 37.1; O2SAT 99
[2020-05-30] MEDS: proMETHazine 25 MG Tablet PO (09:15)
[2020-05-30] MEDS: DiphenhydrAMINE 25 MG Capsule PO (09:15)
[2020-05-30] MEDS: Docusate Sodium 100 MG Capsule 400 MG PO (09:15)
[2020-05-30] MEDS: Clopidogrel Bisulfate 75 MG Tablet PO (09:15)
[2020-05-30] MEDS: Pantoprazole Sodium 40 MG Tablet PO (09:15)
[2020-05-30 09:16] VITALS: PULSE 64
[2020-05-30] MEDS: Metoprolol Tartrate 25 MG Tablet PO (09:16)
[2020-05-30] MEDS: Juven (unflavored) Packet 1 PACKET PO (09:16)
--- NOTE | 2020-05-30 11:50 | CASEMGMT ---
JULIEN GASPAR in to discuss discharge needs with patient. Patient states she is already active with [facility]. JULIEN GASPAR called [facility] to confirm care. Patient will need resumption order for detention. JULIEN GASPAR updated [facility] that patient will have wound vac with next dressing change Thursday06/01/20. JULIEN GASPAR will fax discharge paperwork when available.
--- NOTE | 2020-05-30 13:57 | PCM.PN.SRG ---
Subjective: Postop #1 Patient complains of wound pain. VAC applied today. - Physical Exam Vitals/I&O's: Vital Signs Temp Pulse Resp BP Pulse Ox 98.8 F 64 16 125/63 H 99 05/30/20 09:15 05/30/20 09:16 05/30/20 09:15 05/30/20 09:15 05/30/20 09:15 Oxygen Flow Rate (L/min) 2 Oxygen Delivery Method Room Air Weight: 179 lb 7.3 oz Body Mass Index (BMI) 28.9 Intake and Output for Last 24 Hours 05/28/20 05/29/20 05/30/20 23:59 23:59 23:59 Intake Total 2178 / 2178 1617 / 1617 Output Total 1400 / 1400 2099 / 2099 Balance 778 / 778 -483 / -483 General: Alert HEENT: PERRLA, EOMI Neck: Supple Abdomen: Soft, Non-Distended Skin: Ulcer/ Wound - left axillary wound stable. No active bleeding noted. VAC applied today. left inguinal and vulval dressing is dry., Incision - left proximal inguinal incision and left lateral abdominal wall incision are dry and intact. Neurological: Cranial nerves II-XII grossly intact Psych/Mental Status: Normal Affect, Appropriate Microbiology Past 72 Hours 05/29/20 Unknown Other - Other Gram Stain - Final 05/29/20 Unknown Other - Other Wound Culture - Preliminary Gram negative dagoberto 05/29/20 Unknown Other - Other Gram Stain - Final 05/29/20 Unknown Other - Other Wound Culture - Preliminary Gram negative dagoberto 05/29/20 Unknown Other - Other Gram Stain - Final 05/29/20 Unknown Other - Other Wound Culture - Preliminary Gram negative dagoberto Beta streptococcus Laboratory Results 05/30/20 06:20: WBC 15.7 H, RBC 3.82 L, Hgb 12.1, Hct 38.2, MCV 100.0 H, MCH 31.7, MCHC 31.7 L, RDW Std Deviation 53.3 H, RDW Coeff of Ping 14.5, Plt Count 184, MPV 11.8 05/30/20 06:20: Sodium 139, Potassium 4.4, Chloride 108 H, Carbon Dioxide 27.0, Anion Gap 4 L, BUN 15, Creatinine 0.84, Estim Creat Clear Calc 81.67, Est GFR (MDRD) Af Amer 95, Est GFR (MDRD) Non-Af 78, BUN/Creatinine Ratio 17.8, Glucose 113 H, Calcium 8.8, Prealbumin 14.4 L Current Medications Albuterol Sulfate (Ventolin Aerosols) 2.5 mg INHALATION Q4H PRN PRN Reason: Asthma Clopidogrel Bisulfate (Plavix) 75 mg PO DAILY [facility] Last Admin: 05/30/20 09:15 Dose: 75 mg Documented by: Diazepam (Valium) 5 mg PO 4X/DAY PRN PRN PRN Reason: SPASMS Last Admin: 05/29/20 21:19 Dose: 5 mg Documented by: Diphenhydramine HCl (Benadryl) 25 mg PO Q4H PRN PRN Reason: ITCHING Last Admin: 05/30/20 09:15 Dose: 25 mg Documented by: Docusate Sodium (Colace) 400 mg PO QODAY [facility] Last Admin: 05/30/20 09:15 Dose: 400 mg Documented by: Escitalopram Oxalate (Lexapro) 20 mg PO QHS [facility] Last Admin: 05/29/20 21:19 Dose: 20 mg Documented by: Hydromorphone HCl (Dilaudid Inj) 1 mg IV Q3H PRN PRN PRN Reason: Pain Score 6-10/10 Last Admin: 05/30/20 12:59 Dose: 1 mg Documented by: Hydroxyzine Pamoate (Vistaril Pamoate Capsule) 50 mg PO QHS [facility] Last Admin: 05/29/20 21:19 Dose: 50 mg Documented by: Sodium Chloride () 250 mls @ 15 mls/hr IV .[id number] PRN PRN Reason: Saline Flush Sodium Chloride () 250 mls @ 15 mls/hr IV .[id number] PRN PRN Reason: Additional IVPB Infusion Clindamycin Phosphate 600 mg/ (Dextrose) 54 mls @ 100 mls/hr IV Q8 [facility] Last Admin: 05/30/20 13:00 Dose: 100 mls/hr Documented by: Lactated Ringer's () 1,000 mls @ 60 mls/hr IV .[id number] [facility] Last Infusion: 05/30/20 07:03 Dose: 60 mls/hr Documented by: Metoprolol Tartrate (Lopressor (Beta Samina)) 25 mg PO BID [facility] Last Admin: 05/30/20 09:16 Dose: 25 mg Documented by: Ondansetron HCl (Zofran) 8 mg PO Q8H PRN PRN PRN Reason: NAUSEA Last Admin: 05/30/20 06:31 Dose: 8 mg Documented by: Oxycodone HCl (Oxyir) 10 mg PO Q4H PRN PRN PRN Reason: Pain Score 4-5/10 Last Admin: 05/30/20 09:15 Dose: 10 mg Documented by: Pantoprazole Sodium (Protonix) 40 mg PO DAILY [facility] Last Admin: 05/30/20 09:15 Dose: 40 mg Documented by: Promethazine HCl (Phenergan Tablet) 25 mg PO 4X/DAY PRN PRN PRN Reason: NAUSEA Last Admin: 05/30/20 09:15 Dose: 25 mg Documented by: Sodium Chloride () 10 - 40 ml IV UD PRN PRN Reason: SALINE FLUSH Last Admin: 05/29/20 17:10 Dose: 10 ml Documented by: Medical Necessity - Tobacco Use Smoking Status: Light Smoker (<10/day) Tobacco Use: Cigarettes Assessment/Plan All Active Problems (Last Reviewed 12/24/19 @ 21:[address] Ronnell Fraga MD) Open wound of vulva (Acute) Non-healing open wound of left groin (Acute) Open wound of left axillary region with complication (Acute) 1. Nonhealing hidradenitis ulcer left inguinal and vulval area involving genitocrural crease. 2. Recurrent hidradenitis left axillary area. 3. Hidradenitis left proximal inguinal area. 4. Smoker. 5. s/p surgical preparation left inguinal and vulval area involving genitocrural crease with excisional debridement nonhealing hidradenitis ulcer and STSG reconstruction from left lateral abdominal wall (12 cm2) and placement of AmnioFill placental connective tissue powder, 250 mg and surgical preparation left axilla with excision recurrent hidradenitis (55 cm2) and excision left proximal inguinal hidradenitis with 6 cm complex closure repair. Left axillary wound is stable. No active bleeding seen. VAC applied. Left inguinal and vulval dressing is dry. Left proximal inguinal and left lateral abdominal wall incision are dry and intact. Operative culture shows Gram negative dagoberto and Beta Streptococcus thus far. Will stop the Clindamycin IV and discharge her home on Levaquin and Augmentin. Prealbumin was 14.4. Encourage nutritional supplementation with protein to help the healing process. She is tolerating po analgesia. Discharge home today. Elevate left arm. She may shower after the skin graft dressing left vulval area removed in Wound Center. Followup Wound Center Thursday06/04/20. Wrote scripts for Levaquin and Augmentin. Wrote scripts for Dilaudid for severe pain at time of VAC changes (6 tabs) and for Percocet for moderate pain (40 tabs) and for Valium for spasm (30 tabs). Encouraged patient to stop smoking as it may have deleterious effects on wound healing.
--- NOTE | 2020-05-30 14:08 | DCINST_ITS ---
You will use the following diet at home:: No restrictions, Other - encourage nutritonal supplementation with protein to help the healing process. Discharge Activity: May not drive while taking narcotic pain medications., May Not Shower - until the vulval skin graft dressing is removed at wound center., - - elevate left arm. no heavy lifting. May shower in (days): 5 - after the vulval graft dressing is removed at wound center. May resume sexual activity in: No Restrictions Weight Bearing Status: Weight bearing as tolerated Lifting Restrictions: 20 lbs. Keep extremity elevated above heart level: Left Arm Call your doctor if your incision/area has: Continuous Slow Oozing, Sudden Increased Bleeding, Increased Pain/ Swelling, Foul Smelling Discharge, Swelling at the incision site Call your doctor if you observe: Fever of 101 or Higher, Coldness, Increased Pain, Shortness of breath, Chest pain, Calf discomfort, Uncontrolled pain Suture Line Care: - - vac changes three times per week to left axilla at 150 mmHg continuous suction. dry gauze over left vulval skin graft dressing daily. dry gauze over left lateral abdominal wall donor incision as needed if clothes rub against the incision. Change Dressing in (Days):: 2 - vac changes three times per week to left axilla. Remove Dressing in (days):: 5 - will remove skin graft dressing left vulva in wound center. Cleanse incision/area with: Soap & Water - may cleanse the left axillary wound with soap and water at the time of the vac change., - - may shower after the left vulval skin graft dressing is removed in wound center. Additional Dressing/Incision Instructions:: Home Health to assist with vac changes to left axilla three times per week at 150 mmHg continuous suction. May cleanse the left axillary wound with soap and water at the time of the vac change. Allergies/Adverse Reactions: Allergies acetaminophen [From Tylenol-Codeine #3] Allergy (Mild, Verified 05/29/20 09:44) Rash codeine [From Tylenol-Codeine #3] Allergy (Mild, Verified 05/29/20 09:44) Rash sulfamethoxazole [From Bactrim] Allergy (Mild, Verified 05/29/20 09:44) Rash trimethoprim [From Bactrim] Allergy (Mild, Verified 05/29/20 09:44) Rash adhesive tape Allergy (Verified 05/29/20 09:44) Rash IVP DYE Allergy (Severe, Uncoded 05/29/20 09:44) increased HR, rash, itchy throat Medications to take at Discharge clopidogrel 75 mg tablet 75 mg PO DAILY 06/21/19 hydroxyzine HCl 50 mg tablet 50 mg PO QHS 06/21/19 metoprolol tartrate 25 mg tablet 25 mg PO BID 06/21/19 Omeprazole 40 mg PO DAILY 10/21/19 proMETHazine tablet [Phenergan tablet] 25 mg PO 4X/DAY PRN PRN #30 tab 10/29/19 Ondansetron [Zofran] 8 mg PO Q8H PRN PRN 11/14/19 Escitalopram Oxalate 20 mg PO QHS 12/16/19 Albuterol IH (ProAir) [Proair Hfa] 1 - 2 puff INHALATION Q4H PRN PRN 03/05/20 Sennosides/Docusate Sodium [Colace 2-in-1 Tablet] 4 ea PO QODAY 03/05/20 Amox/Clavulanate Tablet [Augmentin Tablet] 875 mg PO Q12H #42 tab 05/30/20 Diazepam [Valium] 5 mg PO 4X/DAY PRN PRN #30 tablet 05/30/20 HYDROmorphone tablet [Dilaudid] 4 mg PO .QOD PRN PRN 7 Days #6 tablet 05/30/20 Oxycodone HCl/Acetaminophen [Percocet 5/325] 1 tablet PO Q4H PRN PRN 7 Days #40 tablet 05/30/20 levoFLOXacin tablet [Levaquin tablet] 500 mg PO DAILY #21 tab 05/30/20 The following prescriptions were given: Amox/Clavulanate Tablet [Augmentin Tablet] 875 mg PO Q12H #42 tab Transmission Status: Pending to [id number] HYDROmorphone tablet [Dilaudid] 4 mg PO .QOD PRN PRN 7 Days #6 tablet PRN Reason: Pain Score 6-10/10 Transmission Status: Received by [id number] levoFLOXacin tablet [Levaquin tablet] 500 mg PO DAILY #21 tab Transmission Status: Pending to [id number] Oxycodone HCl/Acetaminophen [Percocet 5/325] 1 tablet PO Q4H PRN PRN 7 Days #40 tablet PRN Reason: Pain Score 4-5/10 Transmission Status: Received by [facility] Diazepam [Valium] 5 mg PO 4X/DAY PRN PRN #30 tablet PRN Reason: Spasms Transmission Status: Received by [facility] Primary Care Physician: BROOKS IBARRA [Other] Test Results: Test results from this visit will be discussed in further detail at your follow- up appointment, if applicable. Please Follow Up With: Ronnell Fraga MD - call [phone] for appt time. When: thursday06/04/20 at [facility]. Proposed Discharge Date: 05/30/20
[2020-05-30 14:35] VITALS: BP 138/65; PULSE 54; RESP 16; TEMP 36.9; O2SAT 98
--- NOTE | 2020-05-30 16:04 | NURSING ---
1415--pt called out stating ride had arrived to main entrance. notified patient that MD did not place DC order/instructions yet. this RN relayed to patient that get paperwork to patient as soon as placed by MD. 1430-made aware that home vac not approved by insurance yet at this time by comp field case manager--currently on phone to check on status. updated patient. 1450-pt called out stating her vac was leaking. upon arrival into room, pt states vac not leaking, but wants removed and wet-dry dressing placed so she can get the hell out of here. informed patient that comp field case manager was currently on phone to check on insurance approval for home vac. 1505-in with home vac and comp field case manager. home vac placed on patient at 150mmHg as ordered. assisted downstairs for discharge.
== END 2020-05-30 15:15 | disposition home or self-care (01) ==
LOC: MS3 05-30 08:16
PROVIDERS: Admitting Provider Surgery; Referring Provider Surgery; Visit Provider Surgery
PROC: (CPT 11451; principal; 2020-05-29 10:45)
DX: L73.2 Hidradenitis suppurativa (principal); Z11.59 Encounter for screening for other viral diseases; K21.9 Gastro-esophageal reflux disease without esophagitis; J45.909 Unspecified asthma, uncomplicated; F41.9 Anxiety disorder, unspecified; E78.00 Pure hypercholesterolemia, unspecified; K58.9 Irritable bowel syndrome, unspecified; F32.9 Major depressive disorder, single episode, unspecified; F17.210 Nicotine dependence, cigarettes, uncomplicated; Z79.899 Other long term (current) drug therapy; Z79.82 Long term (current) use of aspirin; Z86.718 Personal history of other venous thrombosis and embolism; Z79.02 Long term (current) use of antithrombotics/antiplatelets
CPT/HCPCS: 00400; 11451; 11463; 15120; 36415; 80048; 84134; 85027; 87015; 87070; 87075; 87077; 87102; 87116; 87186; 87205; 87206; 87635; 88304; 94799; 96365; 96366; 96375; 96376; 99218; 99251; J7120; A4216; G0378; G0379; G0463; J2405; U0003

== ENCOUNTER 2020-06-04 13:00 | Outpatient (RCR) | payer MEDICAID, SELFPAY ==
[2020-05-19 00:33] VITALS: BP 146/69; PULSE 76; RESP 18; TEMP 36.4
[2020-06-04 13:19] VITALS: BP 138/93; PULSE 97; RESP 18; TEMP 36.1; BMI 29.3
--- NOTE | 2020-06-04 16:49 | PN.PCM_ITS ---
Type of Wound Date of Service: 06/04/20 Chief Complaint: Nonhealing hidradenitis ulcer left axillary area, left proximal inguinal area, and left vulval area with recent skin grafting. History of Wound: Surgery 05/29/20 - 1. Surgical preparation left inguinal and vulval area involving genitocrural crease with excisional debridement nonhealing hidradenitis ulcer and STSG recosntruction from left lateral abdominal wall (12 cm2) and placement of AmnioFill placental connective tissue powder, 250 mg. 2. Surgical preparation left axilla with excision recurrent hidradenitis (55 cm2). 3. Excision left proximal inguinal hidradenitis with 6 cm complex closure repair. Wound care - operative dressing. Operative culture - Klebsiella pneumoniae, Streptococcus agalactiae, and Anaerobic cocci in the left proximal inguinal area, and Enterobacter aerogenes in the left axilla, and Enterobacter aerogenes, and Alcaligenes faecalis in the left vulval area. She was discharged on Levaquin and Augmentin. Prealbumin from 05/30/20 was 14.4. Encourage nutritional supplementation with protein to help the healing process. She has noticed some drainage from the left proximal inguinal incision. Today she denies fever. Her appetite is good. She also complains of oral thrush since starting the antibiotics. Progress of Wound: Recent surgery on 05/29/20. - Physical Exam Vital Signs Temp Pulse Resp BP 97.0 F L 97 18 138/93 H 06/04/20 13:19 06/04/20 13:19 06/04/20 13:19 06/04/20 13:19 HEENT: TM's Clear - no bleeding. No fluid seen behind the TM. Lungs: Clear to auscultation Wound Measurements and Assessment WC - Nurse 1 - General Ulcer Measurement Start: 05/22/20 14:58 Freq: Status: Active Protocol: Activity Type Activity Date Activity User E-Sign Co-Sign Detail Recorded Client Recorded Date Recorded By Document 06/04/20 13:19 MW [id number] 06/04/20 13:40 MW 06/04/20 13:19 Wound Center Nurse 1 [Ulcer Assessment] #4 left axilla -Combined with other wound No -Current Size (cm) - Length 12.0 -Current Size (cm) - Width 2.0 -Current Size (cm) - Depth 0.8 -Total Square Cm 24.00 -Date of Last Picture (Recall this 06/04/20 field) -Photo Taken Yes -Epithelialization None Present -Tunneling No -Undermining/Tunneling No -Circular Undermining No -Exudate Amt Large -Exudate Type Sanguineous -Wound Margin Flat & Intact -Granulation Amt Large (67-100%) -Granulation Quality Red -Slough/Fibrin Yes -Necrosis Amt Small (1-33%) -Necrotic Tissue Type Adherent Slough -Structure Exposed N/A -Texture ([place]-wound Skin Appearance) No Abnormality, Assessed -Moisture ([place]-wound Skin Appearance No Abnormality, ) Assessed -Color ([place]-wound Skin Appearance) No Abnormality, Rubor -Temperature ([place]-wound Skin No Abnormality Appearance) (Pt Warm) -Tenderness on Palpation ([place]-wound Yes Skin Appearance) -Ulcer Cleansing soap and water -Foul Odor after Cleansing No -Anesthetic Used 4% Lidocaine Solution #3- L GROIN POST OP -Combined with other wound No -Current Size (cm) - Length 0.1 -Current Size (cm) - Width 0.1 -Current Size (cm) - Depth 0.1 -Total Square Cm 0.01 -Photo Taken No -Epithelialization None Present -Tunneling No -Undermining/Tunneling No -Circular Undermining No -Exudate Amt Large -Exudate Type Serosanguineous -Wound Margin Indistinct, Non -Visible -Texture ([place]-wound Skin Appearance) Assessed, Scarring -Moisture ([place]-wound Skin Appearance Assessed, ) Weeping -Color ([place]-wound Skin Appearance) Assessed,Rubor -Temperature ([place]-wound Skin No Abnormality Appearance) (Pt Warm) -Ulcer Cleansing Not Cleansed -Foul Odor after Cleansing No [Edema Assessment] -Lower Limb Edema Present No WC - Nurse 2 - General Ulcer CM Notes Start: 06/04/20 10:34 Freq: Status: Active Protocol: Activity Type Activity Date Activity User E-Sign Co-Sign Detail Recorded Client Recorded Date Recorded By Document 06/04/20 14:00 NINA [id number] 06/04/20 14:08 NINA 06/04/20 14:00 Wound Center Nurse 2 [Procedure/Treatment] #4 left axilla -Correct Patient No -Correct Side, Site, Position No -Correct Procedure No -Procedure Performed No -Tunneling No -Undermining/Tunneling No -Circular Undermining No -Wound/Ulcer Outcome Not Healed -Ulcer Cleansing Rinsed/ Irrigated with Saline -Foul Odor after Cleansing No -Bioengineered Tissue No -Bleeding Controlled with Pressure -Offloading No #3- L GROIN POST OP -Correct Patient No -Correct Side, Site, Position No -Correct Procedure No -Procedure Performed No -Tunneling No -Undermining/Tunneling No -Circular Undermining No -Wound/Ulcer Outcome Not Healed [See Physician Procedure note for Specifics] Pain Scale: 0-10 Numeric [Pain] -Is Patient Pain Free? Yes Debridement Note Post-Debridement Measurements/Treatment WC - Nurse 2 - General Ulcer CM Notes Start: 06/04/20 10:34 Freq: Status: Active Protocol: Activity Type Activity Date Activity User E-Sign Co-Sign Detail Recorded Client Recorded Date Recorded By Document 06/04/20 14:00 NINA [id number] 06/04/20 14:08 NINA 06/04/20 14:00 Wound Center Nurse 2 #4 left axilla -Correct Patient No -Correct Side, Site, Position No -Correct Procedure No -Procedure Performed No -Tunneling No -Undermining/Tunneling No -Circular Undermining No -Wound/Ulcer Outcome Not Healed -Ulcer Cleansing Rinsed/ Irrigated with Saline -Foul Odor after Cleansing No -Bioengineered Tissue No -Bleeding Controlled with Pressure -Offloading No #3- L GROIN POST OP -Correct Patient No -Correct Side, Site, Position No -Correct Procedure No -Procedure Performed No -Tunneling No -Undermining/Tunneling No -Circular Undermining No -Wound/Ulcer Outcome Not Healed Pain Scale: 0-10 Numeric Is Patient Pain Free? Yes Wound debrided: #3 Left inguinal/vulval area with recent skin grafting. Laterality: Left Wound Grade/Stage: 2. No debridement was completed today - Had recent surgery on 05/29/20. The skin graft compression dressing was removed. The skin graft shows good adherence. There is minimal vascular ingrowth at this time. There is some compromise of the skin graft and would benefit from HBO treatments to help salvage the skin graft. The left proximal inguinal incision shows some drainage with a small opening. It will be dressed with Silver dressing changes to be done daily. - Additional Wound Wound debrided: #4 Left axilla. Laterality: Left Wound Grade/Stage: 2. Patient tolerated procedure: - - No debridement was done today because of recent surgical debridement on 05/29/20. Assessment/Plan Assessment: 1. Nonhealing hidradenitis ulcer left inguinal and vulval area involving genitocrural crease. 2. Recurrent hidradenitis left axillary area. 3. Hidradenitis left proximal inguinal area. 4. Smoker. 5. s/p surgical preparation left inguinal and vulval area involving genitocrural crease with excisional debridement nonhealing hidradenitis ulcer and STSG recosntruction from left lateral abdominal wall (12 cm2) and placement of AmnioFill placental connective tissue powder, 250 mg and surgical preparation left axilla with excision recurrent hidradenitis (55 cm2) and excision left proximal inguinal hidradenitis with 6 cm complex closure repair. 6. Compromised skin graft left vulval area. 7. Nonhealing surgical wound left proximal inguinal area. 8. Oral thrush. Plan: Continue VAC to left axillary wound to be changed three times per week at 150 mmHg continuous suction. Apply Silver dressing changes daily over the skin graft left vulval area and the nonhealing surgical wound left proximal inguinal area. Donor incision left lateral abdominal wall is dry and intact. Continue Levaquin and Augmentin for the operative cultures that showed Klebsiella pneumoniae, Streptococcus agalactiae, and Anaerobic cocci in the left proximal inguinal area, and Enterobacter aerogenes in the left axillary area, and Ente robacter aerogenes and Alcaligenes faecalis in the left vulval area. Prealbumin from 05/30/20 was 14.4. Encourage nutritional supplementation with protein to help the healing process. With the compromised graft, she would benefit from HBO treatments to help salvage the graft. Her ears are ok. She needs a CXR. Wrote scripts for Percocet for moderate pain (40 tabs) and for Dilaudid for severe pain at VAC changes (6 tabs) and for Valium for spasm (30 tabs). Also ordered Nystatin suspension for symptoms of oral thrush. Followup one week. Encouraged the patient to stop smoking as it may have deleterious effects on wound healing. [id number]: [id number] Global Visit - ICD-10 - Z48.89, L73.2, L98.492, N76.6, T86.828, S41.102A, T81.89xA, F17.200
== END 2020-06-18 23:59 ==
LOC: WC 13:00
PROVIDERS: Visit Provider Nurse Practitioner Family
DX: L73.2 Hidradenitis suppurativa (principal); T81.89XA Other complications of procedures, not elsewhere classified, initial encounter; B37.0 Candidal stomatitis; Z79.02 Long term (current) use of antithrombotics/antiplatelets; Z79.899 Other long term (current) drug therapy
CPT/HCPCS: 97605; 99214; G0463

== ENCOUNTER 2020-06-09 22:44 | Emergency (ER) | payer MEDICAID, SELFPAY ==
[2020-06-09 22:44] VITALS: BMI 28.9
[2020-06-09 22:45] VITALS: BP 105/69; PULSE 95; RESP 15; TEMP 36.3; O2SAT 97; BMI 29.0
[2020-06-09 23:43] LABS: Absolute Lymphocyte Count 2.74 X10^3/uL (0.83-4.51); Absolute Neutrophil Count 3.9 X10^3/uL (2.0-7.7); Basophil# 0.04 X10^3/uL; Basophil% 0.5 % (0-1); Eosinophil# 0.43 X10^3/uL; Eosinophils% 5.4 % (0-5); Hematocrit 39.5 % (37-47); Hemoglobin 12.9 g/dL (12.0-15.0); Lymphocyte # 2.74 X10^3/ul (4.0); Lymphocyte % 34.4 % (19-41); Mean Corp Hgb Conc 32.7 g/dL (32-36); Mean Corpuscular Hgb 32.5 pg (27.0-32.0); Mean Corpuscular Volume 99.5 fL (81-99); Monocyte# 0.79 X10^3/uL; Monocyte% 9.9 % (0-10); NRBC Flagged by Analyzer 0 % (0-5); Neutrophil # 3.91 X10^3/uL (2.7-7.7); Platelet Count 249 K/mm3 (150-450); RBC Distribution Width CV 14.2 % (11.6-14.6); RBC Distribution Width SD 52.1 fl (35.1-43.9); Red Blood Count 3.97 M/mm3 (4.2-5.4)
[2020-06-09 23:54] LABS: Anion Gap 4 (5-15); BUN 11 mg/dL (7-18); BUN/Creat Ratio 12.2 RATIO (10-20); Calcium,Total 8.4 mg/dL (8.5-10.1); Chloride 110 mmol/L (98-107); EST Glomerular Filtration Rate 73 mL/min (>60); Est Glom Filt Rate - Afr Amer 88 mL/min (>60); Estimated Creatinine Clearance 76.23 ml/min; Glucose 99 mg/dL (74-106); Potassium 3.4 mmol/L (3.5-5.1); Sodium Level 141 mmol/L (136-145)
[2020-06-10 00:05] LABS: Lactic Acid 0.7 mmol/L (0.4-1.9)
--- NOTE | 2020-06-10 00:24 | ED.VISSUMM ---
- ER Visit Summary Date of Service: 06/10/20 Chief Complaint: [Wound check] History of Present Illness: The patient is a 44 F [presents the emergency department with concern about possible infection in her left groin. Patient states that she had surgery on her left axilla for hidradenitis separative on the 11 of this month. Patient at that time had closure of a chronic wound in her left groin but apparently 2 days later it opened up and started draining again. Patient also has a skin graft of the left groin that the nursing staff was worried about. Patient is noticed some increased odor from the groin wound. She states that she had a fever last evening up to 101 but none since that time. She denies chills or sweats. Patient does have history of high cholesterol, GERD, IBS, history of kidney stones. Patient is currently on Levaquin and Augmentin as well as nystatin swish and swallow. Also think she may be getting a yeast infection related to the antibiotics. Patient had wound cultures obtained that grew out Enterobacter and Alcalagenes faecalis.] Physical Examination: [HEENT-PERRLA, EOMI. Cranial nerves II through XII grossly intact. TMs clear. Mucous membranes moist. No adenopathy. Cardiovascular-regular rate and rhythm without murmur or ectopy Lungs-clear to auscultation, chest wall stable without crepitus or subcu emphysema Abdomen-normoactive bowel sounds, soft, nontender, no rebound or rigidity, no peritoneal signs. Extremities-intact ?4, normal range of motion, normal pulses. Right axilla-patient has a wound VAC in place. I do not appreciate any cellulitis or abscesses. Evaluation of left groin-patient has 2 open wounds noted 1 in the lateral aspect of the groin measuring approximately 4 cm in diameter with packing in place. No purulent drainage noted. The wound edges appear clean. There is some odor noted to the wound. Patient also has a skin graft inferior to this morning the medial aspect of the groin and I do not appreciate any eschar or purulent drainage. No cellulitic changes noted.] Test Results: [CBC with differential obtained was normal. Lactate was normal at 0.7. Chemistries unremarkable. Blood cultures ordered and pending.] Emergency Department Course and Treatment: [Received Diflucan 200 mg p.o. Case was discussed with Dr. Fraga and he will see patient in 2 days for follow-up in the wound center. They are attempting to obtain hyperbaric oxygen for her wounds. Patient will stay on current antibiotics.] Treatment Plan: [Follow-up with wound center in 2 days.] Disposition: [Discharged home in stable condition] Impression: [Chronic wounds left groin-infected Hidradenitis suppurativa] This note was generated with [employer] dictation software. It may contain incorrect words, spelling, and punctuation that were not noted in review of the chart prior to signing ED Disposition - Plan for ED Patient: Referrals: BROOKS IBARRA [Other]
--- NOTE | 2020-06-10 00:29 | ED.DEP ---
ED Disposition - Plan for ED Patient: Instructions: ED Wound Infection after surgery Referrals: BROOKS IBARRA [Other] Ronnell Fraga MD [STAFF PHYSICIAN] - 2 Days
[2020-06-10 00:45] VITALS: BP 114/82; PULSE 79; RESP 15; O2SAT 98
[2020-06-10] MEDS: Fluconazole 100 MG Tablet 200 MG PO (00:47)
[2020-06-10 00:48] VITALS: BP 114/82; PULSE 73; RESP 15; O2SAT 100
== END 2020-06-10 00:59 | disposition home or self-care (01) ==
LOC: ED 23:40
PROVIDERS: Emergency Provider Emergency Medicine
DX: S31.104A Unspecified open wound of abdominal wall, left lower quadrant without penetration into peritoneal cavity, initial encounter (principal); L08.9 Local infection of the skin and subcutaneous tissue, unspecified; B96.89 Other specified bacterial agents as the cause of diseases classified elsewhere; L73.2 Hidradenitis suppurativa; X58.XXXA Exposure to other specified factors, initial encounter; Y93.9 Activity, unspecified; Y92.9 Unspecified place or not applicable; E78.00 Pure hypercholesterolemia, unspecified; K21.9 Gastro-esophageal reflux disease without esophagitis; K58.9 Irritable bowel syndrome, unspecified; Z87.442 Personal history of urinary calculi; Z79.02 Long term (current) use of antithrombotics/antiplatelets; Z79.899 Other long term (current) drug therapy; Z72.0 Tobacco use
CPT/HCPCS: 80048; 83605; 85025; 87040; 99284; A4216

== ENCOUNTER 2020-07-16 09:30 | Outpatient (RCR) | payer MEDICAID, SELFPAY ==
[2020-06-19 00:36] VITALS: BP 138/93; PULSE 97; RESP 18; TEMP 36.1
[2020-07-02 09:26] VITALS: BP 132/77; PULSE 81; RESP 20; TEMP 37.3; BMI 29.0
--- NOTE | 2020-07-02 13:13 | PCM.WC.PN ---
Type of Wound Date of Service: 07/02/20 Chief Complaint: Nonhealing hidradenitis ulcer left axillary area, left proximal inguinal area, and left vulval area with recent skin grafting. History of Wound: Surgery 05/29/20 - 1. Surgical preparation left inguinal and vulval area involving genitocrural crease with excisional debridement nonhealing hidradenitis ulcer and STSG recosntruction from left lateral abdominal wall (12 cm2) and placement of AmnioFill placental connective tissue powder, 250 mg. 2. Surgical preparation left axilla with excision recurrent hidradenitis (55 cm2). 3. Excision left proximal inguinal hidradenitis with 6 cm complex closure repair. Wound care - Silver. Operative culture - Klebsiella pneumoniae, Streptococcus agalactiae, and Anaerobic cocci in the left proximal inguinal area, and Enterobacter aerogenes in the left axilla, and Enterobacter aerogenes, and Alcaligenes faecalis in the left vulval area. She was discharged on Levaquin and Augmentin and has finished them. She was recently hospitalized at [facility] with pneumonia and was treated with Doxycycline, Cefdinir, and Flagyl and has fininshed them. Prealbumin from 05/30/20 was 14.4. Encourage nutritional supplementation with protein to help the healing process. Today she denies fever. Her appetite is good. Progress of Wound: Improved with sharonda skin graft compromise left vuval area. - Physical Exam Vital Signs Temp Pulse Resp BP 99.1 F 81 20 H 132/77 H 07/02/20 09:26 07/02/20 09:26 07/02/20 09:26 07/02/20 09:26 HEENT: TM's Clear - no bleeding seen. No fluid noted behind the TM's. Wound Measurements and Assessment WC - Nurse 1 - General Ulcer Measurement Start: 07/02/20 09:25 Freq: Status: Active Protocol: Activity Type Activity Date Activity User E-Sign Co-Sign Detail Recorded Client Recorded Date Recorded By Document 07/02/20 09:26 DL [id number] 07/02/20 09:38 DL 07/02/20 09:26 Wound Center Nurse 1 [Ulcer Assessment] #5 L proximal inguinal area -Current Size (cm) - Length 3 -Current Size (cm) - Width 0.5 -Current Size (cm) - Depth 0.1 -Total Square Cm 1.5 -Photo Taken Yes -Exudate Amt Small -Exudate Type Serosanguineous -Wound Margin Distinct, Outline Attached -Granulation Amt Large (67-100%) -Granulation Quality [place] -Necrosis Amt Small (1-33%) -Structure Exposed N/A -Texture ([place]-wound Skin Appearance) Scarring -Moisture ([place]-wound Skin Appearance No Abnormality ) -Color ([place]-wound Skin Appearance) No Abnormality -Temperature ([place]-wound Skin No Abnormality Appearance) (Pt Warm) -Tenderness on Palpation ([place]-wound No Skin Appearance) -Ulcer Cleansing Wound Cleanser -Foul Odor after Cleansing No -Anesthetic Used 4% Lidocaine Solution #4 left axilla -Current Size (cm) - Length 4 -Current Size (cm) - Width 0.6 -Current Size (cm) - Depth 0.1 -Total Square Cm 2.4 -Photo Taken Yes -Exudate Amt Small -Exudate Type Serosanguineous -Wound Margin Distinct, Outline Attached -Granulation Amt Large (67-100%) -Granulation Quality [place],Red -Necrosis Amt None Present (0 %) -Structure Exposed N/A -Texture ([place]-wound Skin Appearance) Scarring -Moisture ([place]-wound Skin Appearance No Abnormality ) -Color ([place]-wound Skin Appearance) No Abnormality -Temperature ([place]-wound Skin No Abnormality Appearance) (Pt Warm) -Tenderness on Palpation ([place]-wound No Skin Appearance) -Ulcer Cleansing Wound Cleanser -Foul Odor after Cleansing No -Anesthetic Used 4% Lidocaine Solution #3- L vulval area -Current Size (cm) - Length 2.8 -Current Size (cm) - Width 1.8 -Current Size (cm) - Depth 0.2 -Total Square Cm 5.04 -Photo Taken Yes -Exudate Amt Small -Exudate Type Serosanguineous -Wound Margin Distinct, Outline Attached -Granulation Amt Large (67-100%) -Granulation Quality [place] -Necrosis Amt Small (1-33%) -Necrotic Tissue Type Adherent Slough -Structure Exposed N/A -Texture ([place]-wound Skin Appearance) Scarring -Moisture ([place]-wound Skin Appearance No Abnormality ) -Color ([place]-wound Skin Appearance) No Abnormality -Temperature ([place]-wound Skin No Abnormality Appearance) (Pt Warm) -Tenderness on Palpation ([place]-wound No Skin Appearance) -Ulcer Cleansing Wound Cleanser -Foul Odor after Cleansing No -Anesthetic Used 4% Lidocaine Solution WC - Nurse 2 - General Ulcer CM Notes Start: 07/02/20 09:25 Freq: Status: Active Protocol: Activity Type Activity Date Activity User E-Sign Co-Sign Detail Recorded Client Recorded Date Recorded By Document 07/02/20 09:55 NINA [id number] 07/02/20 10:02 NINA 07/02/20 09:55 Wound Center Nurse 2 [Procedure/Treatment] #5 L proximal inguinal area -Time 09:56 -Correct Patient Yes -Correct Side, Site, Position Yes -Correct Procedure Yes -Procedure Performed Yes -Type of Procedure Debridement -Clinical Debridement Subcutaneous -Tissue Removed Subcutaneous -Post Debridement (cm) - Length 3.0 -Post Debridement (cm) - Width 0.5 -Post Debridement (cm) - Depth 0.3 -Total Square (Post) (cm) 1.50 -Area of Debridement (cm) - Length 3.0 -Area of Debridement (cm) - Width 0.5 -Total Square (Area) (cm) 1.50 -Tunneling No -Undermining/Tunneling No -Circular Undermining No -Wound/Ulcer Outcome Not Healed -Ulcer Cleansing Rinsed/ Irrigated with Saline -Foul Odor after Cleansing No -Bioengineered Tissue No -Bleeding Controlled with Pressure -Offloading No -Treatment Response Procedure Tolerated Well -Debridement - Subq, 1st 20sq cm Yes #4 left axilla -Time 09:57 -Correct Patient Yes -Correct Side, Site, Position Yes -Correct Procedure Yes -Procedure Performed Yes -Type of Procedure Debridement -Clinical Debridement Subcutaneous -Tissue Removed Subcutaneous -Post Debridement (cm) - Length 4.5 -Post Debridement (cm) - Width 0.5 -Post Debridement (cm) - Depth 0.3 -Total Square (Post) (cm) 2.25 -Area of Debridement (cm) - Length 4.5 -Area of Debridement (cm) - Width 0.5 -Total Square (Area) (cm) 2.25 -Tunneling No -Undermining/Tunneling No -Circular Undermining No -Wound/Ulcer Outcome Not Healed -Ulcer Cleansing Rinsed/ Irrigated with Saline -Foul Odor after Cleansing No -Bioengineered Tissue No -Bleeding Controlled with Pressure -Offloading No -Treatment Response Procedure Tolerated Well -Debridement - Subq, 1st 20sq cm No #3- L vulval area -Time 09:57 -Correct Patient Yes -Correct Side, Site, Position Yes -Correct Procedure Yes -Procedure Performed Yes -Type of Procedure Debridement -Clinical Debridement Subcutaneous -Tissue Removed Subcutaneous -Post Debridement (cm) - Length 2.8 -Post Debridement (cm) - Width 1.7 -Post Debridement (cm) - Depth 0.2 -Total Square (Post) (cm) 4.76 -Area of Debridement (cm) - Length 2.8 -Area of Debridement (cm) - Width 1.7 -Total Square (Area) (cm) 4.76 -Tunneling No -Undermining/Tunneling No -Circular Undermining No -Wound/Ulcer Outcome Not Healed -Ulcer Cleansing Rinsed/ Irrigated with Saline -Foul Odor after Cleansing No -Bioengineered Tissue No -Bleeding Controlled with Pressure -Offloading No -Treatment Response Procedure Tolerated Well -Debridement - Subq, 1st 20sq cm No [See Physician Procedure note for Specifics] Pain Scale: 0-10 Numeric [Pain] -Is Patient Pain Free? Yes Debridement Note Post-Debridement Measurements/Treatment WC - Nurse 2 - General Ulcer CM Notes Start: 07/02/20 09:25 Freq: Status: Active Protocol: Activity Type Activity Date Activity User E-Sign Co-Sign Detail Recorded Client Recorded Date Recorded By Document 07/02/20 09:55 NINA [id number] 07/02/20 10:02 NINA 07/02/20 09:55 Wound Center Nurse 2 #5 L proximal inguinal area -Time 09:56 -Correct Patient Yes -Correct Side, Site, Position Yes -Correct Procedure Yes -Procedure Performed Yes -Type of Procedure Debridement -Clinical Debridement Subcutaneous -Tissue Removed Subcutaneous -Post Debridement (cm) - Length 3.0 -Post Debridement (cm) - Width 0.5 -Post Debridement (cm) - Depth 0.3 -Total Square (Post) (cm) 1.50 -Area of Debridement (cm) - Length 3.0 -Area of Debridement (cm) - Width 0.5 -Total Square (Area) (cm) 1.50 -Tunneling No -Undermining/Tunneling No -Circular Undermining No -Wound/Ulcer Outcome Not Healed -Ulcer Cleansing Rinsed/ Irrigated with Saline -Foul Odor after Cleansing No -Bioengineered Tissue No -Bleeding Controlled with Pressure -Offloading No -Treatment Response Procedure Tolerated Well -Debridement - Subq, 1st 20sq cm Yes #4 left axilla -Time 09:57 -Correct Patient Yes -Correct Side, Site, Position Yes -Correct Procedure Yes -Procedure Performed Yes -Type of Procedure Debridement -Clinical Debridement Subcutaneous -Tissue Removed Subcutaneous -Post Debridement (cm) - Length 4.5 -Post Debridement (cm) - Width 0.5 -Post Debridement (cm) - Depth 0.3 -Total Square (Post) (cm) 2.25 -Area of Debridement (cm) - Length 4.5 -Area of Debridement (cm) - Width 0.5 -Total Square (Area) (cm) 2.25 -Tunneling No -Undermining/Tunneling No -Circular Undermining No -Wound/Ulcer Outcome Not Healed -Ulcer Cleansing Rinsed/ Irrigated with Saline -Foul Odor after Cleansing No -Bioengineered Tissue No -Bleeding Controlled with Pressure -Offloading No -Treatment Response Procedure Tolerated Well -Debridement - Subq, 1st 20sq cm No #3- L vuval area -Time 09:57 -Correct Patient Yes -Correct Side, Site, Position Yes -Correct Procedure Yes -Procedure Performed Yes -Type of Procedure Debridement -Clinical Debridement Subcutaneous -Tissue Removed Subcutaneous -Post Debridement (cm) - Length 2.8 -Post Debridement (cm) - Width 1.7 -Post Debridement (cm) - Depth 0.2 -Total Square (Post) (cm) 4.76 -Area of Debridement (cm) - Length 2.8 -Area of Debridement (cm) - Width 1.7 -Total Square (Area) (cm) 4.76 -Tunneling No -Undermining/Tunneling No -Circular Undermining No -Wound/Ulcer Outcome Not Healed -Ulcer Cleansing Rinsed/ Irrigated with Saline -Foul Odor after Cleansing No -Bioengineered Tissue No -Bleeding Controlled with Pressure -Offloading No -Treatment Response Procedure Tolerated Well -Debridement - Subq, 1st 20sq cm No Pain Scale: 0-10 Numeric Is Patient Pain Free? Yes Wound debrided: #3 Left inguinal area. Laterality: Left Wound Grade/Stage: 2. Type of Debridement: Excisional debridement Anesthesia Used: 4% Lidocaine Solution Depth: Down to and including healthy tissue, in the subcutaneous layer Percentage of wound debrided: 100 Instrument Used: 5mm curette Tissue Removed: subcutaneous tissue. Severity: Fat Layer Exposed Amount of bleeding with debridement: Mild Bleeding Controlled with: Pressure Patient tolerated procedure well - Additional Wound Wound debrided: #4 Left axilla. Laterality: Left Wound Grade/Stage: 2. Type of Debridement: Excisional debridement Anesthesia Used: 4% Lidocaine Solution Depth: Down to and including healthy tissue, in the subcutaneous layer Percentage of wound debrided: 100 Instrument Used: 3mm curette Tissue Removed: subcutaneous tissue. Severity: Fat Layer Exposed Amount of bleeding with debridement: Mild Bleeding Controlled with: Pressure Patient tolerated procedure: Patient tolerated procedure well - Additional Wound Wound debrided: #5 Left proximal inguinal area. Laterality: Left Wound Grade/Stage: 2. Type of Debridement: Excisional debridement Anesthesia Used: 4% Lidocaine Solution Depth: Down to and including healthy tissue, in the subcutaneous layer Percentage of wound debrided: 100 Instrument Used: 3mm curette Tissue Removed: subcutaneous tissue. Severity: Fat Layer Exposed Amount of bleeding with debridement: Mild Bleeding Controlled with: Pressure Patient tolerated procedure: Patient tolerated procedure well Assessment/Plan Assessment: 1. Nonhealing hidradenitis ulcer left inguinal and vulval area involving genitocrural crease. 2. Recurrent hidradenitis left axillary area. 3. Hidradenitis left proximal inguinal area. 4. Smoker. 5. s/p surgical preparation left inguinal and vulval area involving genitocrural crease with excisional debridement nonhealing hidradenitis ulcer and STSG recosntruction from left lateral abdominal wall (12 cm2) and placement of AmnioFill placental connective tissue powder, 250 mg and surgical preparation left axilla with excision recurrent hidradenitis (55 cm2) and excision left proximal inguinal hidradenitis with 6 cm complex closure repair. 6. Compromised skin graft left vulval area. 7. Nonhealing hidradenitis ulcer left proximal inguinal area. Plan: Stop the VAC. Continue Silver dressing changes daily. Donor incision left lateral abdominal wall is dry and intact. She has finished Levaquin and Augmentin for the operative cultures that showed Klebsiella pneumoniae, Streptococcus agalactiae, and Anaerobic cocci in the left proximal inguinal area, and Enterobacter aerogenes in the left axillary area, and Enterobacter aerogenes and Alcaligenes faecalis in the left vulval area. She has finished Doxycycline, Cefdinir, and Flagyl for recent pneumonia at [facility]. Prealbumin from 05/30/20 was 14.4. Encourage nutritional supplementation with protein to help the healing process. With the compromised graft, she would benefit from HBO treatments to help salvage the graft. Her ears are ok. She needs a CXR. Wrote script for Percocet for moderate pain (21 tabs) to be dispensed 07/04/20. Followup 2 weeks. Encouraged the patient to stop smoking as it may have deleterious effects on wound healing. [id number]: [id number] Global Visit - ICD-10 - Z48.89, L73.2, L98.492, N76.6, T86.828, F17.200
--- NOTE | 2020-07-11 14:35 | WC ---
RECEIVED TC FROM [facility] NP. STATES SHE WAS UPDATED BY PTS HH NURSE THAT PT'S WOUND W/ ^ ODOR AND APPEARS INFECTED. REQUESTS WOUND CENTER TO CALL IN RX FOR DAKIN'S SOLUTION TO PT'S PHARMACY OF CHOICE. STATES SHE HAS ALSO CALLED IN LEVAQUIN AND MORE PAIN MEDICATION FOR PT. THIS NURSE CALLED PT W/ INSTRUCTIONS TO CON'T W/ SOAP AND WATER CLEANSE, RINSE W/ DAKIN'S, THEN APPLY AQUACEL AG PREVIOUSLY USING. PT VOICED UNDERSTANDING. CALLED RX TO [facility]. VERIFIED ALLERGIES.
[2020-07-16 09:43] VITALS: BP 126/87; PULSE 106; RESP 22; TEMP 36.9; BMI 29.0
--- NOTE | 2020-07-16 12:52 | PN.PCM_ITS ---
Type of Wound Date of Service: 07/16/20 Chief Complaint: Nonhealing hidradenitis ulcer left axillary area, left proximal inguinal area, and left vulval area with recent skin grafting. History of Wound: Surgery 05/29/20 - 1. Surgical preparation left inguinal and vulval area involving genitocrural crease with excisional debridement nonhealing hidradenitis ulcer and STSG recosntruction from left lateral abdominal wall (12 cm2) and placement of AmnioFill placental connective tissue powder, 250 mg. 2. Surgical preparation left axilla with excision recurrent hidradenitis (55 cm2). 3. Excision left proximal inguinal hidradenitis with 6 cm complex closure repair. Wound care - Silver. Operative culture - Klebsiella pneumoniae, Streptococcus agalactiae, and Anaerobic cocci in the left proximal inguinal area, and Enterobacter aerogenes in the left axilla, and Enterobacter aerogenes, and Alcaligenes faecalis in the left vulval area. She was discharged on Levaquin and Augmentin and has finished them. She was recently hospitalized at [facility] with pneumonia and was treated with Doxycycline, Cefdinir, and Flagyl and has fininshed them. She has reported increasing pain with some drainage from left lateral inguinal area. She was recently started on Levaquin. Prealbumin from 05/30/20 was 14.4. Encourage nutritional supplementation with protein to help the healing process. Today she denies fever. Her appetite is good. Progress of Wound: Left axillary wound is healed. Left proximal inguinal wound is improved. Compromised skin graft left vuval area is improved. Has new onset left lateral inguinal hidradenitis. - Physical Exam Vital Signs Temp Pulse Resp BP 98.5 F 106 H 22 H 126/87 H 07/16/20 09:43 07/16/20 09:43 07/16/20 09:43 07/16/20 09:43 Wound Measurements and Assessment WC - Nurse 1 - General Ulcer Measurement Start: 07/02/20 09:25 Freq: Status: Active Protocol: Activity Type Activity Date Activity User E-Sign Co-Sign Detail Recorded Client Recorded Date Recorded By Document 07/16/20 09:43 [facility] [id number] 07/16/20 09:51 BMF 07/16/20 09:43 Wound Center Nurse 1 [Ulcer Assessment] #5 L Sup Groin -Current Size (cm) - Length 0.1 -Current Size (cm) - Width 0.1 -Current Size (cm) - Depth 0.1 -Total Square Cm 0.01 -Photo Taken No -Exudate Amt None Present -Wound Margin Flat & Intact -Granulation Amt Large (67-100%) -Granulation Quality [place] -Necrosis Amt None Present (0 %) -Structure Exposed N/A -Texture ([place]-wound Skin Appearance) Scarring -Moisture ([place]-wound Skin Appearance No Abnormality ) -Color ([place]-wound Skin Appearance) No Abnormality -Temperature ([place]-wound Skin No Abnormality Appearance) (Pt Warm) -Tenderness on Palpation ([place]-wound No Skin Appearance) -Ulcer Cleansing Wound Cleanser -Foul Odor after Cleansing No -Anesthetic Used 4% Lidocaine Solution #4 left axilla -Current Size (cm) - Length 0.1 -Current Size (cm) - Width 0.1 -Current Size (cm) - Depth 0.1 -Total Square Cm 0.01 -Photo Taken No -Exudate Amt None Present -Wound Margin Flat & Intact -Granulation Amt Large (67-100%) -Granulation Quality [place] -Necrosis Amt None Present (0 %) -Structure Exposed N/A -Texture ([place]-wound Skin Appearance) Scarring -Moisture ([place]-wound Skin Appearance No Abnormality ) -Color ([place]-wound Skin Appearance) No Abnormality -Temperature ([place]-wound Skin No Abnormality Appearance) (Pt Warm) -Tenderness on Palpation ([place]-wound No Skin Appearance) -Ulcer Cleansing Wound Cleanser -Foul Odor after Cleansing No -Anesthetic Used 4% Lidocaine Solution #3- L GROIN inferior -Current Size (cm) - Length 1.3 -Current Size (cm) - Width 0.7 -Current Size (cm) - Depth 0.1 -Total Square Cm 0.91 -Photo Taken No -Exudate Amt Small -Exudate Type Serosanguineous -Wound Margin Distinct, Outline Attached -Granulation Amt Medium (34-66%) -Granulation Quality Red -Necrosis Amt Small (1-33%) -Necrotic Tissue Type Adherent Slough -Structure Exposed N/A -Texture ([place]-wound Skin Appearance) Scarring -Moisture ([place]-wound Skin Appearance Dry/Scaly ) -Color ([place]-wound Skin Appearance) No Abnormality -Temperature ([place]-wound Skin No Abnormality Appearance) (Pt Warm) -Tenderness on Palpation ([place]-wound No Skin Appearance) -Ulcer Cleansing Wound Cleanser -Foul Odor after Cleansing No -Anesthetic Used 4% Lidocaine Solution WC - Nurse 2 - General Ulcer CM Notes Start: 07/02/20 09:25 Freq: Status: Active Protocol: Activity Type Activity Date Activity User E-Sign Co-Sign Detail Recorded Client Recorded Date Recorded By Document 07/16/20 10:31 NINA [id number] 07/16/20 10:34 NINA 07/16/20 10:31 Wound Center Nurse 2 [Procedure/Treatment] #5 L Sup Groin -Time 10:32 -Correct Patient Yes -Correct Side, Site, Position Yes -Correct Procedure Yes -Procedure Performed Yes -Type of Procedure Debridement -Clinical Debridement Subcutaneous -Tissue Removed Subcutaneous -Post Debridement (cm) - Length 0.1 -Post Debridement (cm) - Width 0.1 -Post Debridement (cm) - Depth 0.1 -Total Square (Post) (cm) 0.01 -Area of Debridement (cm) - Length 0.1 -Area of Debridement (cm) - Width 0.1 -Total Square (Area) (cm) 0.01 -Tunneling No -Undermining/Tunneling No -Circular Undermining No -Wound/Ulcer Outcome Not Healed -Ulcer Cleansing Rinsed/ Irrigated with Saline -Foul Odor after Cleansing No -Bioengineered Tissue No -Bleeding Controlled with Pressure -Offloading No -Treatment Response Procedure Tolerated Well -Debridement - Subq, 1st 20sq cm Yes #4 left axilla -Correct Patient No -Correct Side, Site, Position No -Correct Procedure No -Procedure Performed No -Post Debridement (cm) - Length 0 -Post Debridement (cm) - Width 0 -Post Debridement (cm) - Depth 0 -Total Square (Post) (cm) 0 -Area of Debridement (cm) - Length 0 -Area of Debridement (cm) - Width 0 -Total Square (Area) (cm) 0 -Wound/Ulcer Outcome Healed- Epithelialized #3- L GROIN inferior -Time 10:34 -Correct Patient Yes -Correct Side, Site, Position Yes -Correct Procedure Yes -Procedure Performed Yes -Type of Procedure Debridement -Clinical Debridement Subcutaneous -Tissue Removed Subcutaneous -Post Debridement (cm) - Length 1.2 -Post Debridement (cm) - Width 1.3 -Post Debridement (cm) - Depth 0.1 -Total Square (Post) (cm) 1.56 -Area of Debridement (cm) - Length 1.2 -Area of Debridement (cm) - Width 1.3 -Total Square (Area) (cm) 1.56 -Tunneling No -Undermining/Tunneling No -Circular Undermining No -Wound/Ulcer Outcome Not Healed -Ulcer Cleansing Rinsed/ Irrigated with Saline -Foul Odor after Cleansing No -Bioengineered Tissue No -Bleeding Controlled with Pressure -Offloading No -Treatment Response Procedure Tolerated Well -Debridement - Subq, 1st 20sq cm No [See Physician Procedure note for Specifics] Pain Scale: 0-10 Numeric [Pain] -Is Patient Pain Free? Yes - Nurse 3 - General Ulcer D/C NN Start: 07/02/20 09:25 Freq: Status: Active Protocol: Activity Type Activity Date Activity User E-Sign Co-Sign Detail Recorded Client Recorded Date Recorded By Document 07/16/20 10:42 DL [id number] 07/16/20 10:43 DL 07/16/20 10:42 Wound Care Nurse 3 [Wound Dressing] #5 L Sup Groin -Ulcer Cleansing Wound Cleanser -Foul Odor after Cleansing No -Primary Dressing Applied Aquacel AG 2x2 -Primary Dressing Covered/Secured Dry Gauze, with Secured with Tape -Aquacel AG 2x2 1 #3- L GROIN inferior -Ulcer Cleansing Wound Cleanser -Foul Odor after Cleansing No -Other Dressing aquacel ag -Primary Dressing Covered/Secured Dry Gauze, with Secured with Tape [Post Procedure Tolerated] -Treatment Response Procedure Tolerated Well Pain Scale: 0-10 Numeric [Pain] -Is Patient Pain Free? Yes - Visit Discharge [Visit Discharge Information] -Discharge Condition Stable -Ambulatory Status Ambulatory -Transportation Private Auto -Notes: Axilla Healed Debridement Note Post-Debridement Measurements/Treatment - Nurse 2 - General Ulcer CM Notes Start: 07/02/20 09:25 Freq: Status: Active Protocol: Activity Type Activity Date Activity User E-Sign Co-Sign Detail Recorded Client Recorded Date Recorded By Document 07/02/20 09:55 NINA [id number] 07/02/20 10:02 Document 07/16/20 10:31 [id number] 07/16/20 10:34 07/02/20 07/16/20 09:55 10:31 Wound Center Nurse 2 #5 L Sup Groin -Time 09:56 10:32 -Correct Patient Yes Yes -Correct Side, Site, Position Yes Yes -Correct Procedure Yes Yes -Procedure Performed Yes Yes -Type of Procedure Debridement Debridement -Clinical Debridement Subcutaneous Subcutaneous -Tissue Removed Subcutaneous Subcutaneous -Post Debridement (cm) - Length 3.0 0.1 -Post Debridement (cm) - Width 0.5 0.1 -Post Debridement (cm) - Depth 0.3 0.1 -Total Square (Post) (cm) 1.50 0.01 -Area of Debridement (cm) - Length 3.0 0.1 -Area of Debridement (cm) - Width 0.5 0.1 -Total Square (Area) (cm) 1.50 0.01 -Tunneling No No -Undermining/Tunneling No No -Circular Undermining No No -Wound/Ulcer Outcome Not Healed Not Healed -Ulcer Cleansing Rinsed/ Rinsed/ Irrigated with Irrigated with Saline Saline -Foul Odor after Cleansing No No -Bioengineered Tissue No No -Bleeding Controlled with Pressure Pressure -Offloading No No -Treatment Response Procedure Procedure Tolerated Well Tolerated Well -Debridement - Subq, 1st 20sq cm Yes Yes #4 left axilla -Time 09:57 -Correct Patient Yes No -Correct Side, Site, Position Yes No -Correct Procedure Yes No -Procedure Performed Yes No -Type of Procedure Debridement -Clinical Debridement Subcutaneous -Tissue Removed Subcutaneous -Post Debridement (cm) - Length 4.5 0 -Post Debridement (cm) - Width 0.5 0 -Post Debridement (cm) - Depth 0.3 0 -Total Square (Post) (cm) 2.25 0 -Area of Debridement (cm) - Length 4.5 0 -Area of Debridement (cm) - Width 0.5 0 -Total Square (Area) (cm) 2.25 0 -Tunneling No -Undermining/Tunneling No -Circular Undermining No -Wound/Ulcer Outcome Not Healed Healed- Epithelialized -Ulcer Cleansing Rinsed/ Irrigated with Saline -Foul Odor after Cleansing No -Bioengineered Tissue No -Bleeding Controlled with Pressure -Offloading No -Treatment Response Procedure Tolerated Well -Debridement - Subq, 1st 20sq cm No #3- L GROIN inferior -Time 09:57 10:34 -Correct Patient Yes Yes -Correct Side, Site, Position Yes Yes -Correct Procedure Yes Yes -Procedure Performed Yes Yes -Type of Procedure Debridement Debridement -Clinical Debridement Subcutaneous Subcutaneous -Tissue Removed Subcutaneous Subcutaneous -Post Debridement (cm) - Length 2.8 1.2 -Post Debridement (cm) - Width 1.7 1.3 -Post Debridement (cm) - Depth 0.2 0.1 -Total Square (Post) (cm) 4.76 1.56 -Area of Debridement (cm) - Length 2.8 1.2 -Area of Debridement (cm) - Width 1.7 1.3 -Total Square (Area) (cm) 4.76 1.56 -Tunneling No No -Undermining/Tunneling No No -Circular Undermining No No -Wound/Ulcer Outcome Not Healed Not Healed -Ulcer Cleansing Rinsed/ Rinsed/ Irrigated with Irrigated with Saline Saline -Foul Odor after Cleansing No No -Bioengineered Tissue No No -Bleeding Controlled with Pressure Pressure -Offloading No No -Treatment Response Procedure Procedure Tolerated Well Tolerated Well -Debridement - Subq, 1st 20sq cm No No Pain Scale: 0-10 Numeric Is Patient Pain Free? Yes Yes - Nurse 3 - General Ulcer D/C NN Start: 07/02/20 09:25 Freq: Status: Active Protocol: Activity Type Activity Date Activity User E-Sign Co-Sign Detail Recorded Client Recorded Date Recorded By Document 07/16/20 10:42 DL [id number] 07/16/20 10:43 DL 07/16/20 10:42 Wound Care Nurse 3 #5 L Sup Groin -Ulcer Cleansing Wound Cleanser -Foul Odor after Cleansing No -Primary Dressing Applied Aquacel AG 2x2 -Primary Dressing Covered/Secured with Dry Gauze, Secured with Tape -Aquacel AG 2x2 1 #3- L GROIN inferior -Ulcer Cleansing Wound Cleanser -Foul Odor after Cleansing No -Other Dressing aquacel ag -Primary Dressing Covered/Secured with Dry Gauze, Secured with Tape Treatment Response Procedure Tolerated Well Pain Scale: 0-10 Numeric Is Patient Pain Free? Yes - Visit Discharge Discharge Condition Stable Ambulatory Status Ambulatory Transportation Private Auto Notes: Axilla Healed Wound debrided: #3 Left inguinal and vulval area. Laterality: Left Wound Grade/Stage: 2, Type of Debridement: Excisional debridement Anesthesia Used: 4% Lidocaine Solution Depth: Down to and including healthy tissue, in the subcutaneous layer Percentage of wound debrided: 100 Instrument Used: 3mm curette Tissue Removed: subcutaneous tissue. Severity: Fat Layer Exposed Amount of bleeding with debridement: Mild Bleeding Controlled with: Pressure Patient tolerated procedure well - Additional Wound Wound debrided: #4 Left axilla. Laterality: Left Wound Grade/Stage: 2. Patient tolerated procedure: - - no debridement was done today as the wound has healed. - Additional Wound Wound debrided: #5 Left proximal inguinal area. Laterality: Left Wound Grade/Stage: 2. Type of Debridement: Excisional debridement Anesthesia Used: 4% Lidocaine Solution Depth: Down to and including healthy tissue, in the subcutaneous layer Percentage of wound debrided: 100 Instrument Used: 3mm curette Tissue Removed: subcutaneous tissue. Severity: Fat Layer Exposed Amount of bleeding with debridement: Mild Bleeding Controlled with: Pressure Patient tolerated procedure: Patient tolerated procedure well Assessment/Plan Assessment: 1. Nonhealing hidradenitis ulcer left inguinal and vulval area involving genitocrural crease. 2. Recurrent hidradenitis left axillary area. 3. Hidradenitis left proximal inguinal area. 4. Smoker. 5. s/p surgical preparation left inguinal and vulval area involving genitocrural crease with excisional debridement nonhealing hidradenitis ulcer and STSG recosntruction from left lateral abdominal wall (12 cm2) and placement of AmnioFill placental connective tissue powder, 250 mg and surgical preparation left axilla with excision recurrent hidradenitis (55 cm2) and excision left proximal inguinal hidradenitis with 6 cm complex closure repair. 6. Compromised skin graft left vulval area, improved. 7. Nonhealing hidradenitis ulcer left proximal inguinal area, improved. 8. Painful hidradenitis left lateral inguinal area. Plan: Continue Silver dressing changes daily. Will wash the wound with Dakin's prior to the Silver dressing change. Donor incision left lateral abdominal wall is dry and intact. Continue Levaquin for the new onset painful hidradenitis left lateral inguinal area. She finished Levaquin and Augmentin for the operative cultures that showed Klebsiella pneumoniae, Streptococcus agalactiae, and Anaerobic cocci in the left proximal inguinal area, and Enterobacter aerogenes in the left axillary area, and Enterobacter aerogenes and Alcaligenes faecalis in the left vulval area. She finished Doxycycline, Cefdinir, and Flagyl for recent pneumonia at [facility]. Prealbumin from 05/30/20 was 14.4. Encourage nutritional supplementation with protein to help the healing process. With the compromised graft, she would benefit from HBO treatments to help salvage the graft. Her ears are ok. CXR from [place] is ok. Awaiting insurance approval. Wrote script for Percocet for pain (14 tabs). Will schedule further surgery for her painful hidradenitis left lateral inguinal area. The wound will be left open postoperatively. Surgery will be done under general anesthesia with a surgical observation overnight stay in the hospital. Patient was informed of the risks and complications of the procedure including alternatives to surgery. These were discussed with her personally. She voices understanding and wishes to proceed. Followup one week. Encouraged the patient to stop smoking as it may have deleterious effects on wound healing. [id number]: [id number] Global Visit - ICD-10 - Z48.89, L73.2, L98.492, N76.6, T86.828, F17.200
--- NOTE | 2020-07-18 16:16 | WC ---
Patients home health called to let us know that her boil to left groin is more red but she's on an ATB and there's only small yellow drainage. I called that patient to let her know that she can alternate between ice and heat to area and to continue keeping area clean and dry. Washing it with soap and water. Also mentioned that she needs to keep pressure off of site so when she's sitting to lay in a position where her abdomen is not applying pressure to site. If patient starts a fever or body chills she needs to report to the ER. HHS will be out later this week to see patient.
== END 2020-07-18 23:59 ==
LOC: WC 09:30
PROVIDERS: Visit Provider Nurse Practitioner Family
DX: L73.2 Hidradenitis suppurativa (principal); Z79.02 Long term (current) use of antithrombotics/antiplatelets; Z79.899 Other long term (current) drug therapy; Y83.8 Other surgical procedures as the cause of abnormal reaction of the patient, or of later complication, without mention of misadventure at the time of the procedure; T86.821 Skin graft (allograft) (autograft) failure
CPT/HCPCS: 11042

== ENCOUNTER 2020-07-30 08:00 | Outpatient (RCR) | payer MEDICAID, SELFPAY ==
[2020-07-19 00:32] VITALS: BP 126/87; PULSE 106; RESP 22; TEMP 36.9
[2020-07-23 08:06] VITALS: BP 128/78; PULSE 87; RESP 20; TEMP 36.4; BMI 29.0
[2020-07-23 08:47] VITALS: BP 108/70; PULSE 78; RESP 18; TEMP 36.2
--- NOTE | 2020-07-23 10:46 | PCM.WC.PN ---
(1) Non-healing surgical wound of left groin Status: Chronic Current Visit: Yes Code(s): T81.89XA - Other complications of procedures, not elsewhere classified, initial encounter (2) Open wound of vulva Status: Chronic Current Visit: Yes Code(s): S31.40XA - Unspecified open wound of vagina and vulva, initial encounter (3) Chronic skin ulcer with fat layer exposed Status: Chronic Current Visit: Yes Code(s): L98.492 - Non-pressure chronic ulcer of skin of other sites with fat layer exposed (4) Hidradenitis suppurativa Status: Chronic Current Visit: No Code(s): L73.2 - Hidradenitis suppurativa Comment: left inguinal area left posterior ear by the earlobe (5) Smoker Status: Chronic Current Visit: No Code(s): F17.200 - Nicotine dependence, unspecified, uncomplicated Type of Wound Date of Service: 07/23/20 Chief Complaint: Nonhealing hidradenitis ulcer left axillary area, left proximal inguinal area, and left vulval area with recent skin grafting. History of Wound: Surgery 05/29/20 - 1. Surgical preparation left inguinal and vulval area involving genitocrural crease with excisional debridement nonhealing hidradenitis ulcer and STSG recosntruction from left lateral abdominal wall (12 cm2) and placement of AmnioFill placental connective tissue powder, 250 mg. 2. Surgical preparation left axilla with excision recurrent hidradenitis (55 cm2). 3. Excision left proximal inguinal hidradenitis with 6 cm complex closure repair. Wound care - Silver. Operative culture - Klebsiella pneumoniae, Streptococcus agalactiae, and Anaerobic cocci in the left proximal inguinal area, and Enterobacter aerogenes in the left axilla, and Enterobacter aerogenes, and Alcaligenes faecalis in the left vulval area. She was discharged on Levaquin and Augmentin and has finished them. She was recently hospitalized at [facility] with pneumonia and was treated with Doxycycline, Cefdinir, and Flagyl and has fininshed them. She has reported increasing pain with some drainage from left lateral inguinal area. She was recently started on Levaquin and continues to take this antibiotic. Prealbumin from 05/30/20 was 14.4. Encourage nutritional supplementation with protein to help the healing process. Today she denies fever. Her appetite has decreased with Levaquin. Progress of Wound: Left axillary wound is healed. Left proximal inguinal wound is improved. Compromised skin graft left vuval area is improved. Has new onset left lateral inguinal hidradenitis which drains purulent fluid. She has upcoming surgery with Dr. Fraga on 08/07/2020. Patient has new complaint of white vaginal discharge and vaginal itching with use of Levaquin. - Physical Exam Vital Signs Temp Pulse Resp BP 97.2 F L 78 18 108/70 07/23/20 08:47 07/23/20 08:47 07/23/20 08:47 07/23/20 08:47 General: Alert, Cooperative, No apparent distress HEENT: Atraumatic, Normocephalic Oral: Moist Mucosa Neck: Supple, Trachea Midline Lungs: Normal air movement Extremities: No clubbing, No cyanosis Skin: No rashes, Ulcer/ Wound - Left inguinal and vulvar ulcers with subcutaneous layer exposed. No tunneling, undermining, or probing to bone. Hidradenitis of left inguinal fold with draining abscess. Wound Measurements and Assessment WC - Nurse 1 - General Ulcer Measurement Start: 07/23/20 08:05 Freq: Status: Active Protocol: Activity Type Activity Date Activity User E-Sign Co-Sign Detail Recorded Client Recorded Date Recorded By Document 07/23/20 08:06 [id number] 07/23/20 08:15 DL 07/23/20 08:06 Wound Center Nurse 1 [Ulcer Assessment] #5 L Sup Groin cluster -Current Size (cm) - Length 0.1 -Current Size (cm) - Width 0.1 -Current Size (cm) - Depth 0.1 -Total Square Cm 0.01 -Photo Taken No -Exudate Amt None Present -Wound Margin Flat & Intact -Granulation Amt Large (67-100%) -Granulation Quality Crescent -Necrosis Amt None Present (0 %) -Structure Exposed N/A -Texture ([place]-wound Skin Appearance) Scarring -Moisture ([place]-wound Skin Appearance No Abnormality ) -Color ([place]-wound Skin Appearance) Erythema -Temperature ([place]-wound Skin No Abnormality Appearance) (Pt Warm) -Tenderness on Palpation ([place]-wound No Skin Appearance) -Ulcer Cleansing Wound Cleanser -Foul Odor after Cleansing No -Anesthetic Used 4% Lidocaine Solution #3- L GROIN inferior -Current Size (cm) - Length 0.6 -Current Size (cm) - Width 0.5 -Current Size (cm) - Depth 0.1 -Total Square Cm 0.30 -Photo Taken No -Exudate Amt Small -Exudate Type Serosanguineous -Wound Margin Distinct, Outline Attached -Granulation Amt Large (67-100%) -Granulation Quality Crescent -Necrosis Amt None Present (0 %) -Structure Exposed N/A -Texture ([place]-wound Skin Appearance) Scarring -Moisture ([place]-wound Skin Appearance No Abnormality ) -Color ([place]-wound Skin Appearance) No Abnormality -Temperature ([place]-wound Skin No Abnormality Appearance) (Pt Warm) -Tenderness on Palpation ([place]-wound No Skin Appearance) -Ulcer Cleansing Wound Cleanser -Foul Odor after Cleansing No -Anesthetic Used 4% Lidocaine Solution WC - Nurse 2 - General Ulcer CM Notes Start: 07/23/20 08:05 Freq: Status: Active Protocol: Activity Type Activity Date Activity User E-Sign Co-Sign Detail Recorded Client Recorded Date Recorded By Document 07/23/20 08:29 NINA [id number] 07/23/20 08:33 NINA 07/23/20 08:29 Wound Center Nurse 2 [Procedure/Treatment] #5 L Sup Groin cluster -Time 08:32 -Correct Patient Yes -Correct Side, Site, Position Yes -Correct Procedure Yes -Procedure Performed Yes -Type of Procedure Debridement -Clinical Debridement Subcutaneous -Tissue Removed Subcutaneous -Post Debridement (cm) - Length 0.7 -Post Debridement (cm) - Width 3.6 -Post Debridement (cm) - Depth 0.6 -Total Square (Post) (cm) 2.52 -Area of Debridement (cm) - Length 0.7 -Area of Debridement (cm) - Width 3.6 -Total Square (Area) (cm) 2.52 -Tunneling No -Undermining/Tunneling No -Circular Undermining No -Wound/Ulcer Outcome Not Healed -Ulcer Cleansing Rinsed/ Irrigated with Saline -Foul Odor after Cleansing No -Bioengineered Tissue No -Bleeding Controlled with Pressure -Offloading No -Treatment Response Procedure Tolerated Well -Debridement - Subq, 1st 20sq cm Yes #3- L GROIN inferior -Time 08:30 -Correct Patient Yes -Correct Side, Site, Position Yes -Correct Procedure Yes -Procedure Performed Yes -Type of Procedure Debridement -Clinical Debridement Subcutaneous -Tissue Removed Subcutaneous -Post Debridement (cm) - Length 1.1 -Post Debridement (cm) - Width 1.0 -Post Debridement (cm) - Depth 0.1 -Total Square (Post) (cm) 1.10 -Area of Debridement (cm) - Length 1.1 -Area of Debridement (cm) - Width 1.0 -Total Square (Area) (cm) 1.10 -Tunneling No -Undermining/Tunneling No -Circular Undermining No -Wound/Ulcer Outcome Not Healed -Ulcer Cleansing Rinsed/ Irrigated with Saline -Bioengineered Tissue No -Bleeding Controlled with Pressure -Offloading No -Treatment Response Procedure Tolerated Well -Debridement - Subq, 1st 20sq cm No [See Physician Procedure note for Specifics] Pain Scale: 0-10 Numeric [Pain] -Is Patient Pain Free? Yes WC - Nurse 3 - General Ulcer D/C NN Start: 07/23/20 08:05 Freq: Status: Active Protocol: Activity Type Activity Date Activity User E-Sign Co-Sign Detail Recorded Client Recorded Date Recorded By Document 07/23/20 08:47 DL [id number] 07/23/20 08:56 DL 07/23/20 08:47 Wound Care Nurse 3 [Wound Dressing] #5 L Sup Groin cluster -Ulcer Cleansing Rinsed/ Irrigated with Saline -Foul Odor after Cleansing No -Primary Dressing Applied Aquacel AG 4x4 -Primary Dressing Covered/Secured Dry Gauze, with Secured with Tape -Aquacel AG 4x4 1 #3- L GROIN inferior -Ulcer Cleansing Rinsed/ Irrigated with Saline -Foul Odor after Cleansing No -Other Dressing aquacel AG -Primary Dressing Covered/Secured Dry Gauze, with Secured with Tape [Post Procedure Tolerated] -Treatment Response Procedure Tolerated Well Vital Signs [Temperature Protocol: VS] -Temperature (97.8 F-99.1 F) 97.2 F L -Temperature Source Temporal [Pulse] -Pulse Rate (60-100) 78 -Pulse Location Monitor [Respirations] -Respiratory Rate (12-18) 18 -Respiratory rate source Observation [Blood Pressure] -Blood Pressure (90/60-120/80) 108/70 -Blood Pressure Mean (mm Hg) 82 -Source Monitor Pain Scale: 0-10 Numeric [Pain] -Is Patient Pain Free? Yes WC - Visit Discharge [Visit Discharge Information] -Discharge Condition Stable -Ambulatory Status Ambulatory -Transportation Private Auto Musculoskeletal: Tenderness - To palpation/manipulation of left inguinal ulcer. Psych/Mental Status: Normal Affect, Appropriate Debridement Note Post-Debridement Measurements/Treatment - Nurse 2 - General Ulcer CM Notes Start: 07/23/20 08:05 Freq: Status: Active Protocol: Activity Type Activity Date Activity User E-Sign Co-Sign Detail Recorded Client Recorded Date Recorded By Document 07/23/20 08:29 [id number] 07/23/20 08:33 NINA 07/23/20 08:29 Wound Center Nurse 2 #5 L Sup Groin cluster -Time 08:32 -Correct Patient Yes -Correct Side, Site, Position Yes -Correct Procedure Yes -Procedure Performed Yes -Type of Procedure Debridement -Clinical Debridement Subcutaneous -Tissue Removed Subcutaneous -Post Debridement (cm) - Length 0.7 -Post Debridement (cm) - Width 3.6 -Post Debridement (cm) - Depth 0.6 -Total Square (Post) (cm) 2.52 -Area of Debridement (cm) - Length 0.7 -Area of Debridement (cm) - Width 3.6 -Total Square (Area) (cm) 2.52 -Tunneling No -Undermining/Tunneling No -Circular Undermining No -Wound/Ulcer Outcome Not Healed -Ulcer Cleansing Rinsed/ Irrigated with Saline -Foul Odor after Cleansing No -Bioengineered Tissue No -Bleeding Controlled with Pressure -Offloading No -Treatment Response Procedure Tolerated Well -Debridement - Subq, 1st 20sq cm Yes #3- L GROIN inferior -Time 08:30 -Correct Patient Yes -Correct Side, Site, Position Yes -Correct Procedure Yes -Procedure Performed Yes -Type of Procedure Debridement -Clinical Debridement Subcutaneous -Tissue Removed Subcutaneous -Post Debridement (cm) - Length 1.1 -Post Debridement (cm) - Width 1.0 -Post Debridement (cm) - Depth 0.1 -Total Square (Post) (cm) 1.10 -Area of Debridement (cm) - Length 1.1 -Area of Debridement (cm) - Width 1.0 -Total Square (Area) (cm) 1.10 -Tunneling No -Undermining/Tunneling No -Circular Undermining No -Wound/Ulcer Outcome Not Healed -Ulcer Cleansing Rinsed/ Irrigated with Saline -Bioengineered Tissue No -Bleeding Controlled with Pressure -Offloading No -Treatment Response Procedure Tolerated Well -Debridement - Subq, 1st 20sq cm No Pain Scale: 0-10 Numeric Is Patient Pain Free? Yes WC - Nurse 3 - General Ulcer D/C NN Start: 07/23/20 08:05 Freq: Status: Active Protocol: Activity Type Activity Date Activity User E-Sign Co-Sign Detail Recorded Client Recorded Date Recorded By Document 07/23/20 08:47 DL [id number] 07/23/20 08:56 DL 07/23/20 08:47 Wound Care Nurse 3 #5 L Sup Groin cluster -Ulcer Cleansing Rinsed/ Irrigated with Saline -Foul Odor after Cleansing No -Primary Dressing Applied Aquacel AG 4x4 -Primary Dressing Covered/Secured with Dry Gauze, Secured with Tape -Aquacel AG 4x4 1 #3- L GROIN inferior -Ulcer Cleansing Rinsed/ Irrigated with Saline -Foul Odor after Cleansing No -Other Dressing aquacel AG -Primary Dressing Covered/Secured with Dry Gauze, Secured with Tape Treatment Response Procedure Tolerated Well Vital Signs Temperature (97.8 F-99.1 F) 97.2 F L Temperature Source Temporal Pulse Rate (60-100) 78 Pulse Location Monitor Respiratory Rate (12-18) 18 Respiratory rate source Observation Blood Pressure (90/60-120/80) 108/70 Blood Pressure Mean (mm Hg) 82 Source Monitor Pain Scale: 0-10 Numeric Is Patient Pain Free? Yes WC - Visit Discharge Discharge Condition Stable Ambulatory Status Ambulatory Transportation Private Auto Wound debrided: Left inguinal and vulvar area Laterality: Left Type of Debridement: Excisional debridement Anesthesia Used: 4% Lidocaine Solution Depth: in the subcutaneous layer Percentage of wound debrided: 100 Instrument Used: 3mm curette Tissue Removed: Slough and devitalized tissue Severity: Fat Layer Exposed Amount of bleeding with debridement: Mild Bleeding Controlled with: Pressure Patient tolerated procedure well - Additional Wound Wound debrided: Left proximal inguinal area Laterality: Left Type of Debridement: Excisional debridement Anesthesia Used: 4% Lidocaine Solution Depth: in the subcutaneous layer Percentage of wound debrided: 100 Instrument Used: 3mm curette Tissue Removed: Slough and devitalized tissue Amount of bleeding with debridement: Mild Bleeding Controlled with: Pressure Patient tolerated procedure: Patient tolerated procedure well Assessment/Plan Active Problems (Last Reviewed 12/24/19 @ 21:[address] Ronnell Fraga MD) Non-healing surgical wound of left groin (Chronic) Open wound of vulva (Chronic) Chronic skin ulcer with fat layer exposed (Chronic) Assessment: 1. Nonhealing hidradenitis ulcer left inguinal and vulval area involving genitocrural crease. 2. Recurrent hidradenitis left axillary area. 3. Hidradenitis left proximal inguinal area. 4. Smoker. 5. s/p surgical preparation left inguinal and vulval area involving genitocrural crease with excisional debridement nonhealing hidradenitis ulcer and STSG recosntruction from left lateral abdominal wall (12 cm2) and placement of AmnioFill placental connective tissue powder, 250 mg and surgical preparation left axilla with excision recurrent hidradenitis (55 cm2) and excision left proximal inguinal hidradenitis with 6 cm complex closure repair. 6. Compromised skin graft left vulval area, improved. 7. Nonhealing hidradenitis ulcer left proximal inguinal area, improved. 8. Painful hidradenitis left lateral inguinal area. Plan: Continue Silver dressing changes daily. Will wash the wound with Dakin's prior to the Silver dressing change. Donor incision left lateral abdominal wall is dry and intact. Continue Levaquin for the new onset painful hidradenitis left lateral inguinal area. She finished Levaquin and Augmentin for the operative cultures that showed Klebsiella pneumoniae, Streptococcus agalactiae, and Anaerobic cocci in the left proximal inguinal area, and Enterobacter aerogenes in the left axillary area, and Enterobacter aerogenes and Alcaligenes faecalis in the left vulval area. She finished Doxycycline, Cefdinir, and Flagyl for recent pneumonia at [facility]. Prealbumin from 05/30/20 was 14.4. Encourage nutritional supplementation with protein to help the healing process. With the compromised graft, she would benefit from HBO treatments to help salvage the graft. Her ears are ok. CXR from [place] is ok. Awaiting insurance approval. Needs new script for Percocet for pain (14 tabs; Jolie will manage). Patient has complaint of new onset white vaginal discharge and vaginal itching with use of Levaquin. Diflucan prescribed today. Will schedule further surgery for her painful hidradenitis left lateral inguinal area. The wound will be left open postoperatively. Surgery will be done under general anesthesia with a surgical observation overnight stay in the hospital. Patient was informed of the risks and complications of the procedure including alternatives to surgery. These were discussed with her personally. She voices understanding and wishes to proceed. Follow-up in one week. Follow-up sooner or report to the emergency room should new or concerning symptoms arise. Encouraged the patient to stop smoking as it may have deleterious effects on wound healing. This note was generated with [employer] software. It may contain incorrect words, spelling, and punctuation that were not noted in checking the note before signing. [id number]: [id number] Global Visit
[2020-07-30 08:07] VITALS: BP 121/54; PULSE 101; RESP 16; TEMP 36.3; BMI 29.0
--- NOTE | 2020-07-30 08:33 | PN.PCM_ITS ---
(1) Non-healing surgical wound of left groin Status: Chronic Current Visit: Yes Code(s): T81.89XA - Other complications of procedures, not elsewhere classified, initial encounter (2) Open wound of vulva Status: Chronic Current Visit: Yes Code(s): S31.40XA - Unspecified open wound of vagina and vulva, initial encounter (3) Chronic skin ulcer with fat layer exposed Status: Chronic Current Visit: Yes Code(s): L98.492 - Non-pressure chronic ulcer of skin of other sites with fat layer exposed (4) Hidradenitis suppurativa Status: Chronic Current Visit: No Code(s): L73.2 - Hidradenitis suppurativa Comment: left inguinal area left posterior ear by the earlobe (5) Smoker Status: Chronic Current Visit: No Code(s): F17.200 - Nicotine dependence, unspecified, uncomplicated Type of Wound Date of Service: 07/30/20 Chief Complaint: Nonhealing hidradenitis ulcer left axillary area, left proximal inguinal area, and left vulval area with recent skin grafting. History of Wound: Surgery 05/29/20 - 1. Surgical preparation left inguinal and vulval area involving genitocrural crease with excisional debridement nonhealing hidradenitis ulcer and STSG recosntruction from left lateral abdominal wall (12 cm2) and placement of AmnioFill placental connective tissue powder, 250 mg. 2. Surgical preparation left axilla with excision recurrent hidradenitis (55 cm2). 3. Excision left proximal inguinal hidradenitis with 6 cm complex closure repair. Wound care - Silver. Operative culture - Klebsiella pneumoniae, Streptococcus agalactiae, and Anaerobic cocci in the left proximal inguinal area, and Enterobacter aerogenes in the left axilla, and Enterobacter aerogenes, and Alcaligenes faecalis in the left vulval area. She was discharged on Levaquin and Augmentin and has finished them. She was recently hospitalized at [facility] with pneumonia and was treated with Doxycycline, Cefdinir, and Flagyl and has fininshed them. She has reported increasing pain with some drainage from left lateral inguinal area. She was recently started on Levaquin and continues to take this antibiotic. Prealbumin from 05/30/20 was 14.4. Encourage nutritional supplementation with protein to help the healing process. Today she denies fever. Her appetite has decreased with Levaquin. Progress of Wound: Left axillary wound is healed. Left proximal inguinal wound is healed. Left vuval area is healed. She had new onset left lateral inguinal hidradenitis which is tender to palpation. It is no longer draining. She has upcoming surgery with Dr. Fraga on 08/07/2020. Patient was started on Diflucan for an antibiotic-induced vaginal yeast infection. Diflucan and Levaquin have been completed and her vaginal symptoms have resolved. The patient denies any fever or chills. Her antibiotic-associated diarrhea has resolved with completion of Levaquin. She denies any increasing pain, redness, swelling, or purulent/malodorous drainage. - Physical Exam Vital Signs Temp Pulse Resp BP 97.3 F L 101 H 16 121/54 H 07/30/20 08:07 07/30/20 08:07 07/30/20 08:07 07/30/20 08:07 General: Alert, Cooperative, No apparent distress HEENT: Atraumatic Oral: Moist Mucosa Neck: Supple, Trachea Midline Lungs: Normal air movement Extremities: Capillary Refill Less than 3 Seconds Skin: Ulcer/ Wound - Axilla, left vulvar area, and left proximal inguinal area ulcers are all healed today. Wound Measurements and Assessment - Nurse 1 - General Ulcer Measurement Start: 07/23/20 08:05 Freq: Status: Active Protocol: Activity Type Activity Date Activity User E-Sign Co-Sign Detail Recorded Client Recorded Date Recorded By Document 07/30/20 08:07 NINA [id number] 07/30/20 08:09 NINA 07/30/20 08:07 Wound Center Nurse 1 [Ulcer Assessment] #5 L Sup Groin cluster -Combined with other wound No -Current Size (cm) - Length 0 -Current Size (cm) - Width 0 -Current Size (cm) - Depth 0 -Total Square Cm 0 -Photo Taken Yes -Epithelialization Large 67-100% #3- L GROIN inferior -Combined with other wound No -Current Size (cm) - Length 0 -Current Size (cm) - Width 0 -Current Size (cm) - Depth 0 -Total Square Cm 0 -Photo Taken Yes -Epithelialization Large 67-100% [Edema Assessment] -Lower Limb Edema Present NA WC - Nurse 2 - General Ulcer CM Notes Start: 07/23/20 08:05 Freq: Status: Active Protocol: Activity Type Activity Date Activity User E-Sign Co-Sign Detail Recorded Client Recorded Date Recorded By Document 07/30/20 08:20 [id number] 07/30/20 08:26 07/30/20 08:20 Wound Center Nurse 2 [Procedure/Treatment] #5 L Sup Groin cluster -Correct Patient No -Correct Side, Site, Position No -Correct Procedure No -Procedure Performed No -Post Debridement (cm) - Length 0 -Post Debridement (cm) - Width 0 -Post Debridement (cm) - Depth 0 -Total Square (Post) (cm) 0 -Area of Debridement (cm) - Length 0 -Area of Debridement (cm) - Width 0 -Total Square (Area) (cm) 0 -Wound/Ulcer Outcome Healed- Epithelialized #3- L GROIN inferior -Correct Patient No -Correct Side, Site, Position No -Correct Procedure No -Procedure Performed No -Post Debridement (cm) - Length 0 -Post Debridement (cm) - Width 0 -Post Debridement (cm) - Depth 0 -Total Square (Post) (cm) 0 -Area of Debridement (cm) - Length 0 -Area of Debridement (cm) - Width 0 -Total Square (Area) (cm) 0 -Wound/Ulcer Outcome Healed- Epithelialized [See Physician Procedure note for Specifics] Pain Scale: 0-10 Numeric [Pain] -Is Patient Pain Free? Yes Psych/Mental Status: Normal Affect, Appropriate Debridement Note Post-Debridement Measurements/Treatment WC - Nurse 2 - General Ulcer CM Notes Start: 07/23/20 08:05 Freq: Status: Active Protocol: Activity Type Activity Date Activity User E-Sign Co-Sign Detail Recorded Client Recorded Date Recorded By Document 07/23/20 08:29 [id number] 07/23/20 08:33 Document 07/30/20 08:20 [id number] 07/30/20 08:26 07/23/20 07/30/20 08:29 08:20 Wound Center Nurse 2 #5 L Sup Groin cluster -Time 08:32 -Correct Patient Yes No -Correct Side, Site, Position Yes No -Correct Procedure Yes No -Procedure Performed Yes No -Type of Procedure Debridement -Clinical Debridement Subcutaneous -Tissue Removed Subcutaneous -Post Debridement (cm) - Length 0.7 0 -Post Debridement (cm) - Width 3.6 0 -Post Debridement (cm) - Depth 0.6 0 -Total Square (Post) (cm) 2.52 0 -Area of Debridement (cm) - Length 0.7 0 -Area of Debridement (cm) - Width 3.6 0 -Total Square (Area) (cm) 2.52 0 -Tunneling No -Undermining/Tunneling No -Circular Undermining No -Wound/Ulcer Outcome Not Healed Healed- Epithelialized -Ulcer Cleansing Rinsed/ Irrigated with Saline -Foul Odor after Cleansing No -Bioengineered Tissue No -Bleeding Controlled with Pressure -Offloading No -Treatment Response Procedure Tolerated Well -Debridement - Subq, 1st 20sq cm Yes #3- L GROIN inferior -Time 08:30 -Correct Patient Yes No -Correct Side, Site, Position Yes No -Correct Procedure Yes No -Procedure Performed Yes No -Type of Procedure Debridement -Clinical Debridement Subcutaneous -Tissue Removed Subcutaneous -Post Debridement (cm) - Length 1.1 0 -Post Debridement (cm) - Width 1.0 0 -Post Debridement (cm) - Depth 0.1 0 -Total Square (Post) (cm) 1.10 0 -Area of Debridement (cm) - Length 1.1 0 -Area of Debridement (cm) - Width 1.0 0 -Total Square (Area) (cm) 1.10 0 -Tunneling No -Undermining/Tunneling No -Circular Undermining No -Wound/Ulcer Outcome Not Healed Healed- Epithelialized -Ulcer Cleansing Rinsed/ Irrigated with Saline -Bioengineered Tissue No -Bleeding Controlled with Pressure -Offloading No -Treatment Response Procedure Tolerated Well -Debridement - Subq, 1st 20sq cm No Pain Scale: 0-10 Numeric Is Patient Pain Free? Yes Yes WC - Nurse 3 - General Ulcer D/C NN Start: 07/23/20 08:05 Freq: Status: Active Protocol: Activity Type Activity Date Activity User E-Sign Co-Sign Detail Recorded Client Recorded Date Recorded By Document 07/23/20 08:47 DL [id number] 07/23/20 08:56 DL 07/23/20 08:47 Wound Care Nurse 3 #5 L Sup Groin cluster -Ulcer Cleansing Rinsed/ Irrigated with Saline -Foul Odor after Cleansing No -Primary Dressing Applied Aquacel AG 4x4 -Primary Dressing Covered/Secured with Dry Gauze, Secured with Tape -Aquacel AG 4x4 1 #3- L GROIN inferior -Ulcer Cleansing Rinsed/ Irrigated with Saline -Foul Odor after Cleansing No -Other Dressing aquacel AG -Primary Dressing Covered/Secured with Dry Gauze, Secured with Tape Treatment Response Procedure Tolerated Well Vital Signs Temperature (97.8 F-99.1 F) 97.2 F L Temperature Source Temporal Pulse Rate (60-100) 78 Pulse Location Monitor Respiratory Rate (12-18) 18 Respiratory rate source Observation Blood Pressure (90/60-120/80) 108/70 Blood Pressure Mean (mm Hg) 82 Source Monitor Pain Scale: 0-10 Numeric Is Patient Pain Free? Yes WC - Visit Discharge Discharge Condition Stable Ambulatory Status Ambulatory Transportation Private Auto No debridement was completed today - ulcers are healed Assessment/Plan Active Problems (Last Reviewed 12/24/19 @ 21:[address] Ronnell Fraga MD) Non-healing surgical wound of left groin (Chronic) Open wound of vulva (Chronic) Chronic skin ulcer with fat layer exposed (Chronic) Assessment: 1. Nonhealing hidradenitis ulcer left inguinal and vulval area involving genitocrural crease. 2. Recurrent hidradenitis left axillary area. 3. Hidradenitis left proximal inguinal area. 4. Smoker. 5. s/p surgical preparation left inguinal and vulval area involving genitocrural crease with excisional debridement nonhealing hidradenitis ulcer and STSG recosntruction from left lateral abdominal wall (12 cm2) and placement of AmnioFill placental connective tissue powder, 250 mg and surgical preparation left axilla with exc ision recurrent hidradenitis (55 cm2) and excision left proximal inguinal hidradenitis with 6 cm complex closure repair. 6. Compromised skin graft left vulval area, improved. 7. Nonhealing hidradenitis ulcer left proximal inguinal area, improved. 8. Painful hidradenitis left lateral inguinal area. Plan: Left axilla, left vulvar and left proximal inguinal ulcers are healed today. She completed a course of Levaquin for the new-onset painful hidradenitis of the left lateral inguinal area. She completed a course of Diflucan for antibiotic induced vaginal yeast infection, which has resolved. She finished Levaquin and Augmentin for the operative cultures that showed Klebsiella pneumoniae, Streptococcus agalactiae, and Anaerobic cocci in the left proximal inguinal area, and Enterobacter aerogenes in the left axillary area, and Enterobacter aerogenes and Alcaligenes faecalis in the left vulval area. She finished Doxycycline, Cefdinir, and Flagyl for recent pneumonia at [facility]. Prealbumin from 05/30/20 was 14.4. Encourage nutritional supplementation with protein to help the healing process. Surgery is scheduled 08/07/[address] Fraga for her painful hidradenitis of the left lateral inguinal area. The wound will be left open postoperatively. Surgery will be done under general anesthesia with a surgical observation overnight stay in the hospital. Patient was informed of the risks and complications of the procedure including alternatives to surgery. These were discussed with her personally. She voices understanding and wishes to proceed. She was informed to notify Dr. Fraga should new or concerning symptoms arise prior to surgery. Encouraged the patient to stop smoking as it may have deleterious effects on wound healing. She was encouraged to keep skin folds clean and dry to prevent further skin breakdown. This note was generated with [employer] dictation software. It may contain incorrect words, spelling, and punctuation that were not noted in checking the note before signing. Office Visits / Consults: [id number] OV L3 Est
--- NOTE | 2020-08-15 08:21 | WC ---
Received a call from Adriana from [facility] regarding patient's pain meds that will be out today. Notified Jolie Cole about this who can electronically call in her pain meds. Also allowing nurse to add adaptic under her vac to help with pain from foam sticking to her ulcer. Nurse stated that she has more active bleeding because of the foam sticking. Spoke to nurse to okay adaptic and we will then reevaluate the wound bed at her next visit.
== END 2020-08-18 23:59 ==
LOC: WC 08:00
PROVIDERS: Visit Provider Nurse Practitioner Family
DX: L73.2 Hidradenitis suppurativa (principal); L98.492 Non-pressure chronic ulcer of skin of other sites with fat layer exposed; T81.89XA Other complications of procedures, not elsewhere classified, initial encounter; T86.821 Skin graft (allograft) (autograft) failure; Y83.8 Other surgical procedures as the cause of abnormal reaction of the patient, or of later complication, without mention of misadventure at the time of the procedure; F17.200 Nicotine dependence, unspecified, uncomplicated; B37.3 Candidiasis of vulva and vagina
CPT/HCPCS: 11042; 99212; G0463

== ENCOUNTER 2020-08-07 14:09 | Observation (INO) | payer MEDICAID, SELFPAY ==
--- NOTE | 2020-08-06 17:57 | HP.PCM_ITS ---
History and Physical Date of Admission: 08/07/20 HISTORY OF PRESENT ILLNESS 44 year old woman presents with recent flare up of hidradenitis in her left lateral inguinal area. She recently had surgery on 05/29/20 where she underwent surgical preparation left inguinal and vulval area involving genitocrural crease with excisional debridement nonhealing hidradenitis ulcer and STSG recosntruction from left lateral abdominal wall (12 cm2) and placement of AmnioFill placental connective tissue powder, 250 mg and surgical preparation left axilla with excision recurrent hidradenitis (55 cm2) and excision left proximal inguinal hidradenitis with 6 cm complex closure repair. There was some initial compromise on the skin graft which has since starting healing. The left axilla and left proximal inguinal wounds have healed. During the healing process, she noted increasing pain and redness and swelling in her left lateral inguinal area, lateral to the recent excision in the left proximal inguinal area. She was started on Levaquin. fininshed them. PAST MEDICAL HISTORY Anemia Anxiety and depression Asthma Breast lump in female GERD (gastroesophageal reflux disease) Gastrointestinal problem Heart valve problem High cholesterol History of blood clots IBS (irritable bowel syndrome) Kidney stones Recurrent infections Thyroid disease Vascular disease Chronic bronchitis PAST SURGICAL HISTORY appendectomy breast lump/mass excision cholecystectomy drainage of abscess embolectomy hernia repair hysterectomy History of left heart catheterization right knee surgery tonsillectomy hidradenitis suppurativa Surgical preparation left inguinal and vulval area involving genitocrural crease with excisional debridement nonhealing hidradenitis ulcer and STSG recosntruction from left lateral abdominal wall (12 cm2) and placement of AmnioFill placental connective tissue powder, 250 mg and surgical preparation left axilla with excision recurrent hidradenitis (55 cm2) and excision left proximal inguinal hidradenitis with 6 cm complex closure repair - 05/29/20 ALLERGIES acetaminophen [From Tylenol-Codeine #3] codeine [From Tylenol-Codeine #3] sulfamethoxazole [From Bactrim] trimethoprim [From Bactrim] adhesive tape IVP DYE MEDICATIONS clopidogrel hydroxyzine metoprolol Omeprazole Varenicline [Chantix] proMETHazine tablet [Phenergan tablet] Ondansetron [Zofran] Escitalopram Levaquin Percocet FAMILY HISTORY Mother - Anxiety and depression, Arthritis, History of blood clots, History of blood transfusion, Heart disease, CVA (cerebral vascular accident), History of ulcer disease Grandmother - Asthma, Anxiety and depression, Heart disease, Kidney disease, CVA (cerebral vascular accident) Grandfather - Heart disease, Lung cancer SOCIAL HISTORY Smoking Status: Current every day smoker alcohol intake: never additional social history: DOES USE ASPIRIN DOES NOT USE IBUPROFEN REVIEW OF SYSTEMS General - Denies fever and weight loss. Has fatigue. Eyes - Denies cataracts and glaucoma. ENT - Denies nasal congestion and sore throat. Has history of swollen glands in the neck. Endocrine - Denies excessive thirst and urination. Skin - Denies suspicious lesions and skin cancer. Has recent flare up of left lateral inguinal hidradenitis. Musculoskeletal - Denies joint pain, joint stiffness, weakness of muscles and joints, back pain, and arthritis. Neuro - Denies headaches. Has lightheadedness. Cardiovascular - Has chest pain and fatigue and lightheadedness. Denies shortness of breath with exertion. Psych - Denies anxiety and depression. Respiratory - Has chronic cough and shortness of breath. Has sleep apnea and asthma. Gastrointestinal - Denies nausea, vomiting. Has diarrhea, and constipation. Hematologic - Denies abnormal bruising and bleeding. Genitourinary - Denies hematuria and urinary frequency. PHYSICAL EXAMINATION General - Alert and Oriented. HEENT - PERRL. EOMI. Throat is clear. Neck - Supple and nontender. No cervical adenopathy. Lungs - Clear to auscultation. Heart - Regular rate and rhythm. Abdomen - Soft and nondistended. In the left inguinal area with extension into the vulval area is a healing skin graft. In the left lateral inguinal area is an area of redness and swelling and tenderness to palpation. Measures 6 cm. Extremities - FROM. No axillary adenopathy. Radial pulses are palpable. In the left axillary area is a healed scar from recent excision hidradenitis. Good range of motion. Genital - In the left vulval area involving the genitocrural area with extension into the inguinal area is a healing skin graft. Neuro - CN II-XII grossly intact. Psych - Normal mood and affect. ASSESSMENT 1. Hidradenitis left lateral inguinal area. 2. Recent hidradenitis left axillary area and left inguinal and vulval area involving genitocrural crease, recently excised. 3. Smoker. PLAN Recommend excision of her left lateral inguinal hidradenitis. Will send tissue to Pathology for analysis to rule out carcinoma and to Microbiology for culture. A positive culture will necessitate antibiotic therapy. Will leave the wound open and begin wound care with the [facility]. After discharge will followup at the Wound Center. If there is a plateau in the healing process, can proceed in a delayed fashion with skin grafting. Surgery will be done under general anesthesia with a surgical observation overnight stay in the hospital. Patient was informed of the risks and complications of the procedure including alternatives to surgery. These were discussed with her personally. She voices understanding and wishes to proceed. Encouraged the patient to stop smoking as it may have deleterious effects on wound healing. Anticipate increased metabolic demands from the infection and the ulceration. Encourage nutritional supplementation with protein to help the healing process. We discussed the current risks associated with COVID-19. While it is understood that there is a community spread of COVID-19, the risk of liban COVID-19 while at [facility] ([facility]) is very low; however, the risk cannot be completely mitigated because of the community spread of the disease. We discussed in detail the risk of exposure to and/or potential harm posed by the COVID-19 virus with having a surgery/procedure at this time versus the risk of delaying the surgery/procedure. It is not possible to know either the risk of delaying the surgery or procedure or chance of getting an infection with perfect accuracy, but a joint decision was made to proceed at this time with the scheduled surgery/procedure as indicated on the consent form. Patient was notified that we will need to comply with any screening or testing [facility] wishes to perform or that surgery may be delayed for any positive results. Discussed with the patient that I was tested for COVID-19 on 04/19/20 which was negative and on 05/03/20 which was negative and on 05/17/20 which was negative and on 05/31/20 which was negative and on 06/14/20 which was negative and on 07/05/20 which was negative and on 07/26/20 which was negative. My testing regimen at this time is to be COVID-19 tested every 2 weeks or so. Procedure Criteria Procedure Type: Elective COVID Risk Discussion: The surgeon/proceduralist and patient have discussed in detail the risk of exposure to and/or potential harm posed by the COVID-19 virus with having a surgery/procedure at this time versus the risk of delaying the surgery/procedure. It is not possible to know either the risk of delaying the surgery or procedure or chance of getting an infection with perfect accuracy, but a joint decision was made between the patient and the surgeon/proceduralist to proceed at this time with the scheduled surgery/procedure as indicated on the consent form.
[2020-08-07] VITALS (7 sets, daily range): BP systolic 100–129; BP diastolic 61–78; PULSE 52–88; RESP 16–18; TEMP 36.2–36.7; O2SAT 95–100; BMI 29.7
[2020-08-07] MEDS: Lactated Ringers 1,000 ML 100 ML IV (10:07)
--- NOTE | 2020-08-07 11:00 | HID_PTH ---
PATIENT: TAYLOR PENA LOC: MS3 U#:[id number] AGE/SX: 44/F ROOM: MD310 RE08/07/[address]: Dr. Ronnell Fraga MD : 1975 BED: 1 DIS: 08/09/2020 SPEC #: [id number] RECD: 08/07/20 15:46 STATUS: DAYAN REQ #: [id number] KM: 08/07/20 11:[address]: Ronnell Fraga DEPT: SURGICAL PATHOLOGY RECD BY: Mayte Ceja Tissues: Inguinal region, NOS Procedures: Surgery Specimen Level III Comments: @ Specimen number changed from [id number] to [id number] @ on 08/08/20 at 1439 by RGOOD. HEADER OPERATION: Surgical preparation lateral inguinal area with excision hidradenitis PRE-OP DIAGNOSIS: Hidradenitis left lateral inguinal area TISSUE SUBMITTED: Debrided left lateral inguinal area hidradenitis MICROSCOPIC DIAGNOSIS Left lateral inguinal area hidradenitis, excision: A piece of skin with underlying tissue with chronic inflammation and foreign body giant cell reaction. CYNDIE:gracie 08/09/20 MICROSCOPIC DESCRIPTION Slides are reviewed. GROSS DESCRIPTION Received in fixative is one container labeled with the patient's name and designated debrided left lateral inguinal area hidradenitis. The specimen consists of a piece of skin with underlying tissue measuring 11 x 4 cm and up to 1.5 cm in thickness. No skin lesion is identified. Sections do not reveal any mass lesion. Oil Transport Driver sections are submitted in three cassettes. / CYNDIE:gracie 08/08/20 TC:3 CPT: 01107
[2020-08-07] MEDS: levoFLOXacin IV 500 MG/100 ML BAG 100 MG IV (13:30)
--- NOTE | 2020-08-07 14:04 | OP.PCM_ITS ---
Report of Operation Date of Procedure: 08/07/20 Pre-Operative Diagnosis: 1. Hidradenitis left lateral inguinal area. 2. Recent hidradenitis left axillary area and left inguinal and vulval area involving genitocrural crease, recently excised. 3. Smoker. Post-Operative Diagnosis: 1. Hidradenitis left lateral inguinal area. 2. Recent hidradenitis left axillary area and left inguinal and vulval area involving genitocrural crease, recently excised. 3. Smoker. 4. Open surgical hidradenitis wound left lateral inguinal area. Surgery/Procedure Performed:: Surgical preparation left lateral inguinal area with excision hidradenitis (75 cm2). Description of Surgical Findings:: 44 year old woman presents with recent flare up of hidradenitis in her left lateral inguinal area. She recently had surgery on 05/29/20 where she underwent surgical preparation left inguinal and vulval area involving genitocrural crease with excisional debridement nonhealing hidradenitis ulcer and STSG recosntruction from left lateral abdominal wall (12 cm2) and placement of AmnioFill placental connective tissue powder, 250 mg and surgical preparation left axilla with excision recurrent hidradenitis (55 cm2) and excision left proximal inguinal hidradenitis with 6 cm complex closure repair. There was some initial compromise on the skin graft which has since starting healing. The left axilla and left proximal inguinal wounds have healed. During the healing process, she noted increasing pain and redness and swelling in her left lateral inguinal area, lateral to the recent excision in the left proximal inguinal area. She was started on Levaquin. Patient was informed of the risks and complications of the procedure including alternatives to surgery. These were discussed with the patient personally. Patient voices understanding and wishes to proceed. Encouraged patient to stop smoking as it may have deleterious effects on wound healing. Size of defect left lateral inguinal area - 15 x 5 x 2 cm. consulting services associate: None Type of Anesthesia:: General Specimen's removed: Hidradenitis left lateral inguinal area to Pathology and Microbiology. Drains: None. Estimated Blood Loss (mL): 25 ml. Description of Procedure: Patient was taken to OR in supine position and was placed under general ane sthesia. The left inguinal area was prepped and draped in the usual fashion. SCD's were placed for DVT prophylaxis. Perioperative antibiotics were given intravenously. For the procedure, I wore an N95 mask and wore proper eyewear protection. Using xylocaine with epinephrine, the left inguinal area was infiltrated. After waiting 5 minutes for the anesthetic to take effect, I proceeded with surgical preparation with excision hidradenitis down through the subcutaneous tissue down to fascia. Some induration was noted. Some fat necrosis was noted. No pus was seen. The fat necrosis and indurated tissue was also excised. The tissue was sent to Pathology for analysis to rule out carcinoma and to Microbiology for culture. A positive culture will necessitate antibiotic therapy. The wound was irrigated with saline. Hemostasis was obtained with electrocautery. The size of the defect after excision hidradenitis was 15 x 5 x 2 cm or 75 cm2. The wound was dressed with Mepitel nonadherent dressing followed by Kerlix gauze and Betadine and dry Kerlix gauze and ABD pads followed by Medipore tape compression dressing. Patient tolerated the procedure well and was sent to PACU in satisfactory condition. Patient will be sent upstairs for continued postop care. The VAC will be applied tomorrow. Grafts/Implants Used: None. - Complications None. - Admit VTE Documentation VTE Present on Admission: No VTE Mechan Device Prophylaxis: SCD's VTE Pharm Prophylaxis ordered?: No Surgery Charges CPT - 39660-06 ICD-10 - L73.2, S31.104A, F17.200
[2020-08-07] MEDS: Lactated Ringers 1,000 ML 60 ML IV (15:50)
[2020-08-07] MEDS: Ondansetron 8 MG Tablet PO (19:06)
[2020-08-07] MEDS: proMETHazine 25 MG Tablet PO (20:35)
[2020-08-07] MEDS: HYDROmorphone 1 MG/ML Syringe IV (20:35)
[2020-08-07] MEDS: hydrOXYzine PAM 25 MG Capsule 50 MG PO (20:46)
[2020-08-07] MEDS: Escitalopram Oxalate 20 MG Tablet PO (20:46)
[2020-08-07] MEDS: Metoprolol Tartrate 25 MG Tablet PO (20:46)
[2020-08-07] MEDS: diazePAM 5 MG Tablet PO (21:33)
[2020-08-07] MEDS: oxyCODONE 5 MG Tablet 10 MG PO (22:48)
[2020-08-08 01:50] VITALS: BP 142/77; PULSE 60; RESP 16; TEMP 36.6; O2SAT 97
[2020-08-08] MEDS: HYDROmorphone 1 MG/ML Syringe IV ×4 (02:00→20:47)
[2020-08-08] MEDS: proMETHazine 25 MG Tablet PO ×3 (02:34→18:24)
[2020-08-08] MEDS: Ondansetron 8 MG Tablet PO ×2 (05:35→16:29)
[2020-08-08] MEDS: oxyCODONE 5 MG Tablet 10 MG PO ×4 (05:35→19:42)
[2020-08-08 05:43] LABS: Hematocrit 44.5 % (37-47); Hemoglobin 13.1 g/dL (12.0-15.0); Mean Corp Hgb Conc 29.4 g/dL (32-36); Mean Corpuscular Hgb 31.4 pg (27.0-32.0); Mean Corpuscular Volume 106.7 fL (81-99); Mean Platelet Vol. 11.5 fl (6.2-12.0); Platelet Count 184 K/mm3 (150-450); RBC Distribution Width CV 13.3 % (11.6-14.6); Red Blood Count 4.17 M/mm3 (4.2-5.4); White Blood Count 11.6 K/mm3 (4.4-11.0)
[2020-08-08 06:09] LABS: Anion Gap 5 (5-15); BUN 10 mg/dL (7-18); BUN/Creat Ratio 11.7 RATIO (10-20); Calcium,Total 8.8 mg/dL (8.5-10.1); Chloride 109 mmol/L (98-107); Creatinine, Serum 0.85 mg/dL (0.55-1.02); EST Glomerular Filtration Rate 77 mL/min (>60); Est Glom Filt Rate - Afr Amer 94 mL/min (>60); Estimated Creatinine Clearance 80.71 ml/min; Glucose 119 mg/dL (74-106); Potassium 4.7 mmol/L (3.5-5.1); Prealbumin 16.8 mg/dL (20.0-40.0); Sodium Level 137 mmol/L (136-145)
[2020-08-08] MEDS: diazePAM 5 MG Tablet PO ×3 (07:13→21:33)
[2020-08-08] MEDS: Lactated Ringers 1,000 ML 60 ML IV (07:13)
[2020-08-08] MEDS: levoFLOXacin IV 500 MG/100 ML BAG 100 MG IV (09:01)
[2020-08-08] MEDS: Pantoprazole Sodium 40 MG Tablet PO (09:13)
[2020-08-08 09:27] VITALS: PULSE 56
[2020-08-08 09:30] VITALS: BP 125/65; PULSE 56; RESP 18; TEMP 36.5; O2SAT 98
--- NOTE | 2020-08-08 13:00 | NURSING ---
wound photo: left inguinal
--- NOTE | 2020-08-08 13:36 | PN.SURG_ITS ---
Subjective: Postop #1 Patient complains of wound pain. VAC was applied today. Patient has concerns about DVT because of her history of blood clots. - Physical Exam Vitals/I&O's: Vital Signs Temp Pulse Resp BP Pulse Ox 97.7 F L 56 L 18 125/65 H 98 08/08/20 09:30 08/08/20 09:30 08/08/20 09:30 08/08/20 09:30 08/08/20 09:30 Oxygen Flow Rate (L/min) 2 Oxygen Delivery Method Room Air Weight: 184 lb 4.903 oz Body Mass Index (BMI) 29.7 Intake and Output for Last 24 Hours 08/06/20 08/07/20 08/08/20 23:59 23:59 23:59 Intake Total 675 / 675 1627 / 1627 Balance 675 / 675 1627 / 1627 General: Alert, Oriented x3 HEENT: PERRLA, EOMI Oral: Moist Mucosa Neck: Supple Abdomen: Soft, Non-Distended Extremities: Tenderness - mild tenderness in her left posterior leg. Skin: Ulcer/ Wound - left inguinal wound is clean with no further evidence of infection. No active bleeding noted. VAC applied today. Neurological: Cranial nerves II-XII grossly intact Psych/Mental Status: Normal Affect, Appropriate Microbiology Past 72 Hours 08/07/20 14:00 Tissue - Other Gram Stain - Final 08/07/20 14:00 Tissue - Other Wound Culture - Preliminary Gram positive organism Laboratory Results 08/08/20 05:26: WBC 11.6 H, RBC 4.17 L, Hgb 13.1, Hct 44.5, MCV 106.7 H, MCH 31.4, MCHC 29.4 L, RDW Std Deviation 53.0 H, RDW Coeff of Ping 13.3, Plt Count 184, MPV 11.5 08/08/20 05:26: Sodium 137, Potassium 4.7, Chloride 109 H, Carbon Dioxide 23.0, Anion Gap 5, BUN 10, Creatinine 0.85, Estim Creat Clear Calc 80.71, Est GFR (MDRD) Af Amer 94, Est GFR (MDRD) Non-Af 77, BUN/Creatinine Ratio 11.7, Glucose 119 H, Calcium 8.8, Prealbumin 16.8 L Current Medications Clopidogrel Bisulfate (Clopidogrel Bisulfate 75 Mg Tablet) 75 mg PO QHS [facility] Diazepam (Diazepam 5 Mg Tablet) 5 mg PO 4X/DAY PRN PRN PRN Reason: SPASMS Last Admin: 08/08/20 07:13 Dose: 5 mg Documented by: Diphenhydramine HCl (Diphenhydramine 25 Mg Capsule) 25 mg PO .QID PRM PRN PRN Reason: ITCHING Escitalopram Oxalate (Escitalopram Oxalate 20 Mg Tablet) 20 mg PO QHS [facility] Last Admin: 08/07/20 20:46 Dose: 20 mg Documented by: Hydromorphone HCl (Hydromorphone 1 Mg/Ml Syringe) 1 mg IV Q4H PRN PRN PRN Reason: Pain Score 6-10 Last Admin: 08/08/20 11:48 Dose: 1 mg Documented by: Hydroxyzine Pamoate (Hydroxyzine Sury 25 Mg Capsule) 50 mg PO QHS [facility] Last Admin: 08/07/20 20:46 Dose: 50 mg Documented by: Lactated Ringer's () 1,000 mls @ 60 mls/hr IV .[id number] [facility] Last Infusion: 08/08/20 11:01 Dose: 60 mls/hr Documented by: Levofloxacin (Levaquin Iv) 500 mg in 100 mls @ 100 mls/hr IV Q24 [facility] Last Infusion: 08/08/20 10:30 Dose: Infused Documented by: Sodium Chloride () 250 mls @ 15 mls/hr IV .[id number] PRN PRN Reason: Saline Flush Last Infusion: 08/08/20 12:02 Dose: 0 mls/hr Documented by: Sodium Chloride () 250 mls @ 15 mls/hr IV .[id number] PRN PRN Reason: Additional IVPB Infusion Metoprolol Tartrate (Metoprolol Tartrate 25 Mg Tablet) 25 mg PO BID [facility] Last Admin: 08/08/20 09:27 Dose: Not Given Documented by: Nutritional Formula ([facility]) [facility] Last Admin: 08/08/20 11:53 Dose: 1 packet Documented by: Ondansetron HCl (Ondansetron 8 Mg Tablet) 8 mg PO Q8H PRN PRN PRN Reason: NAUSEA Last Admin: 08/08/20 05:35 Dose: 8 mg Documented by: Oxycodone HCl (Oxycodone 5 Mg Tablet) 10 mg PO Q4H PRN PRN PRN Reason: Pain Score 4-5 Last Admin: 08/08/20 09:57 Dose: 10 mg Documented by: Pantoprazole Sodium (Pantoprazole Sodium 40 Mg Tablet) 40 mg PO DAILY [facility] Last Admin: 08/08/20 09:13 Dose: 40 mg Documented by: Promethazine HCl (Promethazine 25 Mg Tablet) 25 mg PO 4X/DAY PRN PRN PRN Reason: NAUSEA Last Admin: 08/08/20 11:53 Dose: 25 mg Documented by: Senna/Docusate Sodium (Senna/Docusate Sodium 1 Tablet) 4 tablet PO QODAY [facility] Sodium Chloride (0.9% Saline Lock 10 Ml Syringe) 10 - 40 ml IV UD PRN PRN Reason: SALINE FLUSH Medical Necessity - Tobacco Use Smoking Status: Current every day smoker Tobacco Use: Cigarettes Assessment/Plan All Active Problems (Last Reviewed 12/24/19 @ 21:[address] Ronnell Fraga MD) Other complications of skin graft (allograft) (autograft) (Acute) Non-healing open wound of left groin (Acute) Open wound of left axillary region with complication (Acute) Non-healing surgical wound of left groin (Resolved) 1. Hidradenitis left lateral inguinal area. 2. Recent hidradenitis left axillary area and left inguinal and vulval area involving genitocrural crease, recently excised. 3. Smoker. 4. Open surgical hidradenitis wound left lateral inguinal area. 5. s/p surgical preparation left lateral inguinal area with excision hidradenitis (75 cm2). 6. History of blood clots. Patient complains of wound pain. Still needs IV analgesia. Will wean to po analgesia in anticipation of discharge tomorrow. Left lateral inguinal wound is stable. No active bleeding noted. VAC applied today. To be changed three times per week. Operative culture shows Gram positive organism. Continue Levaquin. Prealbumin was 16.8. Encourage nutritional supplementation with protein to help the healing process. With her history of blood clots and with left posterior leg pain, will order a D-dimer. After discharge, [facility]up [facility]. If there is a plateau in the healing process, can proceed with delayed closure with skin grafting. Encouraged patient to stop smoking as it may have deleterious effects on wound healing.
[2020-08-08 14:03] VITALS: BP 106/62; PULSE 61; RESP 18; TEMP 37.1; O2SAT 97
[2020-08-08] MEDS: DiphenhydrAMINE 25 MG Capsule PO ×2 (14:07→21:33)
--- NOTE | 2020-08-08 15:41 | NURSING ---
Home VAC approved. Pt currently resting in bed with eyes closed. Pt tolerated VAC change well, but did take IV dilaudid prior to dressing change. possible discharge tomorrow with home health. Pt is active with [facility].
--- NOTE | 2020-08-08 15:57 | VDLE_ITS ---
Reason For Study: Elevated D-dimer RIGHT LEFT GSV is normal. GSV is normal. CFV is compressible, spontaneous, competent Unable to visualize CFV and SFJ due to wound and demonstrates pulsatile venous flow. vac. FV is compressible, spontaneous, competent FV is compressible, spontaneous, competent and demonstrates pulsatile venous flow. and demonstrates pulsatile venous flow. POP V is compressible, spontaneous, competent POP V is compressible, spontaneous, competent and demonstrates pulsatile venous flow. and demonstrates pulsatile venous flow. T/P Trunk is compressible. T/P Trunk is compressible. PTV is compressible. PTV is compressible. RT PerV is compressible. LT PerV is compressible. Procedure This is a venous duplex using B-mode, color flow and spectral Doppler. Exam performed portable in patient room. A preliminary report was called and/or faxed to [facility] RN. Interpretation Summary No evidence for acute deep venous thrombosis bilateral lower extremities with patent and compressible bilateral great saphenous veins. Left common femoral vein and saphenofemoral junction unable to be visualized secondary to wound VAC. Pulsatile venous flow is noted bilaterally consistent with proximal venous hypertension. Clinical correlation would be appropriate. Ordering Physician: Ronnell Fraga Performed By: Hannah Estevez RVT and Student
[2020-08-08] MEDS: predniSONE 20 MG Tablet 50 MG PO (18:18)
[2020-08-08 19:46] VITALS: BP 119/58; PULSE 56; RESP 18; TEMP 36.7; O2SAT 98
[2020-08-08] MEDS: Clopidogrel Bisulfate 75 MG Tablet PO (20:46)
[2020-08-08] MEDS: 0.9% Saline Lock 10 ML Syringe IV (20:47)
[2020-08-08] MEDS: Escitalopram Oxalate 20 MG Tablet PO (20:47)
[2020-08-08] MEDS: hydrOXYzine PAM 25 MG Capsule 50 MG PO (20:47)
[2020-08-09] MEDS: Ondansetron 8 MG Tablet PO (00:18)
[2020-08-09] MEDS: oxyCODONE 5 MG Tablet 10 MG PO ×3 (00:18→09:57)
[2020-08-09] MEDS: predniSONE 20 MG Tablet 50 MG PO ×2 (00:18→06:15)
[2020-08-09] MEDS: Lactated Ringers 1,000 ML 60 ML IV (00:18)
[2020-08-09] MEDS: proMETHazine 25 MG Tablet PO ×2 (02:56→11:24)
[2020-08-09] MEDS: HYDROmorphone 1 MG/ML Syringe IV ×3 (02:56→11:24)
[2020-08-09 05:30] VITALS: BP 121/70; PULSE 51; RESP 18; TEMP 36.7; O2SAT 96
[2020-08-09] MEDS: 0.9% Saline Lock 10 ML Syringe IV ×2 (07:19→11:24)
[2020-08-09] MEDS: DiphenhydrAMINE 25 MG Capsule PO (07:47)
[2020-08-09] MEDS: diazePAM 5 MG Tablet PO (07:49)
[2020-08-09 08:00] VITALS: BP 123/74; PULSE 57; RESP 18; TEMP 36.6; O2SAT 98
--- NOTE | 2020-08-09 08:00 | CT_ITS ---
STUDY: CTA CHEST REASON FOR EXAM: Female, 44 years old. Elevated D-dimer, chronic cough, occasional chest pain, hx MVP. RADIATION DOSAGE (If Supplied By Facility): CTDIvol = ( 21.15 ) mGy, DLP = ( 466.14 ) mGycm TECHNIQUE: The examination was performed with the intravenous administration of IV 75mL Isovue-370. Post-processing of the angiographic images was performed, with multiplanar reformation and 3D reconstruction. Individualized dose optimization techniques were used for this CT. COMPARISON: None. FINDINGS: Normal enhancement of the main pulmonary artery and right and left pulmonary arteries. Normal enhancement of the bilateral peripheral pulmonary arteries. There is no demonstrated pulmonary embolism. Normal thoracic aorta and visualized great vessels. There is no demonstrated aortic dissection. Normal heart and pericardium. Normal mediastinum. Normal hilar regions. Normal visualized trachea and bronchi. The lungs are well expanded. Minimal degree of dependent bibasilar atelectasis. Normal pleura. Normal chest wall structures. There are degenerative changes of thoracic spine. There is a 1 cm cyst in the midportion of the right lobe of the liver. CT/CTA Chest W/WO Contrast IMPRESSION: Normal CTA chest examination, without a demonstrated pulmonary embolism or arterial dissection. Electronically Signed: Hay Dc, at 8:33 EDT , Service support ,
[2020-08-09] MEDS: levoFLOXacin IV 500 MG/100 ML BAG 100 MG IV (09:57)
[2020-08-09] MEDS: Senna/Docusate Sodium 1 Tablet 4 TABLET PO (09:58)
[2020-08-09] MEDS: Pantoprazole Sodium 40 MG Tablet PO (09:58)
[2020-08-09 10:03] VITALS: PULSE 70
--- NOTE | 2020-08-09 10:22 | PN.SURG_ITS ---
Subjective: Postop #2 Patient complains of wound pain but a little less. She is tolerating po analgesia. - Physical Exam Vitals/I&O's: Vital Signs Temp Pulse Resp BP Pulse Ox 97.8 F 70 18 123/74 H 98 08/09/20 08:00 08/09/20 10:03 08/09/20 08:00 08/09/20 08:00 08/09/20 08:00 Oxygen Flow Rate (L/min) 2 Oxygen Delivery Method Room Air Weight: 184 lb 4.903 oz Body Mass Index (BMI) 29.7 Intake and Output for Last 24 Hours 08/07/20 08/08/20 08/09/20 23:59 23:59 23:59 Intake Total 675 / 675 3077 / 3077 1657 / 1657 Balance 675 / 675 3077 / 3077 1657 / 1657 General: Alert, Oriented x3 HEENT: PERRLA, EOMI Oral: Moist Mucosa Neck: Supple Lungs: Clear to auscultation Abdomen: Soft, Non-Distended Skin: Ulcer/ Wound - left inguinal wound is stable. VAC in place. Minimal drainage in the canister. Neurological: Cranial nerves II-XII grossly intact Psych/Mental Status: Normal Affect, Appropriate Microbiology Past 72 Hours 08/07/20 14:00 Tissue - Other Gram Stain - Final 08/07/20 14:00 Tissue - Other Wound Culture - Preliminary Gram positive organism Laboratory Results 08/08/20 13:56: D-Dimer Quant (PE/DVT) 0.70 H* Diagnostic Data Chest CTA 08/09/20 08:00 IMPRESSION: Normal CTA chest examination, without a demonstrated pulmonary embolism or arterial dissection. Electronically Signed: Hay Dc, at 8:33 EDT , Service support , Current Medications Clopidogrel Bisulfate (Clopidogrel Bisulfate 75 Mg Tablet) 75 mg PO QHS [facility] Last Admin: 08/08/20 20:46 Dose: 75 mg Documented by: Diazepam (Diazepam 5 Mg Tablet) 5 mg PO 4X/DAY PRN PRN PRN Reason: SPASMS Last Admin: 08/09/20 07:49 Dose: 5 mg Documented by: Diphenhydramine HCl (Diphenhydramine 25 Mg Capsule) 25 mg PO 4X/DAY PRN PRN Reason: ITCHING Last Admin: 08/09/20 07:47 Dose: 25 mg Documented by: Escitalopram Oxalate (Escitalopram Oxalate 20 Mg Tablet) 20 mg PO QHS [facility] Last Admin: 08/08/20 20:47 Dose: 20 mg Documented by: Hydromorphone HCl (Hydromorphone 1 Mg/Ml Syringe) 1 mg IV Q4H PRN PRN PRN Reason: Pain Score 6-10 Last Admin: 08/09/20 07:18 Dose: 1 mg Documented by: Hydroxyzine Pamoate (Hydroxyzine Sury 25 Mg Capsule) 50 mg PO QHS [facility] Last Admin: 08/08/20 20:47 Dose: 50 mg Documented by: Lactated Ringer's () 1,000 mls @ 60 mls/hr IV .[id number] [facility] Last Infusion: 08/09/20 08:00 Dose: 60 mls/hr Documented by: Levofloxacin (Levaquin Iv) 500 mg in 100 mls @ 100 mls/hr IV Q24 [facility] Last Admin: 08/09/20 09:57 Dose: 100 mls/hr Documented by: Sodium Chloride () 250 mls @ 15 mls/hr IV .[id number] PRN PRN Reason: Saline Flush Last Infusion: 08/08/20 12:02 Dose: 0 mls/hr Documented by: Sodium Chloride () 250 mls @ 15 mls/hr IV .[id number] PRN PRN Reason: Additional IVPB Infusion Metoprolol Tartrate (Metoprolol Tartrate 25 Mg Tablet) 25 mg PO BID [facility] Last Admin: 08/09/20 10:03 Dose: Not Given Documented by: Nutritional Formula (Nutritional Supplement (Franco) Packet) [facility] Last Admin: 08/09/20 07:49 Dose: 1 packet Documented by: Ondansetron HCl (Ondansetron 8 Mg Tablet) 8 mg PO Q8H PRN PRN PRN Reason: NAUSEA Last Admin: 08/09/20 00:18 Dose: 8 mg Documented by: Oxycodone HCl (Oxycodone 5 Mg Tablet) 10 mg PO Q4H PRN PRN PRN Reason: Pain Score 4-5 Last Admin: 08/09/20 09:57 Dose: 10 mg Documented by: Pantoprazole Sodium (Pantoprazole Sodium 40 Mg Tablet) 40 mg PO DAILY [facility] Last Admin: 08/09/20 09:58 Dose: 40 mg Documented by: Promethazine HCl (Promethazine 25 Mg Tablet) 25 mg PO 4X/DAY PRN PRN PRN Reason: NAUSEA Last Admin: 08/09/20 02:56 Dose: 25 mg Documented by: Senna/Docusate Sodium (Senna/Docusate Sodium 1 Tablet) 4 tablet PO QODAY [facility] Last Admin: 08/09/20 09:58 Dose: 4 tablet Documented by: Sodium Chloride (0.9% Saline Lock 10 Ml Syringe) 10 - 40 ml IV UD PRN PRN Reason: SALINE FLUSH Last Admin: 08/09/20 07:19 Dose: 20 ml Documented by: Medical Necessity - Tobacco Use Smoking Status: Current every day smoker Tobacco Use: Cigarettes Assessment/Plan All Active Problems (Last Reviewed 12/24/19 @ 21:[address] Ronnell Fraga MD) Other complications of skin graft (allograft) (autograft) (Acute) Non-healing open wound of left groin (Acute) Open wound of left axillary region with complication (Acute) Non-healing surgical wound of left groin (Resolved) 1. Hidradenitis left lateral inguinal area. 2. Recent hidradenitis left axillary area and left inguinal and vulval area involving genitocrural crease, recently excised. 3. Smoker. 4. Open surgical hidradenitis wound left lateral inguinal area. 5. s/p surgical preparation left lateral inguinal area with excision hidradenitis (75 cm2). 6. History of blood clots. Patient complains of wound pain. A little better than yesterday. She is tolerating po analgesia. Left lateral inguinal wound is stable. VAC in place. Minimal drainage in the canister. To be changed three times per week. Operative culture shows Gram positive organism. Will discharge home on Augmentin. Prealbumin was 16.8. Encourage nutritional supplementation with protein to help the healing process. With her history of blood clots and with left posterior leg pain, will order a D-dimer. It was elevated at 0.70. A CTA was done which did not show any pulmonary embolus. Venous doppler studies were also done and are pending. Discharge home today. Followup [facility] next week on 08/13/20. If there is a plateau in the healing process, can proceed with delayed closure with skin grafting. Wrote script for Augmentin. Wrote scripts for Percocet for pain (40 tabs) and for Dilaudid for pain for the dressing changes only (6 tabs) and for Valium for spasm (30 tabs). Encouraged patient to stop smoking as it may have deleterious effects on wound healing.
--- NOTE | 2020-08-09 10:49 | PCM.DC ---
You will use the following diet at home:: No restrictions, Other - encourage nutritional supplementation with protein to help the healing process. Discharge Activity: May not drive while taking narcotic pain medications., May Shower - on the days the vac is changed. May shower in (days): 2 - on the days the vac is changed. May resume sexual activity in: No Restrictions Weight Bearing Status: Weight bearing as tolerated Call your doctor if your incision/area has: Continuous Slow Oozing, Sudden Increased Bleeding, Increased Pain/ Swelling, Increased Redness, Foul Smelling Discharge, Swelling at the incision site Call your doctor if you observe: Fever of 101 or Higher, Coldness, Increased Pain, Shortness of breath, Chest pain, Calf discomfort, Uncontrolled pain Suture Line Care: - - vac changes three times per week at 150 mmHg continuous suction. Change Dressing in (Days):: 2 - vac changes three times per week. Cleanse incision/area with: Soap & Water - may cleanse the wouind with soap and water at the time of the vac change., - - may shower on the days the vac is changed. Allergies/Adverse Reactions: Allergies acetaminophen [From Tylenol-Codeine #3] Allergy (Mild, Verified 08/07/20 09:47) Rash codeine [From Tylenol-Codeine #3] Allergy (Mild, Verified 08/07/20 09:47) Rash sulfamethoxazole [From Bactrim] Allergy (Mild, Verified 08/07/20 09:47) Rash trimethoprim [From Bactrim] Allergy (Mild, Verified 08/07/20 09:47) Rash adhesive tape Allergy (Verified 08/07/20 09:47) Rash IVP DYE Allergy (Severe, Uncoded 08/07/20 09:47) increased HR, rash, itchy throat Medications to take at Discharge clopidogrel 75 mg tablet 75 mg PO QHS 06/21/19 hydroxyzine HCl 50 mg tablet 50 mg PO QHS 06/21/19 metoprolol tartrate 25 mg tablet 25 mg PO BID 06/21/19 Omeprazole 40 mg PO DAILY 10/21/19 proMETHazine tablet [Phenergan tablet] 25 mg PO 4X/DAY PRN PRN #30 tab 10/29/19 Ondansetron [Zofran] 8 mg PO Q8H PRN PRN 11/14/19 Escitalopram Oxalate 20 mg PO QHS 12/16/19 Albuterol IH (ProAir) [Proair Hfa] 1 - 2 puff INHALATION Q4H PRN PRN 03/05/20 Sennosides/Docusate Sodium [Colace 2-in-1 Tablet] 4 ea PO QODAY 03/05/20 Aspirin E.C. [Ecotrin] 81 mg PO DAILY@0800 07/27/20 Nystatin 500,000U/5ML [Mycostatin] 5 ml PO PRN PRN 07/27/20 Amoxicillin/Potassium Clav [Amox-Clav 875-125 mg Tablet] 875 mg PO DAILY #42 tab 08/09/20 Diazepam [Valium] 5 mg PO 4X/DAY PRN PRN #30 tab 08/09/20 DiphenhydrAMINE [Benadryl] 25 mg PO 4X/DAY PRN capsule 08/09/20 HYDROmorphone tablet [Dilaudid] 2 - 4 mg PO QODAY PRN 7 Days #6 tablet 08/09/20 Oxycodone HCl/Acetaminophen [Percocet 5/325] 1 tablet PO Q4H PRN PRN 7 Days #40 tablet 08/09/20 The following prescriptions were given: Amoxicillin/Potassium Clav [Amox-Clav 875-125 mg Tablet] 875 mg PO DAILY #42 tab Transmission Status: Pending to [facility] HYDROmorphone tablet [Dilaudid] 2 - 4 mg PO QODAY PRN 7 Days #6 tablet PRN Reason: Pain Score 6-10 Transmission Status: Received by [facility] [address] [facility] Oxycodone HCl/Acetaminophen [Percocet 5/325] 1 tablet PO Q4H PRN PRN 7 Days #40 tablet PRN Reason: Pain Score 6-10 Transmission Status: Received by [facility] [address] [facility] Diazepam [Valium] 5 mg PO 4X/DAY PRN PRN #30 tab PRN Reason: Spasms Transmission Status: Received by [id number] [address] [facility] Primary Care Physician: BROOKS IBARRA [Other] Test Results: Test results from this visit will be discussed in further detail at your follow-up appointment, if applicable. Please Follow Up With: Ronnell Fraga MD When: 08/13/20 at [facility]. call [phone] for appt time. Proposed Discharge Date: 08/09/20
--- NOTE | 2020-08-09 11:19 | NURSING ---
Pt switched over to the home VAC. reviewed alarms, etc. with patient. denies questions. pt has had the wound VAC a few times in the past as well. proof of delivery form signed and faxed to [facility].
[2020-08-09 12:11] VITALS: BP 135/66; PULSE 56; RESP 16; TEMP 36.6; O2SAT 98
== END 2020-08-09 12:15 | disposition home or self-care (01) ==
LOC: SDC 14:57 → MS3 14:57
PROVIDERS: Anesthesiology; Admitting Provider Surgery; Referring Provider Surgery; Visit Provider Surgery
PROC: (CPT 15002; principal; 2020-08-07 10:45)
DX: L73.2 Hidradenitis suppurativa (principal); Z20.828 Contact with and (suspected) exposure to other viral communicable diseases; Z23 Encounter for immunization; K21.9 Gastro-esophageal reflux disease without esophagitis; F41.9 Anxiety disorder, unspecified; F32.9 Major depressive disorder, single episode, unspecified; E78.00 Pure hypercholesterolemia, unspecified; E07.9 Disorder of thyroid, unspecified; K58.9 Irritable bowel syndrome, unspecified; F17.210 Nicotine dependence, cigarettes, uncomplicated; J44.9 Chronic obstructive pulmonary disease, unspecified; Z79.899 Other long term (current) drug therapy; Z86.718 Personal history of other venous thrombosis and embolism; Z79.82 Long term (current) use of aspirin; Z79.02 Long term (current) use of antithrombotics/antiplatelets
CPT/HCPCS: 00400; 15002; 36415; 71275; 80048; 84134; 85027; 85379; 87070; 87075; 87077; 87102; 87176; 87186; 87205; 87206; 87635; 88304; 93970; 96365; 96366; 96375; 96376; 99218; 99251; 99406; C9803; J7050; J7120; Q9967; 90686; A4216; G0378; G0379; G0463; J2405; U0003

== ENCOUNTER 2020-09-10 09:00 | Outpatient (RCR) | payer MEDICAID, SELFPAY ==
[2020-08-07 15:39] VITALS: BMI 29.7
[2020-08-19 00:20] VITALS: BP 121/54; PULSE 101; RESP 16; TEMP 36.3
[2020-08-20 13:43] VITALS: BP 136/87; PULSE 131; RESP 18; TEMP 37.1; BMI 29.7
--- NOTE | 2020-08-20 14:58 | PCM.WC.PN ---
(1) Ulcer of left groin with fat layer exposed Status: Chronic Code(s): L98.492 - Non-pressure chronic ulcer of skin of other sites with fat layer exposed (2) Ulceration, vulva Status: Chronic Code(s): N76.6 - Ulceration of vulva (3) Other complications of skin graft (allograft) (autograft) Status: Acute Code(s): T86.828 - Other complications of skin graft (allograft) (autograft) (4) Vulval hidradenitis suppurativa Status: Chronic Code(s): L73.2 - Hidradenitis suppurativa (5) Smoker Status: Chronic Code(s): F17.200 - Nicotine dependence, unspecified, uncomplicated Type of Wound Date of Service: 08/20/20 Chief Complaint: Nonhealing hidradenitis ulcer left axillary area, left proximal inguinal area, and left vulval area with recent skin grafting. History of Wound: Surgery 08/07/20 - Surgical preparation left lateral inguinal area with excision hidradenitis (75 cm2). Surgery 05/29/20 - 1. Surgical preparation left inguinal and vulval area involving genitocrural crease with excisional debridement nonhealing hidradenitis ulcer and STSG recosntruction from left lateral abdominal wall (12 cm2) and placement of AmnioFill placental connective tissue powder, 250 mg. 2. Surgical preparation left axilla with excision recurrent hidradenitis (55 cm2). 3. Excision left proximal inguinal hidradenitis with 6 cm complex closure repair. Wound care - Wound VAC placed on hold this week due to increased pain. Will do daily Silver dressing changes. Operative culture from 08/07/20 - Staphulococcus epidermidis and Prevotella species. She is on Levaquin and Flagyl for these. Operative culture from 05/29/20 - Klebsiella pneumoniae, Streptococcus agalactiae, and Anaerobic cocci in the left proximal inguinal area, and Enterobacter aerogenes in the left axilla, and Enterobacter aerogenes, and Alcaligenes faecalis in the left vulval area. She was discharged on Levaquin and Augmentin and has finished them. She was recently hospitalized at [facility] with pneumonia and was treated with Doxycycline, Cefdinir, and Flagyl and has fininshed them. She has reported increasing pain with some drainage from left lateral inguinal area. She was recently started on Levaquin and continues to take this antibiotic. Prealbumin from 05/30/20 was 14.4. Encourage nutritional supplementation with protein to help the healing process. Today she denies fever. Her appetite has decreased with Levaquin. Progress of Wound: Left groin/vulva ulcer stable. - Physical Exam Vital Signs Temp Pulse Resp BP 98.8 F 131 H 18 136/87 H 08/20/20 13:43 08/20/20 13:43 08/20/20 13:43 08/20/20 13:43 General: Alert, Oriented x3, Cooperative HEENT: Atraumatic Oral: Moist Mucosa Lungs: Normal air movement Cardiovascular: Regular rate Extremities: Capillary Refill Less than 3 Seconds Skin: Ulcer/ Wound - Left groin/vulva ulcer is beefy pink with granulation tissue present. The area is very tender to palpation. Wound Measurements and Assessment WC - Nurse 1 - General Ulcer Measurement Start: 08/20/20 13:43 Freq: Status: Active Protocol: Activity Type Activity Date Activity User E-Sign Co-Sign Detail Recorded Client Recorded Date Recorded By Document 08/20/20 13:43 DL [id number] 08/20/20 13:51 DL 08/20/20 13:43 Wound Center Nurse 1 [Ulcer Assessment] #6 L Groin -Current Size (cm) - Length 14.5 -Current Size (cm) - Width 2 -Current Size (cm) - Depth 1.4 -Total Square Cm 29.0 -Photo Taken Yes -Exudate Amt Small -Exudate Type Serosanguineous -Wound Margin Distinct, Outline Attached -Granulation Amt Large (67-100%) -Granulation Quality Red -Necrosis Amt Small (1-33%) -Necrotic Tissue Type Adherent Slough -Structure Exposed N/A -Texture (Kaleigh-wound Skin Appearance) Scarring -Moisture ([place]-wound Skin Appearance No Abnormality ) -Color ([place]-wound Skin Appearance) No Abnormality -Temperature ([place]-wound Skin No Abnormality Appearance) (Pt Warm) -Tenderness on Palpation (K[place]-wound No Skin Appearance) -Ulcer Cleansing Wound Cleanser -Foul Odor after Cleansing No -Anesthetic Used 4% Lidocaine Solution WC - Nurse 2 - General Ulcer CM Notes Start: 08/20/20 13:43 Freq: Status: Active Protocol: Activity Type Activity Date Activity User E-Sign Co-Sign Detail Recorded Client Recorded Date Recorded By Document 08/20/20 14:04 [id number] 08/20/20 14:06 08/20/20 14:04 Wound Center Nurse 2 [Procedure/Treatment] -Time 14:04 -Correct Patient Yes -Correct Side, Site, Position Yes -Correct Procedure Yes -Procedure Performed Yes -Type of Procedure Debridement -Clinical Debridement Subcutaneous -Tissue Removed Subcutaneous -Post Debridement (cm) - Length 1.2 -Post Debridement (cm) - Width 15.5 -Post Debridement (cm) - Depth 1.6 -Total Square (Post) (cm) 18.60 -Area of Debridement (cm) - Length 1.2 -Area of Debridement (cm) - Width 15.5 -Total Square (Area) (cm) 18.60 -Tunneling No -Undermining/Tunneling No -Circular Undermining No -Wound/Ulcer Outcome Not Healed -Ulcer Cleansing Rinsed/ Irrigated with Saline -Foul Odor after Cleansing No -Bioengineered Tissue No -Bleeding Controlled with Pressure -Offloading No -Treatment Response Procedure Tolerated Well -Debridement - Subq, 1st 20sq cm Yes [See Physician Procedure note for Specifics] Pain Scale: 0-10 Numeric [Pain] -Is Patient Pain Free? Yes Musculoskeletal: Tenderness Neurological: Cranial nerves II-XII grossly intact Psych/Mental Status: Normal Affect, Appropriate Debridement Note Post-Debridement Measurements/Treatment WC - Nurse 2 - General Ulcer CM Notes Start: 08/20/20 13:43 Freq: Status: Active Protocol: Activity Type Activity Date Activity User E-Sign Co-Sign Detail Recorded Client Recorded Date Recorded By Document 08/20/20 14:04 [id number] 08/20/20 14:06 08/20/20 14:04 Wound Center Nurse 2 #6 L Groin -Time 14:04 -Correct Patient Yes -Correct Side, Site, Position Yes -Correct Procedure Yes -Procedure Performed Yes -Type of Procedure Debridement -Clinical Debridement Subcutaneous -Tissue Removed Subcutaneous -Post Debridement (cm) - Length 1.2 -Post Debridement (cm) - Width 15.5 -Post Debridement (cm) - Depth 1.6 -Total Square (Post) (cm) 18.60 -Area of Debridement (cm) - Length 1.2 -Area of Debridement (cm) - Width 15.5 -Total Square (Area) (cm) 18.60 -Tunneling No -Undermining/Tunneling No -Circular Undermining No -Wound/Ulcer Outcome Not Healed -Ulcer Cleansing Rinsed/ Irrigated with Saline -Foul Odor after Cleansing No -Bioengineered Tissue No -Bleeding Controlled with Pressure -Offloading No -Treatment Response Procedure Tolerated Well -Debridement - Subq, 1st 20sq cm Yes Pain Scale: 0-10 Numeric Is Patient Pain Free? Yes Wound debrided: groin/vulva ulcer Laterality: Left Type of Debridement: Excisional debridement Anesthesia Used: 5% Lidocaine Gel Depth: Down to and including healthy tissue, in the subcutaneous layer Percentage of wound debrided: 100 Instrument Used: 7mm curette Tissue Removed: Subcutaneous tissue and slough Severity: Fat Layer Exposed Amount of bleeding with debridement: Mild Bleeding Controlled with: Pressure Patient tolerated procedure well Assessment/Plan Assessment: 1. Nonhealing hidradenitis ulcer left inguinal and vulval area involving genitocrural crease. 2. Recurrent hidradenitis left axillary area. 3. Hidradenitis left proximal inguinal area. 4. Smoker. 5. s/p surgical preparation left inguinal and vulval area involving genitocrural crease with excisional debridement nonhealing hidradenitis ulcer and STSG recosntruction from left lateral abdominal wall (12 cm2) and placement of AmnioFill placental connective tissue powder, 250 mg and surgical preparation left axilla with excision recurrent hidradenitis (55 cm2) and excision left proximal inguinal hidradenitis with 6 cm complex closure repair. 6. Compromised skin graft left vulval area, improved. 7. Nonhealing hidradenitis ulcer left proximal inguinal area, improved. 8. Painful hidradenitis left lateral inguinal area. Plan: She is having increased pain to the left groin/vulva area ulcer. Will take a VAC holiday this week. Wound care - Daily silver dressing changes. Operative culture from 08/07/20 - Staphulococcus epidermidis and Prevotella species. She is on Levaquin and Flagyl for these. She will finish the Flagyl this week. Prealbumin from 08/08/20 was 16.8. Encourage nutritional supplementation with protein to help the healing process. Follow up one week. Encouraged the patient to stop smoking as it may have deleterious effects on wound healing. She was encouraged to keep skin folds clean and dry to prevent further skin breakdown. [id number]: [id number] Global Visit
[2020-08-27 09:51] VITALS: BP 133/97; PULSE 104; RESP 16; TEMP 36.4; BMI 29.7
--- NOTE | 2020-08-27 14:29 | PCM.WC.PN ---
(1) Ulcer of left groin with fat layer exposed Status: Chronic Code(s): L98.492 - Non-pressure chronic ulcer of skin of other sites with fat layer exposed (2) Ulceration, vulva Status: Chronic Code(s): N76.6 - Ulceration of vulva (3) Other complications of skin graft (allograft) (autograft) Status: Acute Code(s): T86.828 - Other complications of skin graft (allograft) (autograft) (4) Vulval hidradenitis suppurativa Status: Chronic Code(s): L73.2 - Hidradenitis suppurativa (5) Smoker Status: Chronic Code(s): F17.200 - Nicotine dependence, unspecified, uncomplicated Type of Wound Date of Service: 08/27/20 Chief Complaint: Nonhealing hidradenitis ulcer left axillary area, left proximal inguinal area, and left vulval area with recent skin grafting. History of Wound: Surgery 08/07/20 - Surgical preparation left lateral inguinal area with excision hidradenitis (75 cm2). Surgery 05/29/20 - 1. Surgical preparation left inguinal and vulval area involving genitocrural crease with excisional debridement nonhealing hidradenitis ulcer and STSG recosntruction from left lateral abdominal wall (12 cm2) and placement of AmnioFill placental connective tissue powder, 250 mg. 2. Surgical preparation left axilla with excision recurrent hidradenitis (55 cm2). 3. Excision left proximal inguinal hidradenitis with 6 cm complex closure repair. Wound care - Took a wound VAC holiday last week. Will discontinue wound VAC. Will do daily Silver dressing changes. Operative culture from 08/07/20 - Staphulococcus epidermidis and Prevotella species. She is on Levaquin and Flagyl for these. Operative culture from 05/29/20 - Klebsiella pneumoniae, Streptococcus agalactiae, and Anaerobic cocci in the left proximal inguinal area, and Enterobacter aerogenes in the left axilla, and Enterobacter aerogenes, and Alcaligenes faecalis in the left vulval area. She was discharged on Levaquin and Augmentin and has finished them. She was recently hospitalized at [facility] with pneumonia and was treated with Doxycycline, Cefdinir, and Flagyl and has fininshed them. She has reported increasing pain with some drainage from left lateral inguinal area. She was recently started on Levaquin and continues to take this antibiotic. Prealbumin from 05/30/20 was 14.4. Encourage nutritional supplementation with protein to help the healing process. Today she denies fever. Her appetite has decreased with Levaquin. Progress of Wound: Left groin/vulva ulcer stable. - Physical Exam Vital Signs Temp Pulse Resp BP 97.5 F L 104 H 16 133/97 H 08/27/20 09:51 08/27/20 09:51 08/27/20 09:51 08/27/20 09:51 General: Alert, Oriented x3, Cooperative Oral: Moist Mucosa Lungs: Normal air movement Cardiovascular: Regular rate Extremities: Capillary Refill Less than 3 Seconds Skin: Ulcer/ Wound - Left groin ulcer beefy pink. Wound Measurements and Assessment - Nurse 1 - General Ulcer Measurement Start: 08/20/20 13:43 Freq: Status: Active Protocol: Activity Type Activity Date Activity User E-Sign Co-Sign Detail Recorded Client Recorded Date Recorded By Document 08/27/20 09:51 [facility] [id number] 08/27/20 09:57 [facility] 08/27/20 09:51 Wound Center Nurse 1 [Ulcer Assessment] #6 L Groin -Combined with other wound No -Current Size (cm) - Length 1.2 -Current Size (cm) - Width 14.3 -Current Size (cm) - Depth 0.1 -Total Square Cm 17.16 -Photo Taken No -Epithelialization Small 1-33% -Tunneling No -Undermining/Tunneling No -Circular Undermining No -Exudate Amt Medium -Exudate Type Serosanguineous -Wound Margin Distinct, Outline Attached -Granulation Amt Large (67-100%) -Granulation Quality Red -Slough/Fibrin No -Necrosis Amt None Present (0 %) -Texture ([place]aleigh-wound Skin Appearance) Assessed, Scarring -Moisture ([place]-wound Skin Appearance Assessed ) -Color ([place]-wound Skin Appearance) Assessed -Temperature ([place]-wound Skin No Abnormality Appearance) (Pt Warm) -Tenderness on Palpation ([place]-wound Yes Skin Appearance) -Ulcer Cleansing Rinsed/ Irrigated with Saline -Foul Odor after Cleansing No -Anesthetic Used 4% Lidocaine Solution WC - Nurse 2 - General Ulcer CM Notes Start: 08/20/20 13:43 Freq: Status: Active Protocol: Activity Type Activity Date Activity User E-Sign Co-Sign Detail Recorded Client Recorded Date Recorded By Document 08/27/20 10:33 NINA [id number] 08/27/20 10:34 08/27/20 10:33 Wound Center Nurse 2 [Procedure/Treatment] -Time 10:33 -Correct Patient Yes -Correct Side, Site, Position Yes -Correct Procedure Yes -Procedure Performed Yes -Type of Procedure Debridement -Clinical Debridement Subcutaneous -Tissue Removed Subcutaneous -Post Debridement (cm) - Length 1.9 -Post Debridement (cm) - Width 13.0 -Post Debridement (cm) - Depth 0.5 -Total Square (Post) (cm) 24.70 -Area of Debridement (cm) - Length 1.9 -Area of Debridement (cm) - Width 13.0 -Total Square (Area) (cm) 24.70 -Tunneling No -Undermining/Tunneling No -Circular Undermining No -Wound/Ulcer Outcome Not Healed -Ulcer Cleansing Rinsed/ Irrigated with Saline -Foul Odor after Cleansing No -Bioengineered Tissue No -Bleeding Controlled with Pressure -Offloading No -Treatment Response Procedure Tolerated Well -Debridement - Subq, 1st 20sq cm Yes -Debridement, SubQ, ea addt'l 20sq cm 1 or part thereof [See Physician Procedure note for Specifics] Pain Scale: 0-10 Numeric [Pain] -Is Patient Pain Free? Yes - Nurse 3 - General Ulcer D/C NN Start: 08/20/20 13:43 Freq: Status: Active Protocol: Activity Type Activity Date Activity User E-Sign Co-Sign Detail Recorded Client Recorded Date Recorded By Document 08/27/20 10:40 NINA [id number] 08/27/20 10:41 08/27/20 10:40 Wound Care Nurse 3 [Wound Dressing] #6 L Groin -Ulcer Cleansing Rinsed/ Irrigated with Saline -Foul Odor after Cleansing No -Primary Dressing Applied Silvercel -Primary Dressing Covered/Secured Dry Gauze, with Secured with Tape -Silvercel 1 Pain Scale: 0-10 Numeric [Pain] -Is Patient Pain Free? Yes - Visit Discharge [Visit Discharge Information] -Discharge Condition Stable -Ambulatory Status Ambulatory -Transportation Private Auto -Medication Reconcilliation completed Yes & provided to patient/care provider -Clinical Summary of Care Provided Yes Musculoskeletal: Tenderness Lymphatic: No Cervical, Supraclavicular, or Inguinal Adenopathy Neurological: Cranial nerves II-XII grossly intact Psych/Mental Status: Normal Affect, Appropriate Debridement Note Post-Debridement Measurements/Treatment WC - Nurse 2 - General Ulcer CM Notes Start: 08/20/20 13:43 Freq: Status: Active Protocol: Activity Type Activity Date Activity User E-Sign Co-Sign Detail Recorded Client Recorded Date Recorded By Document 08/20/20 14:04 [id number] 08/20/20 14:06 Document 08/27/20 10:33 [id number] 08/27/20 10:34 08/20/20 08/27/20 14:04 10:33 Wound Center Nurse 2 #6 L Groin -Time 14:04 10:33 -Correct Patient Yes Yes -Correct Side, Site, Position Yes Yes -Correct Procedure Yes Yes -Procedure Performed Yes Yes -Type of Procedure Debridement Debridement -Clinical Debridement Subcutaneous Subcutaneous -Tissue Removed Subcutaneous Subcutaneous -Post Debridement (cm) - Length 1.2 1.9 -Post Debridement (cm) - Width 15.5 13.0 -Post Debridement (cm) - Depth 1.6 0.5 -Total Square (Post) (cm) 18.60 24.70 -Area of Debridement (cm) - Length 1.2 1.9 -Area of Debridement (cm) - Width 15.5 13.0 -Total Square (Area) (cm) 18.60 24.70 -Tunneling No No -Undermining/Tunneling No No -Circular Undermining No No -Wound/Ulcer Outcome Not Healed Not Healed -Ulcer Cleansing Rinsed/ Rinsed/ Irrigated with Irrigated with Saline Saline -Foul Odor after Cleansing No No -Bioengineered Tissue No No -Bleeding Controlled with Pressure Pressure -Offloading No No -Treatment Response Procedure Procedure Tolerated Well Tolerated Well -Debridement - Subq, 1st 20sq cm Yes Yes -Debridement, SubQ, ea addt'l 20sq cm 1 or part thereof Pain Scale: 0-10 Numeric Is Patient Pain Free? Yes Yes MIRYAM - Nurse 3 - General Ulcer D/C NN Start: 08/20/20 13:43 Freq: Status: Active Protocol: Activity Type Activity Date Activity User E-Sign Co-Sign Detail Recorded Client Recorded Date Recorded By Document 08/27/20 10:40 [id number] 08/27/20 10:41 08/27/20 10:40 Wound Care Nurse 3 #6 L Groin -Ulcer Cleansing Rinsed/ Irrigated with Saline -Foul Odor after Cleansing No -Primary Dressing Applied Silvercel -Primary Dressing Covered/Secured with Dry Gauze, Secured with Tape -Silvercel 1 Pain Scale: 0-10 Numeric Is Patient Pain Free? Yes WC - Visit Discharge Discharge Condition Stable Ambulatory Status Ambulatory Transportation Private Auto Medication Reconcilliation completed & Yes provided to patient/care provider Clinical Summary of Care Provided Yes Wound debrided: Left groin ulcer Laterality: Left Type of Debridement: Excisional debridement Anesthesia Used: 5% Lidocaine Gel Depth: Down to and including healthy tissue, in the subcutaneous layer Percentage of wound debrided: 100 Instrument Used: 5mm curette Tissue Removed: Subcutaneous tissue and slough Severity: Fat Layer Exposed Amount of bleeding with debridement: Mild Bleeding Controlled with: Pressure Patient tolerated procedure well Assessment/Plan Active Problems Other complications of skin graft (allograft) (autograft) (Acute) Ulceration, vulva (Chronic) Ulcer of left groin with fat layer exposed (Chronic) Vulval hidradenitis suppurativa (Chronic) Smoker (Chronic) Assessment: 1. Nonhealing hidradenitis ulcer left inguinal and vulval area involving genitocrural crease. 2. Recurrent hidradenitis left axillary area. 3. Hidradenitis left proximal inguinal area. 4. Smoker. 5. s/p surgical preparation left inguinal and vulval area involving genitocrural crease with excisional debridement nonhealing hidradenitis ulcer and STSG recosntruction from left lateral abdominal wall (12 cm2) and placement of AmnioFill placental connective tissue powder, 250 mg and surgical preparation left axilla with excision recurrent hidradenitis (55 cm2) and excision left proximal inguinal hidradenitis with 6 cm complex closure repair. 6. Compromised skin graft left vulval area, improved. 7. Nonhealing hidradenitis ulcer left proximal inguinal area, improved. 8. Painful hidradenitis left lateral inguinal area. Plan: She is having increased pain to the left groin/vulva area ulcer. Took a wound VAC holiday last week, will discontinue the VAC this week. Wound care - Daily silver dressing changes. Operative culture from 10/20/20 - Staphulococcus epidermidis and Prevotella species. She is on Levaquin and Flagyl for these. She will finished the Flagyl last week. Prealbumin from 08/08/20 was 16.8. Encourage nutritional supplementation with protein to help the healing process. Follow up two weeks. Encouraged the patient to stop smoking as it may have deleterious effects on wound healing. She was encouraged to keep skin folds clean and dry to prevent further skin breakdown. [id number]: [id number] Global Visit
[2020-09-10 09:11] VITALS: BP 136/84; PULSE 87; RESP 16; TEMP 36.2; BMI 29.7
--- NOTE | 2020-09-10 13:03 | PN.PCM_ITS ---
(1) Ulcer of left groin with fat layer exposed Status: Chronic Code(s): L98.492 - Non-pressure chronic ulcer of skin of other sites with fat layer exposed (2) Ulceration, vulva Status: Chronic Code(s): N76.6 - Ulceration of vulva (3) Other complications of skin graft (allograft) (autograft) Status: Chronic Code(s): T86.828 - Other complications of skin graft (allograft) (autograft) (4) Vulval hidradenitis suppurativa Status: Chronic Code(s): L73.2 - Hidradenitis suppurativa (5) Smoker Status: Chronic Code(s): F17.200 - Nicotine dependence, unspecified, uncomplicated Type of Wound Date of Service: 09/10/20 Chief Complaint: Nonhealing hidradenitis ulcer left axillary area, left proximal inguinal area, and left vulval area with recent skin grafting. History of Wound: Surgery 08/07/20 - Surgical preparation left lateral inguinal area with excision hidradenitis (75 cm2). Surgery 05/29/20 - 1. Surgical preparation left inguinal and vulval area involving genitocrural crease with excisional debridement nonhealing hidradenitis ulcer and STSG recosntruction from left lateral abdominal wall (12 cm2) and placement of AmnioFill placental connective tissue powder, 250 mg. 2. Surgical preparation left axilla with excision recurrent hidradenitis (55 cm2). 3. Excision left proximal inguinal hidradenitis with 6 cm complex closure repair. Wound care - Collagen hydrogel covered by gauze to left groin ulcer cluster. Operative culture from 08/07/20 - Staphulococcus epidermidis and Prevotella species. She is on Levaquin and Flagyl for these. Operative culture from 05/29/20 - Klebsiella pneumoniae, Streptococcus agalactiae, and Anaerobic cocci in the left proximal inguinal area, and Enterobacter aerogenes in the left axilla, and Enterobacter aerogenes, and Alcaligenes faecalis in the left vulval area. She was discharged on Levaquin and Augmentin and has finished them. She was recently hospitalized at [facility] with pneumonia and was treated with Doxycycline, Cefdinir, and Flagyl and has fininshed them. She has reported increasing pain with some drainage from left lateral inguinal area. She was recently started on Levaquin and continues to take this antibiotic. Prealbumin from 05/30/20 was 14.4. Encourage nutritional supplementation with protein to help the healing process. Today she denies fever. Her appetite has decreased with Levaquin. Progress of Wound: Left groin/vulva ulcer improved. Patient states she has been having pain, redness and drainage from left axilla, but it has improved over the past week. - Physical Exam Vital Signs Temp Pulse Resp BP 97.1 F L 87 16 136/84 H 09/10/20 09:11 09/10/20 09:11 09/10/20 09:11 09/10/20 09:11 General: Alert, Oriented x3, Cooperative HEENT: Atraumatic Oral: Moist Mucosa Lungs: Normal air movement Cardiovascular: Regular rate Extremities: No edema Skin: Ulcer/ Wound - Left groin cluster ulcers improved. Beefy pink with good granulation tissue., Incision - Left axilla scar is healed. No redness or drainage at this time. There is a tender area in the center of the healed scar when palpated. Wound Measurements and Assessment WC - Nurse 1 - General Ulcer Measurement Start: 08/20/20 13:43 Freq: Status: Active Protocol: Activity Type Activity Date Activity User E-Sign Co-Sign Detail Recorded Client Recorded Date Recorded By Document 09/10/20 09:11 [facility] [id number] 09/10/20 09:16 [facility] 09/10/20 09:11 Wound Center Nurse 1 [Ulcer Assessment] #6 L Groin -Combined with other wound No -Current Size (cm) - Length 7.2 -Current Size (cm) - Width 0.4 -Current Size (cm) - Depth 0.1 -Total Square Cm 2.88 -Photo Taken No -Epithelialization Medium 34-66% -Tunneling No -Undermining/Tunneling No -Circular Undermining No -Exudate Amt Small -Exudate Type Serosanguineous -Wound Margin Distinct, Outline Attached -Granulation Amt Large (67-100%) -Granulation Quality Red -Slough/Fibrin Yes -Necrosis Amt Small (1-33%) -Necrotic Tissue Type Adherent Slough -Texture ([place]-wound Skin Appearance) Assessed, Scarring -Moisture ([place]-wound Skin Appearance Assessed ) -Color ([place]-wound Skin Appearance) Assessed -Temperature ([place]-wound Skin No Abnormality Appearance) (Pt Warm) -Tenderness on Palpation ([place]-wound No Skin Appearance) -Ulcer Cleansing Rinsed/ Irrigated with Saline -Foul Odor after Cleansing No -Anesthetic Used 4% Lidocaine Solution - Nurse 2 - General Ulcer CM Notes Start: 08/20/20 13:43 Freq: Status: Active Protocol: Activity Type Activity Date Activity User E-Sign Co-Sign Detail Recorded Client Recorded Date Recorded By Document 09/10/20 09:32 [id number] 09/10/20 09:33 09/10/20 09:32 Wound Center Nurse 2 [Procedure/Treatment] -Time 09:32 -Correct Patient Yes -Correct Side, Site, Position Yes -Correct Procedure Yes -Procedure Performed Yes -Type of Procedure Debridement -Clinical Debridement Subcutaneous -Tissue Removed Subcutaneous -Post Debridement (cm) - Length 0.6 -Post Debridement (cm) - Width 7.0 -Post Debridement (cm) - Depth 0.1 -Total Square (Post) (cm) 4.20 -Area of Debridement (cm) - Length 0.6 -Area of Debridement (cm) - Width 7.0 -Total Square (Area) (cm) 4.20 -Tunneling No -Undermining/Tunneling No -Circular Undermining No -Wound/Ulcer Outcome Not Healed -Ulcer Cleansing Rinsed/ Irrigated with Saline -Foul Odor after Cleansing No -Bioengineered Tissue No -Bleeding Controlled with Pressure -Offloading No -Treatment Response Procedure Tolerated Well -Debridement - Subq, 1st 20sq cm Yes [See Physician Procedure note for Specifics] Pain Scale: 0-10 Numeric [Pain] -Is Patient Pain Free? Yes - Nurse 3 - General Ulcer D/C NN Start: 08/20/20 13:43 Freq: Status: Active Protocol: Activity Type Activity Date Activity User E-Sign Co-Sign Detail Recorded Client Recorded Date Recorded By Document 09/10/20 09:48 [facility] [id number] 09/10/20 09:48 [facility] 09/10/20 09:48 Wound Care Nurse 3 [Wound Dressing] #6 L Groin -Ulcer Cleansing Rinsed/ Irrigated with Saline -Foul Odor after Cleansing No -Primary Dressing Applied C Hydrogel ($) -Primary Dressing Covered/Secured Dry Gauze, with Secured with Tape [Post Procedure Tolerated] -Treatment Response Procedure Tolerated Well Pain Scale: 0-10 Numeric [Pain] -Is Patient Pain Free? Yes WC - Visit Discharge [Visit Discharge Information] -Discharge Condition Stable -Ambulatory Status Ambulatory -Transportation Private Auto -Accompanied by daughter Musculoskeletal: No Tenderness to Palpation of Joints or Extremities Neurological: Cranial nerves II-XII grossly intact Psych/Mental Status: Normal Affect, Appropriate Debridement Note Post-Debridement Measurements/Treatment - Nurse 2 - General Ulcer CM Notes Start: 08/20/20 13:43 Freq: Status: Active Protocol: Activity Type Activity Date Activity User E-Sign Co-Sign Detail Recorded Client Recorded Date Recorded By Document 08/20/20 14:04 [id number] 08/20/20 14:06 Document 08/27/20 10:33 [id number] 08/27/20 10:34 Document 09/10/20 09:32 [id number] 09/10/20 09:33 08/20/20 08/27/20 09/10/20 14:04 10:33 09:32 Wound Center Nurse 2 #6 L Groin -Time 14:04 10:33 09:32 -Correct Patient Yes Yes Yes -Correct Side, Site, Position Yes Yes Yes -Correct Procedure Yes Yes Yes -Procedure Performed Yes Yes Yes -Type of Procedure Debridement Debridement Debridement -Clinical Debridement Subcutaneous Subcutaneous Subcutaneous -Tissue Removed Subcutaneous Subcutaneous Subcutaneous -Post Debridement (cm) - Length 1.2 1.9 0.6 -Post Debridement (cm) - Width 15.5 13.0 7.0 -Post Debridement (cm) - Depth 1.6 0.5 0.1 -Total Square (Post) (cm) 18.60 24.70 4.20 -Area of Debridement (cm) - Length 1.2 1.9 0.6 -Area of Debridement (cm) - Width 15.5 13.0 7.0 -Total Square (Area) (cm) 18.60 24.70 4.20 -Tunneling No No No -Undermining/Tunneling No No No -Circular Undermining No No No -Wound/Ulcer Outcome Not Healed Not Healed Not Healed -Ulcer Cleansing Rinsed/ Rinsed/ Rinsed/ Irrigated with Irrigated with Irrigated with Saline Saline Saline -Foul Odor after Cleansing No No No -Bioengineered Tissue No No No -Bleeding Controlled with Pressure Pressure Pressure -Offloading No No No -Treatment Response Procedure Procedure Procedure Tolerated Well Tolerated Well Tolerated Well -Debridement - Subq, 1st 20sq cm Yes Yes Yes -Debridement, SubQ, ea addt'l 20sq cm 1 or part thereof Pain Scale: 0-10 Numeric Is Patient Pain Free? Yes Yes Yes - Nurse 3 - General Ulcer D/C NN Start: 08/20/20 13:43 Freq: Status: Active Protocol: Activity Type Activity Date Activity User E-Sign Co-Sign Detail Recorded Client Recorded Date Recorded By Document 08/27/20 10:40 [id number] 08/27/20 10:41 Document 09/10/20 09:48 [facility] [id number] 09/10/20 09:48 [facility] 08/27/20 09/10/20 10:40 09:48 Wound Care Nurse 3 #6 L Groin -Ulcer Cleansing Rinsed/ Rinsed/ Irrigated with Irrigated with Saline Saline -Foul Odor after Cleansing No No -Primary Dressing Applied Silvercel C Hydrogel ($) -Primary Dressing Covered/Secured with Dry Gauze, Dry Gauze, Secured with Secured with Tape Tape -Silvercel 1 Treatment Response Procedure Tolerated Well Pain Scale: 0-10 Numeric Is Patient Pain Free? Yes Yes - Visit Discharge Discharge Condition Stable Stable Ambulatory Status Ambulatory Ambulatory Transportation Private Auto Private Auto Accompanied by daughter Medication Reconcilliation completed & Yes provided to patient/care provider Clinical Summary of Care Provided Yes Wound debrided: Left groin cluster ulcer Laterality: Left Type of Debridement: Excisional debridement Anesthesia Used: 5% Lidocaine Gel Depth: Down to and including healthy tissue Percentage of wound debrided: 100 Instrument Used: 3mm curette Tissue Removed: Subcutaneous tissue and slough Severity: Fat Layer Exposed Amount of bleeding with debridement: Mild Bleeding Controlled with: Pressure Patient tolerated procedure well Assessment/Plan Active Problems Other complications of skin graft (allograft) (autograft) (Chronic) Ulceration, vulva (Chronic) Ulcer of left groin with fat layer exposed (Chronic) Vulval hidradenitis suppurativa (Chronic) Smoker (Chronic) Assessment: 1. Nonhealing hidradenitis ulcer left inguinal and vulval area involving genitocrural crease. 2. Recurrent hidradenitis left axillary area. 3. Hidradenitis left proximal inguinal area. 4. Smoker. 5. s/p surgical preparation left inguinal and vulval area involving genitocrural crease with excisional debridement nonhealing hidradenitis ulcer and STSG recosntruction from left lateral abdominal wall (12 cm2) and placement of AmnioFill placental connective tissue powder, 250 mg and surgical preparation left axilla with excision recurrent hidradenitis (55 cm2) and excision left proximal inguinal hidradenitis with 6 cm complex closure repair. 6. Compromised skin graft left vulval area, improved. 7. Nonhealing hidradenitis ulcer left proximal inguinal area, improved. 8. Painful hidradenitis left lateral inguinal area. Plan: Wound care to left groin - Will stop silver dressing changes and start Collagen hydrogel covered by gauze daily. Operative culture from 08/07/20 - Staphulococcus epidermidis and Prevotella species. She is on Levaquin and Flagy l for these. She will finished the Flagyl last week. Prealbumin from 08/08/20 was 16.8. Encourage nutritional supplementation with protein to help the healing process. Patient states she is now having issues with drainage on and off of left axilla. Currently healed. No redness. Will monitor. Follow up two weeks. Encouraged the patient to stop smoking as it may have deleterious effects on wound healing. She was encouraged to keep skin folds clean and dry to prevent further skin breakdown. [id number]: [id number] Global Visit
== END 2020-09-17 23:59 ==
LOC: WC 09:00
PROVIDERS: Visit Provider Nurse Practitioner Family
DX: L98.492 Non-pressure chronic ulcer of skin of other sites with fat layer exposed (principal); N76.6 Ulceration of vulva; T86.828 Other complications of skin graft (allograft) (autograft); L73.2 Hidradenitis suppurativa; Z79.02 Long term (current) use of antithrombotics/antiplatelets; Z79.82 Long term (current) use of aspirin; Z79.899 Other long term (current) drug therapy; F17.200 Nicotine dependence, unspecified, uncomplicated
CPT/HCPCS: 11042; 11045; 99213; G0463

== ENCOUNTER 2021-05-08 17:54 | Emergency (ER) | payer MEDICAID, SELFPAY ==
[2021-05-08 17:55] VITALS: BP 138/82; PULSE 89; RESP 18; TEMP 35.7; O2SAT 93; BMI 28.1
[2021-05-08 17:58] VITALS: BP 138/82; PULSE 89; RESP 17; TEMP 35.7; O2SAT 93
--- NOTE | 2021-05-08 20:06 | CT_ITS ---
STUDY: CT ABDOMEN AND PELVIS WITHOUT CONTRAST REASON FOR EXAM: Female, 45 years old. Pelvic pain, ?abscess. Abscess was drained last week. -- Continue images completely through perineum RADIATION DOSAGE (If Supplied By Facility): CTDIvol = ( 12.19 ) mGy, DLP = ( 688.53 ) mGycm TECHNIQUE: Transaxial images were obtained from the dome of the diaphragm to the symphysis pubis without oral contrast, and without intravenous contrast. Sagittal and coronal images were reconstructed. Individualized dose optimization techniques were used for this CT. COMPARISON: None. FINDINGS: The visualized lung bases are unremarkable. The visualized portions of the heart are within normal limits. There is a 7.2 mm cyst in the central portion of the right lobe of the liver. Is also evidence of a 1.1 cm cyst in the inferior portion of the right right lobe of liver. The patient is status post cholecystectomy. Normal spleen. Normal pancreas. Normal bilateral adrenal glands. Normal right kidney. Normal left kidney. Normal visualized stomach. Normal small intestine. Normal colon. There are surgical clips in the region of the appendix consistent with a prior appendectomy. There is scattered atherosclerotic calcification of the abdominal aorta, without a demonstrated aneurysm. Normal inferior vena cava. Normal retroperitoneum. Normal urinary bladder. There is absence of the uterus consistent with a prior hysterectomy. Normal abdominal wall. There are degenerative changes of the visualized lumbar spine. CT/Abdomen/Pelvis without Cont IMPRESSION: Small hepatic cysts. There is no evidence of pelvic abscess. Electronically Signed: Hay Dc MD at 21:23 EDT , Service support ,
--- NOTE | 2021-05-08 20:08 | EDS_ITS ---
HPI History of Present Illness Chief Complaint: Abscess Informant: patient Narrative Narrative: Patient presents with concern for worsening abscess. This patient has a long history of inguinal and axillary abscesses. She has had multiple extensive surgeries. She had an I&D the first of this month. She was on antibiotics, clindamycin, for about 10 days afterwards. Things improved but now they are coming back. She has some subjective fevers. She is concerned that the abscess is going deeper. She contacted her private physician. She saw them yesterday. It was recommended she follow-up with her surgeon. She is waiting for that appointment. Pressing on the areas makes them worse. Antibiotics do seem to help. This has been a chronic recurrent issue. [facility] Medical History (Updated 05/08/21 @ 22:[address] Jessee Middleton MD) Anemia Anxiety and depression Asthma Breast lump in female Chronic bronchitis Gastrointestinal problem GERD (gastroesophageal reflux disease) Heart valve problem High cholesterol History of blood clots IBS (irritable bowel syndrome) Kidney stones Recurrent infections Thyroid disease Vascular disease Home Medications clopidogrel 75 mg tablet 75 mg PO QHS 06/21/19 [History Last Taken Unknown] hydroxyzine HCl 50 mg tablet 50 mg PO QHS 06/21/19 [History Last Taken Unknown] metoprolol tartrate 25 mg tablet 25 mg PO BID 06/21/19 [History Last Taken 08/07/20] omeprazole 40 mg PO DAILY 10/21/19 [History Last Taken 08/07/20] promethazine 25 mg PO 4X/DAY PRN PRN #30 tab 10/29/19 [Rx Last Taken Unknown] ondansetron HCl 8 mg PO Q8H PRN PRN 11/14/19 [History Last Taken Unknown] escitalopram oxalate 20 mg PO QHS 12/16/19 [History Last Taken 05/20/20 22:00] albuterol sulfate 1 - 2 puff INHALATION Q4H PRN PRN 03/05/20 [History Last Taken 05/29/20 09:00] sennosides-docusate sodium 4 ea PO QODAY 03/05/20 [History Last Taken Unknown] aspirin 81 mg PO DAILY@0800 07/27/20 [History Last Taken Unknown] nystatin 5 ml PO PRN PRN 07/27/20 [History Last Taken Unknown] amoxicillin-pot clavulanate 875 mg PO DAILY #42 tab 08/09/20 [Rx Last Taken Unknown] diphenhydramine HCl 25 mg PO 4X/DAY PRN cap 08/09/20 [Rx Last Taken Unknown] levofloxacin 500 mg tablet 500 mg PO DAILY 21 Days #21 tab 08/10/20 [Rx Last Taken Unknown] diazepam 5 mg PO 4X/DAY PRN PRN #30 tab 08/15/20 [Rx Last Taken Unknown] oxycodone-acetaminophen 5 mg-325 mg tablet 1 tab PO TID PRN #21 tab 08/31/20 [Rx Last Taken Unknown] doxycycline monohydrate 100 mg PO BID #20 cap 05/08/21 [Rx Last Taken Unknown] Allergy/AdvReac Type Severity Reaction Status Date / Time acetaminophen Allergy Mild Rash Verified 05/08/21 17:55 [From Tylenol-Codeine #3] codeine Allergy Mild Rash Verified 05/08/21 17:55 [From Tylenol-Codeine #3] sulfamethoxazole Allergy Mild Rash Verified 05/08/21 17:55 [From Bactrim] trimethoprim [From Bactrim] Allergy Mild Rash Verified 05/08/21 17:55 adhesive tape Allergy Rash Verified 05/08/21 17:55 IVP DYE Allergy Severe increased Uncoded 08/07/20 09:47 HR, rash, itchy throat Family History Mother Anxiety and depression Arthritis History of blood clots History of blood transfusion Heart disease Severe allergy CVA (cerebral vascular accident) History of ulcer disease Grandmother Asthma Anxiety and depression Heart disease Kidney disease CVA (cerebral vascular accident) Grandfather Heart disease Lung cancer Surgical History History of appendectomy History of breast lump/mass excision History of cholecystectomy History of drainage of abscess History of embolectomy History of hernia repair History of hidradenitis suppurativa History of hysterectomy History of left heart catheterization History of right knee surgery History of tonsillectomy Social History Smoking Status: Current every day smoker tobacco type: cigarettes alcohol intake: never additional social history: DOES USE ASPIRIN DOES NOT USE IBUPROFEN ROS ROS ED Constitutional Constitutional ED: Reports subjective; Denies weight loss Eyes Eyes: Denies blurry vision ENT ENT ED: Denies rhinorrhea Cardiovascular Cardiovascular: Denies chest pain or palpitations Respiratory/Chest Respiratory/Chest: Denies cough or dyspnea Gastrointestinal Gastrointestinal: Reports nausea; Denies abdominal pain, diarrhea or vomiting Genitourinary Genitourinary ED: Denies dysuria Musculoskeletal Musculoskeletal: Denies back pain Integumentary Reports abscess and other Details: See history of present illness. Neurologic Neurologic: Denies headache(s) Psychiatric Psychiatric: Denies anxiety or depression Endocrine Endocrinology: Denies polydipsia or polyuria Allergic/Immunologic Allergic/Immunologic ED: Denies urticaria EXAM Physical Exam Const Vital Signs: 05/08/21 17:55 05/08/21 17:58 05/08/21 21:27 Temperature 96.2 F L 96.2 F L 96.2 F L Temperature Source Temporal Temporal Temporal Pulse Rate 89 89 89 Respiratory Rate 18 17 17 Blood Pressure 138/82 H 138/82 H 138/82 H Blood Pressure Mean 100 100 100 Pulse Ox 93 93 93 Oxygen Delivery Method Room Air Room Air Room Air Positive well nourished and well developed General Appearance ED: well developed HEENT Reports moist mucous membranes Eyes EOMs intact bilaterally Chest Wall inspection of chest normal Resp normal respiratory effort and clear to auscultation bilaterally Cardio regular rate and regular rhythm GI normal to inspection, nondistended, normoactive bowel sounds and non-tender Palpation: soft Back/Spine no CVA tenderness Extremity normal to inspection General Extremety ED: Negative for edema or tenderness General Extremity: Negative for edema Neuro oriented x3 Sensorium / Orientation: alert Psych mental status grossly normal Skin Skin Narrative: Patient has signs of extensive surgery as listed. She has a small 1 cm area that slightly swollen in the right axilla but it is not red. Is not fluctuant. There does not appear to be a large abscess or swelling below it. The left inguinal region reveals 2 small spots that are less than 10 mm. They are likely a small abscess. But there is not significant erythema. There is not significant swelling around him. They are painful. The concern is if these areas go deeper and or worse internally than they look externally. MDM MDM MDM Narrative Medical decision making narrative: We are doing a CT without contrast. I normally would use contrast. But she has history of tachycardia trouble breathing and systemic rash with contrast. She has failed 6 and 12-hour prep is also in the past. Patient CBC including white count is normal. Lactate is normal. Electrolytes show no marked abnormalities is negative. CT scan shows no sign of acute process. I discussed options with the patient. She would like to use antibiotics. She would prefer not having small drainage of those small areas. Antibiotics usually work well. She has had good success with doxycycline. We discussed reasons to return. She will follow up with her surgeon. Lab Data Labs: Laboratory Results - last 24 hr 05/08/21 05/08/21 05/08/21 21:15 21:15 21:15 WBC 9.6 RBC 4.33 Hgb 13.9 Hct 42.9 MCV 99.1 H MCH 32.1 H MCHC 32.4 RDW Std Deviation 49.5 H RDW Coeff of Ping 13.5 Plt Count 193 MPV 11.1 Immature Gran % (Auto) 0.300 Neut % (Auto) 51.4 Lymph % (Auto) 38.9 [place] % (Auto) 6.9 Eos % (Auto) 1.9 Baso % (Auto) 0.6 Absolute Neuts (auto) 5.0 Absolute Lymphs (auto) 3.74 Nucleated RBC % 0 Sodium 141 Potassium 4.1 Chloride 108 H Carbon Dioxide 28.0 Anion Gap 5 BUN 13 Creatinine 0.90 Estim Creat Clear Calc 75.45 Est GFR (MDRD) Af Amer 87 Est GFR (MDRD) Non-Af 72 BUN/Creatinine Ratio 14.4 Glucose 81 Lactic Acid 0.5 Calcium 9.6 Serum , Qual 05/08/21 21:15 WBC RBC Hgb Hct MCV MCH MCHC RDW Std Deviation RDW Coeff of Ping Plt Count MPV Immature Gran % (Auto) Neut % (Auto) Lymph % (Auto) [place] % (Auto) Eos % (Auto) Baso % (Auto) Absolute Neuts (auto) Absolute Lymphs (auto) Nucleated RBC % Sodium Potassium Chloride Carbon Dioxide Anion Gap BUN Creatinine Estim Creat Clear Calc Est GFR (MDRD) Af Amer Est GFR (MDRD) Non-Af BUN/Creatinine Ratio Glucose Lactic Acid Calcium Serum , Qual NEGATIVE Radiography Diagnostic Testing: Radiology Impression Abdomen/Pelvis CT 05/08/21 20:06 IMPRESSION: Small hepatic cysts. There is no evidence of pelvic abscess. Electronically Signed: Hay Dc MD at 21:23 EDT , Service support , Discharge Plan Triage Chief Complaint: Abscess ED Provider: Jessee Middleton Dx/Rx/DC Orders Clinical Impression: Hidradenitis suppurativa Instructions: ED Hidradenitis Suppurativa, Abx Prescriptions: New doxycycline monohydrate 100 mg capsule 100 mg PO BID Qty: 20 RF: 0 No Action metoprolol tartrate 25 mg tablet 25 mg PO BID RF: 0 hydroxyzine HCl 50 mg tablet 50 mg PO QHS RF: 0 clopidogrel 75 mg tablet 75 mg PO QHS RF: 0 diazepam 5 MG tablet 5 mg PO 4X/DAY PRN PRN (Reason: Spasms) Qty: 30 RF: 0 omeprazole 40 MG capsule,delayed release(DR/EC) 40 mg PO DAILY RF: 0 promethazine 25 MG tablet 25 mg PO 4X/DAY PRN PRN (Reason: Nausea) Qty: 30 RF: 1 ondansetron HCl 8 MG tablet 8 mg PO Q8H PRN PRN (Reason: Nausea) RF: 0 escitalopram oxalate 20 MG tablet 20 mg PO QHS RF: 0 sennosides-docusate sodium 1 EACH tablet 4 ea PO QODAY RF: 0 albuterol sulfate 1 PUFF inhaler 1 - 2 puff inhalation Q4H PRN PRN (Reason: Asthma) RF: 0 aspirin 81 MG tablet 81 mg PO DAILY@0800 RF: 0 nystatin 60 ML suspension 5 ml PO PRN PRN (Reason: THRUSH) RF: 0 diphenhydramine HCl 25 MG capsule 25 mg PO 4X/DAY PRN (Reason: Itching) RF: 0 amoxicillin-pot clavulanate 1 EACH tablet 875 mg PO DAILY Qty: 42 RF: 1 levofloxacin 500 mg tablet 500 mg PO DAILY 21 Days Qty: 21 RF: 1 oxycodone-acetaminophen [Percocet] 5-325 mg tablet 1 tab PO TID PRN (Reason: pain (scale score 7-10)) Qty: 21 RF: 0 Referrals: Shyla Gandhi MD [STAFF PHYSICIAN] - 3-5 Days if not improving Disposition Disposition: Home, Self Care
[2021-05-08] MEDS: Morphine 4 MG/ML Syringe IV (21:18)
[2021-05-08 21:22] LABS: Absolute Lymphocyte Count 3.74 X10^3/uL (0.83-4.51); Basophil# 0.06 X10^3/uL; Basophil% 0.6 % (0-1); Eosinophil# 0.18 X10^3/uL; Eosinophils% 1.9 % (0-5); Hematocrit 42.9 % (37-47); Hemoglobin 13.9 g/dL (12.0-15.0); Lymphocyte # 3.74 X10^3/ul (0.83-4.51); Lymphocyte % 38.9 % (19-41); Mean Corp Hgb Conc 32.4 g/dL (32-36); Mean Corpuscular Hgb 32.1 pg (27.0-32.0); Mean Corpuscular Volume 99.1 fL (81-99); Mean Platelet Vol. 11.1 fl (6.2-12.0); Monocyte# 0.66 X10^3/uL; Monocyte% 6.9 % (0-10); NRBC Flagged by Analyzer 0 % (0-5); Neutrophil # 4.95 X10^3/uL (2.7-7.7); Neutrophil % 51.4 % (47-70); Platelet Count 193 K/mm3 (150-450); RBC Distribution Width CV 13.5 % (11.6-14.6); RBC Distribution Width SD 49.5 fl (35.1-43.9); Red Blood Count 4.33 M/mm3 (4.2-5.4); White Blood Count 9.6 K/mm3 (4.4-11.0)
[2021-05-08 21:27] VITALS: BP 138/82; PULSE 89; RESP 17; TEMP 35.7; O2SAT 93
[2021-05-08 21:46] LABS: Anion Gap 5 (5-15); BUN 13 mg/dL (7-18); BUN/Creat Ratio 14.4 RATIO (10-20); Calcium,Total 9.6 mg/dL (8.5-10.1); Chloride 108 mmol/L (98-107); EST Glomerular Filtration Rate 72 mL/min (>60); Est Glom Filt Rate - Afr Amer 87 mL/min (>60); Estimated Creatinine Clearance 75.45 ml/min; Glucose 81 mg/dL (74-106); Potassium 4.1 mmol/L (3.5-5.1); Sodium Level 141 mmol/L (136-145)
[2021-05-08 22:05] LABS: Internal QC Validated? YES +Cl - CLEAR BKGD; Pregnancy, Serum, hCG Quali. NEGATIVE Negative
[2021-05-08 22:18] LABS: Lactic Acid 0.5 mmol/L (0.4-1.9)
[2021-05-08] MEDS: Ondansetron 4 MG/2 ML Vial IV (23:08)
[2021-05-08 23:09] VITALS: BP 128/75; PULSE 82; RESP 16; O2SAT 100
--- NOTE | 2021-05-10 16:09 | ED.RN ---
THIS NURSE CONTACTED PT TO SEE HOW SHE IS FEELING. PT STATES I FEEL LIKE SHIT. I HAVE A SPOT ON MY FACE AND MY ARM PIT IS WORSE. I CAN'T EVEN PUT A BRA ON.
== END 2021-05-08 23:09 | disposition home or self-care (01) ==
PROVIDERS: Emergency Provider Emergency Medicine
DX: L73.2 Hidradenitis suppurativa (principal); E78.00 Pure hypercholesterolemia, unspecified; F32.9 Major depressive disorder, single episode, unspecified; E07.9 Disorder of thyroid, unspecified; F41.9 Anxiety disorder, unspecified; J44.9 Chronic obstructive pulmonary disease, unspecified; K21.9 Gastro-esophageal reflux disease without esophagitis; K58.9 Irritable bowel syndrome, unspecified; Z86.2 Personal history of diseases of the blood and blood-forming organs and certain disorders involving the immune mechanism; Z86.718 Personal history of other venous thrombosis and embolism; Z87.442 Personal history of urinary calculi; Z79.82 Long term (current) use of aspirin; Z79.899 Other long term (current) drug therapy; F17.210 Nicotine dependence, cigarettes, uncomplicated
CPT/HCPCS: 74176; 80048; 83605; 84703; 85025; 87040; 87149; 96361; 96374; 96375; 99284; A4216; J2405

== ENCOUNTER 2021-05-10 17:41 | Emergency (ER) | payer MEDICAID, SELFPAY ==
[2021-05-10 17:42] VITALS: BP 115/80; PULSE 75; RESP 15; TEMP 36.4; O2SAT 97; BMI 27.5
--- NOTE | 2021-05-10 18:28 | EKG12_ITS ---
Test Reason : ABCESS Blood Pressure : / mmHG Vent. Rate : 061 BPM Atrial Rate : 061 BPM P-R Int : 138 ms QRS Dur : 082 ms QT Int : 390 ms P-R-T Axes : 037 043 030 degrees QTc Int : 392 ms Normal sinus rhythm with sinus arrhythmia Normal ECG Confirmed by JOSIAH SANTIAGO, SESAR ([id number]), editor magazine JERRY CORNEJO ([id number]) on 05/14/2021 10:21:34 AM Referred By: Confirmed By:SESAR RAHMAN MD
--- NOTE | 2021-05-10 18:30 | EX.ED.DYSGE1 ---
HPI History of Present Illness Chief Complaint: Abscess Informant: patient Narrative Narrative: 45-year-old female states that she feels like shit. By this she means she is having myalgias vomiting diarrhea and fever. She notes that she recently completed a 10-day course of clindamycin for a right axillary abscess and left inguinal abscess. She states she was seen in the emergency room on Thursday and was prescribed doxycycline. She states that they yesica blood cultures and today she received a call stating that one of the blood cultures demonstrated gram-positive cocci in clusters. She was told to come back to emergency department for evaluation. She notes fevers of up to 101 last dose of Tylenol was 3 hours prior to arrival. Patient describes the diarrhea as brown and watery. No mucus or blood. She has had a history of hidradenitis and has seen Dr. Fraga in the past. [facility] Medical History (Updated 05/10/21 @ 20:[address] Ran Soto, DO) Abscess Anemia Anxiety and depression Asthma Breast lump in female Chronic bronchitis Gastrointestinal problem GERD (gastroesophageal reflux disease) Heart valve problem High cholesterol History of blood clots IBS (irritable bowel syndrome) Kidney stones Recurrent infections Thyroid disease Vascular disease Home Medications clopidogrel 75 mg tablet 75 mg PO QHS 06/21/19 [History Last Taken Unknown] hydroxyzine HCl 50 mg tablet 50 mg PO QHS 06/21/19 [History Last Taken Unknown] metoprolol tartrate 25 mg tablet 25 mg PO BID 06/21/19 [History Last Taken 08/07/20] omeprazole 40 mg PO DAILY 10/21/19 [History Last Taken 08/07/20] promethazine 25 mg PO 4X/DAY PRN PRN #30 tab 10/29/19 [Rx Last Taken Unknown] ondansetron HCl 8 mg PO Q8H PRN PRN 11/14/19 [History Last Taken Unknown] escitalopram oxalate 20 mg PO QHS 12/16/19 [History Last Taken 05/20/20 22:00] albuterol sulfate 1 - 2 puff INHALATION Q4H PRN PRN 03/05/20 [History Last Taken 05/29/20 09:00] sennosides-docusate sodium 4 ea PO QODAY 03/05/20 [History Last Taken Unknown] aspirin 81 mg PO DAILY@0800 07/27/20 [History Last Taken Unknown] nystatin 5 ml PO PRN PRN 07/27/20 [History Last Taken Unknown] amoxicillin-pot clavulanate 875 mg PO DAILY #42 tab 08/09/20 [Rx Last Taken Unknown] diphenhydramine HCl 25 mg PO 4X/DAY PRN cap 08/09/20 [Rx Last Taken Unknown] levofloxacin 500 mg tablet 500 mg PO DAILY 21 Days #21 tab 08/10/20 [Rx Last Taken Unknown] diazepam 5 mg PO 4X/DAY PRN PRN #30 tab 08/15/20 [Rx Last Taken Unknown] oxycodone-acetaminophen 5 mg-325 mg tablet 1 tab PO TID PRN #21 tab 08/31/20 [Rx Last Taken Unknown] doxycycline monohydrate 100 mg PO BID #20 cap 05/08/21 [Rx Last Taken Unknown] cephalexin 500 mg PO Q6 #40 capsule 05/10/21 [Rx Last Taken Unknown] hydrocodone-acetaminophen 1 tab PO Q6H PRN PRN 3 Days #12 tablet 05/10/21 [Rx Last Taken Unknown] ondansetron 4 mg PO Q6H PRN PRN #20 tab 05/10/21 [Rx Last Taken Unknown] Allergy/AdvReac Type Severity Reaction Status Date / Time acetaminophen Allergy Mild Rash Verified 05/10/21 17:42 [From Tylenol-Codeine #3] codeine Allergy Mild Rash Verified 05/10/21 17:42 [From Tylenol-Codeine #3] sulfamethoxazole Allergy Mild Rash Verified 05/10/21 17:42 [From Bactrim] trimethoprim [From Bactrim] Allergy Mild Rash Verified 05/10/21 17:42 adhesive tape Allergy Rash Verified 05/10/21 17:42 IVP DYE Allergy Severe increased Uncoded 05/10/21 17:42 HR, rash, itchy throat Family History Mother Anxiety and depression Arthritis History of blood clots History of blood transfusion Heart disease Severe allergy CVA (cerebral vascular accident) History of ulcer disease Grandmother Asthma Anxiety and depression Heart disease Kidney disease CVA (cerebral vascular accident) Grandfather Heart disease Lung cancer Surgical History History of appendectomy History of breast lump/mass excision History of cholecystectomy History of drainage of abscess History of embolectomy History of hernia repair History of hidradenitis suppurativa History of hysterectomy History of left heart catheterization History of right knee surgery History of tonsillectomy Social History Smoking Status: Current every day smoker tobacco type: cigarettes alcohol intake: never additional social history: DOES USE ASPIRIN DOES NOT USE IBUPROFEN ROS ROS ED Constitutional Constitutional ED: Denies chills or weight loss Eyes Eyes: Denies change in vision or diplopia ENT ENT ED: Denies ear pain, rhinorrhea or sore throat Cardiovascular Cardiovascular: Denies chest pain, orthopnea, palpitations or racing heartbeat Respiratory/Chest Respiratory/Chest: Denies cough, dyspnea or orthopnea Gastrointestinal Gastrointestinal: Reports diarrhea, nausea and vomiting; Denies abdominal pain Genitourinary Genitourinary ED: Denies dysuria, hematuria or urinary frequency Musculoskeletal Musculoskeletal: Reports myalgias; Denies arthralgias Integumentary Reports abscess; Denies rash Neurologic Neurologic: Denies headache(s) or weakness Psychiatric Psychiatric: Denies anxiety, depression, suicidal ideation or suicidal thoughts Endocrine Endocrinology: Denies polydipsia, polyphagia or polyuria Allergic/Immunologic Allergic/Immunologic ED: Denies mouth swelling, tongue swelling or urticaria EXAM Physical Exam Const Vital Signs: 05/10/21 17:42 05/10/21 19:08 05/10/21 20:00 Temperature 97.5 F L 98.6 F Temperature Source Temporal Temporal Pulse Rate 75 75 64 Respiratory Rate 15 15 13 Blood Pressure 115/80 115/80 98/79 Blood Pressure Mean 91 91 85 Pulse Ox 97 97 98 Oxygen Delivery Method Room Air Room Air Room Air Positive well nourished and well developed General Appearance ED: well developed HEENT Reports normocephalic, head/scalp atraumatic and moist mucous membranes Eyes PERRL and EOMs intact bilaterally Neck no lymphadenopathy, supple and no JVD Resp normal respiratory effort and clear to auscultation bilaterally Cardio regular rate, regular rhythm and no murmurs GI normal to inspection, nondistended, normoactive bowel sounds and non-tender Palpation: soft Back/Spine no CVA tenderness and normal ROM Extremity General Extremety ED: Yes tenderness; Negative for edema General Extremity: Negative for edema Neuro oriented x3 and CN's II-XII intact bilaterally Sensorium / Orientation: alert Motor Exam: strength 5/5 throughout Psych mental status grossly normal Mood & Affect: Negative for depressed or tearful Skin no rashes or lesions noted and no wounds Skin Narrative: There is 1/2 cm pustule near the left proximal labia. There is no significant surrounding erythema or fluctuance. There is a 1 cm abscess in the right axilla with no significant swelling or erythema around it. Patient points to 1/2 cm pustule to the right side of her nose. MDM MDM MDM Narrative Medical decision making narrative: My interpretation of the chest x-ray is no acute process. Basic blood work showed a white count of 8.7. Normal lactic acid. No evidence of endorgan damage. She is not febrile here and vital signs are stable. I think the blood culture that grew gram-positive cocci is most likely contaminant. I did repeat the blood cultures however. She has had no vomiting or diarrhea here for us to test. We will add in Keflex. I do not believe any of these abscesses are in need of drainage. She has a follow-up appointment on Thursday at the wound care center. Lab Data Attestation: I reviewed the patient's lab results. Labs: Laboratory Results - last 24 hr 05/10/21 05/10/21 05/10/21 18:55 18:55 18:55 WBC 8.7 RBC 4.58 Hgb 14.7 Hct 44.7 MCV 97.6 MCH 32.1 H MCHC 32.9 RDW Std Deviation 47.6 H RDW Coeff of Ping 13.3 Plt Count 177 MPV 11.6 Immature Gran % (Auto) 0.200 Neut % (Auto) 55.2 Lymph % (Auto) 35.4 [place] % (Auto) 6.9 Eos % (Auto) 1.8 Baso % (Auto) 0.5 Absolute Neuts (auto) 4.8 Absolute Lymphs (auto) 3.09 Nucleated RBC % 0 PT Cancelled INR Cancelled APTT Cancelled Sodium 140 Potassium 3.9 Chloride 108 H Carbon Dioxide 26.0 Anion Gap 6 BUN 14 Creatinine 0.91 Estim Creat Clear Calc 74.62 Est GFR (MDRD) Af Amer 87 Est GFR (MDRD) Non-Af 72 BUN/Creatinine Ratio 15.4 Glucose 84 Lactic Acid Calcium 8.8 Total Bilirubin 0.20 AST 18 ALT 26 Alkaline Phosphatase 87 Total Protein 7.5 Albumin 3.7 Globulin 3.8 Albumin/Globulin Ratio 1.0 Urine Color Urine Clarity Urine pH Ur Specific [place] Urine Protein Urine Glucose (UA) Urine Ketones Urine Occult Blood Urine Nitrite Urine Bilirubin Urine Urobilinogen Ur Leukocyte Esterase Urine RBC Urine WBC Ur Squamous Epith Cells Urine Bacteria Urine Mucus 05/10/21 05/10/21 05/10/21 19:43 20:00 20:00 WBC RBC Hgb Hct MCV MCH MCHC RDW Std Deviation RDW Coeff of Ping Plt Count MPV Immature Gran % (Auto) Neut % (Auto) Lymph % (Auto) [place] % (Auto) Eos % (Auto) Baso % (Auto) Absolute Neuts (auto) Absolute Lymphs (auto) Nucleated RBC % PT 12.8 INR 1.0 APTT 32.3 Sodium Potassium Chloride Carbon Dioxide Anion Gap BUN Creatinine Estim Creat Clear Calc Est GFR (MDRD) Af Amer Est GFR (MDRD) Non-Af BUN/Creatinine Ratio Glucose Lactic Acid 0.5 Calcium Total Bilirubin AST ALT Alkaline Phosphatase Total Protein Albumin Globulin Albumin/Globulin Ratio Urine Color Yellow Urine Clarity Clear Urine pH 6.5 Ur Specific [place] 1.010 Urine Protein Negative Urine Glucose (UA) Normal Urine Ketones Negative Urine Occult Blood Negative Urine Nitrite Negative Urine Bilirubin Negative Urine Urobilinogen Normal Ur Leukocyte Esterase Negative Urine RBC 0 SEEN Urine WBC 0 SEEN Ur Squamous Epith Cells 0-5 SEEN Urine Bacteria 0 SEEN Urine Mucus 0 SEEN Radiography Diagnostic Testing: Radiology Impression Chest X-Ray 05/10/21 19:20 IMPRESSION: Normal x-ray examination of the chest. Electronically Signed: Otto Huffman DO at 20:15 EDT Tel [phone], Service support , EKG Initial EKG: Attestation: I personally reviewed and interpreted this EKG as follows: Comments: EKG is normal sinus rhythm at a rate of 61. No concerning features of ACS or ectopy noted Discharge Plan Triage Chief Complaint: Abscess ED Provider: Ran Soto Dx/Rx/DC Orders Clinical Impression: Abscess of multiple sites Instructions: ED Abscess Antibiotic Treatment Only Prescriptions: New hydrocodone-acetaminophen [hydrocodone-acetaminophen] 1 TABLET tablet 1 tab PO Q6H PRN PRN (Reason: Pain) 3 Days Qty: 12 RF: 0 cephalexin [cephalexin] 500 MG capsule 500 mg PO Q6 Qty: 40 RF: 0 ondansetron [ondansetron] 4 MG tablet 4 mg PO Q6H PRN PRN (Reason: Nausea) Qty: 20 RF: 0 No Action metoprolol tartrate 25 mg tablet 25 mg PO BID RF: 0 hydroxyzine HCl 50 mg tablet 50 mg PO QHS RF: 0 clopidogrel 75 mg tablet 75 mg PO QHS RF: 0 diazepam 5 MG tablet 5 mg PO 4X/DAY PRN PRN (Reason: Spasms) Qty: 30 RF: 0 omeprazole 40 MG capsule,delayed release(DR/EC) 40 mg PO DAILY RF: 0 promethazine 25 MG tablet 25 mg PO 4X/DAY PRN PRN (Reason: Nausea) Qty: 30 RF: 1 ondansetron HCl 8 MG tablet 8 mg PO Q8H PRN PRN (Reason: Nausea) RF: 0 escitalopram oxalate 20 MG tablet 20 mg PO QHS RF: 0 sennosides-docusate sodium 1 EACH tablet 4 ea PO QODAY RF: 0 albuterol sulfate 1 PUFF inhaler 1 - 2 puff inhalation Q4H PRN PRN (Reason: Asthma) RF: 0 aspirin 81 MG tablet 81 mg PO DAILY@0800 RF: 0 nystatin 60 ML suspension 5 ml PO PRN PRN (Reason: THRUSH) RF: 0 diphenhydramine HCl 25 MG capsule 25 mg PO 4X/DAY PRN (Reason: Itching) RF: 0 amoxicillin-pot clavulanate 1 EACH tablet 875 mg PO DAILY Qty: 42 RF: 1 doxycycline monohydrate 100 mg capsule 100 mg PO BID Qty: 20 RF: 0 levofloxacin 500 mg tablet 500 mg PO DAILY 21 Days Qty: 21 RF: 1 oxycodone-acetaminophen [Percocet] 5-325 mg tablet 1 tab PO TID PRN (Reason: pain (scale score 7-10)) Qty: 21 RF: 0 Primary Care Provider: Ronnell Fraga Referrals: Ronnell Fraga MD [Primary Care Provider] - [facility] appointment Disposition Disposition: Home, Self Care
[2021-05-10] MEDS: Morphine 4 MG/ML Syringe IV (18:53)
[2021-05-10] MEDS: 0.9% Normal Saline 1,000 ML 999 ML IV (18:53)
[2021-05-10] MEDS: Ondansetron 4 MG/2 ML Vial IV ×2 (18:57→21:02)
[2021-05-10 19:08] VITALS: BP 115/80; PULSE 75; RESP 15; TEMP 36.4; TEMP 37; O2SAT 97
--- NOTE | 2021-05-10 19:20 | RAD_ITS ---
STUDY: X-RAY CHEST REASON FOR EXAM: Female, 45 years old. Fever TECHNIQUE: Frontal view COMPARISON: None. FINDINGS: The lungs are clear and expanded. There is no demonstrated pleural abnormality. Normal size heart. Normal mediastinum and khanh. Normal visualized pulmonary arteries. Normal visualized aortic arch and descending thoracic aorta. Normal visualized thoracic spine. Normal visualized ribs, clavicles, and shoulders. There is no demonstrated abnormality of the visualized soft tissue structures of the upper abdomen. RAD/Chest 1 View (Portable) IMPRESSION: Normal x-ray examination of the chest. Electronically Signed: Otto Huffman DO at 20:15 EDT Tel [phone], Service support ,
[2021-05-10 19:21] LABS: Absolute Lymphocyte Count 3.09 X10^3/uL (0.83-4.51); Absolute Neutrophil Count 4.8 X10^3/uL (2.0-7.7); Basophil# 0.04 X10^3/uL; Basophil% 0.5 % (0-1); Eosinophil# 0.16 X10^3/uL; Eosinophils% 1.8 % (0-5); Hematocrit 44.7 % (37-47); Hemoglobin 14.7 g/dL (12.0-15.0); Lymphocyte # 3.09 X10^3/ul (0.83-4.51); Lymphocyte % 35.4 % (19-41); Mean Corp Hgb Conc 32.9 g/dL (32-36); Mean Corpuscular Hgb 32.1 pg (27.0-32.0); Mean Corpuscular Volume 97.6 fL (81-99); Mean Platelet Vol. 11.6 fl (6.2-12.0); Monocyte% 6.9 % (0-10); NRBC Flagged by Analyzer 0 % (0-5); Neutrophil # 4.81 X10^3/uL (2.7-7.7); Neutrophil % 55.2 % (47-70); Platelet Count 177 K/mm3 (150-450); RBC Distribution Width CV 13.3 % (11.6-14.6); RBC Distribution Width SD 47.6 fl (35.1-43.9); Red Blood Count 4.58 M/mm3 (4.2-5.4); White Blood Count 8.7 K/mm3 (4.4-11.0)
[2021-05-10 19:30] LABS: AST(SGOT) 18 U/L (15-37); Alanine Aminotransfer ALT/SGPT 26 U/L (13-56); Albumin, Serum 3.7 g/dL (3.2-5.0); Alkaline Phosphatase 87 U/L (45-117); Anion Gap 6 (5-15); BUN 14 mg/dL (7-18); BUN/Creat Ratio 15.4 RATIO (10-20); Calcium,Total 8.8 mg/dL (8.5-10.1); Chloride 108 mmol/L (98-107); Creatinine, Serum 0.91 mg/dL (0.55-1.02); EST Glomerular Filtration Rate 72 mL/min (>60); Est Glom Filt Rate - Afr Amer 87 mL/min (>60); Estimated Creatinine Clearance 74.62 ml/min; Globulin 3.8 g/dL (2.2-4.2); Glucose 84 mg/dL (74-106); Potassium 3.9 mmol/L (3.5-5.1); Protein, Total 7.5 g/dL (6.4-8.2); Sodium Level 140 mmol/L (136-145)
[2021-05-10 19:51] LABS: Bacteria 0 SEEN /hpf (None Seen); Mucous, Urine 0 SEEN /hpf (<or=2+); Red Blood Cells-Urine 0 SEEN /hpf (0-5); White Blood Cells 0 SEEN /hpf (0-5)
[2021-05-10 19:52] LABS: Color, Urine Yellow (Yellow); Glucose, Dipstick Normal (Normal); Ketone-Dipstick Negative (Negative); Leukocyte Esterase-Dipstick Negative /ul (Negative); Nitrite-Dipstick Negative (Negative); Occult Blood-Urine Negative /ul (Negative); Protein-Dipstick Negative (Negative); Urine Bilirubin Dipstick Negative (Negative); Urine Clarity Clear (Clear); Urine Urobilinogen Normal (Normal); Urine pH 6.5 (5.0 - 8.0)
[2021-05-10 20:00] VITALS: BP 98/79; PULSE 64; RESP 13; O2SAT 98
[2021-05-10 20:04] LABS: Squamous Epithelial Cells - UA 0-5 SEEN /hpf (5-10)
[2021-05-10 20:25] LABS: Prothrombin Time (Protime)PT. 12.8 SECONDS (11.7-14.9)
[2021-05-10 20:26] LABS: Partial Thromboplast Time 32.3 Seconds (24.1-36.2)
[2021-05-10 20:35] LABS: Lactic Acid 0.5 mmol/L (0.4-1.9)
[2021-05-10 20:59] VITALS: BP 133/78; PULSE 87; RESP 18; O2SAT 98
[2021-05-10] MEDS: HYDROcodone Bitartrate/Apap 5/325 Tablet PO (21:05)
== END 2021-05-10 21:55 | disposition home or self-care (01) ==
PROVIDERS: Emergency Provider Emergency Medicine; PCP Surgery
DX: L02.411 Cutaneous abscess of right axilla (principal); L02.214 Cutaneous abscess of groin; L08.9 Local infection of the skin and subcutaneous tissue, unspecified; E78.00 Pure hypercholesterolemia, unspecified; F32.9 Major depressive disorder, single episode, unspecified; F41.9 Anxiety disorder, unspecified; J44.9 Chronic obstructive pulmonary disease, unspecified; K21.9 Gastro-esophageal reflux disease without esophagitis; K58.9 Irritable bowel syndrome, unspecified; E07.9 Disorder of thyroid, unspecified; Z86.2 Personal history of diseases of the blood and blood-forming organs and certain disorders involving the immune mechanism; Z86.718 Personal history of other venous thrombosis and embolism; Z87.442 Personal history of urinary calculi; Z79.82 Long term (current) use of aspirin; Z79.899 Other long term (current) drug therapy; F17.210 Nicotine dependence, cigarettes, uncomplicated
CPT/HCPCS: 71045; 80053; 81001; 83605; 85025; 85610; 85730; 87040; 93005; 96361; 96374; 96375; 96376; 99284; J7030; A4216; J2405

== ENCOUNTER 2021-05-13 09:40 | Outpatient (RCR) | payer MEDICAID, SELFPAY ==
[2021-05-13 10:02] VITALS: BP 131/67; PULSE 92; RESP 18; TEMP 36.7; BMI 28.4
--- NOTE | 2021-05-13 10:37 | PN.PCM_ITS ---
History of Present Illness Date of Service: 05/13/21 Chief Complaint: Painful hidradenitis flare-ups right axilla and left vulval area. History of Wound: 45 year old woman presents with recent flare up of hidradenitis in her right axillary area and left vulval area. She complains of increasing pain and swelling and redness. She has been to the ED and has been treated with antibiotics thus far. She recently had surgery on 05/29/20 where she underwent surgical preparation left inguinal and vulval area involving genitocrural crease with excisional debridement nonhealing hidradenitis ulcer and STSG reconstruction from left lateral abdominal wall (12 cm2) and placement of AmnioFill placental connective tissue powder, 250 mg and surgical preparation left axilla with excision recurrent hidradenitis (55 cm2) and excision left proximal inguinal hidradenitis with 6 cm complex closure repair. She had further surgery on 08/07/20 where she underwent surgical preparation left lateral inguinal area with excision hidradenitis (75 cm2). Patient denies fever. She states she is very uncomfortable with the areas of induration and pain and redness and swelling. Progress of Wound: Painful hidradenitis right axilla and left vulval area. Objective Data Objective Data Vital Signs: Vital Signs Temp Pulse Resp BP 98.1 F 92 18 131/67 H 05/13/21 10:02 05/13/21 10:02 05/13/21 10:02 05/13/21 10:02 Weight: 176 lb 0.217 oz Body Mass Index (BMI) 28.4 Charges/Coding Addendum Addendum: Wound Center Charges There is no charge for this visit. She is being admitted to the hospital today so will charge for the hospital admission. Physical Exam Narrative PHYSICAL EXAMINATION General - Alert and Oriented HEENT - PERRL. EOMI. Throat is clear. Neck - Supple and nontender. No cervical adenopathy. Lungs - Clear to auscultation. Heart - Regular rate and rhythm. Abdomen - Soft and nondistended. Extremities - FROM. No axillary adenopathy. Radial pulses are palpable. In the right axilla is an indurated mass that is tender to palpation. There is some redness. There is mild swelling. No fluctuance. No purulent drainage. Measures 7 cm. Genital - In the left vulva area at the level of the genitocrural crease is an area of hidradenitis flare up. Measures 2 cm. Adjacent to the hidradenitis flare up is a healed skin graft. No inguinal adenopathy. Neuro - CN II-XII grossly intact. Psych - Normal mood and affect. Debridement Note Debridement Note Post-Debridement Measurements and Additional Note: Post-Debridement Measurements/Treatment MIRYAM - Nurse 1 - General Ulcer Assessment Start: 05/13/21 10:02 Freq: Status: Active Protocol: ANTONIA Activity Type Activity Date Activity User E-Sign Co-Sign Detail Recorded Client Recorded Date Recorded By Document 05/13/21 10:02 CHAITANYA [id number] 05/13/21 10:10 CHAITANYA 05/13/21 10:02 MIRYAM - Today's Visit Information Type of service Initial Visit Arrival Mode Ambulatory Transfer Assistance None Patient Identification Verified (Name & Yes ) Patient Requires Transmission-Based No Precautions Height and Weight Height 5 ft 6 in Weight 176 lb 0.217 oz Weight in Pounds 176.0 lbs Body Mass Index (BMI) 28.4 BMI Classification Overweight BSA - G[place] 1.89 Vital Signs Temperature (97.8 F-99.1 F) 98.1 F Temperature Source Temporal Pulse Rate (60-100) 92 Pulse Location Monitor Respiratory Rate (12-18) 18 Respiratory rate source Observation Blood Pressure (90/60-120/80) 131/67 H Blood Pressure Mean (mm Hg) 88 Source Monitor Pain Scale: 0-10 Numeric Is Patient Pain Free? Yes Communication Assessment Preferred language [place] Citizen Able to Read Yes Able to Write Yes Communication Tools None Right Hearing Abillity Normal Left Hearing Abillity Normal Visual Assistive Devices Glasses Teaching Assessment Preferences Verbal,Written, Demonstration Barriers to Learning Unable to Comprehend Readiness To Learn Good Willingness to Engage in Self Management Med Activies Readiness to Engage in Self Management Med Activities Anxiety Level Anxious Cooperation Cooperative Perception Coherent Interest in Health Problem Asks Questions Education Importance Acknowledges Need Does Patient Smoke tobacco or other Yes substances Smoking Status Current every day smoker Is Patient Diabetic No Functional Assessment Recent Decline in Ability to Perform Denies Any Declines MIRYAM - Nurse 2 - General Ulcer CM Notes Start: 05/13/21 10:02 Freq: Status: Active Protocol: Activity Type Activity Date Activity User E-Sign Co-Sign Detail Recorded Client Recorded Date Recorded By Document 05/13/21 10:32 NINA [id number] 05/13/21 10:32 NINA 05/13/21 10:32 Pain Scale: 0-10 Numeric Is Patient Pain Free? Yes - Nurse 3 - General Ulcer D/C NN Start: 05/13/21 10:02 Freq: Status: Active Protocol: Activity Type Activity Date Activity User E-Sign Co-Sign Detail Recorded Client Recorded Date Recorded By Document 05/13/21 10:32 [id number] 05/13/21 10:33 05/13/21 10:32 Is Patient Pain Free? Yes WC - Visit Discharge Discharge Condition Stable Ambulatory Status Ambulatory Transportation Private Auto Medication Reconcilliation completed & Yes provided to patient/care provider Clinical Summary of Care Provided Yes Wound debrided: No debridement was done as there is no wound. She needs surgery. Assessment/Plan Assessment/Plan (1) Hidradenitis suppurativa of right axilla: CODE(S): L73.2 - Hidradenitis suppurativa (2) Vulval hidradenitis suppurativa: CODE(S): L73.2 - Hidradenitis suppurativa (3) Smoker: CODE(S): F17.200 - Nicotine dependence, unspecified, uncomplicated PLAN: Recommend admission to the hospital and start IV antibiotics. Recommend excision of her right axillary hidradenitis and left vulval hidradenitis involving genitocrural crease. Will send tissue to Pathology for analysis to rule out carcinoma and to Microbiology for culture. A positive culture will necessitate antibiotic therapy. Surgery will be done under general anesthesia in the next couple of days. Will leave the wounds open and begin wound care with the VAC or daily Dakin's dressing changes. After discharge will followup at the Wound Center. If there is a plateau in the healing process, can proceed in a delayed fashion with skin grafting. Surgery will be done under general anesthesia with a surgical observation overnight stay in the hospital. Patient was informed of the risks and complications of the procedure including alternatives to surgery. These were discussed with her personally. She voices understanding and wishes to proceed. Encouraged the patient to stop smoking as it may have deleterious effects on wound healing. Anticipate increased metabolic demands from the infection and the ulceration. Encourage nutritional supplementation with protein to help the healing process. We discussed the current risks associated with COVID-19. While it is understood that there is a community spread of COVID-19, the risk of liban COVID-19 while at [facility] ([facility]) is very low; however, the risk cannot be completely mitigated because of the community spread of the disease. We discussed in detail the risk of exposure to and/or potential harm posed by the COVID-19 virus with having a surgery/procedure at this time versus the risk of delaying the surgery/procedure. It is not possible to know either the risk of delaying the surgery or procedure or chance of getting an infection with perfect accuracy, but a joint decision was made to proceed at this time with the scheduled surgery/procedure as indicated on the consent form. Patient was notified that we will need to comply with any screening or testing [facility] wishes to perform or that surgery may be delayed for any positive results. Procedure Criteria Procedure Type:?Elective COVID Risk Discussion: The surgeon/proceduralist and patient have discussed in detail the risk of exposure to and/or potential harm posed by the COVID-19 virus with having a surgery/procedure at this time versus the risk of delaying the surgery/procedure.? It is not possible to know either the risk of delaying the surgery or procedure or chance of getting an infection with perfect accuracy, but a joint decision was made between the patient and the surgeon/proceduralist to proceed at this time with the scheduled surgery/procedure as indicated on the consent form.
== END 2021-05-18 23:59 ==
LOC: WC 09:40
PROVIDERS: Visit Provider Nurse Practitioner Family
DX: Z09 Encounter for follow-up examination after completed treatment for conditions other than malignant neoplasm (principal); L73.2 Hidradenitis suppurativa; F17.200 Nicotine dependence, unspecified, uncomplicated
CPT/HCPCS: 99213; G0463

== ENCOUNTER 2021-05-13 13:58 | Inpatient (IN) | payer MEDICAID, SELFPAY ==
[2021-05-13 10:02] VITALS: BMI 28.4
[2021-05-13 13:58] VITALS: BMI 27.4
[2021-05-13 14:15] VITALS: BP 137/74; PULSE 86; RESP 18; TEMP 36.7; O2SAT 97
[2021-05-13 14:19] VITALS: PULSE 86
--- NOTE | 2021-05-13 15:04 | NURSING ---
Pt states the plan is for surgical debridement of the right axilla and the left groin per Dr Fraga. there is currently no drainage noted. the right axilla with a painful indurated area that measures approx 3cm x 2cm. some mild redness noted. will follow pt post op. most likely will need wound VAC post op and possible packing to the groin. pt states she prefers not to have the wound VAC to the groin. see photos.
--- NOTE | 2021-05-13 15:15 | NURSING ---
Skin photo: right axilla
--- NOTE | 2021-05-13 15:16 | NURSING ---
skin photo: left groin
[2021-05-13] MEDS: oxyCODONE 5 MG Tablet 10 MG PO ×2 (17:53→22:42)
[2021-05-13] MEDS: proMETHazine 25 MG Tablet PO ×2 (17:53→22:42)
--- NOTE | 2021-05-13 18:16 | PCM.HP.BLA ---
History and Physical Date of Admission: 05/13/21 HISTORY OF PRESENT ILLNESS 45 year old woman presents with recent flare up of hidradenitis in her right axillary area and left vulval area. She complains of increasing pain and swelling and redness. She has been to the ED and has been treated with antibiotics thus far. She recently had surgery on 05/29/20 where she underwent surgical preparation left inguinal and vulval area involving genitocrural crease with excisional debridement nonhealing hidradenitis ulcer and STSG reconstruction from left lateral abdominal wall (12 cm2) and placement of AmnioFill placental connective tissue powder, 250 mg and surgical preparation left axilla with excision recurrent hidradenitis (55 cm2) and excision left proximal inguinal hidradenitis with 6 cm complex closure repair. She had further surgery on 08/07/20 where she underwent surgical preparation left lateral inguinal area with excision hidradenitis (75 cm2). Patient denies fever. [facility] and she was very uncomfortable with the areas of induration and pain and redness and swelling. They were very tender to the touch. It was recommended to the patient to be admitted for IV antibiotics in preparation for surgery with excision of these painful areas of hidradenitis in her right axilla and left vulval area involving genitocrural crease. PAST MEDICAL HISTORY Anemia Anxiety and depression Asthma Breast lump in female GERD (gastroesophageal reflux disease) Gastrointestinal problem Heart valve problem High cholesterol History of blood clots IBS (irritable bowel syndrome) Kidney stones Recurrent infections Thyroid disease Vascular disease Chronic bronchitis Hidradenitis PAST SURGICAL HISTORY appendectomy breast lump/mass excision cholecystectomy drainage of abscess embolectomy hernia repair hysterectomy History of left heart catheterization right knee surgery tonsillectomy Surgical preparation left inguinal and vulval area involving genitocrural crease with excisional debridement nonhealing hidradenitis ulcer and STSG reconstruction from left lateral abdominal wall (12 cm2) and placement of AmnioFill placental connective tissue powder, 250 mg and surgical preparation left axilla with excision recurrent hidradenitis (55 cm2) and excision left proximal inguinal hidradenitis with 6 cm complex closure repair - 05/29/20 Surgical preparation left lateral inguinal area with excision hidradenitis (75 cm2) - 08/07/20 ALLERGIES acetaminophen [From Tylenol-Codeine #3] codeine [From Tylenol-Codeine #3] sulfamethoxazole [From Bactrim] trimethoprim [From Bactrim] adhesive tape IVP DYE MEDICATIONS clopidogrel hydroxyzine metoprolol Omeprazole Varenicline [Chantix] proMETHazine tablet [Phenergan tablet] Ondansetron [Zofran] Escitalopram Levaquin Percocet FAMILY HISTORY Mother - Anxiety and depression, Arthritis, History of blood clots, History of blood transfusion, Heart disease, CVA (cerebral vascular accident), History of ulcer disease Grandmother - Asthma, Anxiety and depression, Heart disease, Kidney disease, CVA (cerebral vascular accident) Grandfather - Heart disease, Lung cancer SOCIAL HISTORY Smoking Status: Current every day smoker alcohol intake: never additional social history: DOES USE ASPIRIN DOES NOT USE IBUPROFEN REVIEW OF SYSTEMS General - Denies fever and weight loss. Has fatigue. Eyes - Denies cataracts and glaucoma. ENT - Denies nasal congestion and sore throat. Has history of swollen glands in the neck. Endocrine - Denies excessive thirst and urination. Skin - Denies suspicious lesions and skin cancer. Has recent flare up of right axillary hidradenitis and left vulval hidradenitis. Musculoskeletal - Denies joint pain, joint stiffness, weakness of muscles and joints, back pain, and arthritis. Neuro - Denies headaches. Has lightheadedness. Cardiovascular - Has chest pain and fatigue and lightheadedness. Denies shortness of breath with exertion. Psych - Denies anxiety and depression. Respiratory - Has chronic cough and shortness of breath. Has sleep apnea and asthma. Gastrointestinal - Denies nausea, vomiting. Has diarrhea, and constipation. Hematologic - Denies abnormal bruising and bleeding. Genitourinary - Denies hematuria and urinary frequency. PHYSICAL EXAMINATION General - Alert and Oriented. HEENT - PERRL. EOMI. Throat is clear. Neck - Supple and nontender. No cervical adenopathy. Lungs - Clear to auscultation. Heart - Regular rate and rhythm. Abdomen - Soft and nondistended. In the left inguinal area with extension into the vulval area is a healing skin graft. Extremities - FROM. No axillary adenopathy. Radial pulses are palpable. In the right axillary area is an area of induration and redness and swelling and tenderness to palpation. Measures 7 cm. No purulent drainage. Genital - In the left vulval area involving the genitocrural area with extension into the inguinal area is a healed skin graft. On the edge of the skin graft in the vulval area is an area of hidradenitis. There is induration and redness and swelling and tenderness to palpation. Measures 2 cm. No purulent drainage. Neuro - CN II-XII grossly intact. Psych - Normal mood and affect. Assessment & Plan Assessment/Plan (1) Vulval hidradenitis suppurativa: (2) Hidradenitis suppurativa of right axilla: (3) Smoker: PLAN: Will start IV antibiotics with Ancef. Will also add Levaquin. Depending on the response to the antibiotics, I made to change to Ancef to Ceftriaxone. Recommend excision of her right axillary hidradenitis and left vulval hidradenitis involving genitocrural crease. Will send tissue to Pathology for analysis to rule out carcinoma and to Microbiology for culture. A positive culture will necessitate antibiotic therapy. Surgery will be done under general anesthesia in the next couple of days. Will leave the wounds open and begin wound care with the VAC or daily Dakin's dressing changes. After discharge will followup at the [facility]. If there is a plateau in the healing process, can proceed in a delayed fashion with skin grafting. Surgery will be done under general anesthesia with a surgical observation overnight stay in the hospital. Patient was informed of the risks and complications of the procedure including alternatives to surgery. These were discussed with her personally. She voices understanding and wishes to proceed. Encouraged the patient to stop smoking as it may have deleterious effects on wound healing. Anticipate increased metabolic demands from the infection and the ulceration. Encourage nutritional supplementation with protein to help the healing process. We discussed the current risks associated with COVID-19. While it is understood that there is a community spread of COVID-19, the risk of liban COVID-19 while at [facility] ([facility]) is very low; however, the risk cannot be completely mitigated because of the community spread of the disease. We discussed in detail the risk of exposure to and/or potential harm posed by the COVID-19 virus with having a surgery/procedure at this time versus the risk of delaying the surgery/procedure. It is not possible to know either the risk of delaying the surgery or procedure or chance of getting an infection with perfect accuracy, but a joint decision was made to proceed at this time with the scheduled surgery/procedure as indicated on the consent form. Patient was notified that we will need to comply with any screening or testing [facility] wishes to perform or that surgery may be delayed for any positive results. Charges/Coding Visit Charges Inpatient E&M: 55272 Init Hosp L2 (ICD-10 - L73.2, F17.200)
[2021-05-13] MEDS: 0.9% Saline Lock 10 ML Syringe IV ×2 (19:32→23:20)
[2021-05-13] MEDS: Lactated Ringers 1,000 ML 60 ML IV (19:36)
[2021-05-13 19:37] LABS: Hematocrit 42.7 % (37-47); Hemoglobin 14.3 g/dL (12.0-15.0); Mean Corp Hgb Conc 33.5 g/dL (32-36); Mean Corpuscular Hgb 32.5 pg (27.0-32.0); Mean Platelet Vol. 11.1 fl (6.2-12.0); Platelet Count 191 K/mm3 (150-450); RBC Distribution Width CV 13.3 % (11.6-14.6); RBC Distribution Width SD 47.9 fl (35.1-43.9); White Blood Count 9.3 K/mm3 (4.4-11.0)
[2021-05-13 19:50] LABS: Erythrocyte Sedimentation Rate 30 mm/hr (0-30)
[2021-05-13 19:56] LABS: ALB/GLOB Ratio 1.1 RATIO (0.9-2.4); AST(SGOT) 18 U/L (15-37); Alanine Aminotransfer ALT/SGPT 23 U/L (13-56); Albumin, Serum 3.8 g/dL (3.2-5.0); Alkaline Phosphatase 88 U/L (45-117); Anion Gap 4 (5-15); BUN 17 mg/dL (7-18); BUN/Creat Ratio 20.8 RATIO (10-20); Calcium,Total 8.9 mg/dL (8.5-10.1); Chloride 109 mmol/L (98-107); Creatinine, Serum 0.82 mg/dL (0.55-1.02); EST Glomerular Filtration Rate 81 mL/min (>60); Est Glom Filt Rate - Afr Amer 98 mL/min (>60); Estimated Creatinine Clearance 82.81 ml/min; Globulin 3.6 g/dL (2.2-4.2); Glucose 103 mg/dL (74-106); Potassium 3.8 mmol/L (3.5-5.1); Prealbumin 19.4 mg/dL (20.0-40.0); Protein, Total 7.4 g/dL (6.4-8.2); Sodium Level 141 mmol/L (136-145)
[2021-05-13 20:55] VITALS: BP 127/71; PULSE 64; RESP 16; TEMP 36.7; O2SAT 100
[2021-05-13] MEDS: Docusate Sodium 100 MG Capsule PO (20:57)
[2021-05-13 20:58] VITALS: PULSE 64
[2021-05-13] MEDS: hydrOXYzine PAM 25 MG Capsule 50 MG PO (20:58)
[2021-05-13] MEDS: Atorvastatin Calcium 40 MG Tablet PO (20:58)
[2021-05-13] MEDS: Clopidogrel Bisulfate 75 MG Tablet PO (20:58)
[2021-05-13] MEDS: Escitalopram Oxalate 20 MG Tablet PO (20:58)
[2021-05-13] MEDS: Metoprolol Tartrate 25 MG Tablet PO (20:58)
[2021-05-13] MEDS: HYDROcodone Bitartrate/Apap 5/325 Tablet PO (21:05)
[2021-05-13] MEDS: Ceftriaxone 1 GM/50 ML BAG IV (23:25)
[2021-05-14] MEDS: levoFLOXacin IV 500 MG/100 ML BAG 100 MG IV ×2 (00:16→21:11)
[2021-05-14 02:58] VITALS: BP 134/68; PULSE 57; RESP 16; TEMP 36.5; O2SAT 100
[2021-05-14] MEDS: oxyCODONE 5 MG Tablet 10 MG PO ×4 (03:07→20:02)
[2021-05-14] MEDS: proMETHazine 25 MG Tablet PO ×4 (03:07→20:02)
--- NOTE | 2021-05-14 06:00 | EKG12_ITS ---
Test Reason : AM EKG Blood Pressure : / mmHG Vent. Rate : 057 BPM Atrial Rate : 057 BPM P-R Int : 200 ms QRS Dur : 084 ms QT Int : 446 ms P-R-T Axes : 055 034 034 degrees QTc Int : 434 ms Sinus bradycardia with sinus arrhythmia Otherwise normal ECG Confirmed by JOSIAH SANTIAGO, SESAR ([id number]), editorial specialist JERRY CORNEJO ([id number]) on 05/15/2021 1:18:08 PM Referred By: YOVANI Confirmed By:SESAR RAHMAN MD
[2021-05-14 08:20] VITALS: BP 113/67; PULSE 52; RESP 16; TEMP 36.5; O2SAT 97
[2021-05-14 08:34] VITALS: PULSE 52
[2021-05-14] MEDS: Pantoprazole Sodium 40 MG Tablet PO (08:34)
[2021-05-14] MEDS: amLODIPine 2.5 MG Tablet PO (08:34)
[2021-05-14] MEDS: Lisinopril 2.5 MG Tablet PO (08:39)
[2021-05-14] MEDS: Lactated Ringers 1,000 ML 60 ML IV (12:48)
--- NOTE | 2021-05-14 13:55 | CASEMGMT ---
JULIEN GASPAR Assessment: Face to Face with pt for initial transition planning/care coordination assessment. JULIEN GASPAR introduced self and role at [facility], pt voices understanding and consents to assessment. Pt is A/O x4 and answers all questions appropriately at this time. Pt sitting up in bed in no distress. Care providers, pharmacy, and demographics verified/updated. Admitting Dx: hidradenitis PCP:Luca Specialists:Flakito, surgeon; Daisy-gastro; Cardio from [facility] Pharmacy: [facility] while inpatient Insurance: [facility] Prescription Benefit: yes LW/HPOA: Pt denies having LW/DPOA. LNOK: Robert Reid, son Living Arrangements: Pt lives with 3 children(technically nieces and nephews) who are adults and her sig other in a two story house with 5 steps to enter. Pt is I in ADL's and denies concerns at home. Transportation: Pt drives self and denies concerns with transportation. DME/HHC/SNF: Pt states she wears 2L O2 at hs. She is unsure of where her concentrator is through. Pt has had HHC in the past for wound vacs for hidradenitis. She denied need for local in network list of agencies. She states she wants the agency who she had before. She cannot remember the name. Upon reviewing notes, it was N. Faxed referral at this time. Pt denies SNF stays. Pt states no concerns with going home at time of dc. She is not working currently. She has filed for disability and is awaiting a decision. Pt states she will have surgery tomorrow or . Pt states no further concerns/needs. CM to follow. Advised pt to ask CM if any further question/concerns/needs arise, voices understanding. Pt Goal: Home with [facility] Plan: Home with [facility]
[2021-05-14 14:55] VITALS: BP 107/55; PULSE 56; RESP 16; TEMP 36.9; O2SAT 97
--- NOTE | 2021-05-14 17:24 | PCM.PN.SRG ---
Subjective Subjective Patient states her pain is a little better in the areas of hidradenitis flare up (right axilla and left vulval area). Objective Data Objective Data Vital Signs: Vital Signs Temp Pulse Resp BP Pulse Ox 98.4 F 56 L 16 107/55 L 97 05/14/21 14:55 05/14/21 14:55 05/14/21 14:55 05/14/21 14:55 05/14/21 14:55 Oxygen Delivery Method Room Air Weight: 169 lb 15.622 oz Body Mass Index (BMI) 27.4 Intake & Output: Intake and Output for Last 24 Hours 05/12/21 05/13/21 05/14/21 23:59 23:59 23:59 Intake Total 724 / 1224 1247 / 1247 Balance 724 / 1224 1247 / 1247 Medical Nutrition Assessment Dietitian: Nutrition Therapy Diagnosis Start: 05/14/21 12:00 Freq: Status: Active Protocol: Document 05/14/21 12:32 RMA (Rec: 05/14/21 12:33 RMA [id number]) Nutrition Malnutrition Evidence of Malnutrition Exists Yes Malnutrition (severe): Acute Illness/Injury Evidenced By Suboptimal Energy Intake ( Severe),Weight Loss (Severe) Clinical Problem Acute Disease or Injury Related Malnutrition Etiology Severe pro/esvin malnutrition in the context of acute illness related to altered GI function /nausea and vomiting Signs/Symptoms as evidenced by 3-5% wt loss x past 1-2 weeks and meeting less than 50% estimated nutrition needs by mouth x past 7-10 days per pt report Status Active Problem Recommendation Dietitian Recommendations/Changes Pt currently NPO for surgery. Rec advance diet as tolerated post-op to Regular with 240ml ensure clear TID w/ meals. Continue Franco BID for wound healing as ordered. Lab / Micro Data Attestation: I reviewed the patient's lab results. Result Diagrams: 05/13/21 19:27 05/13/21 19:27 Labs: Laboratory Results - last 24 hr 05/13/21 19:27: WBC 9.3, RBC 4.40, Hgb 14.3, Hct 42.7, MCV 97.0, MCH 32.5 H, MCHC 33.5, RDW Std Deviation 47.9 H, RDW Coeff of Ping 13.3, Plt Count 191, MPV 11.1, ESR 30 05/13/21 19:27: Sodium 141, Potassium 3.8, Chloride 109 H, Carbon Dioxide 28.0, Anion Gap 4 L, BUN 17, Creatinine 0.82, Estim Creat Clear Calc 82.81, Est GFR (MDRD) Af Amer 98, Est GFR (MDRD) Non-Af 81, BUN/Creatinine Ratio 20.8 H, Glucose 103, Calcium 8.9, Total Bilirubin 0.20, AST 18, ALT 23, Alkaline Phosphatase 88, C-React Prot Ext Range 10.40 H, Total Protein 7.4, Albumin 3.8, Globulin 3.6, Albumin/Globulin Ratio 1.1, Prealbumin 19.4 L Physical Exam Narrative PHYSICAL EXAMINATION General - Alert and Oriented HEENT - PERRL. EOMI. Throat is clear. Neck - Supple and nontender. No cervical adenopathy. Abdomen - Soft and nondistended. Extremities - FROM. No axillary adenopathy. Radial pulses are palpable. In the right axilla the induration is a little less. Less tenderness to palpation. Measures 6 cm. Less redness. Genital - In the left vulval area involving the genitocrural area with extension into the inguinal area is a healed skin graft. On the edge of the skin graft in the vulval area is an area of hidradenitis. There is less induration and redness and swelling and tenderness to palpation. Measures 2 cm. No purulent drainage. Neuro - CN II-XII grossly intact. Psych - Normal mood and affect. Assessment & Plan Assessment/Plan (1) Hidradenitis suppurativa of right axilla: (2) Vulval hidradenitis suppurativa: (3) Smoker: PLAN: Continue IV Levaquin. The Ancef was changed to Ceftriaxone. Surgery is scheduled for . It will be under general anesthesia. Will leave the wounds open and begin postoperative wound care with the VAC in the right axilla and Dakin's dressing changes daily to the left vulval area. Will send tissue to Pathology for analysis to rule out carcinoma and to Microbiology for culture. A positive culture will necessitate antibiotic therapy. Anticipate increased metabolic demands from the wounds and the infection. Prealbumin was 19.4. Encourage nutritional supplementation with protein to help the healing process. After discharge, followup at the [facility]. If there is a plateau in the healing process, can proceed with delayed closure with skin grafting. Patient was informed of the risks and complications of the procedure including alternatives to surgery. These were discussed with the patient personally. Patient voices understanding and wishes to proceed. Encouraged patient to stop smoking as it may have deleterious effects on wound healing. We discussed the current risks associated with COVID-19. While it is understood that there is a community spread of COVID-19, the risk of liban COVID-19 while at [facility] ([facility]) is very low; however, the risk cannot be completely mitigated because of the community spread of the disease. We discussed in detail the risk of exposure to and/or potential harm posed by the COVID-19 virus with having a surgery/procedure at this time versus the risk of delaying the surgery/procedure. It is not possible to know either the risk of delaying the surgery or procedure or chance of getting an infection with perfect accuracy, but a joint decision was made to proceed at this time with the scheduled surgery/procedure as indicated on the consent form. Patient was notified that we will need to comply with any screening or testing [facility] wishes to perform or that surgery may be delayed for any positive results. Procedure Criteria Procedure Type:?Elective COVID Risk Discussion: The surgeon/proceduralist and patient have discussed in detail the risk of exposure to and/or potential harm posed by the COVID-19 virus with having a surgery/procedure at this time versus the risk of delaying the surgery/procedure.? It is not possible to know either the risk of delaying the surgery or procedure or chance of getting an infection with perfect accuracy, but a joint decision was made between the patient and the surgeon/proceduralist to proceed at this time with the scheduled surgery/procedure as indicated on the consent form. Charges/Coding Visit Charges Inpatient E&M: 71200 Subs Hosp L1 ( ICD-10 - L73.2, F17.200)
[2021-05-14 20:02] VITALS: BP 105/56; PULSE 57; RESP 16; TEMP 36.7; O2SAT 96
[2021-05-14] MEDS: Escitalopram Oxalate 20 MG Tablet PO (21:06)
[2021-05-14] MEDS: Atorvastatin Calcium 40 MG Tablet PO (21:06)
[2021-05-14] MEDS: Docusate Sodium 100 MG Capsule PO (21:06)
[2021-05-14] MEDS: Clopidogrel Bisulfate 75 MG Tablet PO (21:07)
[2021-05-14] MEDS: hydrOXYzine PAM 25 MG Capsule 50 MG PO (21:07)
[2021-05-14] MEDS: 0.9% Saline Lock 10 ML Syringe IV (21:08)
[2021-05-14] MEDS: Ceftriaxone 1 GM/50 ML BAG IV (22:43)
[2021-05-15] MEDS: 0.9% Saline Lock 10 ML Syringe IV (00:03)
[2021-05-15] MEDS: proMETHazine 25 MG Tablet PO ×4 (00:11→21:36)
[2021-05-15 02:17] VITALS: BP 118/64; PULSE 56; RESP 16; TEMP 36.4; O2SAT 98
[2021-05-15] MEDS: oxyCODONE 5 MG Tablet 10 MG PO ×5 (02:19→21:35)
[2021-05-15] MEDS: 0.9% Normal Saline 1,000 ML 60 ML IV (09:10)
[2021-05-15] MEDS: Docusate Sodium 100 MG Capsule PO (09:12)
[2021-05-15] MEDS: amLODIPine 2.5 MG Tablet PO (09:12)
[2021-05-15 09:13] VITALS: BP 117/70; PULSE 51
[2021-05-15] MEDS: Aspirin E.C. 81 MG Tablet PO (09:14)
[2021-05-15] MEDS: Pantoprazole Sodium 40 MG Tablet PO (09:15)
[2021-05-15] MEDS: Lisinopril 2.5 MG Tablet PO (09:20)
[2021-05-15 09:22] VITALS: BP 117/70; PULSE 51; RESP 18; TEMP 36.7; O2SAT 96
[2021-05-15] MEDS: Ondansetron 8 MG Tablet PO ×2 (10:48→20:12)
[2021-05-15 14:16] VITALS: BP 110/65; PULSE 54; RESP 16; TEMP 36.9; O2SAT 96
--- NOTE | 2021-05-15 15:46 | CASEMGMT ---
TC mirella Dudley at [facility], they are able to accept pt. They are aware pt to surgery tomorrow.
--- NOTE | 2021-05-15 16:14 | PCM.PN.SRG ---
Subjective Subjective Patient resting in bed. She states her pain is not controlled. Objective Data Objective Data Vital Signs: Vital Signs Temp Pulse Resp BP Pulse Ox 98.5 F 54 L 16 110/65 96 05/15/21 14:16 05/15/21 14:16 05/15/21 14:16 05/15/21 14:16 05/15/21 14:16 Oxygen Delivery Method Room Air Weight: 169 lb 15.622 oz Body Mass Index (BMI) 27.4 Intake & Output: Intake and Output for Last 24 Hours 05/13/21 05/14/21 05/15/21 23:59 23:59 23:59 Intake Total 724 / 1224 2496 / 2996 1532 / 1532 Balance 724 / 1224 2496 / 2996 1532 / 1532 Medical Nutrition Assessment Dietitian: Nutrition Therapy Diagnosis Start: 05/14/21 12:00 Freq: Status: Active Protocol: Document 05/14/21 12:32 RMA (Rec: 05/14/21 12:33 RMA [id number]) Nutrition Malnutrition Evidence of Malnutrition Exists Yes Malnutrition (severe): Acute Illness/Injury Evidenced By Suboptimal Energy Intake ( Severe),Weight Loss (Severe) Clinical Problem Acute Disease or Injury Related Malnutrition Etiology Severe pro/esvin malnutrition in the context of acute illness related to altered GI function /nausea and vomiting Signs/Symptoms as evidenced by 3-5% wt loss x past 1-2 weeks and meeting less than 50% estimated nutrition needs by mouth x past 7-10 days per pt report Status Active Problem Recommendation Dietitian Recommendations/Changes Pt currently NPO for surgery. Rec advance diet as tolerated post-op to Regular with 240ml ensure clear TID w/ meals. Continue Franco BID for wound healing as ordered. Lab / Micro Data Result Diagrams: 05/13/21 19:27 05/13/21 19:27 Micro: Microbiology 05/15/21 10:55 Mucosa - Nose SARS-CoV-2 Antigen (Rapid) - Final Physical Exam Const oriented x3 Eyes PERRL Resp normal respiratory effort Cardio regular rate GI soft to palpation and non-tender Extremity full ROM, no clubbing, cyanosis or edema and no calf tenderness Skin Wound Narrative: Right axillary area has induration and redness and swelling and tenderness to palpation. No purulent drainage at this time. Left vulval/inguinal area with redness, tenderness to palpation. Neuro oriented x3 Psych thought process normal Assessment & Plan Assessment/Plan (1) Hidradenitis suppurativa of left axilla: (2) Vulval hidradenitis suppurativa: (3) Smoker: PLAN: Patient is requiring pain medication every 4-6 hours to help with her pain, but still states pain is 8/10. Will start Acetaminophen to help with pain control. Right axilla and left vulva/inguinal area are stable. She is on Ceftriaxone and Levaquin. She does smoke cigarettes. Will order Nicotine patch to help with her cravings/withdraw. She may eat a regular diet. She may shower, she should cover her IV with saran wrap so it doesn't get wet. Patient states she uses Senokot at home to help prevent constipation. She is scheduled to have surgical debridement tomorrow. She should NPO after midnight. Charges/Coding Visit Charges Inpatient E&M: 70553 Subs Hosp L1
[2021-05-15 20:10] VITALS: BP 109/62; PULSE 69; RESP 16; TEMP 36.7; O2SAT 98
[2021-05-15] MEDS: Senna/Docusate Sodium 1 Tablet 2 TABLET PO (21:35)
[2021-05-15] MEDS: Acetaminophen 500 MG Tablet 1000 MG PO (21:35)
[2021-05-15] MEDS: Atorvastatin Calcium 40 MG Tablet PO (21:42)
[2021-05-15] MEDS: Clopidogrel Bisulfate 75 MG Tablet PO (21:42)
[2021-05-15] MEDS: hydrOXYzine PAM 25 MG Capsule 50 MG PO (21:42)
[2021-05-15] MEDS: Escitalopram Oxalate 20 MG Tablet PO (21:42)
[2021-05-15 21:45] VITALS: BP 115/55; PULSE 57; RESP 16; TEMP 36.7; O2SAT 98
[2021-05-15] MEDS: Ceftriaxone 1 GM/50 ML BAG IV (22:36)
[2021-05-15] MEDS: levoFLOXacin IV 500 MG/100 ML BAG 100 MG IV (23:15)
[2021-05-16] VITALS (16 sets, daily range): BP systolic 99–130; BP diastolic 41–75; PULSE 53–71; RESP 16–18; TEMP 36.4–36.9; O2SAT 95–99; BMI 27.4
--- NOTE | 2021-05-16 | VUL_PTH ---
PATIENT: TAYLOR PENA LOC: [facility]3 U#:[id number] AGE/SX: 45/F [place] [facility] [place]05/13/[address]: Dr. Ronnell Fraga MD : [id number] BED: 1 DIS: 05/17/2021 SPEC #: [id number] RECD: 05/16/21 11:16 STATUS: DAYAN PAOLA #: [id number] KM: 05/16/21 00:[address]: Ronnell Fraga DEPT: SURGICAL PATHOLOGY RECD BY: Luigi Sylvester Tissues: A - Axilla, NOS B - Vulva, NOS Procedures: Surgery Specimen Level III HEADER OPERATION: Excision, hidradenitis, right axillary area, left vulva PRE-OP DIAGNOSIS: Vulvar hidradenitis suppurativa; hidradenitis suppurativa of right axilla TISSUE SUBMITTED: A ? Soft tissue right axilla, B ? Soft tissue left vulva MICROSCOPIC DIAGNOSIS A. Soft tissue, right axilla, excision hidradenitis: Pieces of skin with underlying tissue with acute and chronic inflammation and abscess formation. Focal area suggestive of ruptured epidermal inclusion cyst. B. Soft tissue, left vulva, excision hidradenitis: Pieces of skin with acute and chronic inflammation and abscess formation. CYNDIE:gracie 05/17/2021 MICROSCOPIC DESCRIPTION Slides are reviewed. GROSS DESCRIPTION A - Received in fixative is one container labeled with the patient's name and designated soft tissue right axilla. The specimen consists of a piece of skin with underlying tissue measuring 4.5 x 3.5 cm and up to 2 cm in thickness. A slightly raised saab area is noted measuring 1 cm in greatest dimension. Sections reveal focal area of softening underneath the raised lesion. Court Registry Officer sections are submitted in three cassettes. B - Received in fixative is one container labeled with the patient's name and designated soft tissue left vulva. The specimen consists of a piece of skin with underlying tissue measuring 3 x 0.6 x 1.5 cm. A slightly raised area is noted on the surface. The specimen is longitudinally bisected and submitted entirely in one cassette. / CYNDIE:gracie 05/16/21 TC:2 CPT: 02608 x2
[2021-05-16] MEDS: 0.9% Normal Saline 1,000 ML 60 ML IV ×2 (03:06→12:40)
[2021-05-16] MEDS: oxyCODONE 5 MG Tablet 10 MG PO ×4 (03:06→22:45)
[2021-05-16] MEDS: Acetaminophen 500 MG Tablet 1000 MG PO ×3 (05:01→22:55)
[2021-05-16] MEDS: Lidocaine 1% /Epi 1:100 (50ml) 50 ML VIAL (10:45)
--- NOTE | 2021-05-16 11:01 | PCM.OPRPT ---
Problems Associated Problem List Diagnoses (1) Hidradenitis suppurativa of right axilla: (2) Vulval hidradenitis suppurativa: (3) Open wound of right axillary region with complication: (4) Open wound of vulva, complicated: (5) Smoker: Report of Operation Date of Procedure: 05/16/21 Pre-Operative Diagnosis: (1) Hidradenitis suppurativa of right axilla. (2) Vulval hidradenitis suppurativa. (3) Smoker. Post-Operative Diagnosis: (1) Hidradenitis suppurativa of right axilla. (2) Vulval hidradenitis suppurativa. (3) Smoker. (4) Open surgical hidradenitis wound right axilla. (5) Open surgical hidradenitis wound left vulval area involving genitocrural crease. Surgery/Procedure Performed:: 1. Surgical preparation right axilla with excision hidradenitis (28 cm2). 2. Surgical preparation left vulval area involving genitocrural crease with excision hidradenitis and partial vulvectomy including deep subcutaneous tissue (9 cm2). Description of Surgical Findings:: 45 year old woman presents with recent flare up of hidradenitis in her right axillary area and left vulval area. She complains of increasing pain and swelling and redness. She has been to the ED and has been treated with antibiotics thus far. She recently had surgery on 05/29/20 where she underwent surgical preparation left inguinal and vulval area involving genitocrural crease with excisional debridement nonhealing hidradenitis ulcer and STSG reconstruction from left lateral abdominal wall (12 cm2) and placement of AmnioFill placental connective tissue powder, 250 mg and surgical preparation left axilla with excision recurrent hidradenitis (55 cm2) and excision left proximal inguinal hidradenitis with 6 cm complex closure repair. She had further surgery on 08/07/20 where she underwent surgical preparation left lateral inguinal area with excision hidradenitis (75 cm2). Patient denies fever. [facility] and she was very uncomfortable with the areas of induration and pain and redness and swelling. They were very tender to the touch. It was recommended to the patient to be admitted for IV antibiotics in preparation for surgery with excision of these painful areas of hidradenitis in her right axilla and left vulval area involving genitocrural crease. Patient was informed of the risks and complications of the procedure including alternatives to surgery. These were discussed with the patient personally. Patient voices understanding and wishes to proceed. Encouraged patient to stop smoking as it may have deleterious effects on wound healing. Size of defect right axilla - 7 x 4 x 2 cm. Size of defect left vulval area involving genitocrural crease - 3 x 3 x 2 cm. Surgeon: Ronnell Fraga resource room special education teacher: None Type of Anesthesia: General Specimen's removed: 1. Right axillary hidradenitis tissue to Pathology and Microbiology. 2. Left vulval hidradenitis tissue to Pathology and Microbiology. Drains: None. Estimated Blood Loss (mL): 25. Description of Procedure: Patient was taken to OR in supine position and was placed under general anesthesia. The right axilla and left vulval areas were prepped and draped in the usual fashion. SCD's were placed for DVT prophylaxis. Perioperative antibiotics were given intravenously. A díaz catheter was placed. Using xylocaine with epinephrine, the right axillary hidradenitis and left vulval hidradenitis areas were infiltrated. After waiting 5 minutes for the anesthetic to take effect, I proceeded with the right axilla first. I made a circular incision around the area of induration and redness and tenderness down through the subcutaneous tissue until the muscle was seen. Half the soft tissue was sent to Pathology for analysis to rule out carcinoma and half the soft tissue was sent to Microbiology for culture. A positive culture will necessitate antibiotic therapy. The wound was irrigated with saline. Hemostasis was obtained with electrocautery. The size of the right axillary wound after excision was 7 x 4 x 2 cm or 28 cm2. I then proceeded to the vulval area with surgical preparation with a circular incision around the area of induration and redness and tenderness. It was located in the genitocrural crease adjacent to an inguinal skin graft. A lot of fat necrosis was present which was excised and debrided along with the area of induration with a partial vulvectomy which included the deep subcutaneous tissue. Half the soft tissue was sent to Pathology for analysis to rule out carcinoma and half the soft tissue was sent to Microbiology for culture. A positive culture will necessitate antibiotic therapy. The wound was irrigated with saline. Hemostasis was obtained with electrocautery. The size of the left vulval wound after excision was 3 x 3 x 2 cm or 9 cm2. Both wounds were dressed with Mepitel nonadherent dressing followed by Kerlix gauze and Betadine followed by dry Kerlix gauze and ABD pads compression dressing. Patient tolerated the procedure well and was sent to PACU in satisfactory condition. Patient will be sent upstairs for continued postop care. The wound VAC will be placed tomorrow in the right axillary wound. Will begin Dakin's dressing changes to the left vulval wound. Grafts/Implants Used: None. Complications None. Admit VTE Documentation VTE Present on Admission: No VTE Mechan Device Prophylaxis: SCD's VTE Pharm Prophylaxis ordered?: No Addendum Addendum: Surgery Charges CPT - 76817 ICD-10 - L73.2, S41.101A, F17.200 48665 L73.2, S31.40xA, F17.200
[2021-05-16] MEDS: Pantoprazole Sodium 40 MG Tablet PO (12:59)
[2021-05-16] MEDS: diazePAM 5 MG Tablet PO (12:59)
[2021-05-16] MEDS: Senna/Docusate Sodium 1 Tablet 2 TABLET PO ×2 (13:01→22:55)
[2021-05-16] MEDS: amLODIPine 2.5 MG Tablet PO (13:07)
[2021-05-16] MEDS: Metoprolol Tartrate 25 MG Tablet PO (13:07)
[2021-05-16] MEDS: 0.9% Saline Lock 10 ML Syringe IV (15:50)
[2021-05-16] MEDS: HYDROmorphone 1 MG/ML Syringe IV ×2 (15:51→20:28)
[2021-05-16] MEDS: proMETHazine 25 MG Tablet PO (17:59)
[2021-05-16] MEDS: Ceftriaxone 1 GM/50 ML BAG IV (21:02)
[2021-05-16] MEDS: levoFLOXacin IV 500 MG/100 ML BAG 100 MG IV (22:49)
[2021-05-16] MEDS: Atorvastatin Calcium 40 MG Tablet PO (22:55)
[2021-05-16] MEDS: hydrOXYzine PAM 25 MG Capsule 50 MG PO (22:55)
[2021-05-16] MEDS: Clopidogrel Bisulfate 75 MG Tablet PO (22:56)
[2021-05-16] MEDS: Escitalopram Oxalate 20 MG Tablet PO (22:56)
[2021-05-17] MEDS: diazePAM 5 MG Tablet PO ×2 (01:20→14:43)
[2021-05-17 04:19] VITALS: BP 96/48; PULSE 61; RESP 18; TEMP 36.6; O2SAT 94
[2021-05-17 06:12] VITALS: BP 120/54; PULSE 58; O2SAT 100
[2021-05-17] MEDS: Ondansetron 8 MG Tablet PO (06:15)
[2021-05-17] MEDS: 0.9% Normal Saline 1,000 ML 60 ML IV (06:32)
[2021-05-17 06:38] LABS: Hematocrit 40.1 % (37-47); Hemoglobin 13.1 g/dL (12.0-15.0); Mean Corp Hgb Conc 32.7 g/dL (32-36); Mean Platelet Vol. 11.4 fl (6.2-12.0); Platelet Count 163 K/mm3 (150-450); RBC Distribution Width SD 46.4 fl (35.1-43.9); Red Blood Count 4.09 M/mm3 (4.2-5.4); White Blood Count 6.5 K/mm3 (4.4-11.0)
[2021-05-17] MEDS: Acetaminophen 500 MG Tablet 1000 MG PO ×2 (06:54→13:38)
[2021-05-17] MEDS: oxyCODONE 5 MG Tablet 10 MG PO ×2 (06:55→12:22)
[2021-05-17 07:18] LABS: Anion Gap 3 (5-15); BUN 17 mg/dL (7-18); BUN/Creat Ratio 20.4 RATIO (10-20); Calcium,Total 8.5 mg/dL (8.5-10.1); Chloride 108 mmol/L (98-107); Creatinine, Serum 0.83 mg/dL (0.55-1.02); EST Glomerular Filtration Rate 79 mL/min (>60); Est Glom Filt Rate - Afr Amer 96 mL/min (>60); Estimated Creatinine Clearance 81.82 ml/min; Glucose 85 mg/dL (74-106); Potassium 4.2 mmol/L (3.5-5.1); Sodium Level 141 mmol/L (136-145)
[2021-05-17 07:54] VITALS: BP 107/49; PULSE 62; RESP 18; TEMP 36.9; O2SAT 99
[2021-05-17] MEDS: Aspirin E.C. 81 MG Tablet PO (08:01)
--- NOTE | 2021-05-17 09:30 | NURSING ---
This nurse into room to medicate patient for pain prior to dressing change. Pt asking to take shower first. Pt aware that she can have the IV pain meds when she is finished in the shower. Maryann SOed at this time per patient request. Patient to call when finished in the shower for pain medication and then Lauren VICTORIA will complete dressing changes.
[2021-05-17] MEDS: HYDROmorphone 1 MG/ML Syringe IV (09:49)
[2021-05-17] MEDS: 0.9% Saline Lock 10 ML Syringe IV (09:50)
[2021-05-17] MEDS: Pantoprazole Sodium 40 MG Tablet PO (09:51)
[2021-05-17] MEDS: Senna/Docusate Sodium 1 Tablet 2 TABLET PO (09:51)
--- NOTE | 2021-05-17 11:56 | NURSING ---
wound photo: right axilla
--- NOTE | 2021-05-17 11:56 | NURSING ---
wound photo: left vulva
[2021-05-17] MEDS: proMETHazine 25 MG Tablet PO (12:22)
[2021-05-17 13:41] VITALS: BP 100/44; PULSE 55; RESP 16; TEMP 36.8; O2SAT 99
--- NOTE | 2021-05-17 14:26 | PCM.PN.SRG ---
Subjective Subjective Postop #1 Patient is resting comfortably. Wounds are stable with no active bleeding. VAC applied to right axilla. Will proceed with Dakin's dressing changes to the left vulval area. Objective Data Objective Data Vital Signs: Vital Signs Temp Pulse Resp BP Pulse Ox 98.2 F 55 L 16 100/44 L 99 05/17/21 13:41 05/17/21 13:41 05/17/21 13:41 05/17/21 13:41 05/17/21 13:41 Oxygen Delivery Method Room Air Weight: 169 lb 15.622 oz Body Mass Index (BMI) 27.4 Intake & Output: Intake and Output for Last 24 Hours 05/15/21 05/16/21 05/17/21 23:59 23:59 23:59 Intake Total 2081 2976 / 2976 2202 / 2202 Output Total 1974 / 2299 Balance 2081 1001 / 1001 -97 / -97 Medical Nutrition Assessment Dietitian: Nutrition Therapy Diagnosis Start: 05/14/21 12:00 Freq: Status: Active Protocol: Document 05/16/21 14:48 AG (Rec: 05/16/21 14:48 AG [id number]) Nutrition Malnutrition Evidence of Malnutrition Exists Yes Malnutrition (severe): Acute Illness/Injury Evidenced By Suboptimal Energy Intake ( Severe),Weight Loss (Severe) Clinical Problem Acute Disease or Injury Related Malnutrition Etiology Severe pro/esvin malnutrition in the context of acute illness related to altered GI function /nausea and vomiting Signs/Symptoms as evidenced by 3-5% wt loss x past 1-2 weeks and meeting less than 50% estimated nutrition needs by mouth x past 7-10 days per pt report Status Active Problem Recommendation Dietitian Recommendations/Changes Continue Regular diet, Franco BID for wound healing as ordered. Will add 120mL ensure clear 4x/day for additional protein if consumed. Lab / Micro Data Attestation: I reviewed the patient's lab results. Result Diagrams: 05/17/21 05:30 05/17/21 05:30 Labs: Laboratory Results - last 24 hr 05/17/21 05:30: WBC 6.5, RBC 4.09 L, Hgb 13.1, Hct 40.1, MCV 98.0, MCH 32.0, MCHC 32.7, RDW Std Deviation 46.4 H, RDW Coeff of Ping 13.0, Plt Count 163, MPV 11.4 05/17/21 05:30: Sodium 141, Potassium 4.2, Chloride 108 H, Carbon Dioxide 30.0, Anion Gap 3 L, BUN 17, Creatinine 0.83, Estim Creat Clear Calc 81.82, Est GFR (MDRD) Af Amer 96, Est GFR (MDRD) Non-Af 79, BUN/Creatinine Ratio 20.4 H, Glucose 85, Calcium 8.5 Micro: Microbiology 05/16/21 10:50 Tissue - Other Gram Stain - Final 05/16/21 10:50 Tissue - Other Wound Culture - Preliminary No growth-Final to follow 05/16/21 10:50 Tissue - Axilla, Right Gram Stain - Final 05/16/21 10:50 Tissue - Axilla, Right Wound Culture - Preliminary GNR lactose diesel locomotive firer/fireman 05/15/21 10:55 Mucosa - Nose SARS-CoV-2 Antigen (Rapid) - Final Physical Exam Const Constitutional Narrative: General - Alert and Oriented HEENT - PERRL. EOMI. Abdomen - Soft and nondistended. Extremities - FROM. No axillary adenopathy. Radial pulses are palpable. Right axillary hidradenitis wound is stable. No active bleeding noted. VAC applied. Genital - Left vulval hidradenitis wound is stable. No active bleeding noted. Will dress with Dakin's dressing changes. Neuro - CN II-XII grossly intact. Psych - Normal mood and affect. Assessment & Plan Assessment/Plan (1) Hidradenitis suppurativa of right axilla: (2) Vulval hidradenitis suppurativa: (3) Open wound of right axillary region with complication: (4) Open wound of vulva, complicated: (5) Smoker: PLAN: Right axillary and left vulval hidradenitis wounds are stable. No active bleeding noted. VAC applied to right axilla. Dakin's dressing changes for the left vulval area. Operative culture shows Gram negative rods lactose diesel locomotive firer/fireman. Will send home on Levaquin. Prealbumin from 05/13/21 was 19.4. Encourage nutritional supplementation with protein to help the healing process. Patient wanted díaz catheter removed today. She is voiding without difficulty. Patient is tolerating po analgesia. Discharge home today. Followup Wound Center one week. Wrote scripts for Doxycycline and Levaquin. Wrote scripts for Percocet for pain (40 tabs) and for Valium for spasm (20 tabs). Encouraged patient to stop smoking as it may have deleterious effects on wound healing.
--- NOTE | 2021-05-17 14:37 | PCM.DC ---
Discharge Instructions Diet Discharge Diet: No restrictions and - (encourage nutritional supplementation with protein to help the healing process.) Activity Discharge Activity: May Not Drive, May Shower (at the time of the dressing changes.) and - (keep right arm elevated. no heavy lifting.) May resume sexual activity in: 10-14 days Weight Bearing Status: Weight bearing as tolerated Lifting Restrictions: 20 lbs. Keep extremity elevated above heart level: Right Arm Dressing / Incision Call your doctor if your incision/area has: Continuous Slow Oozing, Sudden Increased Bleeding, Increased Pain/ Swelling, Increased Redness, Foul Smelling Discharge and Swelling at the incision site Call your doctor if you observe: Fever of 101 or Higher, Coldness, Increased Pain, Shortness of breath, Chest pain, Calf discomfort and Uncontrolled pain Change Dressing in: 1 day (Dakin's dressing changes daily to left vulval area.) Remove Dressing in: 2 days (Home Health to assist with VAC changes to right axilla at 150 mmHg continuous suction.) Cleanse incision/area with: Soap & Water (at the time of the Dakin's dressing change and the VAC change.) and - (may shower at the time of the dressing changes.) Follow Up Care Please Follow Up With: Ronnell Fraga MD When: Thursday May 27, 2021. call [phone] for appt time. Test Results: Test results from this visit will be discussed in further detail at your follow-up appointment, if applicable. Discharge Plan Admission Admit Date/Time: 05/13/21 13:58 Primary Reason for Your Visit: hidradenitis infection with surgery. Attending Provider: Ronnell Fraga Discharge Orders/Prescriptions Prescriptions: New levofloxacin 500 mg tablet 500 mg PO DAILY Qty: 14 RF: 2 oxycodone-acetaminophen [Percocet] 5-325 mg tablet 1 tab PO Q4H PRN (Reason: pain (scale score 7-10)) 7 Days Qty: 40 RF: 0 diazepam [Valium] 5 mg tablet 5 mg PO TID PRN (Reason: spasms) Qty: 20 RF: 0 Continued metoprolol tartrate 25 mg tablet 25 mg PO BID RF: 0 hydroxyzine HCl 50 mg tablet 50 mg PO QHS RF: 0 clopidogrel 75 mg tablet 75 mg PO QHS RF: 0 omeprazole 40 MG capsule,delayed release(DR/EC) 40 mg PO DAILY RF: 0 promethazine 25 MG tablet 25 mg PO 4X/DAY PRN PRN (Reason: Nausea) Qty: 30 RF: 1 ondansetron HCl 8 MG tablet 8 mg PO Q8H PRN PRN (Reason: Nausea) RF: 0 escitalopram oxalate 20 MG tablet 20 mg PO QHS RF: 0 sennosides-docusate sodium 1 EACH tablet 4 ea PO QODAY RF: 0 albuterol sulfate 1 PUFF inhaler 1 - 2 puff inhalation Q4H PRN PRN (Reason: Asthma) RF: 0 aspirin 81 MG tablet 81 mg PO DAILY@0800 RF: 0 atorvastatin [Lipitor] 40 mg Tablet 40 mg PO DAILY RF: 0 amlodipine [Norvasc] 2.5 mg Tablet 2.5 mg PO DAILY RF: 0 lisinopril 2.5 mg Tablet 2.5 mg PO DAILY RF: 0 doxycycline monohydrate 100 mg capsule 100 mg PO BID Qty: 60 RF: 1 Held hydrocodone-acetaminophen 1 TABLET tablet 1 tab PO Q6H PRN PRN (Reason: Pain) 3 Days Qty: 12 RF: 0 Hold Instructions: Resume on 06/02/21. Referrals / Follow Up: BROOKS IBARRA [Other] Disposition Disposition (needs filled in before D/C Order can be placed): Home Health Service
--- NOTE | 2021-05-17 15:48 | NURSING ---
patient switched over to the home VAC. reviewed alarms etc. with patient. patient aware to take wound VAC dressing to wound center appts. proof of delivery form signed and faxed to [facility].
--- NOTE | 2021-05-17 22:01 | DS.PCM_ITS ---
Providers Date of Admission: 05/13/21 Date of Discharge: 05/17/21 Primary Care Physician: BROOKS IBARRA Attending Physician: Dr. Ronnell Fraga MD Consultations 05/17/21 06:40 Consult: Onc/Wound/driver engineer Routine Comment: Reason for Consult:: wound vac Reason For Visit: HIDRADINITIS Diagnosis Discharge Diagnosis (1) Hidradenitis suppurativa of right axilla: Status: Acute Code(s): L73.2 - Hidradenitis suppurativa (2) Vulval hidradenitis suppurativa: Status: Chronic Code(s): L73.2 - Hidradenitis suppurativa (3) Open wound of right axillary region with complication: Status: Acute Code(s): S41.101A - Unspecified open wound of right upper arm, initial encounter (4) Open wound of vulva, complicated: Status: Acute Code(s): S31.40XA - Unspecified open wound of vagina and vulva, initial encounter (5) Smoker: Status: Chronic Code(s): F17.200 - Nicotine dependence, unspecified, uncomplicated Plan: Patient was admitted for IV antibiotics for her hidradenitis. She had surgery on 05/16/21 where she underwent surgical preparation right axilla with excision hidradenitis (28 cm2) and surgical preparation left vulval area involving genitocrural crease with excision hidradenitis and partial vulvectomy including deep subcutaneous tissue (9 cm2). Postoperative wound care with the VAC for the right axilla and Dakin's dressing changes for the left vulval area. Will be sent home on Levaquin and Doxycycline. Followup Wound Center one week. Medications at Discharge Home Medications clopidogrel 75 mg tablet 75 mg PO QHS 06/21/19 hydroxyzine HCl 50 mg tablet 50 mg PO QHS 06/21/19 metoprolol tartrate 25 mg tablet 25 mg PO BID 06/21/19 omeprazole 40 mg PO DAILY 10/21/19 promethazine 25 mg PO 4X/DAY PRN PRN #30 tab 10/29/19 ondansetron HCl 8 mg PO Q8H PRN PRN 11/14/19 escitalopram oxalate 20 mg PO QHS 12/16/19 albuterol sulfate 1 - 2 puff INHALATION Q4H PRN PRN 03/05/20 sennosides-docusate sodium 4 ea PO QODAY 03/05/20 aspirin 81 mg PO DAILY@0800 07/27/20 hydrocodone-acetaminophen 1 tab PO Q6H PRN PRN 3 Days #12 tablet 05/10/21 amlodipine [Norvasc] 2.5 mg PO DAILY 05/13/21 atorvastatin [Lipitor] 40 mg PO DAILY 05/13/21 lisinopril 2.5 mg PO DAILY 05/13/21 diazepam [Valium] 5 mg PO TID PRN #20 tab 05/17/21 doxycycline monohydrate 100 mg PO BID #60 cap 05/17/21 levofloxacin 500 mg PO DAILY #14 tab 05/17/21 oxycodone-acetaminophen [Percocet] 1 tab PO Q4H PRN 7 Days #40 tab 05/17/21 Hospital Course Operations - (05/16/21 - 1. Surgical preparation right axilla with excision hidradenitis (28 cm2). 2. Surgical preparation left vulval area involving genitocrural crease with excision hidradenitis and partial vulvectomy including deep subcutaneous tissue (9 cm2).) Procedures Wound vac placement Summary of Care Provided Minutes Spent on Discharge: 35 Hospital Course: 45 year old woman presents with recent flare up of hidradenitis in her right axillary area and left vulval area. She complains of increasing pain and swelling and redness. She has been to the ED and has been treated with antibiotics thus far. She recently had surgery on 05/29/20 where she underwent surgical preparation left inguinal and vulval area involving genitocrural crease with excisional debridement nonhealing hidradenitis ulcer and STSG reconstruction from left lateral abdominal wall (12 cm2) and placement of AmnioFill placental connective tissue powder, 250 mg and surgical preparation left axilla with excision recurr ent hidradenitis (55 cm2) and excision left proximal inguinal hidradenitis with 6 cm complex closure repair. She had further surgery on 08/07/20 where she underwent surgical preparation left lateral inguinal area with excision hidradenitis (75 cm2). Patient denies fever. She was seen at the [facility] today and she was very uncomfortable with the areas of induration and pain and redness and swelling. They were very tender to the touch. It was recommended to the patient to be admitted for IV antibiotics in preparation for surgery with excision of these painful areas of hidradenitis in her right axilla and left vulval area involving genitocrural crease. She was placed on Ancef and Levaquin. The Ancef was changed the Ceftriaxone the following day. The redness and tenderness and induration improved over the next few days. On 05/16/21 she was taken to the operating room where she underwent surgical preparation right axilla with excision hidradenitis (28 cm2) and surgical prep aration left vulval area involving genitocrural crease with excision hidradenitis and partial vulvectomy including deep subcutaneous tissue (9 cm2). She tolerated the procedure well. The following day the VAC was placed in the right axilla. Dakin's dressing changes were placed in the left vulval area. The VAC was approved and she was discharged home on the first postoperative day in satisfactory condition. Prealbumin was 19.4. Encouraged nutritional supplementation with protein to help the healing process. The initial wound culture from the right axilla showed Gram negative rods lactose implementation coordinator. Will send home on Levaquin. Doxycycline also added for flare ups. Discharge home on 05/17/21 in satisfactory condition. Wrote scripts for Levaquin and Doxycycline. Wrote scripts for Percocet for pain (40 tabs) and for Valium for spasm (20 tabs). Followup at Wound Center one week. Encouraged patient to stop smoking as it may have deleterious effects on wound healing. Physical Exam Narrative General - Alert and Oriented HEENT - PERRL. EOMI. Abdomen - Soft and nondistended. Extremities - FROM. No axillary adenopathy. Radial pulses are palpable. Right axillary hidradenitis wound is stable. No active bleeding noted. VAC applied. Genital - Left vulval hidradenitis wound is stable. No active bleeding noted. Will dress with Dakin's dressing changes. Neuro - CN II-XII grossly intact. Psych - Normal mood and affect. Weight / BMI Weight Weight: 169 lb 15.622 oz Body Mass Index (BMI) 27.4 ABG / Lab / Microbiology Data Attestation: I reviewed the patient's lab results. Result Diagrams: 05/17/21 05:30 05/17/21 05:30 Laboratory: Laboratory Results - last 24 hr 05/17/21 05:30: WBC 6.5, RBC 4.09 L, Hgb 13.1, Hct 40.1, MCV 98.0, MCH 32.0, MCHC 32.7, RDW Std Deviation 46.4 H, RDW Coeff of Ping 13.0, Plt Count 163, MPV 11.4 05/17/21 05:30: Sodium 141, Potassium 4.2, Chloride 108 H, Carbon Dioxide 30.0, Anion Gap 3 L, BUN 17, Creatinine 0.83, Estim Creat Clear Calc 81.82, Est GFR (MDRD) Af Amer 96, Est GFR (MDRD) Non-Af 79, BUN/Creatinine Ratio 20.4 H, G lucose 85, Calcium 8.5 Microbiology: Microbiology 05/16/21 10:50 Tissue - Axilla, Right Gram Stain - Final 05/16/21 10:50 Tissue - Axilla, Right Wound Culture - Preliminary GNR lactose implementation coordinator 05/16/21 10:50 Tissue - Axilla, Right Anaerobic Culture - Preliminary 05/16/21 10:50 Tissue - Other Gram Stain - Final 05/16/21 10:50 Tissue - Other Wound Culture - Preliminary No growth-Final to follow 05/15/21 10:55 Mucosa - Nose SARS-CoV-2 Antigen (Rapid) - Final D/C Instructions Discharge Diet: No restrictions and - (encourage nutritional supplementation with protein to help the healing process.) May resume sexual activity in: 10-14 days Weight Bearing Status: Weight bearing as tolerated Keep extremity elevated above heart level: Right Arm Call your doctor if your incision/area has: Continuous Slow Oozing, Sudden Increased Bleeding, Increased Pain/ Swelling, Increased Redness, Foul Smelling Discharge and Swelling at the incision site Call your doctor if you observe: Fever of 101 or Higher, Coldness, Increased Pain, Shortness of breath, Chest pain, Calf discomfort and Uncontrolled pain Cleanse incision/area with: Soap & Water (at the time of the Dakin's dressing change and the VAC change.) and - (may shower at the time of the dressing changes.) Please Follow Up With: Ronnell Fraga MD When: Thursday May 27, 2021. call [phone] for appt time. Meaningful Use Info Meaningful Use Diagnoses (Choose all that apply): None applicable Discharge Plan Admission Admit Date/Time: 05/13/21 13:58 Primary Reason for Your Visit: hidradenitis infection with surgery. Attending Provider: Ronnell Fraga Discharge Orders/Prescriptions Prescriptions: New levofloxacin 500 mg tablet 500 mg PO DAILY Qty: 14 RF: 2 oxycodone-acetaminophen [Percocet] 5-325 mg tablet 1 tab PO Q4H PRN (Reason: pain (scale score 7-10)) 7 Days Qty: 40 RF: 0 diazepam [Valium] 5 mg tablet 5 mg PO TID PRN (Reason: spasms) Qty: 20 RF: 0 Continued metoprolol tartrate 25 mg tablet 25 mg PO BID RF: 0 hydroxyzine HCl 50 mg tablet 50 mg PO QHS RF: 0 clopidogrel 75 mg tablet 75 mg PO QHS RF: 0 omeprazole 40 MG capsule,delayed release(DR/EC) 40 mg PO DAILY RF: 0 promethazine 25 MG tablet 25 mg PO 4X/DAY PRN PRN (Reason: Nausea) Qty: 30 RF: 1 ondansetron HCl 8 MG tablet 8 mg PO Q8H PRN PRN (Reason: Nausea) RF: 0 escitalopram oxalate 20 MG tablet 20 mg PO QHS RF: 0 sennosides-docusate sodium 1 EACH tablet 4 ea PO QODAY RF: 0 albuterol sulfate 1 PUFF inhaler 1 - 2 puff inhalation Q4H PRN PRN (Reason: Asthma) RF: 0 aspirin 81 MG tablet 81 mg PO DAILY@0800 RF: 0 atorvastatin [Lipitor] 40 mg Tablet 40 mg PO DAILY RF: 0 amlodipine [Norvasc] 2.5 mg Tablet 2.5 mg PO DAILY RF: 0 lisinopril 2.5 mg Tablet 2.5 mg PO DAILY RF: 0 doxycycline monohydrate 100 mg capsule 100 mg PO BID Qty: 60 RF: 1 Held hydrocodone-acetaminophen 1 TABLET tablet 1 tab PO Q6H PRN PRN (Reason: Pain) 3 Days Qty: 12 RF: 0 Hold Instructions: Resume on 06/02/21. Referrals / Follow Up: BROOKS IBARRA [Other] Disposition Disposition (needs filled in before D/C Order can be placed): Home Health Service
== END 2021-05-17 16:58 | disposition home health service (06) | DRG 364 ==
PROVIDERS: Admitting Provider Surgery; Visit Provider Surgery
PROC: 0UBMXZZ Excision of Vulva, External Approach (ICD-10-PCS; principal; 2021-05-16 09:30)
DX: L73.2 Hidradenitis suppurativa (principal); E43 Unspecified severe protein-calorie malnutrition; Z68.27 Body mass index [BMI] 27.0-27.9, adult; S41.101A Unspecified open wound of right upper arm, initial encounter; S31.40XA Unspecified open wound of vagina and vulva, initial encounter; X58.XXXA Exposure to other specified factors, initial encounter; E78.00 Pure hypercholesterolemia, unspecified; J45.909 Unspecified asthma, uncomplicated; F41.9 Anxiety disorder, unspecified; F31.9 Bipolar disorder, unspecified; K21.9 Gastro-esophageal reflux disease without esophagitis; K58.9 Irritable bowel syndrome, unspecified; G43.909 Migraine, unspecified, not intractable, without status migrainosus; Z86.2 Personal history of diseases of the blood and blood-forming organs and certain disorders involving the immune mechanism; Z86.718 Personal history of other venous thrombosis and embolism; Z87.442 Personal history of urinary calculi; Z79.899 Other long term (current) drug therapy; F17.200 Nicotine dependence, unspecified, uncomplicated; Z09 Encounter for follow-up examination after completed treatment for conditions other than malignant neoplasm
CPT/HCPCS: 36415; 80048; 80053; 84134; 85027; 85652; 86140; 87070; 87075; 87077; 87102; 87176; 87205; 87206; 87426; 88304; 88305; 93005; 97802; 97803; 99213; 99406; J7030; J7120; A4216; G0463; J2405

== ENCOUNTER 2021-06-10 10:00 | Outpatient (RCR) | payer MEDICAID, SELFPAY ==
[2021-05-16 08:36] VITALS: BMI 27.4
[2021-05-19 00:37] VITALS: BP 131/67; PULSE 92; RESP 18; TEMP 36.7
[2021-05-27 09:56] VITALS: BP 134/71; PULSE 95; RESP 20; TEMP 36.7; BMI 27.4
--- NOTE | 2021-05-27 12:20 | PN.PCM_ITS ---
History of Present Illness Date of Service: 05/27/21 Chief Complaint: Painful hidradenitis flare-ups right axilla and left groin. History of Wound: 45 year old woman presents with recent flare up of hidradenitis in her right axillary area and left vulval area. She complains of increasing pain and swelling and redness. She has had multiple trips to the ED and has been placed on antibiotics and was admitted and placed on IV antibiotics before she had surgery. Surgery 05/16/2021 - 1. Surgical preparation right axilla with excision hidradenitis (28 cm2). 2. Surgical preparation left vulval area involving genitocrural crease with excision hidradenitis and partial vulvectomy including deep subcutaneous tissue (9 cm2). Wound care -wound VAC 250mmHg to the right axilla. This dressing is changed 3 times a week. Dakin's 0.25% to the left groin wound, covered by gauze daily. Discharged home on Levaquin and doxycycline. Operative cultures from 05/16/2021 were all negative for bacterial growth. Today denies any fever chills nausea vomiting. She states she has a good appetite. Progress of Wound: Both wounds are stable. Subjective Subjective Tolerating wound VAC well. Left groin has increased pain and discomfort. Objective Data Objective Data Vital Signs: Vital Signs Temp Pulse Resp BP 98.1 F 95 20 H 134/71 H 05/27/21 09:56 05/27/21 09:56 05/27/21 09:56 05/27/21 09:56 Weight: 176 lb 0.217 oz Body Mass Index (BMI) 27.4 Charges/Coding Procedures Integumentary 111xxx-113xx: [id number] Global Visit Physical Exam Const alert and oriented x3 General Appearance: cooperative HEENT normocephalic Head and Scalp: atraumatic Eyes PERRL Lymph Lymphatic: no lymphedema noted Resp normal respiratory effort Cardio regular rate GI non-tender Palpation: soft Extremity normal capillary refill Skin no rashes or lesions noted Wound Narrative: Right axilla wound is beefy pink. Periwound is clear. Left groin wound is beefy pink. 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 Any new allergies or adverse reactions No Had a fall/change in ADL's that may No increase risk of falls Signs or symptoms of abuse and/or No neglect since last visit Have you been in the hospital since your No last visit? Has dressing in place as prescribed Yes Has compression in place as prescribed N/A Has offloadiing in place as prescribed N/A Experienced any changes in pain level or No management Pain Scale: 0-10 Numeric Is Patient Pain Free? Yes - Nurse 1 - General Ulcer Measurement Start: 05/27/21 09:56 Freq: Status: Active Protocol: Activity Type Activity Date Activity User E-Sign Co-Sign Detail Recorded Client Recorded Date Recorded By Document 05/27/21 09:56 DL [id number] 05/27/21 10:06 DL 05/27/21 09:56 Wound Center Nurse 1 37 R Axilla -Current Size (cm) - Length 2.3 -Current Size (cm) - Width 5.5 -Current Size (cm) - Depth 0.4 -Total Square Cm 12.65 -Photo Taken Yes -Exudate Type Serosanguineous -Wound Margin Distinct, Outline Attached -Granulation Amt Large (67-100%) -Granulation Quality [place],Red -Necrosis Amt Small (1-33%) -Necrotic Tissue Type Adherent Slough -Structure Exposed N/A -Texture ([place]-wound Skin Appearance) Scarring -Color ([place]-wound Skin Appearance) Assessed -Tenderness on Palpation ([place]-wound Yes Skin Appearance) -Ulcer Cleansing Wound Cleanser -Foul Odor after Cleansing No -Anesthetic Used 4% Lidocaine Solution #6 L Groin -Current Size (cm) - Length 2 -Current Size (cm) - Width 2 -Current Size (cm) - Depth 1.2 -Total Square Cm 4 -Photo Taken Yes -Exudate Amt Medium -Exudate Type Serosanguineous -Wound Margin Distinct, Outline Attached -Granulation Amt Large (67-100%) -Granulation Quality [place] -Necrosis Amt Small (1-33%) -Necrotic Tissue Type Adherent Slough -Structure Exposed N/A -Texture ([place]-wound Skin Appearance) Scarring -Moisture ([place]-wound Skin Appearance) No Abnormality -Color ([place]-wound Skin Appearance) No Abnormality -Temperature ([place]-wound Skin No Abnormality Appearance) (Pt Warm) -Tenderness on Palpation ([place]-wound No Skin Appearance) -Ulcer Cleansing Wound Cleanser -Foul Odor after Cleansing No -Anesthetic Used 4% Lidocaine Solution WC - Nurse 2 - General Ulcer CM Notes Start: 05/27/21 09:56 Freq: Status: Active Protocol: Activity Type Activity Date Activity User E-Sign Co-Sign Detail Recorded Client Recorded Date Recorded By Document 05/27/21 10:16 NINA [id number] 05/27/21 10:23 NINA 05/27/21 10:16 Wound Center Nurse 2 37 R Axilla -Time 10:17 -Correct Patient Yes -Correct Side, Site, Position Yes -Correct Procedure Yes -Procedure Performed Yes -Type of Procedure Debridement -Clinical Debridement Subcutaneous -Tissue Removed Subcutaneous -Post Debridement (cm) - Length 5.7 -Post Debridement (cm) - Width 2.5 -Post Debridement (cm) - Depth 0.9 -Total Square (Post) (cm) 14.25 -Area of Debridement (cm) - Length 5.7 -Area of Debridement (cm) - Width 2.5 -Total Square (Area) (cm) 14.25 -Tunneling No -Undermining/Tunneling No -Circular Undermining No -Wound/Ulcer Outcome Not Healed -Ulcer Cleansing Rinsed/ Irrigated with Saline -Foul Odor after Cleansing No -Bioengineered Tissue No -Bleeding Controlled with Pressure -Offloading No -Treatment Response Procedure Tolerated Well -Debridement - Subq, 1st 20sq cm Yes #6 L Groin -Time 10:17 -Correct Patient Yes -Correct Side, Site, Position Yes -Correct Procedure Yes -Procedure Performed Yes -Type of Procedure Debridement -Clinical Debridement Subcutaneous -Tissue Removed Subcutaneous -Post Debridement (cm) - Length 2.2 -Post Debridement (cm) - Width 2.4 -Post Debridement (cm) - Depth 1.3 -Total Square (Post) (cm) 5.28 -Area of Debridement (cm) - Length 2.2 -Area of Debridement (cm) - Width 2.4 -Total Square (Area) (cm) 5.28 -Tunneling No -Undermining/Tunneling No -Circular Undermining No -Wound/Ulcer Outcome Not Healed -Ulcer Cleansing Rinsed/ Irrigated with Saline -Foul Odor after Cleansing No -Bioengineered Tissue No -Bleeding Controlled with Silver Nitrate -Offloading No -Treatment Response Procedure Tolerated Well -Debridement - Subq, 1st 20sq cm No Pain Scale: 0-10 Numeric Is Patient Pain Free? Yes Wound debrided: Axilla wound Laterality: Right Type of Debridement: Excisional debridement Anesthesia Used: 5% Lidocaine Gel Depth: Down to and including healthy tissue and in the subcutaneous layer Percentage of wound debrided: 100 Instrument Used: 5mm curette Tissue Removed: Subcutaneous tissue and slough Severity: Fat Layer Exposed Amount of bleeding with debridement: Mild Bleeding Controlled with: Pressure Patient tolerated procedure: Patient tolerated procedure well Additional Wound Wound debrided: Groin wound Laterality: Left Type of Debridement: Excisional debridement Anesthesia Used: 5% Lidocaine Gel Depth: Down to and including healthy tissue and in the subcutaneous layer Percentage of wound debrided: 100 Instrument Used: 5mm curette Tissue Removed: Subcutaneous tissue and slough Severity: Fat Layer Exposed Amount of bleeding with debridement: Mild Bleeding Controlled with: Pressure Patient tolerated procedure: Patient tolerated procedure well Assessment/Plan Assessment/Plan (1) Open wound of right axillary region with complication: CODE(S): S41.101A - Unspecified open wound of right upper arm, initial encounter (2) Open wound of vulva, complicated: CODE(S): S31.40XA - Unspecified open wound of vagina and vulva, initial encounter (3) Vulval hidradenitis suppurativa: CODE(S): L73.2 - Hidradenitis suppurativa (4) Hidradenitis suppurativa of right axilla: CODE(S): L73.2 - Hidradenitis suppurativa (5) Smoker: CODE(S): F17.200 - Nicotine dependence, unspecified, uncomplicated (6) Other acute postprocedural pain: CODE(S): G89.18 - Other acute postprocedural pain PLAN: Wound care - Wound VAC to right axilla at 150 mmHg. Dressing to be changed 3 times per week. Home health to help with VAC dressing changes. Left groin wound Dakin's 0.25 % moistened gauze topped by dry ABD to be changed daily. Wash both wounds with soap and water at the time of the dressing ch anges. Continue Levaquin and Doxycycline. Renewed Percocet (28 tabs) and Valium (14 tabs) for pain and muscle spasms. PDMP reviewed. Follow up 2 weeks.
[2021-06-10 09:24] VITALS: BP 118/70; PULSE 79; RESP 18; TEMP 36.6; BMI 27.4
--- NOTE | 2021-06-10 09:43 | PCM.WC.PN ---
History of Present Illness Date of Service: 06/10/21 Chief Complaint: Painful hidradenitis flare-ups right axilla and left groin. History of Wound: 45 year old woman presents with recent flare up of hidradenitis in her right axillary area and left vulval area. She complains of increasing pain and swelling and redness. She has had multiple trips to the ED and has been placed on antibiotics and was admitted and placed on IV antibiotics before she had surgery. Surgery 05/16/2021 - 1. Surgical preparation right axilla with excision hidradenitis (28 cm2). 2. Surgical preparation left vulval area involving genitocrural crease with excision hidradenitis and partial vulvectomy including deep subcutaneous tissue (9 cm2). Wound care - Stop wound VAC to the right axilla and Dakin's to left groin. Start Aquacel-Ag to both the right axilla and the left groin ulcers daily, cover with gauze, secure with tape. Discharged home on Levaquin and doxycycline, which she has completed. Operative cultures from 05/16/2021 were all negative for bacterial growth. She continues to have right arm pain, scheduled for ultrasound today to evaluate for DVT. Today denies any fever chills nausea vomiting. She states she has a good appetite. Progress of Wound: Both wounds have improved. Objective Data Objective Data Vital Signs: Vital Signs Temp Pulse Resp BP 97.8 F 79 18 118/70 06/10/21 09:24 06/10/21 09:24 06/10/21 09:24 06/10/21 09:24 Weight: 176 lb 0.217 oz Body Mass Index (BMI) 27.4 Charges/Coding Procedures Integumentary 111xxx-113xx: 73716 Global Visit Physical Exam Const alert and oriented x3 General Appearance: cooperative HEENT normocephalic Eyes PERRL Lymph Lymphatic: no lymphedema noted Resp normal respiratory effort Cardio regular rate GI non-tender Palpation: soft Extremity normal capillary refill Extremity Narrative: Right arm tenderness with movement and palpation. Good ROM of right arm. Skin Wound Narrative: Right axilla wound is beefy pink, healing well, good granulation tissue present. Left groin wound cluster is healing well with good granulation tissue present. Neuro CN's II-XII intact bilaterally Psych Appearance: grossly normal Debridement Note Debridement Note Post-Debridement Measurements and Additional Note: Post-Debridement Measurements/Treatment - Nurse 1 - General Ulcer Assessment Start: 05/27/21 09:56 Freq: Status: Active Protocol: ANTONIA Activity Type Activity Date Activity User E-Sign Co-Sign Detail Recorded Client Recorded Date Recorded By Document 05/27/21 09:56 DL [id number] 05/27/21 10:06 DL Document 06/10/21 09:24 DL [id number] 06/10/21 09:31 DL 05/27/21 06/10/21 09:56 09:24 WC - Today's Visit Information Type of service Follow-up Visit Follow-up Visit (Physician/IT SOLUTIONS SALES CONSULTANT (Physician/IT SOLUTIONS SALES CONSULTANT ) ) Arrival Mode Cane Ambulatory Transfer Assistance None None Patient Identification Verified (Name & Yes ) Patient Requires Transmission-Based No No Precautions Height and Weight Body Mass Index (BMI) 27.4 27.4 BMI Classification Overweight Overweight Vital Signs Temperature (97.8 F-99.1 F) 98.1 F 97.8 F Temperature Source Temporal Temporal Pulse Rate (60-100) 95 79 Pulse Location Monitor Monitor Respiratory Rate (12-18) 20 H 18 Respiratory rate source Observation Observation Blood Pressure (90/60-120/80) 134/71 H 118/70 Blood Pressure Mean (mm Hg) 92 86 Source Monitor Monitor History Since Last Visit- (Skip if this is Patient's initial visit) Have you changed medications since your No No last visit? Any new allergies or adverse reactions No No Had a fall/change in ADL's that may No No increase risk of falls Signs or symptoms of abuse and/or No No neglect since last visit Have you been in the hospital since your No No last visit? Has dressing in place as prescribed Yes Yes Has compression in place as prescribed N/A No Has offloadiing in place as prescribed N/A N/A Experienced any changes in pain level or No No management Pain Scale: 0-10 Numeric Is Patient Pain Free? Yes Yes MIRYAM - Nurse 1 - General Ulcer Measurement Start: 05/27/21 09:56 Freq: Status: Active Protocol: Activity Type Activity Date Activity User E-Sign Co-Sign Detail Recorded Client Recorded Date Recorded By Document 05/27/21 09:56 DL [id number] 05/27/21 10:06 DL Document 06/10/21 09:24 DL [id number] 06/10/21 09:31 DL 05/27/21 06/10/21 09:56 09:24 Wound Center Nurse 1 #8 RIGHT AXILLA -Current Size (cm) - Length 2.3 2.1 -Current Size (cm) - Width 5.5 0.8 -Current Size (cm) - Depth 0.4 0.1 -Total Square Cm 12.65 1.68 -Photo Taken Yes No -Exudate Amt Small -Exudate Type Serosanguineous Serosanguineous -Wound Margin Distinct, Distinct, Outline Outline Attached Attached -Granulation Amt Large (67-100%) Large (67-100%) -Granulation Quality [place],Red Red -Necrosis Amt Small (1-33%) None Present (0 %) -Necrotic Tissue Type Adherent Slough -Structure Exposed N/A N/A -Texture ([place]-wound Skin Appearance) Scarring Scarring -Moisture ([place]-wound Skin Appearance) No Abnormality -Color ([place]-wound Skin Appearance) Assessed No Abnormality -Temperature ([place]-wound Skin No Abnormality Appearance) (Pt Warm) -Tenderness on Palpation ([place]-wound Yes No Skin Appearance) -Ulcer Cleansing Wound Cleanser Rinsed/ Irrigated with Saline -Foul Odor after Cleansing No No -Anesthetic Used 4% Lidocaine 5% Lidocaine Solution Gel #7 LEFT GROIN -Current Size (cm) - Length 2 1.1 -Current Size (cm) - Width 2 0.8 -Current Size (cm) - Depth 1.2 0.1 -Total Square Cm 4 0.88 -Photo Taken Yes No -Exudate Amt Medium Small -Exudate Type Serosanguineous -Wound Margin Distinct, Distinct, Outline Outline Attached Attached -Granulation Amt Large (67-100%) Large (67-100%) -Granulation Quality [place] Red -Necrosis Amt Small (1-33%) None Present (0 %) -Necrotic Tissue Type Adherent Slough -Structure Exposed N/A N/A -Texture ([place]-wound Skin Appearance) Scarring Scarring -Moisture ([place]-wound Skin Appearance) No Abnormality No Abnormality -Color ([place]-wound Skin Appearance) No Abnormality No Abnormality -Temperature ([place]-wound Skin No Abnormality No Abnormality Appearance) (Pt Warm) (Pt Warm) -Tenderness on Palpation ([place]-wound No No Skin Appearance) -Ulcer Cleansing Wound Cleanser Rinsed/ Irrigated with Saline -Foul Odor after Cleansing No No -Anesthetic Used 4% Lidocaine 5% Lidocaine Solution Gel WC - Nurse 2 - General Ulcer CM Notes Start: 05/27/21 09:56 Freq: Status: Active Protocol: Activity Type Activity Date Activity User E-Sign Co-Sign Detail Recorded Client Recorded Date Recorded By Document 05/27/21 10:16 JF [id number] 05/27/21 10:23 JF Document 06/10/21 09:33 JF [id number] 06/10/21 09:41 05/27/21 06/10/21 10:16 09:33 Wound Center Nurse 2 #8 RIGHT AXILLA -Time 10:17 09:35 -Correct Patient Yes Yes -Correct Side, Site, Position Yes Yes -Correct Procedure Yes Yes -Procedure Performed Yes Yes -Type of Procedure Debridement Debridement -Clinical Debridement Subcutaneous Subcutaneous -Tissue Removed Subcutaneous Subcutaneous -Post Debridement (cm) - Length 5.7 2.6 -Post Debridement (cm) - Width 2.5 1 -Post Debridement (cm) - Depth 0.9 0.1 -Total Square (Post) (cm) 14.25 2.6 -Area of Debridement (cm) - Length 5.7 2.6 -Area of Debridement (cm) - Width 2.5 1 -Total Square (Area) (cm) 14.25 2.6 -Tunneling No No -Undermining/Tunneling No No -Circular Undermining No No -Wound/Ulcer Outcome Not Healed Not Healed -Ulcer Cleansing Rinsed/ Rinsed/ Irrigated with Irrigated with Saline Saline -Foul Odor after Cleansing No No -Bioengineered Tissue No No -Bleeding Controlled with Pressure Pressure -Offloading No No -Treatment Response Procedure Procedure Tolerated Well Tolerated Well -Debridement - Subq, 1st 20sq cm Yes Yes #7 LEFT GROIN -Time 10:17 09:40 -Correct Patient Yes Yes -Correct Side, Site, Position Yes Yes -Correct Procedure Yes Yes -Procedure Performed Yes Yes -Type of Procedure Debridement Debridement -Clinical Debridement Subcutaneous Subcutaneous -Tissue Removed Subcutaneous Subcutaneous -Post Debridement (cm) - Length 2.2 2 -Post Debridement (cm) - Width 2.4 0.9 -Post Debridement (cm) - Depth 1.3 0.3 -Total Square (Post) (cm) 5.28 1.8 -Area of Debridement (cm) - Length 2.2 2 -Area of Debridement (cm) - Width 2.4 0.9 -Total Square (Area) (cm) 5.28 1.8 -Tunneling No No -Undermining/Tunneling No No -Circular Undermining No No -Wound/Ulcer Outcome Not Healed Not Healed -Ulcer Cleansing Rinsed/ Rinsed/ Irrigated with Irrigated with Saline Saline -Foul Odor after Cleansing No No -Bioengineered Tissue No No -Bleeding Controlled with Silver Nitrate Pressure -Offloading No No -Treatment Response Procedure Procedure Tolerated Well Tolerated Well -Debridement - Subq, 1st 20sq cm No No Pain Scale: 0-10 Numeric Is Patient Pain Free? Yes Yes - Nurse 3 - General Ulcer D/C NN Start: 05/27/21 09:56 Freq: Status: Active Protocol: Activity Type Activity Date Activity User E-Sign Co-Sign Detail Recorded Client Recorded Date Recorded By Document 05/27/21 14:57 NICOLÁS [id number] 05/27/21 14:57 NICOLÁS 05/27/21 14:57 Wound Care Nurse 3 #8 RIGHT AXILLA -Ulcer Cleansing Rinsed/ Irrigated with Saline -Negative Pressure Wound Therapy Continue -Setting (mmHg) 150 -Negative Pressure is Continuous -Regranex (If Applicable) Continue -NPWT Application Charge ($) NPWT </= 50 sq cm #7 LEFT GROIN -Ulcer Cleansing Rinsed/ Irrigated with Saline -Primary Dressing Applied Aquacel Extra -Primary Dressing Covered/Secured with Dry Gauze, Secured with Tape -Aquacel Extra 1 Pain Scale: 0-10 Numeric Is Patient Pain Free? Yes WC - Visit Discharge Discharge Condition Stable Ambulatory Status Ambulatory Transportation Private Auto Accompanied by self Wound debrided: axilla wound Laterality: Right Type of Debridement: Excisional debridement Anesthesia Used: 5% Lidocaine Gel Depth: Down to and including healthy tissue and in the subcutaneous layer Percentage of wound debrided: 100 Instrument Used: 3mm curette Tissue Removed: Subcutaneous tissue and slough Severity: Fat Layer Exposed Bleeding Controlled with: Pressure Patient tolerated procedure: Patient tolerated procedure well Additional Wound Wound debrided: groin wound cluster Laterality: Left Type of Debridement: Excisional debridement Anesthesia Used: 5% Lidocaine Gel Depth: Down to and including healthy tissue and in the subcutaneous layer Percentage of wound debrided: 100 Instrument Used: 3mm curette Tissue Removed: Subcutaneous tissue and slough Severity: Fat Layer Exposed Amount of bleeding with debridement: Mild Bleeding Controlled with: Pressure Patient tolerated procedure: Patient tolerated procedure well Assessment/Plan Assessment/Plan (1) Open wound of right axillary region with complication: CODE(S): S41.101A - Unspecified open wound of right upper arm, initial encounter (2) Open wound of vulva, complicated: CODE(S): S31.40XA - Unspecified open wound of vagina and vulva, initial encounter (3) Hidradenitis suppurativa: CODE(S): L73.2 - Hidradenitis suppurativa (4) Other acute postprocedural pain: CODE(S): G89.18 - Other acute postprocedural pain (5) Right upper limb pain: CODE(S): M79.601 - Pain in right arm PLAN: Wound care - Stop wound VAC to the right axilla and Dakin's to left groin. Start Aquacel-Ag to both the right axilla and the left groin ulcers daily, cover with gauze, secure with tape. Completed Levaquin and Doxycycline. Renewed Percocet (14 tabs) PDMP reviewed. Follow up 3 weeks due to the Holiday.
--- NOTE | 2021-06-10 09:56 | VDUE_ITS ---
Reason For Study: RUE PAIN AND SWELLING Right Proximal Right jugular vein is spontaneous, widely patent, phasic, with no intraluminal echogenicity noted. Right subclavian vein is spontaneous, widely patent, phasic, with no intraluminal echogenicity noted. Right Lower Arm Right radial vein is compressible. Right ulnar vein is compressible. Right Arm Right axillary vein is spontaneous, patent, phasic, competent, compressible and demonstrates augmentation. Right brachial vein is compressible. Right cephalic vein is compressible. Right basilic vein is compressible. VL/Venous Duplex US, Unilateral Interpretation Summary Deep veins of the right upper extremity are patent and compressible segmentally . There is no evidence of deep vein thrombosis. The superficial veins of the right upper extr emity, the basilic and cephalic veins, are patent and compressible. There is no evidence of right upper extremity superficial thrombophlebitis involving the veins imaged. Preliminary report sent to Jolie Stevenson @ [facility] @ 10:20 am. Ordering Physician: Jolie Stevenson Referring Physician: OTD Performed By: Cynthia Oneill, HELENA, RVT ?
== END 2021-06-18 23:59 ==
LOC: CVS 10:00
PROVIDERS: Visit Provider Nurse Practitioner Family
DX: S41.101D Unspecified open wound of right upper arm, subsequent encounter (principal)
CPT/HCPCS: 11042; 93971; 97605; 99213; G0463

== ENCOUNTER 2021-06-19 15:57 | Emergency (ER) | payer MEDICAID, SELFPAY ==
[2021-06-19 15:58] VITALS: BP 140/76; PULSE 88; RESP 17; TEMP 37.1; O2SAT 97; BMI 28.3
--- NOTE | 2021-06-19 16:33 | EDS_ITS ---
HPI History of Present Illness Chief Complaint: Wound Informant: patient Onset/Context/Timing Onset: Today Context: Gradual Onset Timing: Continuous Current Severity: Mild Maximum Severity: Mild Narrative Narrative: 45-year-old female history of CAD, kidney stones and hydrated form suppurativa. May 16 she had surgery done by Dr. Fraga for right axilla and left groin abscesses. Today she said wound care nurses evaluate her wound tomorrow to be evaluated. She is currently on doxycycline and has been since the surgery. She denies any fever or chills. Prior similar symptoms: Yes Recent Illness/Hospitalization: No PFSH PFS Medical History Abscess Anemia Anxiety Anxiety and depression Asthma Bipolar disorder Breast lump in female Chest pain Chronic bronchitis Depression DVT (deep venous thrombosis) Gastrointestinal problem GERD (gastroesophageal reflux disease) Heart valve problem High cholesterol History of blood clots IBS (irritable bowel syndrome) Kidney stones Migraines On home oxygen therapy Recurrent infections Thyroid disease Vascular disease Home Medications hydroxyzine HCl 50 mg tablet 50 mg PO QHS 06/21/19 [History Last Taken 1 Day Ago ~05/12/21] metoprolol tartrate 25 mg tablet 25 mg PO BID 06/21/19 [History Last Taken 05/13/21 08:00] omeprazole 40 mg PO DAILY 10/21/19 [History Last Taken 05/13/21 08:00] promethazine 25 mg PO 4X/DAY PRN PRN #30 tab 10/29/19 [Rx Last Taken Unknown] ondansetron HCl 8 mg PO Q8H PRN PRN 11/14/19 [History Last Taken Unknown] albuterol sulfate 1 - 2 puff INHALATION Q4H PRN PRN 03/05/20 [History Last Taken 05/29/20 09:00] sennosides-docusate sodium 4 ea PO QODAY 03/05/20 [History Last Taken Unknown] aspirin 81 mg PO DAILY@0800 07/27/20 [History Last Taken 05/13/21 08:00] amlodipine [Norvasc] 2.5 mg PO DAILY 05/13/21 [History Last Taken Unknown] atorvastatin [Lipitor] 40 mg PO DAILY 05/13/21 [History Last Taken 05/13/21 08:00] lisinopril 2.5 mg PO DAILY 05/13/21 [History Last Taken Unknown] diazepam [Valium] 5 mg PO TID PRN #20 tab 05/17/21 [Rx Last Taken Unknown] doxycycline monohydrate 100 mg PO BID #60 cap 05/17/21 [Rx Last Taken Unknown] oxycodone-acetaminophen [Percocet] 1 tab PO Q4H PRN 7 Days #40 tab 05/17/21 [Rx Last Taken Unknown] Allergy/AdvReac Type Severity Reaction Status Date / Time codeine Allergy Mild Rash Verified 06/19/21 15:58 [From Tylenol-Codeine #3] sulfamethoxazole Allergy Mild Rash Verified 06/19/21 15:58 [From Bactrim] trimethoprim [From Bactrim] Allergy Mild Rash Verified 06/19/21 15:58 adhesive tape Allergy Rash Verified 06/19/21 15:58 IVP DYE Allergy Severe increased Uncoded 06/19/21 15:58 HR, rash, itchy throat Family History Mother Anxiety and depression Arthritis History of blood clots History of blood transfusion Heart disease Severe allergy CVA (cerebral vascular accident) History of ulcer disease Grandmother Asthma Anxiety and depression Heart disease Kidney disease CVA (cerebral vascular accident) Grandfather Heart disease Lung cancer Surgical History History of appendectomy History of breast lump/mass excision History of cholecystectomy History of drainage of abscess History of embolectomy History of hernia repair History of hidradenitis suppurativa History of hysterectomy History of left heart catheterization History of right knee surgery History of tonsillectomy Social History Smoking Status: Current every day smoker tobacco type: cigarettes alcohol intake: never additional social history: DOES USE ASPIRIN DOES NOT USE IBUPROFEN ROS ROS ED ROS Narrative Denies. Review of Systems ROS Unobtainable: Denies due to encephalopathy Constitutional Constitutional ED: Denies chills or fever(s) Eyes Eyes: Denies change in vision ENT ENT ED: Denies ear pain Cardiovascular Cardiovascular: Denies chest pain or palpitations Respiratory/Chest Respiratory/Chest: Denies cough or dyspnea Gastrointestinal Gastrointestinal: Denies abdominal pain, diarrhea, nausea or vomiting Genitourinary Genitourinary ED: Denies dysuria Musculoskeletal Musculoskeletal: Denies myalgias Integumentary Denies rash Neurologic Neurologic: Denies headache(s) Psychiatric Psychiatric: Denies depression Endocrine Endocrinology: Denies polyuria Allergic/Immunologic Allergic/Immunologic ED: Denies urticaria EXAM Physical Exam Narrative Exam Narrative: Middle-aged female no acute distress vital signs stable af ebrile. Lungs are clear. Heart regular rate and rhythm. Abdomen soft nontender. She has had resections of her right and left axilla and right and left groin. All appear very good. I will see no signs of infection is no cellulitis. The scar tissue. There is no drainage or redness. There is no pus. Left groin area is mildly tender. Otherwise exam unremarkable. I explained the patient I do not see any obvious signs of current infection. Const Vital Signs: 06/19/21 15:58 Temperature 98.8 F Temperature Source Temporal Pulse Rate 88 Respiratory Rate 17 Blood Pressure 140/76 H Blood Pressure Mean 97 Pulse Ox 97 Oxygen Delivery Method Room Air Positive well nourished and well developed; Negative for unkempt General Appearance ED: well developed and NAD; Negative for unkempt HEENT Reports moist mucous membranes Negative for trauma or tenderness Eyes PERRL and EOMs intact bilaterally Neck no lymphadenopathy, supple and no JVD General: Negative for tenderness Chest Wall inspection of chest normal and palpation of chest normal Resp normal respiratory effort and clear to auscultation bilaterally Effort and Inspection: pain with movement Cardio regular rate, regular rhythm, S1 normal heart sound, S2 normal heart sound and no murmurs GI normal to inspection, nondistended, normoactive bowel sounds, non-tender, non- distended and no masses Inspection: Negative for abdominal distention Auscultation: normoactive bowel sounds Palpation: soft; Negative for tender, guarding or rebound tenderness present Extremity normal to inspection Extremity Narrative: Prior surgical wounds in right left groin and right and left axilla. Nicely healing well. I will see any signs of infection. There is no cellulitis. There are no abscesses. Neuro oriented x3 and CN's II-XII intact bilaterally Sensorium / Orientation: alert; Negative for lethargic or stuporous Motor Exam: strength 5/5 throughout Psych mental status grossly normal Appearance: Negative for unkempt Skin no rashes or lesions noted Skin Narrative: Well-healing surgical sites. No signs of infection. MDM MDM MDM Narrative Medical decision making narrative: 45-year-old female status post surgery hydr. suppurativa abscesses. Are well-healing. There is no signs of infection. She is currently on doxycycline and will follow up with her plastic surgeon. Discharge Plan Triage Chief Complaint: Wound ED Provider: Garth Slaughter Dx/Rx/DC Orders Clinical Impression: Encounter for postoperative wound check Instructions: ED Wound Check (No Infection) Prescriptions: No Action metoprolol tartrate 25 mg tablet 25 mg PO BID RF: 0 hydroxyzine HCl 50 mg tablet 50 mg PO QHS RF: 0 omeprazole 40 MG capsule,delayed release(DR/EC) 40 mg PO DAILY RF: 0 promethazine 25 MG tablet 25 mg PO 4X/DAY PRN PRN (Reason: Nausea) Qty: 30 RF: 1 ondansetron HCl 8 MG tablet 8 mg PO Q8H PRN PRN (Reason: Nausea) RF: 0 sennosides-docusate sodium 1 EACH tablet 4 ea PO QODAY RF: 0 albuterol sulfate 1 PUFF inhaler 1 - 2 puff inhalation Q4H PRN PRN (Reason: Asthma) RF: 0 aspirin 81 MG tablet 81 mg PO DAILY@0800 RF: 0 atorvastatin [Lipitor] 40 mg Tablet 40 mg PO DAILY RF: 0 amlodipine [Norvasc] 2.5 mg Tablet 2.5 mg PO DAILY RF: 0 lisinopril 2.5 mg Tablet 2.5 mg PO DAILY RF: 0 oxycodone-acetaminophen [Percocet] 5-325 mg tablet 1 tab PO Q4H PRN (Reason: pain (scale score 7-10)) 7 Days Qty: 40 RF: 0 diazepam [Valium] 5 mg tablet 5 mg PO TID PRN (Reason: spasms) Qty: 20 RF: 0 doxycycline monohydrate 100 mg capsule 100 mg PO BID Qty: 60 RF: 1 Primary Care Provider: Scotty Kohler,Out of Referrals: Ronnell Fraga MD [STAFF PHYSICIAN] - As soon as possible Scotty Kohlre,Out of [Primary Care Provider] - Activity Restrictions/Additional Instructions: The wounds appear to be healing well I do not see any signs of infection currently. Continue on your current antibiotic doxycycline. Call Dr. Fraga's office either this evening or first thing tomorrow morning and get an appointment set up to be seen in the next several days. Disposition Disposition: Home, Self Care
[2021-06-19] MEDS: COVID-19 VAC,AD26(JANSSEN)/PF 0.5 ML SYRINGE IM (17:08)
[2021-06-19 17:18] VITALS: BP 140/76; PULSE 88; RESP 17; TEMP 37.1; O2SAT 97
[2021-06-19 17:34] VITALS: BP 138/77; PULSE 62; RESP 15; O2SAT 98
== END 2021-06-19 17:35 | disposition home or self-care (01) ==
LOC: ED 16:45
PROVIDERS: Emergency Provider Emergency Medicine
DX: Z48.01 Encounter for change or removal of surgical wound dressing (principal); E78.00 Pure hypercholesterolemia, unspecified; F31.9 Bipolar disorder, unspecified; F41.9 Anxiety disorder, unspecified; I25.10 Atherosclerotic heart disease of native coronary artery without angina pectoris; J44.9 Chronic obstructive pulmonary disease, unspecified; K58.9 Irritable bowel syndrome, unspecified; K21.9 Gastro-esophageal reflux disease without esophagitis; G43.909 Migraine, unspecified, not intractable, without status migrainosus; Z86.2 Personal history of diseases of the blood and blood-forming organs and certain disorders involving the immune mechanism; Z87.442 Personal history of urinary calculi; Z86.718 Personal history of other venous thrombosis and embolism; Z79.82 Long term (current) use of aspirin; Z79.899 Other long term (current) drug therapy; F17.210 Nicotine dependence, cigarettes, uncomplicated
CPT/HCPCS: 91303; 99282

== ENCOUNTER 2021-07-08 08:56 | Outpatient (RCR) | payer MEDICAID, SELFPAY ==
[2021-06-19 00:39] VITALS: BP 118/70; PULSE 79; RESP 18; TEMP 36.6; BMI 27.4
[2021-07-08 09:03] VITALS: BP 127/68; PULSE 78; TEMP 36; BMI 27.4
--- NOTE | 2021-07-08 12:54 | PCM.WC.PN ---
History of Present Illness Date of Service: 07/08/21 Chief Complaint: Painful hidradenitis flare-ups right axilla and left groin. History of Wound: 45 year old woman presents with recent flare up of hidradenitis in her right axillary area and left vulval area. She complains of increasing pain and swelling and redness. She has had multiple trips to the ED and has been placed on antibiotics and was admitted and placed on IV antibiotics before she had surgery. Surgery 05/16/2021 - 1. Surgical preparation right axilla with excision hidradenitis (28 cm2). 2. Surgical preparation left vulval area involving genitocrural crease with excision hidradenitis and partial vulvectomy including deep subcutaneous tissue (9 cm2). Wound care - Collagen hydrogel covered with gauze to left groin daily. Right axilla is healed. Discharged home on Levaquin and doxycycline, which she has completed. Operative cultures from 05/16/2021 were all negative for bacterial growth. She continues to have right arm pain, scheduled for ultrasound today to evaluate for DVT. Today denies any fever chills nausea vomiting. She states she has a good appetite. Progress of Wound: Right axilla is healed. Left groin is almost healed, there is a pin hole size opening. Objective Data Objective Data Vital Signs: Vital Signs Temp Pulse Resp BP 96.8 F L 78 18 127/68 H 07/08/21 09:03 07/08/21 09:03 06/19/21 00:39 07/08/21 09:03 Weight: 176 lb 0.217 oz Body Mass Index (BMI) 27.4 Charges/Coding Procedures Integumentary [id number]: [id number] Global Visit Physical Exam Const alert and oriented x3 HEENT normocephalic Lymph Lymphatic: no lymphedema noted Resp normal respiratory effort Cardio regular rate GI Palpation: soft Extremity normal capillary refill Skin Skin Narrative: Right axilla ulcer is healed today. Left groin ulcer is almost healed. There is a pin hole size opening in the left groin. Debridement Note Debridement Note Wound debrided: Groin ulcer Laterality: Left Type of Debridement: Excisional debridement Anesthesia Used: 5% Lidocaine Gel Depth: Down to and including healthy tissue and in the subcutaneous layer Percentage of wound debrided: 100 Instrument Used: - (#1 curette) Tissue Removed: subcutaneous tissue and slough Severity: Limited To Skin Breakdown Amount of bleeding with debridement: Mild Bleeding Controlled with: Pressure Patient tolerated procedure: Patient tolerated procedure well Post-Debridement Measurements and Additional Note: Post-Debridement Measurements/Treatment - Nurse 1 - General Ulcer Assessment Start: 07/08/21 08:57 Freq: Status: Active Protocol: ANTONIA Activity Type Activity Date Activity User E-Sign Co-Sign Detail Recorded Client Recorded Date Recorded By Document 07/08/21 09:03 NICOLÁS [id number] 07/08/21 09:06 NICOLÁS 07/08/21 09:03 - Today's Visit Information Type of service Follow-up Visit (Physician/SENIOR MANUFACTURING TECHNICIAN ) Arrival Mode Ambulatory Patient Identification Verified (Name & Yes ) Height and Weight Body Mass Index (BMI) 27.4 BMI Classification Overweight Vital Signs Temperature (97.8 F-99.1 F) 96.8 F L Temperature Source Oral Pulse Rate (60-100) 78 Pulse Location Monitor Blood Pressure (90/60-120/80) 127/68 H Blood Pressure Mean (mm Hg) 87 Source Monitor Position Semi-Fowlers Blood Pressure Location Right Arm History Since Last Visit- (Skip if this is Patient's initial visit) Have you changed medications since your No last visit? Any new allergies or adverse reactions No Had a fall/change in ADL's that may No increase risk of falls Signs or symptoms of abuse and/or No neglect since last visit Have you been in the hospital since your No last visit? Has dressing in place as prescribed Yes Has compression in place as prescribed N/A Has offloadiing in place as prescribed N/A Experienced any changes in pain level or No management Left Footwear Regular Shoe Right Footwear Regular Shoe Pain Scale: 0-10 Numeric Is Patient Pain Free? Yes - Nurse 1 - General Ulcer Measurement Start: 07/08/21 08:57 Freq: Status: Active Protocol: Activity Type Activity Date Activity User E-Sign Co-Sign Detail Recorded Client Recorded Date Recorded By Document 07/08/21 09:03 NICOLÁS [id number] 07/08/21 09:06 NICOLÁS 07/08/21 09:03 Wound Center Nurse 1 #8 RIGHT AXILLA -Current Size (cm) - Length 0.1 -Current Size (cm) - Width 0.1 -Current Size (cm) - Depth 0.1 -Total Square Cm 0.01 -Granulation Amt Large (67-100%) -Granulation Quality [place] -Necrosis Amt None Present (0 %) -Texture ([place]-wound Skin Appearance) Assessed, Localized Edema -Moisture ([place]-wound Skin Appearance) No Abnormality, Assessed -Color ([place]-wound Skin Appearance) No Abnormality, Assessed -Temperature ([place]-wound Skin No Abnormality Appearance) (Pt Warm) -Tenderness on Palpation ([place]-wound No Skin Appearance) -Ulcer Cleansing Rinsed/ Irrigated with Saline -Foul Odor after Cleansing No -Anesthetic Used 5% Lidocaine Gel #7 LEFT GROIN -Current Size (cm) - Length 0.2 -Current Size (cm) - Width 0.2 -Current Size (cm) - Depth 0.1 -Total Square Cm 0.04 -Exudate Amt Small -Exudate Type Serosanguineous -Wound Margin Distinct, Outline Attached -Granulation Amt Medium (34-66%) -Granulation Quality [place] -Necrosis Amt None Present (0 %) -Texture ([place]-wound Skin Appearance) Assessed, Scarring -Moisture ([place]-wound Skin Appearance) No Abnormality, Assessed -Color ([place]-wound Skin Appearance) No Abnormality, Assessed -Temperature ([place]-wound Skin No Abnormality Appearance) (Pt Warm) -Tenderness on Palpation ([place]-wound No Skin Appearance) -Ulcer Cleansing Rinsed/ Irrigated with Saline -Foul Odor after Cleansing No -Anesthetic Used 5% Lidocaine Gel WC - Nurse 2 - General Ulcer CM Notes Start: 07/08/21 08:57 Freq: Status: Active Protocol: Activity Type Activity Date Activity User E-Sign Co-Sign Detail Recorded Client Recorded Date Recorded By Document 07/08/21 09:06 NINA [id number] 07/08/21 09:10 NINA 07/08/21 09:06 Wound Center Nurse 2 #8 RIGHT AXILLA -Correct Patient No -Correct Side, Site, Position No -Correct Procedure No -Procedure Performed No -Post Debridement (cm) - Length 0 -Post Debridement (cm) - Width 0 -Post Debridement (cm) - Depth 0 -Total Square (Post) (cm) 0 -Area of Debridement (cm) - Length 0 -Area of Debridement (cm) - Width 0 -Total Square (Area) (cm) 0 -Wound/Ulcer Outcome Healed- Epithelialized #7 LEFT GROIN -Time 09:07 -Correct Patient Yes -Correct Side, Site, Position Yes -Correct Procedure Yes -Procedure Performed Yes -Type of Procedure Debridement -Clinical Debridement Subcutaneous -Tissue Removed Subcutaneous -Post Debridement (cm) - Length 0.1 -Post Debridement (cm) - Width 0.1 -Post Debridement (cm) - Depth 0.2 -Total Square (Post) (cm) 0.01 -Area of Debridement (cm) - Length 0.1 -Area of Debridement (cm) - Width 0.1 -Total Square (Area) (cm) 0.01 -Tunneling No -Undermining/Tunneling No -Circular Undermining No -Wound/Ulcer Outcome Not Healed -Ulcer Cleansing Rinsed/ Irrigated with Saline -Foul Odor after Cleansing No -Bioengineered Tissue No -Bleeding Controlled with Pressure -Offloading No -Treatment Response Procedure Tolerated Well -Debridement - Subq, 1st 20sq cm Yes Pain Scale: 0-10 Numeric Is Patient Pain Free? Yes - Nurse 3 - General Ulcer D/C NN Start: 07/08/21 08:57 Freq: Status: Active Protocol: Activity Type Activity Date Activity User E-Sign Co-Sign Detail Recorded Client Recorded Date Recorded By Document 07/08/21 09:16 DL [id number] 07/08/21 09:17 DL 07/08/21 09:16 Wound Care Nurse 3 #7 LEFT GROIN -Ulcer Cleansing Rinsed/ Irrigated with Saline -Foul Odor after Cleansing No -Primary Dressing Applied C Hydrogel ($) -Primary Dressing Covered/Secured with Dry Gauze, Secured with Tape Treatment Response Procedure Tolerated Well Pain Scale: 0-10 Numeric Is Patient Pain Free? Yes - Visit Discharge Discharge Condition Stable Ambulatory Status Ambulatory Transportation Private Auto Assessment/Plan Assessment/Plan (1) Chronic skin ulcer with fat layer exposed: CODE(S): L98.492 - Non-pressure chronic ulcer of skin of other sites with fat layer exposed (2) Hidradenitis suppurativa: CODE(S): L73.2 - Hidradenitis suppurativa (3) Smoker: CODE(S): F17.200 - Nicotine dependence, unspecified, uncomplicated PLAN: Wound care - Collagen hydrogel covered by gauze daily and as needed. Home health has been discontinued since she is almost healed. Massage the right axilla scarring to help soften the scarring. Completed Levaquin and Doxycycline. Follow up 2 weeks.
== END 2021-07-18 23:59 ==
LOC: WC 08:56
PROVIDERS: Visit Provider Nurse Practitioner Family
DX: L73.2 Hidradenitis suppurativa (principal); L98.491 Non-pressure chronic ulcer of skin of other sites limited to breakdown of skin; M79.601 Pain in right arm; E66.3 Overweight; Z68.27 Body mass index [BMI] 27.0-27.9, adult; F17.200 Nicotine dependence, unspecified, uncomplicated; Z79.82 Long term (current) use of aspirin; Z79.899 Other long term (current) drug therapy
CPT/HCPCS: 11042